=== PATIENT | male | born 1975 | race Caucasian/White ===

== ENCOUNTER 2017-02-07 08:26 | Emergency (ER) | payer OTHER ==
[2017-02-07 08:26] VITALS: BMI 25.0
[2017-02-07 08:35] VITALS: TEMP 98.3
[2017-02-07] MEDS ORDERED: Sodium Chloride 0.9% 1,000 ML IV ONE (08:54)
[2017-02-07] MEDS ORDERED: Sodium Chloride 0.9% 1,000 ML ONE (08:59)
[2017-02-07 09:21] LABS: BASO % 0.8 % (0.0-2.0); EOS # 0.3 K/uL (0.0-0.7); EOS % 12.8 % (0.0-4.0); HEMATOCRIT 40.9 % (35.0-51.0); LYMPH # 1.2 K/uL (1.0-4.3); LYMPH % 48.5 % (20.0-40.0); MEAN CELL VOLUME 86.3 fL (80.0-94.0); MEAN CORPUSCULAR HEMOGLOBIN 29.3 pg (27.0-31.0); MEAN CORPUSCULAR HGB CONC 33.9 g/dL (33.0-37.0); MEAN PLATELET VOLUME 8.9 fL (7.2-11.7); MONO # 0.4 K/uL (0.0-0.8); MONO % 17.6 % (0.0-10.0); NRBC % 0.2 % (0.0-2.0); RED CELL DISTRIBUTION WIDTH 14.4 % (11.5-14.5); WHITE BLOOD COUNT 2.4 K/uL (4.8-10.8)
[2017-02-07] MEDS ORDERED: Multivitamin (MVI) 10 ML, Thiamine 100 MG, Folic Acid 1 MG in Sodium Chloride 0.9% 1,00... IV ONE (09:25)
[2017-02-07 09:26] LABS: CHLORIDE 109 mmol/L (98-107); SODIUM 139 mmol/L (132-148)
[2017-02-07 09:27] LABS: POTASSIUM 3.3 mmol/L (3.6-5.2)
[2017-02-07 09:28] LABS: GFR AFRICAN-AMERICAN > 60; INR 1.4
[2017-02-07 09:29] LABS: ALB/GLOB RATIO 0.8 (1.0-2.1); ALKALINE PHOSPHATASE 240 U/L (38-126); ALT/SGPT 62 U/L (21-72); AST/SGOT 113 U/L (17-59); BLOOD UREA NITROGEN 7 mg/dL (9-20); CARBON DIOXIDE 20 mmol/L (22-30); GLUCOSE,RANDOM 87 mg/dL (75-110); TOTAL PROTEIN 6.2 g/dL (6.3-8.3)
[2017-02-07 09:30] LABS: CALCIUM 7.7 mg/dl (8.6-10.4)
--- NOTE | 2017-02-07 09:57 | C.PDOC ---
History Of Present Illness Patient is a 41 y/o male, whose PMHx includes Alcohol abuse, Hepatic encephalopathy, Cirrhosis, Hepatitis C, HTN, presents to the ED for evaluation of intermittent epigastric abdominal pain associated with nausea, vomiting for the last 3 days. As per family member, pt's symptoms worsened "last night after drinking heavily for Easter celebration". At present time, pt appears in pain, uncomfortable, awake, alert#3, pt denies fever, chills, drooling, CP, SOB, dyspnea, diaphoresis, palpitation, hematemesis, melena, hematoschezia, back pain , UTI sx. Pt and family also reports, noted some bruising on body. Time Seen by Provider: 02/07/17 08:39 Chief Complaint (Nursing): Abdominal Pain History Per: Patient History/Exam Limitations: no limitations Onset/Duration Of Symptoms: Days (3) Current Symptoms Are (Timing): Still Present Location Of Pain/Discomfort: Epigastric Radiation Of Pain To:: None Quality Of Discomfort: Burning, "Pain" Associated Symptoms: Nausea, Vomiting. denies: Fever, Chills, Diarrhea, Loss Of Appetite, Back Pain, Chest Pain, Constipation, Urinary Symptoms Exacerbating Factors: None Alleviating Factors: None Recent travel outside of the [place]: No Additional History Per: Patient Past Medical History Reviewed: Historical Data, Nursing Documentation, Vital Signs Vital Signs: Last Vital Signs Temp 98.3 F 02/07/17 11:45 Pulse 78 02/07/17 12:40 Resp 17 02/07/17 11:45 BP 124/77 02/07/17 11:45 Pulse Ox 100 02/07/17 11:45 - Medical History PMH: Hepatitis (C), HTN, Kidney Stones (burning with urination), Chronic Kidney Disease - [facility] Procedures CLOSURE SKIN & SUBCUTANEOUS NEC (06/19/15) DETOXIFICATION SERVICES FOR SUBSTANCE ABUSE TREATMENT (12/22/15) DRAINAGE OF SPINAL CANAL, PERCUTANEOUS APPROACH, DIAGNOSTIC (03/30/16) EXCISION OF STOMACH, ENDO, DIAGN (09/12/16) TETANUS TOXOID ADMINIST (06/19/15) Family History: States: Unknown Family Hx - Social History Hx Tobacco Use: Yes Hx Alcohol Use: Yes Hx Substance Use: No - Immunization History Hx Tetanus Toxoid Vaccination: No Hx Influenza Vaccination: No Hx Pneumococcal Vaccination: No Review Of Systems Except As Marked, All Systems Reviewed And Found Negative. Constitutional: Negative for: Fever, Chills Cardiovascular: Negative for: Chest Pain Respiratory: Negative for: Shortness of Breath Gastrointestinal: Positive for: Nausea, Vomiting, Abdominal Pain (epigastric). Negative for: Diarrhea, Constipation, Hematemesis Genitourinary: Negative for: Dysuria, Frequency, Hematuria Musculoskeletal: Negative for: Back Pain Physical Exam - Physical Exam Appears: No Acute Distress Skin: Warm, Dry, Ecchymosis (superficial ecchymosis to left inner thigh and right forearm) Head: Atraumatic, Normacephalic Eye(s): bilateral: PERRL, EOMI, Scleral Icterus Nose: Normal Oral Mucosa: Dry, No Drooling, Other ((+)strong alcohol odor) Tongue: Normal Appearing Throat: Normal Neck: Normal, Normal ROM, Supple Chest: Symmetrical, No Tenderness Cardiovascular: Rhythm Regular Respiratory: Normal Breath Sounds, No Rales, No Rhonchi, No Wheezing Gastrointestinal/Abdominal: Soft, Tenderness (mild RUQ, and epigastric), No Organomegaly, No Mass, No Guarding, No Rebound Back: Normal Inspection Extremity: Swelling (B/L trace ankle edema.) Extremity: Bilateral: Normal ROM Neurological/Psych: Oriented x3, Normal Speech, Normal Cognition, Normal Motor, Normal Sensation, Normal Reflexes ED Course And Treatment - Laboratory Results Result Diagrams: 02/07/17 09:13 02/07/17 09:13 Lab Interpretation: Abnormal ECG: Interpreted By Me, Viewed By Me (and ED attending) Interpretation Of ECG: SR@85/min, LVH, no acute T wave or ST-T changes. O2 Sat by Pulse Oximetry: 98 (on RA) Pulse Ox Interpretation: Normal Progress Note: Labs ordered and reviewed. Patient was treated with IV fluids, Pepcid IVP, Pantoprazole IVP, and Zofran inj. Pt remained hemodynamicaly stable , while in ED. Diagnostics reivew and discussed with ED attending, admission recommnend. Case discussed withpt's PMD Dr. Will and admission arrnaged with Dx: Ammonemia, Cirrosis, E-lytes abnoramlities, hx of hepatoc encephalopathy. Disposition - Disposition Disposition: HOSPITALIZED Disposition Time: 10:45 Condition: FAIR - Clinical Impression Clinical Impression: Hepatic encephalopathy, Alcohol intoxication, Increased ammonia level, Electrolyte abnormality - PA / EMPLOYMENT PROGRAMS ANALYST / Resident Statement MD/DO has reviewed & agrees with the documentation as recorded. - Scribe Statement The provider has reviewed the documentation as recorded by the Scribe Nas Allen All medical record entries made by the Cristinibguadalupe were at my direction and personally dictated by me. I have reviewed the chart and agree that the record accurately reflects my personal performance of the history, physical exam, medical decision making, and the department course for this patient. I have also personally directed, reviewed, and agree with the discharge instructions and disposition.
[2017-02-07 11:45] VITALS: BP 124/77; RESP 17
[2017-02-07 12:01] LABS: URINE BILIRUBIN NEGATIVE (NEGATIVE); URINE BLOOD NEGATIVE (NEGATIVE); URINE COLOR Yellow (YELLOW); URINE GLUCOSE (UA) NORMAL (Normal); URINE KETONE NEGATIVE (NEGATIVE); URINE LEUKOCYTE ESTERASE NEG Leu/uL (Negative); URINE PROTEIN NEGATIVE (NEGATIVE); URINE UROBILINOGEN NORMAL mg/dL (0.2-1.0); WBC URINE < 1 /hpf (0-5)
[2017-02-07 13:14] VITALS: PULSE 78
[2017-02-07 17:53] VITALS: O2SAT 98
--- NOTE | 2017-02-09 07:59 | CARD ---
APPROVED REPORT EKG Measurement Heart [id number] <Conclusion> Normal sinus rhythm Minimal voltage criteria for LVH, may be normal variant Borderline ECG
== END 2017-02-07 14:09 | disposition left against medical advice (07) ==
LOC: C.ER 08:26 → C.9E 10:40 → UNDOADMIN 10:40 → C.6T 11:33 → C.9E 11:33 → C.ER 14:09 → UNDODISIN 14:09
DX: K72.90 Hepatic failure, unspecified without coma (principal); F10.129 Alcohol abuse with intoxication, unspecified; Y90.0 Blood alcohol level of less than 20 mg/100 ml; R79.89 Other specified abnormal findings of blood chemistry; E87.8 Other disorders of electrolyte and fluid balance, not elsewhere classified
CPT/HCPCS: 80053; 80320; 80324; 80345; 80346; 80349; 80353; 80358; 80361; 81001; 82140; 83690; 83992; 85025; 85610; 85730; 93005; 96361; 96374; 96375; 99285; C9113; J2405; J3411; J7040

== ENCOUNTER 2017-07-13 19:14 | Emergency (ER) | payer OTHER ==
[2017-07-13 19:16] VITALS: BMI 25.0
[2017-07-13 20:39] LABS: RBC URINE 35 /hpf (0-3); URINE BACTERIA FEW (<OCC); URINE BILIRUBIN NEGATIVE (NEGATIVE); URINE BLOOD 1+ (NEGATIVE); URINE COLOR Amber (YELLOW); URINE GLUCOSE (UA) NORMAL (Normal); URINE KETONE NEGATIVE (NEGATIVE); URINE LEUKOCYTE ESTERASE NEG Leu/uL (Negative); URINE PROTEIN NEGATIVE (NEGATIVE); WBC URINE 7 /hpf (0-5)
[2017-07-13] MEDS ORDERED: Sodium Chloride 0.9% 1,000 ML IV ONE (21:22)
[2017-07-13] MEDS ORDERED: Sodium Chloride 0.9% 1,000 ML ONE (21:31)
[2017-07-13] MEDS ORDERED: Morphine 4 MG/ML VIAL ONE (21:31)
[2017-07-13 21:49] LABS: BASO % 0.6 % (0.0-2.0); EOS # 0.3 K/uL (0.0-0.7); EOS % 7.7 % (0.0-4.0); HEMATOCRIT 40.3 % (35.0-51.0); LYMPH # 1.6 K/uL (1.0-4.3); LYMPH % 39.9 % (20.0-40.0); MEAN CORPUSCULAR HEMOGLOBIN 29.2 pg (27.0-31.0); MONO # 0.8 K/uL (0.0-0.8); MONO % 20.7 % (0.0-10.0); NRBC % 0.1 % (0.0-2.0); PLATELET COUNT 176 K/uL (130-400); RED CELL DISTRIBUTION WIDTH 13.8 % (11.5-14.5); WHITE BLOOD COUNT 3.9 K/uL (4.8-10.8)
[2017-07-13 22:00] LABS: CHLORIDE 111 mmol/L (98-107)
[2017-07-13 22:01] LABS: POTASSIUM 3.5 mmol/L (3.6-5.2); SODIUM 138 mmol/L (132-148)
[2017-07-13 22:03] LABS: ALB/GLOB RATIO 0.7 (1.0-2.1); ALKALINE PHOSPHATASE 202 U/L (38-126); AST/SGOT 74 U/L (17-59); BILIRUBIN,TOTAL 1.3 mg/dL (0.2-1.3); BLOOD UREA NITROGEN 8 mg/dL (9-20); CARBON DIOXIDE 21 mmol/L (22-30); GFR AFRICAN-AMERICAN > 60; GLUCOSE,RANDOM 91 mg/dL (75-110); TOTAL PROTEIN 6.5 g/dL (6.3-8.3)
[2017-07-13 22:04] LABS: ALT/SGPT 41 U/L (21-72); CALCIUM 7.7 mg/dl (8.6-10.4)
[2017-07-13 22:11] LABS: INR 1.4
--- NOTE | 2017-07-13 23:10 | CT ---
EXAM: CT Abdomen and Pelvis Without Intravenous Contrast CLINICAL HISTORY: 41 years old, male; Pain; Abdominal pain; Flank; Left lower quadrant (llq); Additional info: Left flank pain, microscopic hematuria TECHNIQUE: Axial computed tomography images of the abdomen and pelvis without intravenous contrast. All CT scans at this facility use one or more dose reduction techniques, viz.: automated exposure control; ma/kV adjustment per patient size (including targeted exams where dose is matched to indication; i.e. head); or iterative reconstruction technique. Coronal and sagittal reformatted images were created and reviewed. COMPARISON: CT - CHEST,ABD,PEL W/IV CONT ONLY 04/06/2016 7:09:42 PM FINDINGS: Lower thorax: Irregular nodules within the left lung base, an interval change from previous examination. The largest nodule measures 13 mm in greatest dimension (series 5, image 34). ABDOMEN: Liver: No acute findings Gallbladder and bile ducts: The gallbladder is minimally distended, without calcified stones. No intra-extrahepatic biliary ductal dilation. Pancreas: Limited evaluation secondary to the lack of intravenous contrast. Spleen: No acute findings. Adrenals: No acute findings. Kidneys and ureters: No obstructing stones. No hydronephrosis. PELVIS: Bladder: No acute findings. Reproductive: No acute findings. Appendix: The appendix is not definitively visualized, however no pericecal inflammatory change is identified to suggest the presence of acute appendicitis. ABDOMEN and PELVIS: Stomach and bowel: No acute findings. Peritoneum: No acute findings. Lymph nodes: Multiple minimally enlarged lymph nodes are again identified within the root of the mesentery and the retroperitoneum. Vasculature: No aortic aneurysm. Bones: No acute fracture. IMPRESSION: No obstructive uropathy. Multiple irregular nodules within the left lung base, the largest measuring 13 mm. ACR White Paper guidelines (Mellholeonela, et al. Radiology 2017; 284(1):228-43) suggest the following. For low-risk patients recommend follow-up chest CT at 3-6 months. If unchanged consider an additional follow-up CT at 18-24 months. For high-risk patients initial follow-up chest CT at 3-6 months and if unchanged, 18-24 months.
[2017-07-13 23:27] LABS: EOSINOPHIL 6 % (0-4); NEUTROPHIL 28 % (50-75); TOTAL CELLS COUNTED 100
[2017-07-13 23:28] LABS: SMUDGE CELLS PRESENT
--- NOTE | 2017-07-13 23:39 | C.PDOC ---
History Of Present Illness Pt c/o left flank pain. Time Seen by Provider: 07/13/17 20:27 Chief Complaint (Nursing): Back Pain History Per: Patient, Family Onset/Duration Of Symptoms: Days (about 1 week) Current Symptoms Are (Timing): Still Present Quality Of Discomfort: "Pain" Severity: Moderate Additional History Per: Prior Records Past Medical History Reviewed: Historical Data, Nursing Documentation, Vital Signs Vital Signs: Last Vital Signs Temp 97.7 F 07/13/17 21:30 Pulse 86 07/13/17 21:30 Resp 18 07/13/17 21:30 BP 136/78 07/13/17 21:30 Pulse Ox 98 07/13/17 23:39 - Medical History PMH: Hepatitis (C), HTN, Kidney Stones (burning with urination), Chronic Kidney Disease Other PMH: Liver Cirrhosis - [facility] Procedures CLOSURE SKIN & SUBCUTANEOUS NEC (06/19/15) DETOXIFICATION SERVICES FOR SUBSTANCE ABUSE TREATMENT (12/22/15) DRAINAGE OF SPINAL CANAL, PERCUTANEOUS APPROACH, DIAGNOSTIC (03/30/16) EXCISION OF STOMACH, ENDO, DIAGN (09/12/16) TETANUS TOXOID ADMINIST (06/19/15) Family History: States: Unknown Family Hx - Social History Hx Tobacco Use: Yes Hx Alcohol Use: Yes Hx Substance Use: No - Immunization History Hx Tetanus Toxoid Vaccination: No Hx Influenza Vaccination: No Hx Pneumococcal Vaccination: No Review Of Systems Except As Marked, All Systems Reviewed And Found Negative. Constitutional: Negative for: Fever Cardiovascular: Negative for: Chest Pain Respiratory: Negative for: Shortness of Breath Gastrointestinal: Negative for: Vomiting, Abdominal Pain Genitourinary: Negative for: Dysuria Musculoskeletal: Negative for: Neck Pain Skin: Negative for: Rash Neurological: Negative for: Weakness, Numbness Physical Exam - Physical Exam Appears: No Acute Distress, Chronically Ill Skin: Warm, Dry, No Rash Head: Atraumatic, Normacephalic Eye(s): bilateral: PERRL, EOMI Neck: Normal ROM, Supple Cardiovascular: Rhythm Regular Respiratory: Normal Breath Sounds, No Accessory Muscle Use Gastrointestinal/Abdominal: Soft, No Tenderness Back: No CVA Tenderness Extremity: Normal ROM Neurological/Psych: Oriented x3, Normal Motor, Normal Sensation ED Course And Treatment - Laboratory Results Result Diagrams: 07/13/17 21:41 07/13/17 21:41 Interpretation Of Abnormal: Possible UTI. Urine C&S sent. O2 Sat by Pulse Oximetry: 98 Pulse Ox Interpretation: Normal - CT Scan/US CT abd/pelv Other Rad Studies (CT/US): Read By Radiologist, Radiology Report Reviewed CT/US Interpretation: IMPRESSION: . No obstructive uropathy. Multiple irregular nodules within the left lung base, the largest measuring 13. mm. ACR White Paper guidelines (MacMahon, et al. Radiology 2017; 284(1):228-43). suggest the following. For low-risk patients recommend follow-up chest CT at. 3-6 months. If unchanged consider an additional follow-up CT at 18-24 months. For high-risk patients initial follow-up chest CT at 3-6 months and if. unchanged, 18-24 months. Disposition Counseled Patient/Family Regarding: Studies Performed, Diagnosis, Need For Followup, Rx Given - Disposition Referrals: Cabrera Amos MD [Non-Staff] - Disposition: HOME/ ROUTINE Disposition Time: 23:50 Condition: IMPROVED Additional Instructions: Follow up with your doctor for further evaluation and treatment. Return to the ER if you develop fever, vomiting, worsening of symptoms or if you have any other concerns. Prescriptions: Cephalexin [cephalexin] 500 mg PO BID #14 cap Tramadol HCl [Ultram] 50 mg PO BID PRN #10 tablet PRN Reason: Pain, Moderate (4-7) Instructions: Flank Pain (ED) Forms: [employer] (Indonesian) - Clinical Impression Clinical Impression: Left flank pain, Pulmonary nodule, left
[2017-07-13 23:45] VITALS: BP 144/85; PULSE 76; RESP 20; TEMP 98
[2017-07-13 23:47] VITALS: O2SAT 98
== END 2017-07-13 23:57 | disposition home or self-care (01) ==
LOC: C.ER 19:14
DX: R10.9 Unspecified abdominal pain (principal); R91.1 Solitary pulmonary nodule
CPT/HCPCS: 74176; 80053; 81001; 83690; 85025; 85610; 85730; 87086; 96361; 96374; 99284; J2270; J7040

== ENCOUNTER 2017-07-22 20:45 | Inpatient (IN) | payer OTHER ==
[2017-07-22 20:46] VITALS: BMI 25.0
[2017-07-22] MEDS ORDERED: Sodium Chloride 0.9% 1,000 ML IV ONE (22:03)
--- NOTE | 2017-07-22 22:03 | C.PDOC ---
History Of Present Illness Patient with a Hx of hepatitis C presents to the ER with a complaint of generalized body aches and vomiting with some blood since yesterday. Patient reports he continues to drink and is requesting morphine for the pain. Denies fever or chills. Time Seen by Provider: 07/22/17 22:02 Chief Complaint (Nursing): GI Problem History Per: Patient History/Exam Limitations: no limitations Onset/Duration Of Symptoms: Days Current Symptoms Are (Timing): Still Present Severity: Mild Pain Scale Rating Of: 4 Location Of Pain/Discomfort: RUQ Radiation Of Pain To:: None Quality Of Discomfort: Unable To Describe Associated Symptoms: Vomiting, Other (Body aches). denies: Fever, Chills Exacerbating Factors: None Alleviating Factors: None Recent travel outside of the [place]: No Additional History Per: Family Past Medical History Reviewed: Historical Data, Nursing Documentation, Vital Signs Vital Signs: Last Vital Signs Temp 98.6 F 07/22/17 21:00 Pulse 81 07/22/17 21:57 Resp 19 07/22/17 21:57 BP 138/82 07/22/17 21:57 Pulse Ox 97 07/22/17 22:29 - Medical History PMH: Hepatitis (C), HTN, Kidney Stones (burning with urination), Chronic Kidney Disease Surgical History: No Surg Hx - [facility] Procedures CLOSURE SKIN & SUBCUTANEOUS NEC (06/19/15) DETOXIFICATION SERVICES FOR SUBSTANCE ABUSE TREATMENT (12/22/15) DRAINAGE OF SPINAL CANAL, PERCUTANEOUS APPROACH, DIAGNOSTIC (03/30/16) EXCISION OF STOMACH, ENDO, DIAGN (09/12/16) TETANUS TOXOID ADMINIST (06/19/15) Family History: States: Unknown Family Hx - Social History Hx Tobacco Use: Yes Hx Alcohol Use: Yes Hx Substance Use: No - Immunization History Hx Tetanus Toxoid Vaccination: No Hx Influenza Vaccination: No Hx Pneumococcal Vaccination: No Review Of Systems Constitutional: Negative for: Fever, Chills Eyes: Negative for: Redness Cardiovascular: Negative for: Chest Pain Respiratory: Negative for: Shortness of Breath Gastrointestinal: Positive for: Vomiting, Abdominal Pain Genitourinary: Negative for: Dysuria Musculoskeletal: Positive for: Other (Body aches) Skin: Negative for: Rash Neurological: Negative for: Weakness Psych: Negative for: Anxiety Physical Exam - Physical Exam Appears: Non-toxic Skin: Warm, Dry Head: Normacephalic Eye(s): bilateral: Normal Inspection Oral Mucosa: Moist Neck: Supple Chest: Symmetrical, No Tenderness Cardiovascular: Rhythm Regular Respiratory: No Rales, No Rhonchi, No Wheezing Gastrointestinal/Abdominal: Soft, Tenderness (RUQ), Distention, No Guarding, No Rebound Back: No CVA Tenderness Extremity: No Tenderness Extremity: Bilateral: Atraumatic Pulses: Left Dorsalis Pedis: Normal, Right Dorsalis Pedis: Normal Neurological/Psych: Oriented x3, Normal Speech, Normal Cognition Gait: Unsteady ED Course And Treatment - Laboratory Results Result Diagrams: 07/22/17 22:25 07/22/17 22:25 O2 Sat by Pulse Oximetry: 97 (Room air) Pulse Ox Interpretation: Normal Progress Note: Blood work and urinalysis ordered. Zofran, protonix, and IV fluids administered. Disposition Discussed With DrMary: Harshad Allen Comment: accepted the pt on his service and took over the care at 12AM Doctor Will See Patient In The: Hospital Counseled Patient/Family Regarding: Studies Performed, Diagnosis - Disposition Disposition: HOSPITALIZED Disposition Time: 22:03 Condition: FAIR Forms: [employer] (Upper Sorbian) - POA Present On Arrival: None - Clinical Impression Clinical Impression: Liver disease, Increased ammonia level, Abdominal pain, EtOH dependence - Scribe Statement The provider has reviewed the documentation as recorded by the Scribguadalupe Figueroa All medical record entries made by the Scribe were at my direction and personally dictated by me. I have reviewed the chart and agree that the record accurately reflects my personal performance of the history, physical exam, medical decision making, and the department course for this patient. I have also personally directed, reviewed, and agree with the discharge instructions and disposition. Decision To Admit - Pt Status Changed To: Hospital Disposition Of: Inpatient - Admit Certification Admit to Inpatient:: After my assessment, the patient will require hospitalization for at least two midnights. This is because of the severity of symptoms shown, intensity of services needed, and/or the medical risk in this patient being treated as an outpatient. - InPatient: Physician Admission Certification:: After my assessment, the patient will require hospitalization for at least two midnights. This is because of the severity of symptoms shown, intensity of services needed, and/or the medical risk in this patient being treated as an outpatient. - . Bed Request Type: Regular Admitting Physician: Harshad Allen Patient Diagnosis: Liver disease, Increased ammonia level, Abdominal pain, EtOH dependence
[2017-07-22] MEDS ORDERED: Sodium Chloride 0.9% 1,000 ML ONE (22:22)
[2017-07-22 22:31] LABS: EOS # 0.2 K/uL (0.0-0.7); MONO # 0.5 K/uL (0.0-0.8)
[2017-07-22 22:47] LABS: INR 1.3
[2017-07-22] MEDS ORDERED: Morphine 4 MG/ML VIAL IV ONE (22:47)
[2017-07-22 22:50] LABS: CHLORIDE 103 mmol/L (98-107); POTASSIUM 3.6 mmol/L (3.6-5.2); SODIUM 140 mmol/L (132-148)
[2017-07-22 22:52] LABS: GFR AFRICAN-AMERICAN > 60
[2017-07-22 22:53] LABS: ALB/GLOB RATIO 0.8 (1.0-2.1); ALKALINE PHOSPHATASE 229 U/L (38-126); ALT/SGPT 40 U/L (21-72); AST/SGOT 78 U/L (17-59); BILIRUBIN,TOTAL 1.9 mg/dL (0.2-1.3); BLOOD UREA NITROGEN 8 mg/dL (9-20); CALCIUM 8.2 mg/dl (8.6-10.4); CARBON DIOXIDE 25 mmol/L (22-30); GLUCOSE,RANDOM 101 mg/dL (75-110); TOTAL PROTEIN 7.1 g/dL (6.3-8.3)
[2017-07-22 22:54] LABS: ALCOHOL SERUM < 10 mg/dl (0-10)
[2017-07-22 23:10] LABS: BASO % 0.7 % (0.0-2.0); EOS % 7.6 % (0.0-4.0); HEMATOCRIT 41.2 % (35.0-51.0); LYMPH % 37.4 % (20.0-40.0); MEAN CELL VOLUME 85.4 fL (80.0-94.0); MEAN PLATELET VOLUME 8.9 fL (7.2-11.7); MONO % 20.7 % (0.0-10.0); NRBC % 0.3 % (0.0-2.0); PLATELET COUNT 180 K/uL (130-400); RED CELL DISTRIBUTION WIDTH 13.9 % (11.5-14.5); WHITE BLOOD COUNT 2.6 K/uL (4.8-10.8)
[2017-07-23] MEDS ORDERED: Pantoprazole 80 MG in Sodium Chloride 0.9% 100 ML IVP SCH (00:15)
[2017-07-23] MEDS: Pantoprazole 80 MG in Sodium Chloride 0.9% 100 ML IVPB SCH ×2 (00:50→01:30)
[2017-07-23 01:08] LABS: BASOPHIL 1 % (0-2); EOSINOPHIL 7 % (0-4); NEUTROPHIL 40 % (50-75); REACTIVE LYMPHOCYTES 4 % (0-0); TOTAL CELLS COUNTED 100
[2017-07-23] MEDS: Folic Acid 1 MG, Thiamine 100 MG, Multivitamin (MVI) 10 ML in Dextrose 5% In Water 1,00... IV SCH ×2 (02:30→19:38)
[2017-07-23] MEDS: HYDROmorphone 0.5 mg/0.5 ml ISec IVP PRN ×3 (04:28→20:43)
--- NOTE | 2017-07-23 08:31 | CP.PCM.CON ---
<Amish Kern - Last Filed: 07/23/17 09:03> History of Present Illness - History of Present Illness History of Present Illness: PGY5 GI Fellow Consult Note Patient is a 41yo male with PMHx significant for decompensated cirrhosis 2/2 EtOH abuse (use as recent as day prior to admission) complicated by hepatic encephalopathy, DM2, H pylori gastritis, portal hypertensive gastropathy, chronic neck/back pain who presented to the ED with abdominal pain, nausea and subjective hematemesis. At present, the patient is lethargic and delayed in his responses, consistent with his history of HE. The patient states that he suddenly developed RUQ and epigastric abdominal pain after eating lunch yesterday. He immediately lost his appetite and has not been able to eat since. States that he had multiple episodes of vomiting with the last two episodes containing bloody emesis, prompting him to come to the ED. Admits to constipation and has not passed BM in at least 2 days. The patient has been seen multiple times in our facility and continues to drink EtOH, admitting to drinking up until yesterday. He has previously followed with Dr Salvador at [facility]. Currently, he admits to continued nausea and now feels dizzy. Denies any further hematemesis, melena, hematochezia, weight loss. PMHx: See HPI PSHx: Discussed with patient and he denies any past surgical history FHx: Discussed with patient and he denies any pertinent family history Social: Continued, heavy EtOH abuse up until admission; 1ppd smoker, denies illicit drug use Endo: EGD in 08/2016 - H pylori gastritis, portal HTN gastropathy, no evidence of esophageal or gastric varices at that time Review of Systems - Constitutional Constitutional: Anorexia. absent: Chills, Fever, Weight Loss - EENT Eyes: absent: Change in Vision Nose/Mouth/Throat: absent: Sore Throat - Cardiovascular Cardiovascular: absent: Chest Pain, Dyspnea, Dyspnea on Exertion - Respiratory Respiratory: absent: Cough, Dyspnea, Excessive Mucous Production - Gastrointestinal Gastrointestinal: Abdominal Pain, Bloating, Constipation, Hematemesis, Nausea, Vomiting. absent: Cramping, Diarrhea, Dyspepsia, Dysphagia, Hematochezia - Genitourinary Genitourinary: absent: Dysuria, Urinary Frequency, Urinary Urgency - Musculoskeletal Musculoskeletal: Back Pain, Neck Pain - Integumentary Integumentary: absent: New Lesions, Rash - Neurological Neurological: Dizziness. absent: Numbness, Focal Weakness - Psychiatric Psychiatric: absent: Anxiety, Depression - Endocrine Endocrine: absent: Polydipsia, Polyphagia, Polyuria - Hematologic/Lymphatic Hematologic: absent: Easy Bleeding, Easy Bruising, Lymphadenopathy Past Patient History - Infectious Disease Hx of Infectious Diseases: None - Past Medical History & Family History Past Medical History?: Yes - Past Social History Smoking Status: Heavy Smoker > 10 Cigarettes Daily - CARDIAC Hx Hypertension: Yes - PULMONARY Hx Respiratory Disorders: No - NEUROLOGICAL Hx Neurological Disorder: No - HEENT Hx HEENT Problems: No - RENAL Hx Chronic Kidney Disease: Yes Hx Kidney Stones: Yes (burning with urination) - ENDOCRINE/METABOLIC Hx Endocrine Disorders: Yes Hx Diabetes Mellitus Type 1: Yes (pt says he "receives pills") - HEMATOLOGICAL/ONCOLOGICAL Hx Blood Disorders: Yes Hx Hepatitis C: Yes Other/Comment: liver problem, liver failure - INTEGUMENTARY Hx Dermatological Problems: No - MUSCULOSKELETAL/RHEUMATOLOGICAL Hx Musculoskeletal Disorders: Yes Hx Falls: Yes - GASTROINTESTINAL Hx Gastrointestinal Disorders: Yes Other/Comment: Liver disease - GENITOURINARY/GYNECOLOGICAL Hx Genitourinary Disorders: No - PSYCHIATRIC Hx Psychophysiologic Disorder: No Hx Substance Use: No - SURGICAL HISTORY Hx Surgeries: No - ANESTHESIA Hx Anesthesia: No Hx Anesthesia Reactions: No Hx Malignant Hyperthermia: No Has any member of the family had a problem w/ anesthesia?: No Meds Allergies/Adverse Reactions: Allergies Allergy/AdvReac Type Severity Reaction Status Date / Time No Known Allergies Allergy Verified 07/22/17 21:08 - Medications Medications: Current Medications Enoxaparin Sodium (Lovenox) 40 mg SC DAILY [facility] Hydromorphone HCl (Dilaudid) 0.5 mg IVP Q8H PRN PRN Reason: for moderate to severe pain Last Admin: 07/23/17 04:28 Dose: 0.5 mg Folic Acid 1 mg/ Thiamine HCl 100 mg/ Multivitamins/Vitamin C 10 ml/ Dextrose 1 ,011.2 mls @ 60 mls/hr IV .[id number] [facility] Last Admin: 07/23/17 02:30 Dose: 60 mls/hr Lactulose (Enulose) 20 gm PO BID [facility] Pantoprazole Sodium (Protonix Ec Tab) 40 mg PO ACB RON Pneumococcal Polyvalent Vaccine (Pneumovax 23 Vaccine) 0.5 ml IM .ONCE ONE Stop: 07/24/17 10:01 Physical Exam - Constitutional Appears: No Acute Distress, Confused - Eye Exam Eye Exam: EOMI, PERRL - ENT Exam ENT Exam: Mucous Membranes Dry - Respiratory Exam Respiratory Exam: Clear to Auscultation Bilateral. absent: Rales, Rhonchi, Wheezes - Cardiovascular Exam Cardiovascular Exam: RRR, +S1, +S2 - GI/Abdominal Exam GI & Abdominal Exam: Normal Bowel Sounds, Organomegaly, Soft, Tenderness ( epigastric). absent: Distended, Firm, Guarding, Rigid - Rectal Exam Additional comments: refused by patient - Extremities Exam Extremities exam: Positive for: normal inspection. Negative for: pedal edema - Neurological Exam Neurological exam: Altered - Psychiatric Exam Psychiatric exam: Flat Affect - Skin Skin Exam: Dry, Warm Results - Vital Signs Recent Vital Signs: Last Vital Signs Temp 97.7 F 07/23/17 08:20 Pulse 70 07/23/17 08:20 Resp 20 07/23/17 08:20 BP 146/87 07/23/17 08:20 Pulse Ox 99 07/23/17 08:20 - Labs Result Diagrams: 07/22/17 22:25 07/22/17 22:25 Labs: Laboratory Results - last 24 hr 07/22/17 07/22/17 07/22/17 22:25 22:25 22:25 WBC 2.6 L RBC 4.82 Hgb 14.0 Hct 41.2 MCV 85.4 MCH 29.0 MCHC 34.0 RDW 13.9 Plt Count 180 MPV 8.9 Neut % (Auto) 33.6 L Lymph % (Auto) 37.4 Barren % (Auto) 20.7 H Eos % (Auto) 7.6 H Baso % (Auto) 0.7 Neut # 0.9 L Lymph # 1.0 Barren # 0.5 Eos # 0.2 Baso # 0.0 Neutrophils % (Manual) 40 L Band Neutrophils % 2 Lymphocytes % (Manual) 29 Reactive Lymphs % 4 H Monocytes % (Manual) 17 H Eosinophils % (Manual) 7 H Basophils % (Manual) 1 Platelet Estimate Normal PT 14.4 H INR 1.3 APTT 33 Sodium 140 Potassium 3.6 Chloride 103 Carbon Dioxide 25 Anion Gap 15 BUN 8 L Creatinine 0.5 L Est GFR ( Amer) > 60 Est GFR (Non-Af Amer) > 60 Random Glucose 101 Calcium 8.2 L Total Bilirubin 1.9 H AST 78 H ALT 40 Alkaline Phosphatase 229 H Ammonia Total Protein 7.1 Albumin 3.2 L Globulin 3.9 Albumin/Globulin Ratio 0.8 L Lipase 261 Alcohol, Quantitative < 10 Blood Type Antibody Screen 07/22/17 07/22/17 22:25 22:25 WBC RBC Hgb Hct MCV MCH MCHC RDW Plt Count MPV Neut % (Auto) Lymph % (Auto) Barren % (Auto) Eos % (Auto) Baso % (Auto) Neut # Lymph # Barren # Eos # Baso # Neutrophils % (Manual) Band Neutrophils % Lymphocytes % (Manual) Reactive Lymphs % Monocytes % (Manual) Eosinophils % (Manual) Basophils % (Manual) Platelet Estimate PT INR APTT Sodium Potassium Chloride Carbon Dioxide Anion Gap BUN Creatinine Est GFR ( Amer) Est GFR (Non-Af Amer) Random Glucose Calcium Total Bilirubin AST ALT Alkaline Phosphatase Ammonia 234 H Total Protein Albumin Globulin Albumin/Globulin Ratio Lipase Alcohol, Quantitative Blood Type B POSITIVE Antibody Screen Negative Assessment & Plan - Assessment and Plan (Free Text) Assessment: Patient is a 41yo male with PMHx significant for decompensated cirrhosis 2/2 EtOH abuse (use as recent as day prior to admission) complicated by hepatic encephalopathy, DM2, H pylori gastritis, portal hypertensive gastropathy, chronic neck/back pain who presented to the ED with abdominal pain, nausea and subjective hematemesis -Abdominal pain, nausea and vomiting -Decompensated EtOH cirrhosis -Hepatic encephalopathy -EtOH abuse, ongoing -DM -Chronic neck/back pain Plan: -No active GI bleeding noted - HGB stable from prior, no episodes since admission, constipated, refused rectal exam -Continue with conservative therapy for now, symptomatic treatment - antiemetics , analgesia as needed -D/C Protonix gtt, start Protonix 40mg PO QAMAC -Lactulose 20g PO BID, titrate to 2-3 BM/day -Encourage EtOH cessation; CIWA if necessary - monitor for withdrawal but avoid over-sedation given HE -Consider Triple Phase CT liver for annual HCC screening - can be done electively -Will need EGD for variceal screening in August 2017 -2g Na diet -Follow up with primary pulp piler Dr Salvador at [facility] *MDF: 22.1 *MELD-Na: 12 - Date & Time Date: 07/23/17 Time: 07:00 <Messi Mario - Last Filed: 07/23/17 09:22> Meds - Medications Medications: Current Medications Enoxaparin Sodium (Lovenox) 40 mg SC DAILY [facility] Hydromorphone HCl (Dilaudid) 0.5 mg IVP Q8H PRN PRN Reason: for moderate to severe pain Last Admin: 07/23/17 04:28 Dose: 0.5 mg Folic Acid 1 mg/ Thiamine HCl 100 mg/ Multivitamins/Vitamin C 10 ml/ Dextrose 1 ,011.2 mls @ 60 mls/hr IV .[id number] RON Last Admin: 07/23/17 02:30 Dose: 60 mls/hr Lactulose (Enulose) 20 gm PO BID [facility] Pantoprazole Sodium (Protonix Ec Tab) 40 mg PO ACB RON Pneumococcal Polyvalent Vaccine (Pneumovax 23 Vaccine) 0.5 ml IM .ONCE ONE Stop: 07/24/17 10:01 Results - Vital Signs Recent Vital Signs: Last Vital Signs Temp 97.7 F 07/23/17 08:20 Pulse 70 07/23/17 08:20 Resp 20 07/23/17 08:20 BP 146/87 07/23/17 08:20 Pulse Ox 99 07/23/17 08:20 - Labs Result Diagrams: 07/22/17 22:25 07/22/17 22:25 Labs: Laboratory Results - last 24 hr 07/22/17 07/22/17 07/22/17 22:25 22:25 22:25 WBC 2.6 L RBC 4.82 Hgb 14.0 Hct 41.2 MCV 85.4 MCH 29.0 MCHC 34.0 RDW 13.9 Plt Count 180 MPV 8.9 Neut % (Auto) 33.6 L Lymph % (Auto) 37.4 Barren % (Auto) 20.7 H Eos % (Auto) 7.6 H Baso % (Auto) 0.7 Neut # 0.9 L Lymph # 1.0 Barren # 0.5 Eos # 0.2 Baso # 0.0 Neutrophils % (Manual) 40 L Band Neutrophils % 2 Lymphocytes % (Manual) 29 Reactive Lymphs % 4 H Monocytes % (Manual) 17 H Eosinophils % (Manual) 7 H Basophils % (Manual) 1 Platelet Estimate Normal PT 14.4 H INR 1.3 APTT 33 Sodium 140 Potassium 3.6 Chloride 103 Carbon Dioxide 25 Anion Gap 15 BUN 8 L Creatinine 0.5 L Est GFR ( Amer) > 60 Est GFR (Non-Af Amer) > 60 Random Glucose 101 Calcium 8.2 L Total Bilirubin 1.9 H AST 78 H ALT 40 Alkaline Phosphatase 229 H Ammonia Total Protein 7.1 Albumin 3.2 L Globulin 3.9 Albumin/Globulin Ratio 0.8 L Lipase 261 Alcohol, Quantitative < 10 Blood Type Antibody Screen 07/22/17 07/22/17 22:25 22:25 WBC RBC Hgb Hct MCV MCH MCHC RDW Plt Count MPV Neut % (Auto) Lymph % (Auto) Barren % (Auto) Eos % (Auto) Baso % (Auto) Neut # Lymph # Barren # Eos # Baso # Neutrophils % (Manual) Band Neutrophils % Lymphocytes % (Manual) Reactive Lymphs % Monocytes % (Manual) Eosinophils % (Manual) Basophils % (Manual) Platelet Estimate PT INR APTT Sodium Potassium Chloride Carbon Dioxide Anion Gap BUN Creatinine Est GFR ( Amer) Est GFR (Non-Af Amer) Random Glucose Calcium Total Bilirubin AST ALT Alkaline Phosphatase Ammonia 234 H Total Protein Albumin Globulin Albumin/Globulin Ratio Lipase Alcohol, Quantitative Blood Type B POSITIVE Antibody Screen Negative Attending/Attestation - Attestation I have personally seen and examined this patient.: Yes I have fully participated in the care of the patient.: Yes I have reviewed all pertinent clinical information: Yes Notes (Text): 07/23/17 09:18 41 year old male with h/o EtOH Cirrhosis, DM admitted with abdominal pain, vomiting, confusion. 1. Alcoholic cirrhosis 2. Hepatic encephalopathy Plan: -no overt signs of blood loss noted -start lactulose 20 qid -supportive measures -advance diet as tolerated
[2017-07-23] MEDS: Enoxaparin 40 mg Syringe SC SCH (09:54)
--- NOTE | 2017-07-23 16:47 | CP.PCM.HP ---
Past Patient History - Infectious Disease Hx of Infectious Diseases: None - Past Medical History & Family History Past Medical History?: Yes - Past Social History Smoking Status: Heavy Smoker > 10 Cigarettes Daily - CARDIAC Hx Hypertension: Yes - PULMONARY Hx Respiratory Disorders: No - NEUROLOGICAL Hx Neurological Disorder: No - HEENT Hx HEENT Problems: No - RENAL Hx Chronic Kidney Disease: Yes Hx Kidney Stones: Yes (burning with urination) - ENDOCRINE/METABOLIC Hx Endocrine Disorders: Yes Hx Diabetes Mellitus Type 1: Yes (pt says he "receives pills") - HEMATOLOGICAL/ONCOLOGICAL Hx Blood Disorders: Yes Hx Hepatitis C: Yes Other/Comment: liver problem, liver failure - INTEGUMENTARY Hx Dermatological Problems: No - MUSCULOSKELETAL/RHEUMATOLOGICAL Hx Musculoskeletal Disorders: Yes Hx Falls: Yes - GASTROINTESTINAL Hx Gastrointestinal Disorders: Yes Other/Comment: Liver disease - GENITOURINARY/GYNECOLOGICAL Hx Genitourinary Disorders: No - PSYCHIATRIC Hx Psychophysiologic Disorder: No Hx Substance Use: No - SURGICAL HISTORY Hx Surgeries: No - ANESTHESIA Hx Anesthesia: No Hx Anesthesia Reactions: No Hx Malignant Hyperthermia: No Has any member of the family had a problem w/ anesthesia?: No Meds Allergies/Adverse Reactions: Allergies Allergy/AdvReac Type Severity Reaction Status Date / Time No Known Allergies Allergy Verified 07/22/17 21:08 Physical Exam - Constitutional Appears: Well - Head Exam Head Exam: ATRAUMATIC, NORMAL INSPECTION, NORMOCEPHALIC - Eye Exam Eye Exam: EOMI, Normal appearance, PERRL Pupil Exam: NORMAL ACCOMODATION, PERRL - ENT Exam ENT Exam: Mucous Membranes Moist, Normal Exam - Neck Exam Neck exam: Positive for: Normal Inspection - Respiratory Exam Respiratory Exam: Decreased Breath Sounds - Cardiovascular Exam Cardiovascular Exam: REGULAR RHYTHM, +S1, +S2 - GI/Abdominal Exam GI & Abdominal Exam: Diminished Bowel Sounds, Soft - Rectal Exam Rectal Exam: Deferred Results - Vital Signs Recent Vital Signs: Last Vital Signs Temp 97.6 F 07/23/17 15:00 Pulse 84 07/23/17 15:00 Resp 20 07/23/17 15:00 BP 143/83 07/23/17 15:00 Pulse Ox 99 07/23/17 15:00 - Labs Result Diagrams: 07/22/17 22:25 07/22/17 22:25 Labs: Laboratory Results - last 24 hr 07/22/17 07/22/17 07/22/17 22:25 22:25 22:25 WBC 2.6 L RBC 4.82 Hgb 14.0 Hct 41.2 MCV 85.4 MCH 29.0 MCHC 34.0 RDW 13.9 Plt Count 180 MPV 8.9 Neut % (Auto) 33.6 L Lymph % (Auto) 37.4 [place] % (Auto) 20.7 H Eos % (Auto) 7.6 H Baso % (Auto) 0.7 Neut # 0.9 L Lymph # 1.0 [place] # 0.5 Eos # 0.2 Baso # 0.0 Neutrophils % (Manual) 40 L Band Neutrophils % 2 Lymphocytes % (Manual) 29 Reactive Lymphs % 4 H Monocytes % (Manual) 17 H Eosinophils % (Manual) 7 H Basophils % (Manual) 1 Platelet Estimate Normal PT 14.4 H INR 1.3 APTT 33 Sodium 140 Potassium 3.6 Chloride 103 Carbon Dioxide 25 Anion Gap 15 BUN 8 L Creatinine 0.5 L Est GFR ( Amer) > 60 Est GFR (Non-Af Amer) > 60 Random Glucose 101 Calcium 8.2 L Total Bilirubin 1.9 H AST 78 H ALT 40 Alkaline Phosphatase 229 H Ammonia Total Protein 7.1 Albumin 3.2 L Globulin 3.9 Albumin/Globulin Ratio 0.8 L Lipase 261 Alcohol, Quantitative < 10 Blood Type Antibody Screen 07/22/17 07/22/17 22:25 22:25 WBC RBC Hgb Hct MCV MCH MCHC RDW Plt Count MPV Neut % (Auto) Lymph % (Auto) [place] % (Auto) Eos % (Auto) Baso % (Auto) Neut # Lymph # [place] # Eos # Baso # Neutrophils % (Manual) Band Neutrophils % Lymphocytes % (Manual) Reactive Lymphs % Monocytes % (Manual) Eosinophils % (Manual) Basophils % (Manual) Platelet Estimate PT INR APTT Sodium Potassium Chloride Carbon Dioxide Anion Gap BUN Creatinine Est GFR ( Amer) Est GFR (Non-Af Amer) Random Glucose Calcium Total Bilirubin AST ALT Alkaline Phosphatase Ammonia 234 H Total Protein Albumin Globulin Albumin/Globulin Ratio Lipase Alcohol, Quantitative Blood Type B POSITIVE Antibody Screen Negative
[2017-07-24] MEDS: Pantoprazole 40 mg EC Tab PO SCH (08:28)
[2017-07-24] MEDS: Enoxaparin 40 mg Syringe SC SCH (09:33)
[2017-07-24] MEDS ORDERED: Pneumococcal 23-Valent Vaccine IM ONE (10:00)
[2017-07-24] MEDS ORDERED: Folic Acid 1 MG, Thiamine 100 MG, Multivitamin (MVI) 10 ML in Dextrose 5% In Water 1,00... IV SCH (10:00)
[2017-07-24 11:38] LABS: BASO % 0.6 % (0.0-2.0); EOS # 0.3 K/uL (0.0-0.7); EOS % 10.7 % (0.0-4.0); HEMATOCRIT 44.8 % (35.0-51.0); LYMPH % 34.3 % (20.0-40.0); MEAN CELL VOLUME 85.4 fL (80.0-94.0); MEAN CORPUSCULAR HEMOGLOBIN 29.1 pg (27.0-31.0); MEAN CORPUSCULAR HGB CONC 34.1 g/dL (33.0-37.0); MEAN PLATELET VOLUME 8.5 fL (7.2-11.7); MONO # 0.7 K/uL (0.0-0.8); MONO % 26.4 % (0.0-10.0); NRBC % 0.1 % (0.0-2.0); PLATELET COUNT 172 K/uL (130-400); RED CELL DISTRIBUTION WIDTH 13.9 % (11.5-14.5); WHITE BLOOD COUNT 2.8 K/uL (4.8-10.8)
[2017-07-24 11:44] LABS: INR 1.4
[2017-07-24 11:52] LABS: CHLORIDE 105 mmol/L (98-107)
[2017-07-24 11:53] LABS: POTASSIUM 3.8 mmol/L (3.6-5.2); SODIUM 137 mmol/L (132-148)
[2017-07-24 11:55] LABS: CARBON DIOXIDE 24 mmol/L (22-30); GFR AFRICAN-AMERICAN > 60
[2017-07-24 11:56] LABS: ALB/GLOB RATIO 0.8 (1.0-2.1); ALKALINE PHOSPHATASE 226 U/L (38-126); ALT/SGPT 43 U/L (21-72); AST/SGOT 63 U/L (17-59); BILIRUBIN,TOTAL 2.3 mg/dL (0.2-1.3); BLOOD UREA NITROGEN 4 mg/dL (9-20); CALCIUM 8.3 mg/dl (8.6-10.4); GLUCOSE,RANDOM 82 mg/dL (75-110); TOTAL PROTEIN 6.5 g/dL (6.3-8.3)
[2017-07-24 12:18] LABS: EOSINOPHIL 4 % (0-4); NEUTROPHIL 50 % (50-75); TOTAL CELLS COUNTED 100
--- NOTE | 2017-07-24 14:13 | CP.PCM.PN ---
Subjective - Date & Time of Evaluation Date of Evaluation: 07/24/17 Time of Evaluation: 08:40 - Subjective Subjective: clinically same Objective - Vital Signs/Intake and Output Vital Signs (last 24 hours): Temp Pulse Resp BP Pulse Ox 98 F 78 20 141/78 98 07/24/17 07:38 07/24/17 07:38 07/24/17 07:38 07/24/17 07:38 07/24/17 07:38 Intake and Output: 07/24/17 07/24/17 06:59 18:59 Intake Total 480 Balance 480 - Medications Medications: Current Medications Chlordiazepoxide (Librium) 25 mg PO BID [facility] Last Admin: 07/24/17 09:34 Dose: 25 mg Enoxaparin Sodium (Lovenox) 40 mg SC DAILY [facility] Last Admin: 07/24/17 09:33 Dose: 40 mg Hydromorphone HCl (Dilaudid) 0.5 mg IVP Q8H PRN PRN Reason: for moderate to severe pain Last Admin: 07/23/17 20:43 Dose: 0.5 mg Folic Acid 1 mg/ Thiamine HCl 100 mg/ Multivitamins/Vitamin C 10 ml/ Dextrose 1 ,011.2 mls @ 60 mls/hr IV Q24H [facility] Lactulose (Enulose) 20 gm PO QID [facility] Last Admin: 07/24/17 09:33 Dose: 20 gm Lactulose (Enulose) 200 gm LA TID [facility] Pantoprazole Sodium (Protonix Ec Tab) 40 mg PO ACB [facility] Last Admin: 07/24/17 08:28 Dose: 40 mg Pneumococcal Polyvalent Vaccine (Pneumovax 23 Vaccine) 0.5 ml IM .ONCE ONE Stop: 07/26/17 10:01 - Labs Labs: 07/24/17 11:29 07/24/17 11:29 PT 15.6 SECONDS (9.7-12.2) H 07/24/17 11:29 INR 1.4 07/24/17 11:29 APTT 33 SECONDS (21-34) 07/22/17 22:25 - Constitutional Appears: Well - Head Exam Head Exam: ATRAUMATIC, NORMAL INSPECTION, NORMOCEPHALIC - Eye Exam Eye Exam: EOMI, Normal appearance, PERRL Pupil Exam: NORMAL ACCOMODATION, PERRL - ENT Exam ENT Exam: Mucous Membranes Moist, Normal Exam - Neck Exam Neck Exam: Full ROM, Normal Inspection. absent: Lymphadenopathy - Respiratory Exam Respiratory Exam: Decreased Breath Sounds - Cardiovascular Exam Cardiovascular Exam: REGULAR RHYTHM, +S1, +S2 - GI/Abdominal Exam GI & Abdominal Exam: Soft, Diminished Bowel Sounds - Rectal Exam Rectal Exam: Deferred
--- NOTE | 2017-07-24 14:13 | CP.PCM.PN ---
<Chaparrita Allen - Last Filed: 07/24/17 14:23> Subjective - Date & Time of Evaluation Date of Evaluation: 07/24/17 Time of Evaluation: 07:00 - Subjective Subjective: PGY4 Initial GI Consult Pt seen and examined bedside Pt was obtunded, but opened eyes his speech was inaudible Spoke to RN, patient had no bowel movements overnight Patient able to take PO diet Patient also stating that he has pain and requesting pain medications ROS cannot be completed Objective - Vital Signs/Intake and Output Vital Signs (last 24 hours): Temp Pulse Resp BP Pulse Ox 98 F 78 20 141/78 98 07/24/17 07:38 07/24/17 07:38 07/24/17 07:38 07/24/17 07:38 07/24/17 07:38 Intake and Output: 07/24/17 07/24/17 06:59 18:59 Intake Total 480 Balance 480 - Medications Medications: Current Medications Chlordiazepoxide (Librium) 25 mg PO BID [facility] Last Admin: 07/24/17 09:34 Dose: 25 mg Enoxaparin Sodium (Lovenox) 40 mg SC DAILY [facility] Last Admin: 07/24/17 09:33 Dose: 40 mg Hydromorphone HCl (Dilaudid) 0.5 mg IVP Q8H PRN PRN Reason: for moderate to severe pain Last Admin: 07/23/17 20:43 Dose: 0.5 mg Folic Acid 1 mg/ Thiamine HCl 100 mg/ Multivitamins/Vitamin C 10 ml/ Dextrose 1 ,011.2 mls @ 60 mls/hr IV Q24H [facility] Lactulose (Enulose) 20 gm PO QID [facility] Last Admin: 07/24/17 09:33 Dose: 20 gm Lactulose (Enulose) 200 gm AR TID [facility] Pantoprazole Sodium (Protonix Ec Tab) 40 mg PO ACB [facility] Last Admin: 07/24/17 08:28 Dose: 40 mg Pneumococcal Polyvalent Vaccine (Pneumovax 23 Vaccine) 0.5 ml IM .ONCE ONE Stop: 07/26/17 10:01 - Labs Labs: 07/24/17 11:29 07/24/17 11:29 PT 15.6 SECONDS (9.7-12.2) H 07/24/17 11:29 INR 1.4 07/24/17 11:29 APTT 33 SECONDS (21-34) 07/22/17 22:25 - Constitutional Appears: Non-toxic, No Acute Distress, Confused - Head Exam Head Exam: ATRAUMATIC, NORMOCEPHALIC - Eye Exam Eye Exam: Scleral icterus - ENT Exam ENT Exam: Mucous Membranes Moist - Respiratory Exam Respiratory Exam: Clear to Ausculation Bilateral, NORMAL BREATHING PATTERN. absent: Prolonged Expiratory Phase, Rales, Rhonchi, Wheezes, Respiratory Distress - Cardiovascular Exam Cardiovascular Exam: REGULAR RHYTHM, +S1, +S2 - GI/Abdominal Exam GI & Abdominal Exam: Soft, Normal Bowel Sounds. absent: Tenderness - Extremities Exam Extremities Exam: Full ROM. absent: Joint Swelling, Pedal Edema - Neurological Exam Neurological Exam: Awake Additional comments: Only oriented to person - Psychiatric Exam Additional comments: Could not access - Skin Skin Exam: Dry, Intact, Warm Assessment and Plan - Assessment and Plan (Free Text) Assessment: Patient is a 41yo male with PMHx significant for decompensated cirrhosis 2/2 EtOH abuse (use as recent as day prior to admission) complicated by hepatic encephalopathy, DM2, H pylori gastritis, portal hypertensive gastropathy, chronic neck/back pain who presented to the ED with abdominal pain, nausea and subjective hematemesis -Decompensated EtOH cirrhosis -Hepatic encephalopathy -EtOH abuse, ongoing -DM -Chronic neck/back pain Plan: -No active GI bleeding noted - HGB stable from prior, no episodes since admission, constipated -Continue with conservative therapy for now, symptomatic treatment - antiemetics , analgesia as needed -D/C Protonix gtt, start Protonix 40mg PO QAMAC -Lactulose 20g PO BID, titrate to 2-3 BM/day, added Rectal lactulose -Encourage EtOH cessation; CIWA if necessary - monitor for withdrawal but avoid over-sedation given HE -Will need EGD for variceal screening in August 2017 -NPO for now, 2g Na diet when more awake -Follow up with primary transmission specialist Dr Salvador at [facility] *MDF: 19 *MELD-Na: 12 D/W Dr. Maciel <Maximiliano Maciel MD - Last Filed: 07/24/17 18:17> Objective - Vital Signs/Intake and Output Vital Signs (last 24 hours): Temp Pulse Resp BP Pulse Ox 97.7 F 63 20 101/63 96 07/24/17 16:23 07/24/17 16:23 07/24/17 16:23 07/24/17 16:23 07/24/17 16:23 Intake and Output: 07/24/17 07/24/17 06:59 18:59 Intake Total 480 Balance 480 - Medications Medications: Current Medications Chlordiazepoxide (Librium) 25 mg PO BID [facility] Last Admin: 07/24/17 17:35 Dose: 25 mg Enoxaparin Sodium (Lovenox) 40 mg SC DAILY [facility] Last Admin: 07/24/17 09:33 Dose: 40 mg Hydromorphone HCl (Dilaudid) 0.5 mg IVP Q8H PRN PRN Reason: for moderate to severe pain Last Admin: 07/23/17 20:43 Dose: 0.5 mg Folic Acid 1 mg/ Thiamine HCl 100 mg/ Multivitamins/Vitamin C 10 ml/ Dextrose 1 ,011.2 mls @ 60 mls/hr IV Q24H [facility] Last Admin: 07/24/17 17:34 Dose: 60 mls/hr Lactulose (Enulose) 20 gm PO QID [facility] Last Admin: 07/24/17 14:30 Dose: 20 gm Lactulose (Enulose) 200 gm AR TID [facility] Last Admin: 07/24/17 14:44 Dose: 200 gm Pantoprazole Sodium (Protonix Ec Tab) 40 mg PO ACB [facility] Last Admin: 07/24/17 08:28 Dose: 40 mg Pneumococcal Polyvalent Vaccine (Pneumovax 23 Vaccine) 0.5 ml IM .ONCE ONE Stop: 07/26/17 10:01 - Labs Labs: 07/24/17 11:29 07/24/17 11:29 PT 15.6 SECONDS (9.7-12.2) H 07/24/17 11:29 INR 1.4 07/24/17 11:29 APTT 33 SECONDS (21-34) 07/22/17 22:25 Attending/Attestation - Attestation I have personally seen and examined this patient.: Yes I have fully participated in the care of the patient.: Yes I have reviewed all pertinent clinical information, including history, physical exam and plan: Yes Notes (Text): 07/24/17 18:14 Patient seen and examined with GI fellow on rounds. This is a 41 yo male with PMHx significant for decompensated alcoholic cirrhosis with current abuse complicated by hepatic encephalopathy, DM2, H pylori gastritis, portal hypertensive gastropathy, chronic neck/back pain who presented to the ED with abdominal pain, nausea and subjective hematemesis. No active GI bleeding since admission. Hemodynamically stable. Currently in HE stage 2. Will continue lactulose po and enema until 2 BM/day. Daily electrolytes. Avoid sedation. No s/ s of sepsis. NPO till HE resolves due to high risk of aspiration. Will monitor closely. MDF 19- no steroid indication for alcoholic hepatitis
[2017-07-24 16:35] LABS: RBC URINE < 1 /hpf (0-3); URINE BACTERIA RARE (<OCC); WBC URINE < 1 /hpf (0-5)
[2017-07-24 16:38] LABS: URINE BILIRUBIN NEGATIVE (NEGATIVE); URINE BLOOD TRACE-INTACT (NEGATIVE); URINE COLOR YELLOW (YELLOW); URINE GLUCOSE (UA) NEGATIVE (Normal); URINE KETONE NEGATIVE (NEGATIVE); URINE PROTEIN NEGATIVE (NEGATIVE); URINE UROBILINOGEN 0.2 mg/dL (0.2-1.0)
[2017-07-24 16:39] LABS: URINE LEUKOCYTE ESTERASE NEGATIVE Leu/uL (Negative)
[2017-07-24] MEDS: Folic Acid 1 MG, Thiamine 100 MG, Multivitamin (MVI) 10 ML in Dextrose 5% In Water 1,00... IV SCH ×2 (17:34→19:50)
[2017-07-24] MEDS: HYDROmorphone 0.5 mg/0.5 ml ISec IVP PRN (18:54)
[2017-07-25] MEDS: HYDROmorphone 0.5 mg/0.5 ml ISec IVP PRN (03:35)
[2017-07-25] MEDS: Pantoprazole 40 mg EC Tab PO SCH (08:14)
[2017-07-25] MEDS: Enoxaparin 40 mg Syringe SC SCH (10:48)
--- NOTE | 2017-07-25 14:02 | CP.PCM.PN ---
<Chaparrita Allen - Last Filed: 07/25/17 14:04> Subjective - Date & Time of Evaluation Date of Evaluation: 07/25/17 Time of Evaluation: 09:00 - Subjective Subjective: PGY4 Initial GI Consult Pt seen and examined bedside Pt was still confused his speech was inaudible Spoke to RN, patient still had no bowel movements overnight Patient able to take PO diet Patient also stating that he has pain and requesting pain medications ROS cannot be completed Objective - Vital Signs/Intake and Output Vital Signs (last 24 hours): Temp Pulse Resp BP Pulse Ox 98.2 F 78 20 105/69 98 07/24/17 23:46 07/24/17 23:46 07/24/17 23:46 07/24/17 23:46 07/24/17 23:46 Intake and Output: 07/25/17 07/25/17 06:59 18:59 Intake Total 1040 Output Total 450 Balance 590 - Medications Medications: Current Medications Chlordiazepoxide (Librium) 25 mg PO BID [facility] Last Admin: 07/25/17 10:54 Dose: Not Given Enoxaparin Sodium (Lovenox) 40 mg SC DAILY [facility] Last Admin: 07/25/17 10:48 Dose: 40 mg Hydromorphone HCl (Dilaudid) 0.5 mg IVP Q8H PRN PRN Reason: for moderate to severe pain Last Admin: 07/25/17 03:35 Dose: 0.5 mg Folic Acid 1 mg/ Thiamine HCl 100 mg/ Multivitamins/Vitamin C 10 ml/ Dextrose 1 ,011.2 mls @ 60 mls/hr IV Q24H [facility] Last Admin: 07/24/17 17:34 Dose: 60 mls/hr Lactulose (Enulose) 20 gm PO QID [facility] Last Admin: 07/25/17 10:55 Dose: Not Given Lactulose (Enulose) 200 gm UT TID [facility] Last Admin: 07/25/17 10:55 Dose: Not Given Pantoprazole Sodium (Protonix Ec Tab) 40 mg PO ACB [facility] Last Admin: 07/25/17 08:14 Dose: 40 mg Pneumococcal Polyvalent Vaccine (Pneumovax 23 Vaccine) 0.5 ml IM .ONCE ONE Stop: 07/26/17 10:01 - Labs Labs: 07/24/17 11:29 07/24/17 11:29 PT 15.6 SECONDS (9.7-12.2) H 07/24/17 11:29 INR 1.4 07/24/17 11:29 APTT 33 SECONDS (21-34) 07/22/17 22:25 - Constitutional Appears: Well, Agitated - Head Exam Head Exam: NORMOCEPHALIC - Eye Exam Eye Exam: Scleral icterus - ENT Exam ENT Exam: Mucous Membranes Moist - Respiratory Exam Respiratory Exam: Clear to Ausculation Bilateral, NORMAL BREATHING PATTERN. absent: Rales, Rhonchi, Wheezes, Respiratory Distress - Cardiovascular Exam Cardiovascular Exam: REGULAR RHYTHM, +S1, +S2 - GI/Abdominal Exam GI & Abdominal Exam: Soft, Normal Bowel Sounds. absent: Tenderness - Extremities Exam Extremities Exam: absent: Joint Swelling, Pedal Edema - Neurological Exam Neurological Exam: Alert, Awake, Oriented x3 - Psychiatric Exam Additional comments: could not assess - Skin Skin Exam: Dry, Intact, Normal Color, Warm Assessment and Plan - Assessment and Plan (Free Text) Assessment: Patient is a 41yo male with PMHx significant for decompensated cirrhosis 2/2 EtOH abuse (use as recent as day prior to admission) complicated by hepatic encephalopathy, DM2, H pylori gastritis, portal hypertensive gastropathy, chronic neck/back pain who presented to the ED with abdominal pain, nausea and subjective hematemesis -Decompensated EtOH cirrhosis -Hepatic encephalopathy -EtOH abuse, ongoing -DM -Chronic neck/back pain Plan: -No active GI bleeding noted - HGB stable from prior, no episodes since admission, constipated -Continue with conservative therapy for now, symptomatic treatment - antiemetics , analgesia as needed -D/C Protonix gtt, start Protonix 40mg PO QAMAC -Lactulose 20g PO BID, titrate to 2-3 BM/day, continue Rectal lactulose -Encourage EtOH cessation; CIWA if necessary - monitor for withdrawal but avoid over-sedation given HE -Will need EGD for variceal screening in August 2017 -NPO for now, 2g Na diet when more awake -Follow up with primary frankfurter inspector Dr Salvador at [facility] -stop narcotics D/W Dr. Maciel <Janell MINA,[facility] - Last Filed: 07/25/17 17:14> Objective - Vital Signs/Intake and Output Vital Signs (last 24 hours): Temp Pulse Resp BP Pulse Ox 98.2 F 78 20 105/69 98 07/24/17 23:46 07/24/17 23:46 07/24/17 23:46 07/24/17 23:46 07/24/17 23:46 Intake and Output: 07/25/17 07/25/17 06:59 18:59 Intake Total 1040 Output Total 450 Balance 590 - Medications Medications: Current Medications Enoxaparin Sodium (Lovenox) 40 mg SC DAILY [facility] Last Admin: 07/25/17 10:48 Dose: 40 mg Hydromorphone HCl (Dilaudid) 0.5 mg IVP Q8H PRN PRN Reason: for moderate to severe pain Last Admin: 07/25/17 03:35 Dose: 0.5 mg Folic Acid 1 mg/ Thiamine HCl 100 mg/ Multivitamins/Vitamin C 10 ml/ Dextrose 1 ,011.2 mls @ 60 mls/hr IV Q24H [facility] Last Admin: 07/24/17 19:50 Dose: Not Given Lactulose (Enulose) 20 gm PO QID [facility] Last Admin: 07/25/17 14:44 Dose: 20 gm Lactulose (Enulose) 200 gm UT TID [facility] Last Admin: 07/25/17 14:45 Dose: Not Given Lorazepam (Ativan) 1 mg IVP Q12 PRN PRN Reason: Anxiety Pantoprazole Sodium (Protonix Ec Tab) 40 mg PO ACB [facility] Last Admin: 07/25/17 08:14 Dose: 40 mg Pneumococcal Polyvalent Vaccine (Pneumovax 23 Vaccine) 0.5 ml IM .ONCE ONE Stop: 07/26/17 10:01 - Labs Labs: 07/24/17 11:29 07/24/17 11:29 PT 15.6 SECONDS (9.7-12.2) H 07/24/17 11:29 INR 1.4 07/24/17 11:29 APTT 33 SECONDS (21-34) 07/22/17 22:25 Attending/Attestation - Attestation I have personally seen and examined this patient.: Yes I have fully participated in the care of the patient.: Yes I have reviewed all pertinent clinical information, including history, physical exam and plan: Yes Notes (Text): 07/25/17 17:14 Patient seen and examined with GI fellow on rounds. This is a 41 yo male with PMHx significant for decompensated alcoholic cirrhosis with current abuse complicated by hepatic encephalopathy, DM2, H pylori gastritis, portal hypertensive gastropathy, chronic neck/back pain who presented to the ED with abdominal pain, nausea and subjective hematemesis. No active GI bleeding since admission. Hemodynamically stable. Currently in HE stage 2 due to constipation. No BM in 2 days inspite of lactulose. Will continue lactulose po and enema until 2 BM/day. Daily electrolytes. Avoid sedation. No s/s of sepsis. NPO till HE resolves due to high risk of aspiration. Will monitor closely. MDF 19- no steroid indication for alcoholic hepatitis
--- NOTE | 2017-07-25 15:47 | PCM.PSYCH ---
Initial Psychiatric Evaluation - Initial Psychiatric Evaluation Type of Admission: Voluntary Chief Complaint (in patient's own words): Staff Nurse: Pt has altered mental status Pt: unable to assess due to Altered mental status History of Present Illness and Precipitating Events: This patient is a 41yo male with PMHx significant for decompensated cirrhosis 2/ 2 EtOH abuse (use as recent as day prior to admission) complicated by hepatic encephalopathy, DM2, H pylori gastritis, portal hypertensive gastropathy, chronic neck/back pain who presented to the ED with abdominal pain, nausea and subjective hematemesis was consulted for altered mental status 2/2 to hepatic encephalopathy and chronic alcohol use At the time of evaluation, pt was difficult to aroused and evaluated. He appeared drowsy and sleepy. He was able to sit, but he start leaning toward his left side. He did to answer to the questions which were asked by this conventional mortgage underwriter. Unable to assess SI, HI, intent or plan. Unable to assess depressive, manic or psychotic symptoms. On chart review this pt was lethargic and delayed in his responses, consistent with his history of HE. The patient stated that he suddenly developed RUQ and epigastric abdominal pain after eating lunch yesterday. He immediately lost his appetite and has not been able to eat since. States that he had multiple episodes of vomiting with the last two episodes containing bloody emesis, prompting him to come to the ED. Admits to constipation and has not passed BM in at least 2 days. Per chart reviewed he had multiple admission 2/2 to etoh related problem. . Current Medications: Active Medications Generic Name Dose Route Start Last Admin Trade Name Freq PRN Reason Stop Dose Admin Chlordiazepoxide 25 mg 07/23/17 18:00 07/25/17 10:54 Librium PO Not Given BID RON Enoxaparin Sodium 40 mg 07/23/17 10:00 07/25/17 10:48 Lovenox SC 40 mg DAILY [facility] Administration Hydromorphone HCl 0.5 mg 07/23/17 02:01 07/25/17 03:35 Dilaudid IVP 0.5 mg Q8H PRN Administration for moderate to severe pain Folic Acid 1 mg/ Thiamine HCl 1,011.2 mls @ 60 mls/hr 07/24/17 19:30 17:34 100 mg/ Multivitamins/Vitamin IV 60 mls/hr C 10 ml/ Dextrose Q24H [facility]ON Administration Lactulose 20 gm 07/23/17 10:00 07/25/17 14:44 Enulose PO 20 gm QID [facility]ON Administration Lactulose 200 gm 07/24/17 14:00 07/25/17 14:45 Enulose NM Not Given TID RON Pantoprazole Sodium 40 mg 07/24/17 07:30 07/25/17 08:14 Protonix Ec Tab PO 40 mg ACB [facility] Administration Pneumococcal Polyvalent Vaccine 0.5 ml 07/26/17 10:00 Pneumovax 23 Vaccine IM 07/26/17 10:01 .ONCE ONE Past Psychiatric History - Past Psychiatric History Prior Psychiatric Treatment: Per chart review pt was evaluated by Dr. Donnelly for Altered mental status At [facility]: [facility] History of ETOH/Drug Use: Per chart reviewed he has chronic alcohol use issues, dependence. History of Family Illness: Per chart denied Pertinent Medical Hx (Current Medical&Sleep Prob, Allergies): Allergies Allergy/AdvReac Type Severity Reaction Status Date / Time No Known Allergies Allergy Verified 07/22/17 21:08 rifAXIMin [Xifaxan] 550 mg PO BID 02/07/17 Gabapentin 300 mg PO HS 07/13/17 1. Alcoholic cirrhosis 2. Hepatic encephalopathy 3. Abdominal pain Review of Systems - Review of Systems Systems not reviewed;Unavailable: Altered Mental Status Mental Status Examination - Personal Presentation Personal Presentation: Looks stated age - Affect Affect: Other (dysphoric, ) - Motor Activity Motor Activity: Other (unable to assess) - Reliability in Providing Information Reliability in Providing Information: Other (unable to assess) - Speech Speech: Other (unable to assess as it was incomprehensible) - Mood Mood: Other (unable to assess) - Formal Thought Process Formal Thought Process: Other (unable to assess) - Hallucinations/Delusions Delusions: Other (unable to assess) - Obsessions/Compulsions Description of Obsession/Compulsion: unable to assess - Cognitive Functions Sensorium: Drowsy, Lethargic Judgement: Imparied, as evidence by: Other (unable to assess pt is drowsy) Memory: Recent intact, as evidence by: Other (unable to assess pt is drowsy) - Risk Risk: Other (unable to assess pt is droswy and sedated) - Strength & Assets Inventory Strength & Assets Inventory: Family support - Limitations Limitations: Other (chrnoic alcohol abuse problem) DSM 5 DX - DSM 5 DSM 5 Diagnosis: Alcohol use disorder, severe, dependence Delirium (2/2 to hepatic encephalopathy) Alcoholic cirrhosis - Recommended/Plan of Treatment Treatment Recommendations and Plan of Treatment: -Recommend treating the underlying cause of delirium. -Monitor Ammonia level. and give Lactulose as per Medicine team. -Check and replace Folic acid, Vit B12, Thiamine if needed -Recommend avoiding Librium due cirrhosis and consider Ativan for etoh withdrawal symptoms. -Recommend telemonitoring of pt's vitals. -Hold Ativan for HR<60, bp<100/60, SO2<95% or for sedation -For agitation give Haldol 1-2 mg PO/IM/IV Q 4-6hr prn, Hold for BP < 100/60, HR < 60, O2 < 95%, QTc > 480, or sedation -Avoid cholinergic meds, benzo, sedative hypnotics, (e.g. Ambien), narcotic as this can worsen mental status. -Frequent reorientation, sitter/family at the bed site, allow frequent family visitation, and maintain normal sleep cycle. -Avoid polypharmacy, avoid narcotics. -Psych C/L team will follow. pt's information was collaborated with staff nurse. Prognosis: guarded Discharge Plan and Discharge Criteria: as per primary team
[2017-07-25] MEDS: Folic Acid 1 MG, Thiamine 100 MG, Multivitamin (MVI) 10 ML in Dextrose 5% In Water 1,00... IV SCH (19:38)
--- NOTE | 2017-07-25 20:12 | CP.PCM.PN ---
Subjective - Date & Time of Evaluation Date of Evaluation: 07/25/17 Time of Evaluation: 08:00 - Subjective Subjective: clinically same Objective - Vital Signs/Intake and Output Vital Signs (last 24 hours): Temp Pulse Resp BP Pulse Ox 98.2 F 78 20 105/69 98 07/24/17 23:46 07/24/17 23:46 07/24/17 23:46 07/24/17 23:46 07/24/17 23:46 - Medications Medications: Current Medications Enoxaparin Sodium (Lovenox) 40 mg SC DAILY [facility] Last Admin: 07/25/17 10:48 Dose: 40 mg Hydromorphone HCl (Dilaudid) 0.5 mg IVP Q8H PRN PRN Reason: for moderate to severe pain Last Admin: 07/25/17 03:35 Dose: 0.5 mg Folic Acid 1 mg/ Thiamine HCl 100 mg/ Multivitamins/Vitamin C 10 ml/ Dextrose 1 ,011.2 mls @ 60 mls/hr IV Q24H [facility] Last Admin: 07/25/17 19:38 Dose: 60 mls/hr Lactulose (Enulose) 20 gm PO QID [facility] Last Admin: 07/25/17 17:33 Dose: 20 gm Lactulose (Enulose) 200 gm TX TID [facility] Last Admin: 07/25/17 17:33 Dose: Not Given Lorazepam (Ativan) 1 mg IVP Q12 PRN PRN Reason: Anxiety Pantoprazole Sodium (Protonix Ec Tab) 40 mg PO ACB [facility] Last Admin: 07/25/17 08:14 Dose: 40 mg Pneumococcal Polyvalent Vaccine (Pneumovax 23 Vaccine) 0.5 ml IM .ONCE ONE Stop: 07/26/17 10:01 - Labs Labs: 07/24/17 11:29 07/24/17 11:29 PT 15.6 SECONDS (9.7-12.2) H 07/24/17 11:29 INR 1.4 07/24/17 11:29 APTT 33 SECONDS (21-34) 07/22/17 22:25 - Constitutional Appears: Well - Head Exam Head Exam: ATRAUMATIC, NORMAL INSPECTION, NORMOCEPHALIC - Eye Exam Eye Exam: EOMI, Normal appearance, PERRL Pupil Exam: NORMAL ACCOMODATION, PERRL - ENT Exam ENT Exam: Mucous Membranes Moist, Normal Exam - Neck Exam Neck Exam: Full ROM, Normal Inspection. absent: Lymphadenopathy - Respiratory Exam Respiratory Exam: Decreased Breath Sounds - Cardiovascular Exam Cardiovascular Exam: REGULAR RHYTHM, +S1, +S2 - GI/Abdominal Exam GI & Abdominal Exam: Soft, Diminished Bowel Sounds - Rectal Exam Rectal Exam: Deferred
[2017-07-26] MEDS: HYDROmorphone 0.5 mg/0.5 ml ISec IVP PRN (01:19)
[2017-07-26] MEDS: Pantoprazole 40 mg EC Tab PO SCH (08:13)
[2017-07-26 08:27] LABS: BASO % 0.5 % (0.0-2.0); EOS # 0.3 K/uL (0.0-0.7); EOS % 8.7 % (0.0-4.0); HEMATOCRIT 41.9 % (35.0-51.0); LYMPH # 1.2 K/uL (1.0-4.3); LYMPH % 41.3 % (20.0-40.0); MEAN CELL VOLUME 84.3 fL (80.0-94.0); MEAN CORPUSCULAR HEMOGLOBIN 29.7 pg (27.0-31.0); MEAN CORPUSCULAR HGB CONC 35.2 g/dL (33.0-37.0); MEAN PLATELET VOLUME 8.4 fL (7.2-11.7); MONO # 0.5 K/uL (0.0-0.8); MONO % 16.3 % (0.0-10.0); NRBC % 0.3 % (0.0-2.0); RED CELL DISTRIBUTION WIDTH 13.9 % (11.5-14.5)
[2017-07-26 08:28] LABS: INR 1.4
--- NOTE | 2017-07-26 08:31 | CP.PCM.PN ---
<Kerry Bird - Last Filed: 07/26/17 09:51> Subjective - Date & Time of Evaluation Date of Evaluation: 07/26/17 Time of Evaluation: 08:27 - Subjective Subjective: Gastroenterology Fellow/PGY5 Progress Note Patient moans to questioning. Opens eyes and has agitated incomprehensible moaning to sternal rub. Nursing notes refused Lactulose enema and oral dosing overnight. No bowel movement since 07/24/17. Received Ativan for agitation at 11pm. Unable to complete a review of systems due to encephalopathy. Objective - Vital Signs/Intake and Output Vital Signs (last 24 hours): Temp Pulse Resp BP Pulse Ox 98 F 71 20 120/65 97 07/26/17 07:35 07/26/17 07:35 07/26/17 07:35 07/26/17 07:35 07/26/17 07:35 Intake and Output: 07/26/17 07/26/17 06:59 18:59 Intake Total 680 Balance 680 - Medications Medications: Current Medications Enoxaparin Sodium (Lovenox) 40 mg SC DAILY [facility] Last Admin: 07/25/17 10:48 Dose: 40 mg Hydromorphone HCl (Dilaudid) 0.5 mg IVP Q8H PRN PRN Reason: for moderate to severe pain Last Admin: 07/26/17 01:19 Dose: 0.5 mg Folic Acid 1 mg/ Thiamine HCl 100 mg/ Multivitamins/Vitamin C 10 ml/ Dextrose 1 ,011.2 mls @ 60 mls/hr IV Q24H [facility] Last Admin: 07/25/17 19:38 Dose: 60 mls/hr Lactulose (Enulose) 20 gm PO QID [facility] Last Admin: 07/25/17 21:38 Dose: Not Given Lactulose (Enulose) 200 gm ID TID [facility] Last Admin: 07/25/17 17:33 Dose: Not Given Lorazepam (Ativan) 1 mg IVP Q12 PRN PRN Reason: Anxiety Last Admin: 07/25/17 23:03 Dose: 1 mg Pantoprazole Sodium (Protonix Ec Tab) 40 mg PO ACB [facility] Last Admin: 07/26/17 08:13 Dose: Not Given Pneumococcal Polyvalent Vaccine (Pneumovax 23 Vaccine) 0.5 ml IM .ONCE ONE Stop: 07/26/17 10:01 - Labs Labs: 07/24/17 11:29 07/24/17 11:29 PT 15.6 SECONDS (9.7-12.2) H 07/24/17 11:29 INR 1.4 07/24/17 11:29 APTT 33 SECONDS (21-34) 07/22/17 22:25 - Constitutional Appears: Confused, Chronically Ill, Other - Head Exam Head Exam: ATRAUMATIC, NORMOCEPHALIC - Eye Exam Eye Exam: EOMI, PERRL, Scleral icterus Pupil Exam: PERRL. absent: Miosis, Mydriatic - ENT Exam ENT Exam: Mucous Membranes Dry, Normal Oropharynx - Neck Exam Neck Exam: Full ROM, Normal Inspection - Respiratory Exam Respiratory Exam: Clear to Ausculation Bilateral. absent: Rales, Rhonchi, Wheezes - Cardiovascular Exam Cardiovascular Exam: RRR, +S1, +S2. absent: Gallop, Rubs - GI/Abdominal Exam GI & Abdominal Exam: Soft, Normal Bowel Sounds. absent: Distended, Firm, Guarding, Rigid, Tenderness, Organomegaly, Rebound - Extremities Exam Extremities Exam: Pedal Edema - Neurological Exam Neurological Exam: Altered. absent: Oriented x3 Additional comments: not oriented to person, place, or time - Psychiatric Exam Additional comments: agitated to sternal rub, disoriented, incomprehensible - Skin Skin Exam: Dry, Intact, Normal Color, Warm Assessment and Plan - Assessment and Plan (Free Text) Assessment: 41 year old male with history of Diabetes, recurrent decompensated alcoholic cirrhosis 2/2 complicated by hepatic encephalopathy presenting with abdominal pain, nausea and subjective hematemesis. Active treatment of decompensated cirrhosis 2/2 hepatic encephalopathy complicated by active alcohol abuse, medication noncompliance, and constipation. EGD 08/2016 showed H pylori Gastritis and portal hypertensive gastropathy. Plan: >MELD 12 on admission, today pending, mDF 22 on admission, today pending >ordered U/S to evaluate for ascites >Stage 2-3 encephalopathy >received Ativan overnight >administer lactulose enema till mentation improves to tolerate Lactulose PO >place NGT- provide Lactulose PO ad ID Q1H till mentation improves >noncompliant to Rifaximin at home >NPO due to risk of aspiration, advance once mentation improves >hold narcotics >CT A/P 07/13 reviewed- fecal retention present- will require aggressive bowel regimen once mentation improves >ongoing alcohol abuse- cessation counselling provided since admission >H/H stable, no overt GI blood loss >continue PPI ACB >will follow clinical course <Maximiliano Maciel MD - Last Filed: 07/26/17 12:11> Objective - Vital Signs/Intake and Output Vital Signs (last 24 hours): Temp Pulse Resp BP Pulse Ox 98 F 71 20 120/65 97 07/26/17 07:35 07/26/17 07:35 07/26/17 07:35 07/26/17 07:35 07/26/17 07:35 Intake and Output: 07/26/17 07/26/17 06:59 18:59 Intake Total 680 Balance 680 - Medications Medications: Current Medications Enoxaparin Sodium (Lovenox) 40 mg SC DAILY [facility] Last Admin: 07/26/17 10:00 Dose: 40 mg Folic Acid 1 mg/ Thiamine HCl 100 mg/ Multivitamins/Vitamin C 10 ml/ Dextrose 1 ,011.2 mls @ 60 mls/hr IV Q24H [facility] Last Admin: 07/25/17 19:38 Dose: 60 mls/hr Lactulose (Enulose) 200 gm ID Q1 [facility] Last Admin: 07/26/17 11:45 Dose: Not Given Lactulose (Enulose) 20 gm PO Q1 [facility] Last Admin: 07/26/17 11:44 Dose: Not Given Lorazepam (Ativan) 1 mg IVP Q12 PRN PRN Reason: Anxiety Last Admin: 07/25/17 23:03 Dose: 1 mg Pantoprazole Sodium (Protonix Ec Tab) 40 mg PO ACB [facility] Last Admin: 07/26/17 08:13 Dose: Not Given - Labs Labs: 07/26/17 08:16 07/26/17 08:16 PT 16.7 SECONDS (9.7-12.2) H 07/26/17 08:16 INR 1.4 07/26/17 08:16 APTT 33 SECONDS (21-34) 07/22/17 22:25 Attending/Attestation - Attestation I have personally seen and examined this patient.: Yes I have fully participated in the care of the patient.: Yes I have reviewed all pertinent clinical information, including history, physical exam and plan: Yes Notes (Text): 07/26/17 12:10 Patient seen and examined with GI fellow on rounds. This is a 41 yo male with PMHx significant for decompensated alcoholic cirrhosis with current abuse complicated by hepatic encephalopathy, DM2, H pylori gastritis, portal hypertensive gastropathy, chronic neck/back pain who presented to the ED with abdominal pain, nausea and subjective hematemesis. No active GI bleeding since admission. Hemodynamically stable. Currently in HE stage 3 due to constipation and dialudid injections. No BM in 3 days inspite of lactulose, although has recieved it sporadically. At this point will suggest NGT lactulose q 1 hour. Will continue lactulose po and enema q 1 hour until 2 BM/day. Daily electrolytes. Avoid sedation. No s/s of sepsis. NPO till HE resolves due to high risk of aspiration. Will monitor closely. MDF 19- no steroid indication for alcoholic hepatitis
[2017-07-26 09:01] LABS: CHLORIDE 105 mmol/L (98-107)
[2017-07-26 09:02] LABS: POTASSIUM 3.5 mmol/L (3.6-5.2); SODIUM 139 mmol/L (132-148)
[2017-07-26 09:04] LABS: CARBON DIOXIDE 22 mmol/L (22-30); GFR AFRICAN-AMERICAN > 60
[2017-07-26 09:05] LABS: ALB/GLOB RATIO 0.7 (1.0-2.1); ALKALINE PHOSPHATASE 206 U/L (38-126); ALT/SGPT 39 U/L (21-72); AST/SGOT 49 U/L (17-59); BILIRUBIN,TOTAL 1.9 mg/dL (0.2-1.3); BLOOD UREA NITROGEN 7 mg/dL (9-20); CALCIUM 8.1 mg/dl (8.6-10.4); GLUCOSE,RANDOM 80 mg/dL (75-110); TOTAL PROTEIN 6.8 g/dL (6.3-8.3)
[2017-07-26] MEDS: Enoxaparin 40 mg Syringe SC SCH (10:00)
[2017-07-26] MEDS ORDERED: Pneumococcal 23-Valent Vaccine IM ONE (10:00)
--- NOTE | 2017-07-26 15:03 | PCM.PYCHPN ---
Psychiatric Progress Note - Psychiatric Progress Note Patient seen today, length of contact: 15 mins Patient Chief Complaint: Unable to give one. Problems Identified/Issues Discussed: The pt is seen, chart reviewed, case discussed with staff. Spoke with nursing staff. Pt appears to be in delirium, agitated and currently heavily sedated. Exam was not completed as patient was asleep, will attempt later. Nursing staff reports decrease sleep the previous night. However, pt could not cooperate with a full assessment due to over sedation. Will continue to follow patient. Medication Change: Yes (Lorazepam started for agitation ) Medical Record Reviewed: Yes Mental Status Examination - Cognitive Function Memory: Other Addtional comments: Unable to assess. - Mood Mood: Other (unable to assess) - Affect Affect: Other (dysphoric, ) - Formal Thought Process Formal Thought Process: Other (unable to assess) Goal/Treatment Plan - Goal/Treatment Plan Need for Continued Stay: Remain at risks for inpatient hospitalization, Discharge may exacerbated symptoms Progress Toward Problem(s) and Goals/Treatment Plan: Continue medications Will continue to follow
--- NOTE | 2017-07-26 15:33 | US ---
PROCEDURE: HISTORY: decompensated cirrhosis, evaluate for ascites COMPARISON: None available. 12/08/2016 abdominal ultrasound. 07/13/2017 CT abdomen and pelvis TECHNIQUE: Standard protocol for this study/examination. FINDINGS: No intra-abdominal ascites identified. IMPRESSION: She no measurable fluid in the abdomen
--- NOTE | 2017-07-26 18:58 | CP.PCM.PN ---
Subjective - Date & Time of Evaluation Date of Evaluation: 07/26/17 Time of Evaluation: 08:00 - Subjective Subjective: clinically same Objective - Vital Signs/Intake and Output Vital Signs (last 24 hours): Temp Pulse Resp BP Pulse Ox 98 F 71 20 120/65 97 07/26/17 07:35 07/26/17 07:35 07/26/17 07:35 07/26/17 07:35 07/26/17 07:35 Intake and Output: 07/26/17 07/26/17 06:59 18:59 Intake Total 680 Balance 680 - Medications Medications: Current Medications Enoxaparin Sodium (Lovenox) 40 mg SC DAILY [facility] Last Admin: 07/26/17 10:00 Dose: 40 mg Folic Acid 1 mg/ Thiamine HCl 100 mg/ Multivitamins/Vitamin C 10 ml/ Dextrose 1 ,011.2 mls @ 60 mls/hr IV Q24H [facility] Last Admin: 07/25/17 19:38 Dose: 60 mls/hr Potassium Chloride/Dextrose/Sod Cl (Potassium Chl 20 Meq In D5-1/2ns) 1,000 mls @ 80 mls/hr IV .[id number] [facility] Lactulose (Enulose) 20 gm PO TID [facility] Lorazepam (Ativan) 1 mg IVP Q6 PRN PRN Reason: Agitation Pantoprazole Sodium (Protonix Ec Tab) 40 mg PO ACB [facility] Last Admin: 07/26/17 08:13 Dose: Not Given - Labs Labs: 07/26/17 08:16 07/26/17 08:16 PT 16.7 SECONDS (9.7-12.2) H 07/26/17 08:16 INR 1.4 07/26/17 08:16 APTT 33 SECONDS (21-34) 07/22/17 22:25 - Constitutional Appears: Well - Head Exam Head Exam: ATRAUMATIC, NORMAL INSPECTION, NORMOCEPHALIC - Eye Exam Eye Exam: EOMI, Normal appearance, PERRL Pupil Exam: NORMAL ACCOMODATION, PERRL - ENT Exam ENT Exam: Mucous Membranes Moist, Normal Exam - Neck Exam Neck Exam: Full ROM, Normal Inspection. absent: Lymphadenopathy - Respiratory Exam Respiratory Exam: Decreased Breath Sounds - Cardiovascular Exam Cardiovascular Exam: REGULAR RHYTHM, +S1, +S2 - GI/Abdominal Exam GI & Abdominal Exam: Soft, Diminished Bowel Sounds - Rectal Exam Rectal Exam: Deferred
[2017-07-26] MEDS: Folic Acid 1 MG, Thiamine 100 MG, Multivitamin (MVI) 10 ML in Dextrose 5% In Water 1,00... IV SCH (19:30)
[2017-07-26] MEDS: Potassium Ch 20mEq in D5-1/2NS 1,000 ML IV SCH (21:24)
--- NOTE | 2017-07-27 05:45 | CP.PCM.PN ---
<Kerry Bird - Last Filed: 07/27/17 08:57> Subjective - Date & Time of Evaluation Date of Evaluation: 07/27/17 Time of Evaluation: 05:43 - Subjective Subjective: Gastroenterology Fellow/PGY5 Progress Note Patient is more awake and oriented to self. Denies abdominal pain. Nursing notes received lactulose enema three times yesterday with resultant large bowel movement. 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 No acute events overnight. A 12- point review of systems unable to be completed due to altered mental status. Objective - Vital Signs/Intake and Output Vital Signs (last 24 hours): Temp Pulse Resp BP Pulse Ox 98 F 71 20 120/65 97 07/26/17 07:35 07/26/17 07:35 07/26/17 07:35 07/26/17 07:35 07/26/17 07:35 Intake and Output: 07/26/17 07/27/17 18:59 06:59 Intake Total 480 Balance 480 - Medications Medications: Current Medications Enoxaparin Sodium (Lovenox) 40 mg [place] DAILY [facility] Last Admin: 07/26/17 10:00 Dose: 40 mg Folic Acid 1 mg/ Thiamine HCl 100 mg/ Multivitamins/Vitamin C 10 ml/ Dextrose 1 ,011.2 mls @ 60 mls/hr IV Q24H [facility] Last Admin: 07/26/17 19:30 Dose: Not Given Potassium Chloride/Dextrose/Sod Cl (Potassium Chl 20 Meq In D5-1/2ns) 1,000 mls @ 80 mls/hr IV .[id number] [facility] Last Admin: 07/26/17 21:24 Dose: Not Given Lactulose (Enulose) 20 gm PO TID [facility] Last Admin: 07/26/17 21:00 Dose: Not Given Lorazepam (Ativan) 1 mg IVP Q6 PRN PRN Reason: Agitation Last Admin: 07/27/17 05:31 Dose: 1 mg Pantoprazole Sodium (Protonix Ec Tab) 40 mg PO ACB [facility] Last Admin: 07/26/17 08:13 Dose: Not Given - Labs Labs: 07/26/17 08:16 07/26/17 08:16 PT 16.7 SECONDS (9.7-12.2) H 07/26/17 08:16 INR 1.4 07/26/17 08:16 APTT 33 SECONDS (21-34) 07/22/17 22:25 - Constitutional Appears: No Acute Distress, Agitated, Chronically Ill - Head Exam Head Exam: ATRAUMATIC, NORMOCEPHALIC - Eye Exam Eye Exam: EOMI, PERRL, Scleral icterus Pupil Exam: PERRL. absent: Miosis, Mydriatic - ENT Exam ENT Exam: Mucous Membranes Moist, Normal Oropharynx - Neck Exam Neck Exam: Full ROM, Normal Inspection - Respiratory Exam Respiratory Exam: Clear to Ausculation Bilateral. absent: Rales, Rhonchi, Wheezes - Cardiovascular Exam Cardiovascular Exam: RRR, +S1, +S2. absent: Gallop, Rubs - GI/Abdominal Exam GI & Abdominal Exam: Soft, Normal Bowel Sounds. absent: Distended, Firm, Guarding, Rigid, Tenderness, Organomegaly, Rebound - Extremities Exam Extremities Exam: Normal Inspection, Pedal Edema - Neurological Exam Neurological Exam: Awake. absent: Oriented x3 Additional comments: oriented to self - Psychiatric Exam Psychiatric exam: Agitated - Skin Skin Exam: Dry, Intact, Normal Color, Warm Assessment and Plan - Assessment and Plan (Free Text) Assessment: 41 year old male with history of Diabetes, recurrent decompensated alcoholic cirrhosis 2/2 complicated by hepatic encephalopathy presenting with abdominal pain, nausea and subjective hematemesis. Active treatment of decompensated cirrhosis 2/2 hepatic encephalopathy complicated by active alcohol abuse, medication noncompliance, and constipation. EGD 08/2016 showed H pylori Gastritis and portal hypertensive gastropathy. Plan: >MELD 13, mDF 22 on admission >U/S- no ascites >slight improvement in mentation after Lactulose IA Q1H x 3 yesterday >continue Lactulose PO TID, titrate to 2-3 BMs/day >ordered lactulose [place] enema TID if unable to tolerate PO >2g sodium diet once mentation improved to decrease aspiration risk >no narcotics >alcohol cessation counselling provided during hospitalization >H/H stable, no overt GI blood loss >continue PPI ACB >will follow clinical course <Alden Brown - Last Filed: 07/27/17 09:07> Objective - Vital Signs/Intake and Output Vital Signs (last 24 hours): Temp Pulse Resp BP Pulse Ox 98 F 71 20 120/65 97 07/26/17 07:35 07/26/17 07:35 07/26/17 07:35 07/26/17 07:35 07/26/17 07:35 Intake and Output: 07/27/17 07/27/17 06:59 18:59 Intake Total 480 Balance 480 - Medications Medications: Current Medications Enoxaparin Sodium (Lovenox) 40 mg SC DAILY [facility] Last Admin: 07/26/17 10:00 Dose: 40 mg Folic Acid 1 mg/ Thiamine HCl 100 mg/ Multivitamins/Vitamin C 10 ml/ Dextrose 1 ,011.2 mls @ 60 mls/hr IV Q24H [facility] Last Admin: 07/26/17 19:30 Dose: Not Given Potassium Chloride/Dextrose/Sod Cl (Potassium Chl 20 Meq In D5-1/2ns) 1,000 mls @ 80 mls/hr IV .[id number] [facility] Last Admin: 07/26/17 21:24 Dose: Not Given Lactulose (Enulose) 20 gm PO TID [facility] Last Admin: 07/26/17 21:00 Dose: Not Given Lorazepam (Ativan) 1 mg IVP Q6 PRN PRN Reason: Agitation Last Admin: 07/27/17 05:31 Dose: 1 mg Pantoprazole Sodium (Protonix Ec Tab) 40 mg PO ACB [facility] Last Admin: 07/27/17 08:09 Dose: 40 mg - Labs Labs: 07/27/17 07:43 07/27/17 07:43 PT 16.7 SECONDS (9.7-12.2) H 07/26/17 08:16 INR 1.4 07/26/17 08:16 APTT 33 SECONDS (21-34) 07/22/17 22:25 Attending/Attestation - Attestation I have personally seen and examined this patient.: Yes I have fully participated in the care of the patient.: Yes I have reviewed all pertinent clinical information, including history, physical exam and plan: Yes Notes (Text): 07/27/17 09:02 I have seen and examined patient with GI fellow. No acute events overnight, he remains lethargic after receiving ativan earlier this morning. As per advanced nursing professor, he was able to tolerate breakfast today with assistance. He had two large bowel movements following lactulose enema yesterday but remains combative and at times refusing medication. No reported nausea, vomiting, fever/chills. DM Decompensated ETOH cirrhosis AMS, Recurrent hepatic encephalopathy - known medication non-compliance in outpatient setting Abdominal US reviewed by me showing no presence of abdominal ascites - Liquid diet as tolerated, maintain strict aspiration precautions during feeding - Continue with lactulose, if patient not taking PO will need to administer additional rectal enemas - Avoid narcotic pain medication and excessive benzodiazepine use - ETOH cessation counseling - Following hospital discharge, patient will follow up with primary GI Dr. Salvador at [facility]
[2017-07-27 08:00] LABS: BASO % 0.6 % (0.0-2.0); EOS # 0.3 K/uL (0.0-0.7); HEMATOCRIT 44.7 % (35.0-51.0); LYMPH # 1.2 K/uL (1.0-4.3); LYMPH % 38.5 % (20.0-40.0); MEAN CORPUSCULAR HEMOGLOBIN 29.5 pg (27.0-31.0); MEAN CORPUSCULAR HGB CONC 34.7 g/dL (33.0-37.0); MEAN PLATELET VOLUME 8.9 fL (7.2-11.7); MONO # 0.5 K/uL (0.0-0.8); MONO % 16.4 % (0.0-10.0); NRBC % 0.3 % (0.0-2.0)
[2017-07-27] MEDS: Pantoprazole 40 mg EC Tab PO SCH (08:09)
[2017-07-27 08:42] LABS: CHLORIDE 103 mmol/L (98-107); POTASSIUM 3.6 mmol/L (3.6-5.2); SODIUM 137 mmol/L (132-148)
[2017-07-27 08:44] LABS: AST/SGOT 58 U/L (17-59); BILIRUBIN,TOTAL 2.2 mg/dL (0.2-1.3); CARBON DIOXIDE 23 mmol/L (22-30); GFR AFRICAN-AMERICAN > 60
[2017-07-27 08:45] LABS: ALB/GLOB RATIO 0.7 (1.0-2.1); ALKALINE PHOSPHATASE 220 U/L (38-126); ALT/SGPT 40 U/L (21-72); BLOOD UREA NITROGEN 10 mg/dL (9-20); CALCIUM 8.4 mg/dl (8.6-10.4); GLUCOSE,RANDOM 86 mg/dL (75-110); MAGNESIUM 1.7 mg/dL (1.6-2.3); TOTAL PROTEIN 7.5 g/dL (6.3-8.3)
[2017-07-27] MEDS: Enoxaparin 40 mg Syringe SC SCH (10:10)
--- NOTE | 2017-07-27 10:57 | CP.PCM.PCO ---
Physician Communication Note - Physician Communication Note Physician Communication Note: Pt remains heavily sedated and confused. Will return.
[2017-07-27 12:21] LABS: INR 1.5
[2017-07-27] MEDS ORDERED: HYDROmorphone 0.5 mg/0.5 ml ISec IVP PRN (15:00)
--- NOTE | 2017-07-27 17:39 | CP.PCM.PN ---
Subjective - Date & Time of Evaluation Date of Evaluation: 07/27/17 Time of Evaluation: 07:40 - Subjective Subjective: clincially same Objective - Vital Signs/Intake and Output Vital Signs (last 24 hours): Temp Pulse Resp BP Pulse Ox 98.2 F 91 H 20 108/70 96 07/27/17 10:21 07/27/17 10:21 07/27/17 10:21 07/27/17 10:21 07/27/17 10:21 Intake and Output: 07/27/17 07/27/17 06:59 18:59 Intake Total 480 Balance 480 - Medications Medications: Current Medications Enoxaparin Sodium (Lovenox) 40 mg SC DAILY [facility] Last Admin: 07/27/17 10:10 Dose: 40 mg Hydromorphone HCl (Dilaudid) 0.5 mg IVP Q8H PRN PRN Reason: Pain, severe (8-10) Folic Acid 1 mg/ Thiamine HCl 100 mg/ Multivitamins/Vitamin C 10 ml/ Dextrose 1 ,011.2 mls @ 60 mls/hr IV Q24H [facility] Last Admin: 07/26/17 19:30 Dose: Not Given Potassium Chloride/Dextrose/Sod Cl (Potassium Chl 20 Meq In D5-1/2ns) 1,000 mls @ 80 mls/hr IV .[id number] [facility] Last Admin: 07/26/17 21:24 Dose: Not Given Lactulose (Enulose) 20 gm PO TID [facility] Last Admin: 07/27/17 14:15 Dose: 20 gm Lactulose (Enulose) 200 gm [place] TID PRN PRN Reason: Other Lorazepam (Ativan) 1 mg IVP Q6 PRN PRN Reason: Agitation Last Admin: 07/27/17 14:09 Dose: 1 mg Pantoprazole Sodium (Protonix Ec Tab) 40 mg PO ACB [facility] Last Admin: 07/27/17 08:09 Dose: 40 mg - Labs Labs: 07/27/17 07:43 07/27/17 07:43 PT 16.8 SECONDS (9.7-12.2) H 07/27/17 11:59 INR 1.5 07/27/17 11:59 APTT 33 SECONDS (21-34) 07/22/17 22:25 - Constitutional Appears: Well - Head Exam Head Exam: ATRAUMATIC, NORMAL INSPECTION, NORMOCEPHALIC - Eye Exam Eye Exam: EOMI, Normal appearance, PERRL Pupil Exam: NORMAL ACCOMODATION, PERRL - ENT Exam ENT Exam: Mucous Membranes Moist, Normal Exam - Neck Exam Neck Exam: Full ROM, Normal Inspection. absent: Lymphadenopathy - Respiratory Exam Respiratory Exam: Decreased Breath Sounds - Cardiovascular Exam Cardiovascular Exam: REGULAR RHYTHM, +S1, +S2 - GI/Abdominal Exam GI & Abdominal Exam: Soft, Diminished Bowel Sounds - Rectal Exam Rectal Exam: Deferred
[2017-07-27] MEDS: Potassium Ch 20mEq in D5-1/2NS 1,000 ML IV SCH (18:00)
[2017-07-27] MEDS: Folic Acid 1 MG, Thiamine 100 MG, Multivitamin (MVI) 10 ML in Dextrose 5% In Water 1,00... IV SCH (19:30)
--- NOTE | 2017-07-28 06:04 | CP.PCM.PN ---
<Kerry Bird - Last Filed: 07/28/17 07:40> Subjective - Date & Time of Evaluation Date of Evaluation: 07/28/17 Time of Evaluation: 06:04 - Subjective Subjective: Gastroenterology Fellow/PGY5 Progress Note Patient is easily arousable. Oriented to self. Nursing notes received lactulose by mouth three times yesterday with one bowel movement. No acute events overnight. A 12-point review of systems unable to be completed due to altered mental status. Objective - Vital Signs/Intake and Output Vital Signs (last 24 hours): Temp Pulse Resp BP Pulse Ox 98.8 F 90 20 115/69 98 07/27/17 23:48 07/27/17 23:48 07/27/17 23:48 07/27/17 23:48 07/27/17 23:48 Intake and Output: 07/27/17 07/28/17 18:59 06:59 Intake Total 820 Balance 820 - Medications Medications: Current Medications Enoxaparin Sodium (Lovenox) 40 mg SC DAILY [facility] Last Admin: 07/27/17 10:10 Dose: 40 mg Hydromorphone HCl (Dilaudid) 0.5 mg IVP Q8H PRN PRN Reason: Pain, severe (8-10) Potassium Chloride/Dextrose/Sod Cl (Potassium Chl 20 Meq In D5-1/2ns) 1,000 mls @ 80 mls/hr IV .[id number] [facility] Last Admin: 07/27/17 18:00 Dose: Not Given Lactulose (Enulose) 20 gm PO TID [facility] Last Admin: 07/27/17 17:45 Dose: 20 gm Lactulose (Enulose) 200 gm [place] TID PRN PRN Reason: Other Lorazepam (Ativan) 1 mg IVP Q6 PRN PRN Reason: Agitation Last Admin: 07/28/17 03:25 Dose: 1 mg Pantoprazole Sodium (Protonix Ec Tab) 40 mg PO ACB [facility] Last Admin: 07/27/17 08:09 Dose: 40 mg - Labs Labs: 07/27/17 07:43 07/27/17 07:43 PT 16.8 SECONDS (9.7-12.2) H 07/27/17 11:59 INR 1.5 07/27/17 11:59 APTT 33 SECONDS (21-34) 07/22/17 22:25 - Constitutional Appears: Non-toxic, No Acute Distress - Head Exam Head Exam: ATRAUMATIC, NORMOCEPHALIC - Eye Exam Eye Exam: EOMI, PERRL, Scleral icterus Pupil Exam: PERRL. absent: Miosis, Mydriatic - ENT Exam ENT Exam: Mucous Membranes Moist, Normal Oropharynx - Neck Exam Neck Exam: Full ROM, Normal Inspection - Respiratory Exam Respiratory Exam: Clear to Ausculation Bilateral. absent: Rales, Rhonchi, Wheezes - Cardiovascular Exam Cardiovascular Exam: RRR, +S1, +S2. absent: Gallop, Rubs - GI/Abdominal Exam GI & Abdominal Exam: Soft, Normal Bowel Sounds. absent: Distended, Firm, Guarding, Rigid, Tenderness, Organomegaly, Rebound - Extremities Exam Extremities Exam: Normal Inspection, Pedal Edema - Neurological Exam Additional comments: oriented to self - Psychiatric Exam Psychiatric exam: Agitated - Skin Skin Exam: Dry, Intact, Normal Color, Warm Assessment and Plan - Assessment and Plan (Free Text) Assessment: 41 year old male with history of Diabetes, recurrent decompensated alcoholic cirrhosis 2/2 complicated by hepatic encephalopathy presenting with abdominal pain, nausea and subjective hematemesis. Active treatment of decompensated cirrhosis 2/2 hepatic encephalopathy complicated by active alcohol abuse, medication noncompliance, and constipation. EGD 08/2016 showed H pylori Gastritis and portal hypertensive gastropathy. Plan: >MELD 13, mDF 22 on admission >ordered Rifaximin BID >continue Lactulose PO TID, titrate to 2-3 BMs/day >Lactulose [place] enema TID if unable to tolerate PO >2g sodium diet once mentation improved to decrease aspiration risk >no narcotics >alcohol cessation counselling provided during hospitalization >outpatient follow up with Dr Salvador at [facility] <Messi Mario - Last Filed: 07/28/17 16:10> Objective - Vital Signs/Intake and Output Vital Signs (last 24 hours): Temp Pulse Resp BP Pulse Ox 98.9 F 85 20 120/70 98 07/28/17 08:24 07/28/17 08:24 07/28/17 08:24 07/28/17 08:24 07/28/17 08:24 Intake and Output: 07/28/17 07/28/17 06:59 18:59 Intake Total 820 640 Balance 820 640 - Medications Medications: Current Medications Enoxaparin Sodium (Lovenox) 40 mg SC DAILY [facility] Last Admin: 07/28/17 09:35 Dose: 40 mg Potassium Chloride/Dextrose/Sod Cl (Potassium Chl 20 Meq In D5-1/2ns) 1,000 mls @ 100 mls/hr IV .Q10H [facility] Last Admin: 07/28/17 10:16 Dose: Not Given Lactulose (Enulose) 20 gm PO TID [facility] Last Admin: 07/28/17 13:26 Dose: 20 gm Lactulose (Enulose) 200 gm [place] TID PRN PRN Reason: Other Lorazepam (Ativan) 1 mg IVP Q6 PRN PRN Reason: Agitation Last Admin: 07/28/17 03:25 Dose: 1 mg Pantoprazole Sodium (Protonix Ec Tab) 40 mg PO ACB [facility] Last Admin: 07/28/17 07:50 Dose: 40 mg Rifaximin (Xifaxan) 550 mg PO BID [facility] Last Admin: 07/28/17 10:05 Dose: 550 mg - Labs Labs: 07/28/17 07:34 07/28/17 07:34 PT 15.6 SECONDS (9.7-12.2) H 07/28/17 07:34 INR 1.4 07/28/17 07:34 APTT 33 SECONDS (21-34) 07/22/17 22:25 Attending/Attestation - Attestation I have personally seen and examined this patient.: Yes I have fully participated in the care of the patient.: Yes I have reviewed all pertinent clinical information, including history, physical exam and plan: Yes Notes (Text): 07/28/17 16:08 41 year old male with h/o DM, EtOH Cirrhosis c/b HE admitted with HE. 1. Alcoholic cirrhosis 2. Hepatic encephalopathy Plan: -continue lactulose -start rifaxamin -sodium restricted diet -continue supportive care
[2017-07-28] MEDS: Potassium Ch 20mEq in D5-1/2NS 1,000 ML IV SCH ×4 (06:43→21:42)
[2017-07-28 07:44] LABS: BASO % 0.6 % (0.0-2.0); EOS # 0.2 K/uL (0.0-0.7); EOS % 8.3 % (0.0-4.0); HEMATOCRIT 40.7 % (35.0-51.0); LYMPH # 1.1 K/uL (1.0-4.3); MEAN CELL VOLUME 84.8 fL (80.0-94.0); MEAN CORPUSCULAR HEMOGLOBIN 29.2 pg (27.0-31.0); MEAN CORPUSCULAR HGB CONC 34.5 g/dL (33.0-37.0); MEAN PLATELET VOLUME 9.1 fL (7.2-11.7); MONO # 0.5 K/uL (0.0-0.8); MONO % 18.6 % (0.0-10.0); NRBC % 0.4 % (0.0-2.0); RED CELL DISTRIBUTION WIDTH 13.6 % (11.5-14.5); WHITE BLOOD COUNT 2.7 K/uL (4.8-10.8)
[2017-07-28 07:47] LABS: INR 1.4
[2017-07-28] MEDS: Pantoprazole 40 mg EC Tab PO SCH (07:50)
[2017-07-28 08:03] LABS: CHLORIDE 107 mmol/L (98-107); POTASSIUM 3.8 mmol/L (3.6-5.2); SODIUM 135 mmol/L (132-148)
[2017-07-28 08:05] LABS: AST/SGOT 61 U/L (17-59); BILIRUBIN,TOTAL 1.7 mg/dL (0.2-1.3); CARBON DIOXIDE 20 mmol/L (22-30); GFR AFRICAN-AMERICAN > 60
[2017-07-28 08:06] LABS: ALB/GLOB RATIO 0.6 (1.0-2.1); ALKALINE PHOSPHATASE 204 U/L (38-126); BLOOD UREA NITROGEN 8 mg/dL (9-20); GLUCOSE,RANDOM 76 mg/dL (75-110); TOTAL PROTEIN 6.9 g/dL (6.3-8.3)
[2017-07-28 08:07] LABS: ALT/SGPT 41 U/L (21-72); MAGNESIUM 1.7 mg/dL (1.6-2.3)
[2017-07-28] MEDS: Enoxaparin 40 mg Syringe SC SCH (09:35)
--- NOTE | 2017-07-28 15:02 | PCM.PYCHPN ---
Psychiatric Progress Note - Psychiatric Progress Note Patient seen today, length of contact: 16 mins Patient Chief Complaint: "Not good" Problems Identified/Issues Discussed: The pt is seen, chart reviewed, case discussed with staff. Spoke with nursing staff who stated the patient was awake prior to our arrival, ate and went back to sleep. Pt tried removing his IV earlier today. Although patient is still heavily sedated, when asked how he felt he said "not good" and although patient is usually heavily sedated and asleep during most encounters he states he doesn't sleep much. Remaining exam was not completed as patient was in and out and speech was incoherent. Will continue to follow patient. Medication Change: No Medical Record Reviewed: Yes Mental Status Examination - Cognitive Function Orientation: Person, Place, Time Memory: Other Attention: Poor Concentration: Poor Association: Loose - Mood Mood: Other (unable to assess) - Affect Affect: Constricted - Speech Speech: Slurred - Formal Thought Process Formal Thought Process: Other (unable to assess) Goal/Treatment Plan - Goal/Treatment Plan Need for Continued Stay: Remain at risks for inpatient hospitalization, Discharge may exacerbated symptoms Progress Toward Problem(s) and Goals/Treatment Plan: Continue medications Will continue to follow
--- NOTE | 2017-07-28 19:30 | CP.PCM.PN ---
Subjective - Date & Time of Evaluation Date of Evaluation: 07/28/17 Time of Evaluation: 07:00 - Subjective Subjective: clinically same Objective - Vital Signs/Intake and Output Vital Signs (last 24 hours): Temp Pulse Resp BP Pulse Ox 98.9 F 85 20 120/70 98 07/28/17 08:24 07/28/17 08:24 07/28/17 08:24 07/28/17 08:24 07/28/17 08:24 Intake and Output: 07/28/17 07/29/17 18:59 06:59 Intake Total 640 Balance 640 - Medications Medications: Current Medications Enoxaparin Sodium (Lovenox) 40 mg SC DAILY [facility] Last Admin: 07/28/17 09:35 Dose: 40 mg Potassium Chloride/Dextrose/Sod Cl (Potassium Chl 20 Meq In D5-1/2ns) 1,000 mls @ 100 mls/hr IV .Q10H [facility] Last Admin: 07/28/17 10:16 Dose: Not Given Lactulose (Enulose) 20 gm PO TID [facility] Last Admin: 07/28/17 13:26 Dose: 20 gm Lactulose (Enulose) 200 gm [place] TID PRN PRN Reason: Other Lorazepam (Ativan) 1 mg IVP Q6 PRN PRN Reason: Agitation Last Admin: 07/28/17 03:25 Dose: 1 mg Pantoprazole Sodium (Protonix Ec Tab) 40 mg PO ACB [facility] Last Admin: 07/28/17 07:50 Dose: 40 mg Rifaximin (Xifaxan) 550 mg PO BID [facility] Last Admin: 07/28/17 10:05 Dose: 550 mg - Labs Labs: 07/28/17 07:34 07/28/17 07:34 PT 15.6 SECONDS (9.7-12.2) H 07/28/17 07:34 INR 1.4 07/28/17 07:34 APTT 33 SECONDS (21-34) 07/22/17 22:25 - Constitutional Appears: Well - Head Exam Head Exam: ATRAUMATIC, NORMAL INSPECTION, NORMOCEPHALIC - Eye Exam Eye Exam: EOMI, Normal appearance, PERRL Pupil Exam: NORMAL ACCOMODATION, PERRL - ENT Exam ENT Exam: Mucous Membranes Moist, Normal Exam - Neck Exam Neck Exam: Full ROM, Normal Inspection. absent: Lymphadenopathy - Respiratory Exam Respiratory Exam: Decreased Breath Sounds - Cardiovascular Exam Cardiovascular Exam: REGULAR RHYTHM, +S1, +S2 - GI/Abdominal Exam GI & Abdominal Exam: Soft, Diminished Bowel Sounds - Rectal Exam Rectal Exam: Deferred
--- NOTE | 2017-07-29 05:56 | CP.PCM.PN ---
<Kerry Bird - Last Filed: 07/29/17 07:57> Subjective - Date & Time of Evaluation Date of Evaluation: 07/29/17 Time of Evaluation: 05:53 - Subjective Subjective: Gastroenterology Fellow/PGY5 Progress Note Patient is oriented to person, place, and time with slow response. One bowel movement yesterday. No acute events overnight. A 12-point review of systems unable to be completed due to altered mental status. Objective - Vital Signs/Intake and Output Vital Signs (last 24 hours): Temp Pulse Resp BP Pulse Ox 98.9 F 85 20 120/70 98 07/28/17 08:24 07/28/17 08:24 07/28/17 08:24 07/28/17 08:24 07/28/17 08:24 Intake and Output: 07/28/17 07/29/17 18:59 06:59 Intake Total 640 800 Balance 640 800 - Medications Medications: Current Medications Enoxaparin Sodium (Lovenox) 40 mg SC DAILY [facility] Last Admin: 07/28/17 09:35 Dose: 40 mg Potassium Chloride/Dextrose/Sod Cl (Potassium Chl 20 Meq In D5-1/2ns) 1,000 mls @ 100 mls/hr IV .Q10H [facility] Last Admin: 07/28/17 21:42 Dose: 100 mls/hr Lactulose (Enulose) 20 gm PO TID [facility] Last Admin: 07/28/17 18:00 Dose: 20 gm Lactulose (Enulose) 200 gm [place] TID PRN PRN Reason: Other Lorazepam (Ativan) 1 mg IVP Q6 PRN PRN Reason: Agitation Last Admin: 07/29/17 00:54 Dose: 1 mg Pantoprazole Sodium (Protonix Ec Tab) 40 mg PO ACB [facility] Last Admin: 07/28/17 07:50 Dose: 40 mg Rifaximin (Xifaxan) 550 mg PO BID [facility] Last Admin: 07/28/17 18:00 Dose: 550 mg - Labs Labs: 07/28/17 07:34 07/28/17 07:34 PT 15.6 SECONDS (9.7-12.2) H 07/28/17 07:34 INR 1.4 07/28/17 07:34 APTT 33 SECONDS (21-34) 07/22/17 22:25 - Constitutional Appears: Non-toxic, No Acute Distress - Head Exam Head Exam: ATRAUMATIC, NORMOCEPHALIC - Eye Exam Eye Exam: EOMI, PERRL, Scleral icterus Pupil Exam: PERRL. absent: Miosis, Mydriatic - ENT Exam ENT Exam: Mucous Membranes Moist, Normal Oropharynx - Neck Exam Neck Exam: Full ROM, Normal Inspection - Respiratory Exam Respiratory Exam: Clear to Ausculation Bilateral. absent: Rales, Rhonchi, Wheezes - Cardiovascular Exam Cardiovascular Exam: RRR, +S1, +S2. absent: Gallop, Rubs - GI/Abdominal Exam GI & Abdominal Exam: Soft, Normal Bowel Sounds. absent: Distended, Firm, Guarding, Rigid, Tenderness, Organomegaly, Rebound - Extremities Exam Extremities Exam: Normal Inspection, Pedal Edema - Neurological Exam Neurological Exam: Altered. absent: Oriented x3 - Psychiatric Exam Psychiatric exam: Agitated - Skin Skin Exam: Dry, Intact, Normal Color, Warm Assessment and Plan - Assessment and Plan (Free Text) Assessment: 41 year old male with history of Diabetes, recurrent decompensated alcoholic cirrhosis 2/2 complicated by hepatic encephalopathy presenting with abdominal pain, nausea and subjective hematemesis. Active treatment of decompensated cirrhosis 2/2 hepatic encephalopathy complicated by active alcohol abuse and medication noncompliance. EGD 08/2016 showed H pylori Gastritis and portal hypertensive gastropathy. Plan: >MELD 13, mDF 22 on admission >continue Rifaximin BID >increase to Lactulose PO QID, titrate to 2-3 BMs/day >Lactulose [place] enema TID if unable to tolerate PO >2g sodium diet once mentation improved to decrease aspiration risk >no narcotics >alcohol cessation counselling provided during hospitalization >outpatient follow up with Dr Salvador at [facility] <Alden Brown - Last Filed: 07/29/17 13:18> Objective - Vital Signs/Intake and Output Vital Signs (last 24 hours): Temp Pulse Resp BP Pulse Ox 98.7 F 74 20 117/68 97 07/29/17 07:00 07/29/17 07:00 07/29/17 07:00 07/29/17 07:00 07/29/17 07:00 Intake and Output: 07/29/17 07/29/17 06:59 18:59 Intake Total 800 Balance 800 - Medications Medications: Current Medications Enoxaparin Sodium (Lovenox) 40 mg SC DAILY [facility] Last Admin: 07/29/17 09:49 Dose: 40 mg Hydromorphone HCl (Dilaudid) 0.5 mg IVP Q8H PRN PRN Reason: pain Potassium Chloride/Dextrose/Sod Cl (Potassium Chl 20 Meq In D5-1/2ns) 1,000 mls @ 100 mls/hr IV .Q10H [facility] Last Admin: 07/28/17 21:42 Dose: 100 mls/hr Lactulose (Enulose) 200 gm [place] TID PRN PRN Reason: Other Lactulose (Enulose) 20 gm PO QID [facility] Last Admin: 07/29/17 09:49 Dose: 20 gm Lorazepam (Ativan) 1 mg IVP Q6 PRN PRN Reason: Agitation Last Admin: 07/29/17 00:54 Dose: 1 mg Pantoprazole Sodium (Protonix Ec Tab) 40 mg PO ACB [facility] Last Admin: 07/29/17 08:32 Dose: 40 mg Rifaximin (Xifaxan) 550 mg PO BID [facility] Last Admin: 07/29/17 09:49 Dose: 550 mg - Labs Labs: 07/28/17 07:34 07/29/17 08:09 PT 16.9 SECONDS (9.7-12.2) H 07/29/17 08:09 INR 1.5 07/29/17 08:09 APTT 33 SECONDS (21-34) 07/22/17 22:25 Attending/Attestation - Attestation I have personally seen and examined this patient.: Yes I have fully participated in the care of the patient.: Yes I have reviewed all pertinent clinical information, including history, physical exam and plan: Yes Notes (Text): 07/29/17 13:10 I have seen and examined patient with GI fellow. No acute events overnight, he remains lethargic but more alert than previously. He had one bowel movement yesterday. He denies abdominal pain, nausea, vomiting, fever/chills. Tolerating PO diet without difficulty. DM Decompensated ETOH cirrhosis Altered mental status, hepatic encephalopathy - Low sodium diet as tolerated - Continue with lactulose, titrate so patient has 3 bowel movements daily - Continue with Xifaxan therapy for HE prevention - ETOH cessation counseling - Will continue to monitor patient clinical course
[2017-07-29 08:27] LABS: INR 1.5
[2017-07-29] MEDS: Pantoprazole 40 mg EC Tab PO SCH (08:32)
[2017-07-29 08:40] LABS: CHLORIDE 106 mmol/L (98-107); SODIUM 132 mmol/L (132-148)
[2017-07-29 08:41] LABS: POTASSIUM 3.9 mmol/L (3.6-5.2)
[2017-07-29 08:43] LABS: ALB/GLOB RATIO 0.6 (1.0-2.1); ALKALINE PHOSPHATASE 207 U/L (38-126); AST/SGOT 66 U/L (17-59); BILIRUBIN,DIRECT 0.4 mg/dL (0.0-0.4); BILIRUBIN,TOTAL 1.4 mg/dL (0.2-1.3); BLOOD UREA NITROGEN 6 mg/dL (9-20); CALCIUM 7.9 mg/dl (8.6-10.4); CARBON DIOXIDE 20 mmol/L (22-30); GFR AFRICAN-AMERICAN > 60; GLUCOSE,RANDOM 86 mg/dL (75-110); TOTAL PROTEIN 6.6 g/dL (6.3-8.3)
[2017-07-29 08:44] LABS: ALT/SGPT 47 U/L (21-72)
--- NOTE | 2017-07-29 09:27 | CP.PCM.PN ---
Subjective - Date & Time of Evaluation Date of Evaluation: 07/29/17 Time of Evaluation: 07:00 - Subjective Subjective: clinically same Objective - Vital Signs/Intake and Output Vital Signs (last 24 hours): Temp Pulse Resp BP Pulse Ox 98.7 F 74 20 117/68 97 07/29/17 07:00 07/29/17 07:00 07/29/17 07:00 07/29/17 07:00 07/29/17 07:00 Intake and Output: 07/29/17 07/29/17 06:59 18:59 Intake Total 800 Balance 800 - Medications Medications: Current Medications Enoxaparin Sodium (Lovenox) 40 mg SC DAILY [facility] Last Admin: 07/28/17 09:35 Dose: 40 mg Potassium Chloride/Dextrose/Sod Cl (Potassium Chl 20 Meq In D5-1/2ns) 1,000 mls @ 100 mls/hr IV .Q10H [facility] Last Admin: 07/28/17 21:42 Dose: 100 mls/hr Lactulose (Enulose) 200 gm [place] TID PRN PRN Reason: Other Lactulose (Enulose) 20 gm PO QID [facility] Lorazepam (Ativan) 1 mg IVP Q6 PRN PRN Reason: Agitation Last Admin: 07/29/17 00:54 Dose: 1 mg Pantoprazole Sodium (Protonix Ec Tab) 40 mg PO ACB [facility] Last Admin: 07/29/17 08:32 Dose: 40 mg Rifaximin (Xifaxan) 550 mg PO BID [facility] Last Admin: 07/28/17 18:00 Dose: 550 mg - Labs Labs: 07/28/17 07:34 07/29/17 08:09 PT 16.9 SECONDS (9.7-12.2) H 07/29/17 08:09 INR 1.5 07/29/17 08:09 APTT 33 SECONDS (21-34) 07/22/17 22:25 - Constitutional Appears: Well - Head Exam Head Exam: ATRAUMATIC, NORMAL INSPECTION, NORMOCEPHALIC - Eye Exam Eye Exam: EOMI, Normal appearance, PERRL Pupil Exam: NORMAL ACCOMODATION, PERRL - ENT Exam ENT Exam: Mucous Membranes Moist, Normal Exam - Neck Exam Neck Exam: Full ROM, Normal Inspection. absent: Lymphadenopathy - Respiratory Exam Respiratory Exam: Decreased Breath Sounds - Cardiovascular Exam Cardiovascular Exam: REGULAR RHYTHM, +S1, +S2 - GI/Abdominal Exam GI & Abdominal Exam: Soft, Diminished Bowel Sounds - Rectal Exam Rectal Exam: Deferred
[2017-07-29] MEDS: Enoxaparin 40 mg Syringe SC SCH (09:49)
[2017-07-29] MEDS: Potassium Ch 20mEq in D5-1/2NS 1,000 ML IV SCH ×2 (16:07→20:19)
[2017-07-29] MEDS: HYDROmorphone 0.5 mg/0.5 ml ISec IVP PRN (19:57)
[2017-07-30] MEDS: Potassium Ch 20mEq in D5-1/2NS 1,000 ML IV SCH ×4 (02:05→22:26)
[2017-07-30] MEDS: HYDROmorphone 0.5 mg/0.5 ml ISec IVP PRN ×2 (04:55→13:00)
--- NOTE | 2017-07-30 05:23 | CP.PCM.PN ---
<Kerry Bird - Last Filed: 07/30/17 07:30> Subjective - Date & Time of Evaluation Date of Evaluation: 07/30/17 Time of Evaluation: 05:20 - Subjective Subjective: Gastroenterology Fellow/PGY5 Progress Note Patient denies abdominal pain. Oriented to person, place, and time with sluggish speech, intermittently incomprehensible. One bowel movement yesterday. No acute events overnight. A 12-point review of systems negative except for as above. Objective - Vital Signs/Intake and Output Vital Signs (last 24 hours): Temp Pulse Resp BP Pulse Ox 98.1 F 71 20 112/61 98 07/30/17 00:00 07/30/17 00:00 07/30/17 00:00 07/30/17 00:00 07/30/17 00:00 Intake and Output: 07/29/17 07/30/17 18:59 06:59 Intake Total 800 Balance 800 - Medications Medications: Current Medications Enoxaparin Sodium (Lovenox) 40 mg SC DAILY [facility] Last Admin: 07/29/17 09:49 Dose: 40 mg Hydromorphone HCl (Dilaudid) 0.5 mg IVP Q8H PRN PRN Reason: pain Last Admin: 07/30/17 04:55 Dose: 0.5 mg Potassium Chloride/Dextrose/Sod Cl (Potassium Chl 20 Meq In D5-1/2ns) 1,000 mls @ 100 mls/hr IV .Q10H [facility] Last Admin: 07/29/17 20:19 Dose: 100 mls/hr Lactulose (Enulose) 200 gm [place] TID PRN PRN Reason: Other Lactulose (Enulose) 20 gm PO QID [facility] Last Admin: 07/29/17 21:43 Dose: 20 gm Lorazepam (Ativan) 1 mg IVP Q6 PRN PRN Reason: Agitation Last Admin: 07/30/17 00:55 Dose: 1 mg Pantoprazole Sodium (Protonix Ec Tab) 40 mg PO ACB [facility] Last Admin: 07/29/17 08:32 Dose: 40 mg Rifaximin (Xifaxan) 550 mg PO BID [facility] Last Admin: 07/29/17 17:44 Dose: 550 mg - Labs Labs: 07/28/17 07:34 07/29/17 08:09 PT 16.9 SECONDS (9.7-12.2) H 07/29/17 08:09 INR 1.5 07/29/17 08:09 APTT 33 SECONDS (21-34) 07/22/17 22:25 - Constitutional Appears: Non-toxic, No Acute Distress - Head Exam Head Exam: ATRAUMATIC, NORMOCEPHALIC - Eye Exam Eye Exam: EOMI, PERRL, Scleral icterus Pupil Exam: PERRL. absent: Miosis, Mydriatic - ENT Exam ENT Exam: Mucous Membranes Moist, Normal Oropharynx - Neck Exam Neck Exam: Full ROM, Normal Inspection - Respiratory Exam Respiratory Exam: Clear to Ausculation Bilateral. absent: Rales, Rhonchi, Wheezes - Cardiovascular Exam Cardiovascular Exam: RRR, +S1, +S2. absent: Gallop, Rubs - GI/Abdominal Exam GI & Abdominal Exam: Soft, Normal Bowel Sounds. absent: Distended, Firm, Guarding, Rigid, Tenderness, Organomegaly, Rebound - Extremities Exam Extremities Exam: Normal Inspection. absent: Pedal Edema - Neurological Exam Neurological Exam: Awake, Oriented x3 - Psychiatric Exam Psychiatric exam: Normal Affect, Normal Mood - Skin Skin Exam: Dry, Intact, Normal Color, Warm Assessment and Plan - Assessment and Plan (Free Text) Assessment: 41 year old male with history of Diabetes, recurrent decompensated alcoholic cirrhosis 2/2 hepatic encephalopathy presenting with abdominal pain and altered mental status. Active treatment of decompensated cirrhosis 2/2 hepatic encephalopathy complicated by active alcohol abuse and medication noncompliance. EGD 08/2016 showed H pylori Gastritis and portal hypertensive gastropathy. Plan: >MELD 13, mDF 22 on admission >continue Rifaximin BID >increase Lactulose PO to Q4H, titrate to 2-3 BMs/day >2g sodium diet once mentation improved to decrease aspiration risk >no narcotics >alcohol cessation counselling provided >outpatient follow up with Dr Salvador at [facility] <Messi Mario - Last Filed: 07/30/17 07:42> Objective - Vital Signs/Intake and Output Vital Signs (last 24 hours): Temp Pulse Resp BP Pulse Ox 97.9 F 82 20 127/76 100 07/30/17 07:37 07/30/17 07:37 07/30/17 07:37 07/30/17 07:37 07/30/17 07:37 Intake and Output: 07/30/17 07/30/17 06:59 18:59 Intake Total 800 Balance 800 - Medications Medications: Current Medications Enoxaparin Sodium (Lovenox) 40 mg SC DAILY [facility] Last Admin: 07/29/17 09:49 Dose: 40 mg Hydromorphone HCl (Dilaudid) 0.5 mg IVP Q8H PRN PRN Reason: pain Last Admin: 07/30/17 04:55 Dose: 0.5 mg Potassium Chloride/Dextrose/Sod Cl (Potassium Chl 20 Meq In D5-1/2ns) 1,000 mls @ 100 mls/hr IV .Q10H [facility] Last Admin: 07/30/17 06:30 Dose: 100 mls/hr Lactulose (Enulose) 200 gm CO TID PRN PRN Reason: Other Lactulose (Enulose) 20 gm PO Q4 [facility] Lorazepam (Ativan) 1 mg IVP Q6 PRN PRN Reason: Agitation Last Admin: 07/30/17 00:55 Dose: 1 mg Pantoprazole Sodium (Protonix Ec Tab) 40 mg PO ACB [facility] Last Admin: 07/29/17 08:32 Dose: 40 mg Rifaximin (Xifaxan) 550 mg PO BID [facility] Last Admin: 07/29/17 17:44 Dose: 550 mg - Labs Labs: 07/28/17 07:34 07/29/17 08:09 PT 16.9 SECONDS (9.7-12.2) H 07/29/17 08:09 INR 1.5 07/29/17 08:09 APTT 33 SECONDS (21-34) 07/22/17 22:25 Attending/Attestation - Attestation I have personally seen and examined this patient.: Yes I have fully participated in the care of the patient.: Yes I have reviewed all pertinent clinical information, including history, physical exam and plan: Yes Notes (Text): 07/30/17 07:41 41 year old male with h/o DM, EtOH Cirrhosis c/b HE admitted with HE. 1. Alcoholic cirrhosis 2. Hepatic encephalopathy Plan: -increase lactulose to Q4 today, then can decrease when he is improved -continue rifaxamin -sodium restricted diet -continue supportive care
[2017-07-30 08:25] LABS: CHLORIDE 104 mmol/L (98-107); POTASSIUM 4.5 mmol/L (3.6-5.2); SODIUM 133 mmol/L (132-148)
[2017-07-30 08:27] LABS: BILIRUBIN,TOTAL 1.5 mg/dL (0.2-1.3); CARBON DIOXIDE 21 mmol/L (22-30); GFR AFRICAN-AMERICAN > 60
[2017-07-30 08:28] LABS: ALB/GLOB RATIO 0.6 (1.0-2.1); ALKALINE PHOSPHATASE 228 U/L (38-126); ALT/SGPT 50 U/L (21-72); AST/SGOT 96 U/L (17-59); BLOOD UREA NITROGEN 4 mg/dL (9-20); CALCIUM 7.8 mg/dl (8.6-10.4); GLUCOSE,RANDOM 78 mg/dL (75-110); TOTAL PROTEIN 6.8 g/dL (6.3-8.3)
[2017-07-30] MEDS: Pantoprazole 40 mg EC Tab PO SCH (08:31)
--- NOTE | 2017-07-30 09:30 | RAD ---
PROCEDURE: Radiographs of the Chest and Right Ribs. HISTORY: pain right side of ribs COMPARISON: Portable chest 12/04/2016. TECHNIQUE: Frontal radiograph of the chest and multiple oblique radiographs of the right ribs were obtained. FINDINGS: RIGHT RIBS: No fracture or focal lesion visualized. LUNGS: No infiltrate seen bilaterally however persistent right diaphragmatic elevation is evident. Cardiac silhouette there is borderline enlarged with likely an element of at least some technical magnification caused by frontal technique. PLEURA: No pneumothorax or pleural fluid. CARDIOVASCULAR: Normal sized heart. No pulmonary vascular congestion. OTHER FINDINGS: None. IMPRESSION: No displaced fracture or suspicious lytic or blastic change throughout the right ribs as discussed above. Elevated right hemidiaphragm is again seen and there is borderline cardiomegaly. Clinically correlate further.
[2017-07-30] MEDS: Enoxaparin 40 mg Syringe SC SCH (10:52)
[2017-07-30 11:35] LABS: BASO % 0.6 % (0.0-2.0); EOS # 0.3 K/uL (0.0-0.7); HEMATOCRIT 41.9 % (35.0-51.0); LYMPH # 1.2 K/uL (1.0-4.3); LYMPH % 45.9 % (20.0-40.0); MEAN CELL VOLUME 85.1 fL (80.0-94.0); MEAN CORPUSCULAR HEMOGLOBIN 29.5 pg (27.0-31.0); MEAN CORPUSCULAR HGB CONC 34.7 g/dL (33.0-37.0); MEAN PLATELET VOLUME 8.9 fL (7.2-11.7); MONO # 0.5 K/uL (0.0-0.8); MONO % 19.9 % (0.0-10.0); NRBC % 0.2 % (0.0-2.0); RED CELL DISTRIBUTION WIDTH 13.6 % (11.5-14.5); WHITE BLOOD COUNT 2.5 K/uL (4.8-10.8)
--- NOTE | 2017-07-30 12:25 | CP.PCM.PCO ---
Physician Communication Note - Physician Communication Note Physician Communication Note: Pt is seen briefly. Out of delirium. Psych will sign off.
--- NOTE | 2017-07-30 18:48 | CP.PCM.PN ---
Subjective - Date & Time of Evaluation Date of Evaluation: 07/30/17 Time of Evaluation: 07:20 - Subjective Subjective: clinically same Objective - Vital Signs/Intake and Output Vital Signs (last 24 hours): Temp Pulse Resp BP Pulse Ox 98.4 F 94 H 20 123/81 96 07/30/17 16:16 07/30/17 16:16 07/30/17 16:16 07/30/17 16:16 07/30/17 16:16 Intake and Output: 07/30/17 07/30/17 06:59 18:59 Intake Total 1930 1200 Balance 1930 1200 - Medications Medications: Current Medications Hydromorphone HCl (Dilaudid) 0.5 mg IVP Q8H PRN PRN Reason: pain Last Admin: 07/30/17 13:00 Dose: 0.5 mg Potassium Chloride/Dextrose/Sod Cl (Potassium Chl 20 Meq In D5-1/2ns) 1,000 mls @ 100 mls/hr IV .Q10H [facility] Last Admin: 07/30/17 12:56 Dose: Not Given Lactulose (Enulose) 200 gm IN TID PRN PRN Reason: Other Lactulose (Enulose) 20 gm PO Q4 [facility] Last Admin: 07/30/17 17:00 Dose: Not Given Lorazepam (Ativan) 1 mg IVP Q6 PRN PRN Reason: Agitation Last Admin: 07/30/17 18:24 Dose: 1 mg Pantoprazole Sodium (Protonix Ec Tab) 40 mg PO ACB [facility] Last Admin: 07/30/17 08:31 Dose: 40 mg Rifaximin (Xifaxan) 550 mg PO BID [facility] Last Admin: 07/30/17 18:25 Dose: 550 mg - Labs Labs: 07/30/17 11:29 07/30/17 07:56 PT 16.9 SECONDS (9.7-12.2) H 07/29/17 08:09 INR 1.5 07/29/17 08:09 APTT 33 SECONDS (21-34) 07/22/17 22:25 - Constitutional Appears: Well - Head Exam Head Exam: ATRAUMATIC, NORMAL INSPECTION, NORMOCEPHALIC - Eye Exam Eye Exam: EOMI, Normal appearance, PERRL Pupil Exam: NORMAL ACCOMODATION, PERRL - ENT Exam ENT Exam: Mucous Membranes Moist, Normal Exam - Neck Exam Neck Exam: Full ROM, Normal Inspection. absent: Lymphadenopathy - Respiratory Exam Respiratory Exam: Decreased Breath Sounds - Cardiovascular Exam Cardiovascular Exam: REGULAR RHYTHM, +S1, +S2 - GI/Abdominal Exam GI & Abdominal Exam: Soft, Diminished Bowel Sounds - Rectal Exam Rectal Exam: Deferred
[2017-07-31] MEDS: Potassium Ch 20mEq in D5-1/2NS 1,000 ML IV SCH ×2 (01:31→08:02)
[2017-07-31 07:47] LABS: BASO % 0.8 % (0.0-2.0); EOS # 0.3 K/uL (0.0-0.7); EOS % 13.8 % (0.0-4.0); HEMATOCRIT 40.3 % (35.0-51.0); INR 1.4; LYMPH # 1.1 K/uL (1.0-4.3); LYMPH % 43.1 % (20.0-40.0); MEAN CELL VOLUME 84.9 fL (80.0-94.0); MEAN CORPUSCULAR HEMOGLOBIN 29.1 pg (27.0-31.0); MEAN CORPUSCULAR HGB CONC 34.3 g/dL (33.0-37.0); MEAN PLATELET VOLUME 9.1 fL (7.2-11.7); MONO # 0.5 K/uL (0.0-0.8); MONO % 21.6 % (0.0-10.0); NRBC % 0.2 % (0.0-2.0); PLATELET COUNT 153 K/uL (130-400); RED CELL DISTRIBUTION WIDTH 13.6 % (11.5-14.5); WHITE BLOOD COUNT 2.5 K/uL (4.8-10.8)
[2017-07-31] MEDS: Pantoprazole 40 mg EC Tab PO SCH (08:02)
[2017-07-31 08:12] LABS: CHLORIDE 104 mmol/L (98-107)
[2017-07-31 08:13] LABS: POTASSIUM 4.3 mmol/L (3.6-5.2); SODIUM 133 mmol/L (132-148)
[2017-07-31 08:16] LABS: ALB/GLOB RATIO 0.7 (1.0-2.1); ALKALINE PHOSPHATASE 255 U/L (38-126); ALT/SGPT 54 U/L (21-72); AST/SGOT 76 U/L (17-59); BILIRUBIN,TOTAL 1.2 mg/dL (0.2-1.3); BLOOD UREA NITROGEN 4 mg/dL (9-20); CALCIUM 7.9 mg/dl (8.6-10.4); CARBON DIOXIDE 24 mmol/L (22-30); GFR AFRICAN-AMERICAN > 60; GLUCOSE,RANDOM 83 mg/dL (75-110); TOTAL PROTEIN 6.7 g/dL (6.3-8.3)
--- NOTE | 2017-07-31 08:17 | CP.PCM.PN ---
Subjective - Date & Time of Evaluation Date of Evaluation: 07/31/17 Time of Evaluation: 08:11 - Subjective Subjective: I have seen and examined patient, he remains lethargic but arousable. No acute events overnight, no reported bowel movements. He denies abdominal pain, nausea , vomiting, fever/chills. He received ativan earlier this morning, though currently sitting in bed eating breakfast. Review of vitals from today are normal. 12 point review of systems performed, negative aside from mentioned above. Objective - Vital Signs/Intake and Output Vital Signs (last 24 hours): Temp Pulse Resp BP Pulse Ox 98.5 F 82 20 114/78 96 07/31/17 07:49 07/31/17 07:49 07/31/17 07:49 07/31/17 07:49 07/31/17 07:49 Intake and Output: 07/31/17 07/31/17 06:59 18:59 Intake Total 1200 Balance 1200 - Medications Medications: Current Medications Hydromorphone HCl (Dilaudid) 0.5 mg IVP Q8H PRN PRN Reason: pain Last Admin: 07/30/17 13:00 Dose: 0.5 mg Potassium Chloride/Dextrose/Sod Cl (Potassium Chl 20 Meq In D5-1/2ns) 1,000 mls @ 100 mls/hr IV .Q10H [facility] Last Admin: 07/31/17 08:02 Dose: Not Given Lactulose (Enulose) 200 gm [place] TID PRN PRN Reason: Other Lactulose (Enulose) 20 gm PO Q4 [facility] Last Admin: 07/31/17 08:05 Dose: 20 gm Lorazepam (Ativan) 1 mg IVP Q6 PRN PRN Reason: Agitation Last Admin: 07/31/17 04:19 Dose: 1 mg Pantoprazole Sodium (Protonix Ec Tab) 40 mg PO ACB [facility] Last Admin: 07/31/17 08:02 Dose: 40 mg Rifaximin (Xifaxan) 550 mg PO BID [facility] Last Admin: 07/30/17 18:25 Dose: 550 mg - Labs Labs: 07/31/17 07:33 07/30/17 07:56 PT 15.6 SECONDS (9.7-12.2) H 07/31/17 07:33 INR 1.4 07/31/17 07:33 APTT 33 SECONDS (21-34) 07/22/17 22:25 - Constitutional Appears: Non-toxic, No Acute Distress - Head Exam Head Exam: NORMAL INSPECTION - Eye Exam Eye Exam: EOMI, Normal appearance - ENT Exam ENT Exam: Mucous Membranes Moist - Respiratory Exam Respiratory Exam: Clear to Ausculation Bilateral - Cardiovascular Exam Cardiovascular Exam: REGULAR RHYTHM, +S1, +S2 - GI/Abdominal Exam GI & Abdominal Exam: Soft, Normal Bowel Sounds Additional comments: non tender to palpation in four quadrants - Extremities Exam Extremities Exam: Normal Inspection - Skin Skin Exam: Dry, Intact, Normal Color, Warm Assessment and Plan - Assessment and Plan (Free Text) Assessment: ETOH decompensated cirrhosis Altered mental status - hepatic encephalopathy Plan: - Low sodium diet as tolerated - Suggest reducing dose/frequency of ativan as this may contribute to recurrent lethargy and mental status changes - Continue with lactulose at increased dose, titrate so patient has 3 bowel movements daily - Continue with xifaxan for HE prevention - No further planned inpatient GI intervention, following hospital discharge patient to follow up with primary GI Dr. Salvador at [facility]. Will sign off case, please reconsult as necessary, thank you.
[2017-07-31 09:50] LABS: BASOPHIL 1 % (0-2); EOSINOPHIL 12 % (0-4); NEUTROPHIL 29 % (50-75); TOTAL CELLS COUNTED 100
[2017-07-31] MEDS: HYDROmorphone 0.5 mg/0.5 ml ISec IVP PRN (12:57)
--- NOTE | 2017-07-31 15:17 | CP.PCM.PN ---
Subjective - Date & Time of Evaluation Date of Evaluation: 07/31/17 Time of Evaluation: 07:20 - Subjective Subjective: clinically same Objective - Vital Signs/Intake and Output Vital Signs (last 24 hours): Temp Pulse Resp BP Pulse Ox 98.5 F 82 20 114/78 96 07/31/17 07:49 07/31/17 07:49 07/31/17 07:49 07/31/17 07:49 07/31/17 07:49 Intake and Output: 07/31/17 07/31/17 06:59 18:59 Intake Total 1200 Balance 1200 - Medications Medications: Current Medications Hydromorphone HCl (Dilaudid) 0.5 mg IVP Q8H PRN PRN Reason: pain Last Admin: 07/31/17 12:57 Dose: 0.5 mg Lactulose (Enulose) 200 gm [place] TID PRN PRN Reason: Other Lactulose (Enulose) 20 gm PO Q4 [facility] Last Admin: 07/31/17 12:57 Dose: 20 gm Lorazepam (Ativan) 0.5 mg IVP Q6 PRN PRN Reason: Agitation Last Admin: 07/31/17 15:14 Dose: 0.5 mg Pantoprazole Sodium (Protonix Ec Tab) 40 mg PO ACB [facility] Last Admin: 07/31/17 08:02 Dose: 40 mg Rifaximin (Xifaxan) 550 mg PO BID [facility] Last Admin: 07/31/17 10:18 Dose: 550 mg - Labs Labs: 07/31/17 07:33 07/31/17 07:33 PT 15.6 SECONDS (9.7-12.2) H 07/31/17 07:33 INR 1.4 07/31/17 07:33 APTT 33 SECONDS (21-34) 07/22/17 22:25 - Constitutional Appears: Well - Head Exam Head Exam: ATRAUMATIC, NORMAL INSPECTION, NORMOCEPHALIC - Eye Exam Eye Exam: EOMI, Normal appearance, PERRL Pupil Exam: NORMAL ACCOMODATION, PERRL - ENT Exam ENT Exam: Mucous Membranes Moist, Normal Exam - Neck Exam Neck Exam: Full ROM, Normal Inspection. absent: Lymphadenopathy - Respiratory Exam Respiratory Exam: Decreased Breath Sounds - Cardiovascular Exam Cardiovascular Exam: REGULAR RHYTHM, +S1, +S2 - GI/Abdominal Exam GI & Abdominal Exam: Soft, Diminished Bowel Sounds - Rectal Exam Rectal Exam: Deferred
[2017-08-01] MEDS: Pantoprazole 40 mg EC Tab PO SCH (07:12)
[2017-08-01] MEDS: Multiple Vitamins Tab PO SCH (09:43)
[2017-08-01] MEDS: Enoxaparin 40 mg Syringe SC SCH (09:43)
--- NOTE | 2017-08-01 11:13 | CP.PCM.PN ---
Subjective - Date & Time of Evaluation Date of Evaluation: 08/01/17 Time of Evaluation: 07:20 - Subjective Subjective: clinically same Objective - Vital Signs/Intake and Output Vital Signs (last 24 hours): Temp Pulse Resp BP Pulse Ox 98.4 F 97 H 20 125/76 95 08/01/17 08:28 08/01/17 08:28 08/01/17 08:28 08/01/17 08:28 08/01/17 08:28 Intake and Output: 08/01/17 08/01/17 06:59 18:59 Intake Total 1280 Balance 1280 - Medications Medications: Current Medications Enoxaparin Sodium (Lovenox) 40 mg SC DAILY [facility] Last Admin: 08/01/17 09:43 Dose: 40 mg Haloperidol (Haldol) 5 mg PO Q1H PRN PRN Reason: Agitation max 4x/24h Hydromorphone HCl (Dilaudid) 0.5 mg IVP Q8H PRN PRN Reason: pain Last Admin: 07/31/17 12:57 Dose: 0.5 mg Lactulose (Enulose) 200 gm [place] TID PRN PRN Reason: Other Lactulose (Enulose) 20 gm PO Q4 [facility] Last Admin: 08/01/17 07:12 Dose: 20 gm Lorazepam (Ativan) 1 mg IVP Q6 PRN PRN Reason: Agitation Multivitamins (Hexavitamin) 1 tab PO DAILY [facility] Last Admin: 08/01/17 09:43 Dose: 1 tab Pantoprazole Sodium (Protonix Ec Tab) 40 mg PO ACB [facility] Last Admin: 08/01/17 07:12 Dose: 40 mg Rifaximin (Xifaxan) 550 mg PO BID [facility] Last Admin: 08/01/17 09:43 Dose: 550 mg Thiamine HCl (Vitamin B1 Tab) 100 mg PO DAILY [facility] Last Admin: 08/01/17 09:43 Dose: 100 mg - Labs Labs: 07/31/17 07:33 07/31/17 07:33 PT 15.6 SECONDS (9.7-12.2) H 07/31/17 07:33 INR 1.4 07/31/17 07:33 APTT 33 SECONDS (21-34) 07/22/17 22:25 - Constitutional Appears: Well - Head Exam Head Exam: ATRAUMATIC, NORMAL INSPECTION, NORMOCEPHALIC - Eye Exam Eye Exam: EOMI, Normal appearance, PERRL Pupil Exam: NORMAL ACCOMODATION, PERRL - ENT Exam ENT Exam: Mucous Membranes Moist, Normal Exam - Neck Exam Neck Exam: Full ROM, Normal Inspection. absent: Lymphadenopathy - Respiratory Exam Respiratory Exam: Decreased Breath Sounds - Cardiovascular Exam Cardiovascular Exam: REGULAR RHYTHM, +S1, +S2 - GI/Abdominal Exam GI & Abdominal Exam: Soft, Diminished Bowel Sounds - Rectal Exam Rectal Exam: Deferred
--- NOTE | 2017-08-01 12:41 | PCM.PYCHPN ---
Psychiatric Progress Note - Psychiatric Progress Note Patient seen today, length of contact: 16 min Patient Chief Complaint: "Tired" Problems Identified/Issues Discussed: The pt is seen, chart reviewed, case discussed with staff. I was also called last night few times b/c the pt was agitated and reportedly demanding to go. Moreover, nursing staff confiscated a bottle of unlabeled pills from his who snuck it and gave to him. However, he couldn't take them and when questioned about it, she said those pills (she didn't know the name) would " calm him down." He could have OD'ed on them, or interacted with what we were giving. She should be searched before visits. Today, he is calmer but still sedated. He didn'yt talk much As per nursing staff he is now using the bathroom and ambulatory. Oriented. has poor insight His agitation is likely his personality and his way of tryoing to get things, ie meds or discharge. He has no withdrawal sxs anymore (has been here long time) Medication Change: Yes (prn haldol) Medical Record Reviewed: Yes Mental Status Examination - Cognitive Function Orientation: Person, Place, Time Memory: Impaired, Other Attention: Poor Concentration: Poor Association: Loose Fund of Knowledge: Poor - Mood Mood: Anxious - Affect Affect: Constricted - Speech Speech: Slurred - Formal Thought Process Formal Thought Process: Loosening of associations - Suicidal Ideation Suicidal Ideation: No - Homicidal Ideation Homicidal Ideation: No Goal/Treatment Plan - Goal/Treatment Plan Need for Continued Stay: Remain at risks for inpatient hospitalization, Discharge may exacerbated symptoms, Severe functional impairment, Other (medical ) Progress Toward Problem(s) and Goals/Treatment Plan: Continue medications prn haldol and ativan for agitation Will continue to follow See HPI re visitations by refer to rehab or IOP DYFS referral; as he has been a potentially dangerously alcoholic in front of his children for a long time, has minimal insight and may be enabling and her bringing pills to the hospital is also poor judgment.
[2017-08-01] MEDS: HYDROmorphone 0.5 mg/0.5 ml ISec IVP PRN (14:43)
[2017-08-02] MEDS: Pantoprazole 40 mg EC Tab PO SCH (07:16)
[2017-08-02] MEDS: Multiple Vitamins Tab PO SCH (10:51)
[2017-08-02] MEDS: Enoxaparin 40 mg Syringe SC SCH (10:51)
[2017-08-02] MEDS: HYDROmorphone 0.5 mg/0.5 ml ISec IVP PRN (11:37)
--- NOTE | 2017-08-02 15:27 | CP.PCM.PN ---
Subjective - Date & Time of Evaluation Date of Evaluation: 08/02/17 Time of Evaluation: 07:20 - Subjective Subjective: clinically same Objective - Vital Signs/Intake and Output Vital Signs (last 24 hours): Temp Pulse Resp BP Pulse Ox 98.0 F 78 20 119/68 97 08/02/17 08:01 08/02/17 08:01 08/02/17 08:01 08/02/17 08:01 08/02/17 08:01 Intake and Output: 08/02/17 08/02/17 06:59 18:59 Intake Total 240 300 Balance 240 300 - Medications Medications: Current Medications Enoxaparin Sodium (Lovenox) 40 mg SC DAILY [facility] Last Admin: 08/02/17 10:51 Dose: 40 mg Haloperidol (Haldol) 5 mg PO Q1H PRN PRN Reason: Agitation max 4x/24h Last Admin: 08/01/17 18:09 Dose: 5 mg Lactulose (Enulose) 200 gm [place] TID PRN PRN Reason: Other Lactulose (Enulose) 20 gm PO Q4 [facility] Last Admin: 08/02/17 11:24 Dose: 20 gm Lorazepam (Ativan) 1 mg IVP Q6 PRN PRN Reason: Agitation Last Admin: 08/02/17 11:37 Dose: 1 mg Multivitamins (Hexavitamin) 1 tab PO DAILY [facility] Last Admin: 08/02/17 10:51 Dose: 1 tab Pantoprazole Sodium (Protonix Ec Tab) 40 mg PO ACB [facility] Last Admin: 08/02/17 07:16 Dose: 40 mg Rifaximin (Xifaxan) 550 mg PO BID [facility] Last Admin: 08/02/17 10:52 Dose: 550 mg Thiamine HCl (Vitamin B1 Tab) 100 mg PO DAILY [facility] Last Admin: 08/02/17 10:51 Dose: 100 mg - Labs Labs: 07/31/17 07:33 07/31/17 07:33 PT 15.6 SECONDS (9.7-12.2) H 07/31/17 07:33 INR 1.4 07/31/17 07:33 APTT 33 SECONDS (21-34) 07/22/17 22:25 - Constitutional Appears: Well - Head Exam Head Exam: ATRAUMATIC, NORMAL INSPECTION, NORMOCEPHALIC - Eye Exam Eye Exam: EOMI, Normal appearance, PERRL Pupil Exam: NORMAL ACCOMODATION, PERRL - ENT Exam ENT Exam: Mucous Membranes Moist, Normal Exam - Neck Exam Neck Exam: Full ROM, Normal Inspection. absent: Lymphadenopathy - Respiratory Exam Respiratory Exam: Decreased Breath Sounds - Cardiovascular Exam Cardiovascular Exam: REGULAR RHYTHM, +S1, +S2 - GI/Abdominal Exam GI & Abdominal Exam: Soft, Diminished Bowel Sounds - Rectal Exam Rectal Exam: NORMAL INSPECTION Assessment and Plan - Assessment and Plan (Free Text) Plan: Continue same Lovenox Haloperidol Ativan 1 mg mg every 6 discussed with the staff to get back on it Continue ceftriaxone continue all consultations
[2017-08-03] MEDS: Pantoprazole 40 mg EC Tab PO SCH (07:57)
[2017-08-03] MEDS: Enoxaparin 40 mg Syringe SC SCH (09:48)
[2017-08-03] MEDS: Multiple Vitamins Tab PO SCH (09:48)
--- NOTE | 2017-08-03 18:52 | CP.PCM.PN ---
Subjective - Date & Time of Evaluation Date of Evaluation: 08/03/17 Time of Evaluation: 07:20 - Subjective Subjective: clinically same Objective - Vital Signs/Intake and Output Vital Signs (last 24 hours): Temp Pulse Resp BP Pulse Ox 98.1 F 90 20 113/72 99 08/03/17 16:00 08/03/17 16:00 08/03/17 16:00 08/03/17 16:00 08/03/17 16:00 Intake and Output: 08/03/17 08/03/17 06:59 18:59 Intake Total 865 600 Balance 865 600 - Medications Medications: Current Medications Enoxaparin Sodium (Lovenox) 40 mg SC DAILY [facility] Last Admin: 08/03/17 09:48 Dose: 40 mg Haloperidol (Haldol) 5 mg PO Q1H PRN PRN Reason: Agitation max 4x/24h Last Admin: 08/03/17 17:40 Dose: 5 mg Lactulose (Enulose) 200 gm [place] TID PRN PRN Reason: Other Lactulose (Enulose) 20 gm PO Q4 [facility] Last Admin: 08/03/17 16:33 Dose: 20 gm Lorazepam (Ativan) 1 mg IVP Q6 PRN PRN Reason: Agitation Last Admin: 08/03/17 00:35 Dose: 1 mg Multivitamins (Hexavitamin) 1 tab PO DAILY [facility] Last Admin: 08/03/17 09:48 Dose: 1 tab Pantoprazole Sodium (Protonix Ec Tab) 40 mg PO ACB [facility] Last Admin: 08/03/17 07:57 Dose: 40 mg Rifaximin (Xifaxan) 550 mg PO BID [facility] Last Admin: 08/03/17 17:40 Dose: 550 mg Thiamine HCl (Vitamin B1 Tab) 100 mg PO DAILY [facility] Last Admin: 08/03/17 09:49 Dose: 100 mg - Labs Labs: 07/31/17 07:33 07/31/17 07:33 PT 15.6 SECONDS (9.7-12.2) H 07/31/17 07:33 INR 1.4 07/31/17 07:33 APTT 33 SECONDS (21-34) 07/22/17 22:25 - Constitutional Appears: Well - Head Exam Head Exam: ATRAUMATIC, NORMAL INSPECTION, NORMOCEPHALIC - Eye Exam Eye Exam: EOMI, Normal appearance, PERRL Pupil Exam: NORMAL ACCOMODATION, PERRL - ENT Exam ENT Exam: Mucous Membranes Moist, Normal Exam - Neck Exam Neck Exam: Full ROM, Normal Inspection. absent: Lymphadenopathy - Respiratory Exam Respiratory Exam: Decreased Breath Sounds - Cardiovascular Exam Cardiovascular Exam: REGULAR RHYTHM, +S1, +S2 - GI/Abdominal Exam GI & Abdominal Exam: Soft, Diminished Bowel Sounds - Rectal Exam Rectal Exam: Deferred Assessment and Plan - Assessment and Plan (Free Text) Plan: Lovenox continue ativan Fall precautions Continue same Psych consult As ordered Monitor the electrolyte
--- NOTE | 2017-08-04 06:50 | CP.PCM.PN ---
<Carmella Sepulveda - Last Filed: 08/04/17 06:59> Subjective - Date & Time of Evaluation Date of Evaluation: 08/04/17 Time of Evaluation: 06:23 - Subjective Subjective: [facility] was called at 5:58am. Patient is a 41 year old male with a past medical history of cirrhosis secondary to alcohol abuse, DM, HTN, who fell in the hallway. As per the nursing staff, patient saw a social security benefits interviewer that he does not like and started flailing his arms, lost balance, and fell on his buttocks. In response to my questions, patient said he "won't respond". With further questioning, he shook his head no to having pain anywhere. Vitals were taken: BP 117/76, HR80, T 97.9, O2 97%. On examination, patient followed commands, lungs were clear to auscultation bilaterally, heart sound S1/S2 were normal,no tachycardia or bradycardia; skin was dry, intact, normal color. Objective - Vital Signs/Intake and Output Vital Signs (last 24 hours): Temp Pulse Resp BP Pulse Ox 98.2 F 81 20 115/72 98 08/03/17 23:58 08/03/17 23:58 08/03/17 23:58 08/03/17 23:58 08/03/17 23:58 Intake and Output: 08/03/17 08/04/17 18:59 06:59 Intake Total 600 Balance 600 - Medications Medications: Current Medications Enoxaparin Sodium (Lovenox) 40 mg SC DAILY [facility] Last Admin: 08/03/17 09:48 Dose: 40 mg Haloperidol (Haldol) 5 mg PO Q1H PRN PRN Reason: Agitation max 4x/24h Last Admin: 08/03/17 21:56 Dose: 5 mg Lactulose (Enulose) 200 gm [place] TID PRN PRN Reason: Other Lactulose (Enulose) 20 gm PO Q4 [facility] Last Admin: 08/04/17 05:17 Dose: 20 gm Lorazepam (Ativan) 1 mg IVP Q6 PRN PRN Reason: Agitation Last Admin: 08/04/17 05:46 Dose: 1 mg Multivitamins (Hexavitamin) 1 tab PO DAILY [facility] Last Admin: 08/03/17 09:48 Dose: 1 tab Pantoprazole Sodium (Protonix Ec Tab) 40 mg PO ACB [facility] Last Admin: 08/03/17 07:57 Dose: 40 mg Rifaximin (Xifaxan) 550 mg PO BID [facility] Last Admin: 08/03/17 17:40 Dose: 550 mg Thiamine HCl (Vitamin B1 Tab) 100 mg PO DAILY [facility] Last Admin: 08/03/17 09:49 Dose: 100 mg - Labs Labs: 07/31/17 07:33 07/31/17 07:33 PT 15.6 SECONDS (9.7-12.2) H 07/31/17 07:33 INR 1.4 07/31/17 07:33 APTT 33 SECONDS (21-34) 07/22/17 22:25 - Head Exam Head Exam: ATRAUMATIC - Eye Exam Eye Exam: Normal appearance - Respiratory Exam Respiratory Exam: Clear to Ausculation Bilateral, NORMAL BREATHING PATTERN. absent: Rales, Rhonchi, Wheezes, Respiratory Distress - Cardiovascular Exam Cardiovascular Exam: REGULAR RHYTHM, +S1, +S2. absent: Bradycardia, Tachycardia - Extremities Exam Extremities Exam: Normal Inspection. absent: Pedal Edema - Neurological Exam Neurological Exam: Alert, Awake - Psychiatric Exam Psychiatric exam: Flat Affect - Skin Skin Exam: Dry, Intact, Normal Color, Warm <Kirk Quintana - Last Filed: 08/04/17 21:10> Objective - Vital Signs/Intake and Output Vital Signs (last 24 hours): Temp Pulse Resp BP Pulse Ox 98.4 F 74 20 109/53 L 98 08/04/17 15:58 08/04/17 15:58 08/04/17 15:58 08/04/17 15:58 08/04/17 15:58 Intake and Output: 08/04/17 08/05/17 18:59 06:59 Intake Total 0 Balance 0 - Medications Medications: Current Medications Enoxaparin Sodium (Lovenox) 40 mg SC DAILY [facility] Last Admin: 08/04/17 11:59 Dose: Not Given Haloperidol (Haldol) 5 mg PO Q1H PRN PRN Reason: Agitation max 4x/24h Last Admin: 08/04/17 17:47 Dose: 5 mg Lactulose (Enulose) 200 gm [place] TID PRN PRN Reason: Other Lactulose (Enulose) 20 gm PO Q4 [facility] Last Admin: 08/04/17 20:07 Dose: Not Given Lorazepam (Ativan) 1 mg IVP Q6 PRN PRN Reason: Agitation Last Admin: 08/04/17 05:46 Dose: 1 mg Multivitamins (Hexavitamin) 1 tab PO DAILY [facility] Last Admin: 08/04/17 11:58 Dose: Not Given Pantoprazole Sodium (Protonix Ec Tab) 40 mg PO ACB [facility] Last Admin: 08/04/17 08:33 Dose: 40 mg Rifaximin (Xifaxan) 550 mg PO BID [facility] Last Admin: 08/04/17 17:48 Dose: 550 mg Thiamine HCl (Vitamin B1 Tab) 100 mg PO DAILY [facility] Last Admin: 08/04/17 11:59 Dose: Not Given - Labs Labs: 08/04/17 07:16 08/04/17 07:16 PT 15.6 SECONDS (9.7-12.2) H 07/31/17 07:33 INR 1.4 07/31/17 07:33 APTT 33 SECONDS (21-34) 07/22/17 22:25
[2017-08-04 07:34] LABS: BASO % 0.9 % (0.0-2.0); EOS # 0.4 K/uL (0.0-0.7); EOS % 12.8 % (0.0-4.0); HEMATOCRIT 39.8 % (35.0-51.0); LYMPH # 1.2 K/uL (1.0-4.3); MEAN CELL VOLUME 84.9 fL (80.0-94.0); MEAN CORPUSCULAR HEMOGLOBIN 29.1 pg (27.0-31.0); MEAN CORPUSCULAR HGB CONC 34.3 g/dL (33.0-37.0); MEAN PLATELET VOLUME 9.3 fL (7.2-11.7); MONO # 0.5 K/uL (0.0-0.8); MONO % 19.4 % (0.0-10.0); NRBC % 0.2 % (0.0-2.0); RED CELL DISTRIBUTION WIDTH 13.7 % (11.5-14.5); WHITE BLOOD COUNT 2.8 K/uL (4.8-10.8)
[2017-08-04 07:45] LABS: CHLORIDE 105 mmol/L (98-107); POTASSIUM 3.7 mmol/L (3.6-5.2); SODIUM 133 mmol/L (132-148)
[2017-08-04 07:48] LABS: BLOOD UREA NITROGEN 9 mg/dL (9-20); CARBON DIOXIDE 22 mmol/L (22-30); GFR AFRICAN-AMERICAN > 60; GLUCOSE,RANDOM 81 mg/dL (75-110)
[2017-08-04 07:49] LABS: CALCIUM 7.9 mg/dl (8.6-10.4)
[2017-08-04] MEDS: Pantoprazole 40 mg EC Tab PO SCH (08:33)
[2017-08-04] MEDS: Multiple Vitamins Tab PO SCH (11:58)
[2017-08-04] MEDS: Enoxaparin 40 mg Syringe SC SCH (11:59)
--- NOTE | 2017-08-04 19:11 | CP.PCM.PN ---
Subjective - Date & Time of Evaluation Date of Evaluation: 08/04/17 Time of Evaluation: 07:20 - Subjective Subjective: clinically same Objective - Vital Signs/Intake and Output Vital Signs (last 24 hours): Temp Pulse Resp BP Pulse Ox 98.4 F 74 20 109/53 L 98 08/04/17 15:58 08/04/17 15:58 08/04/17 15:58 08/04/17 15:58 08/04/17 15:58 Intake and Output: 08/04/17 08/05/17 18:59 06:59 Intake Total 0 Balance 0 - Medications Medications: Current Medications Enoxaparin Sodium (Lovenox) 40 mg SC DAILY [facility] Last Admin: 08/04/17 11:59 Dose: Not Given Haloperidol (Haldol) 5 mg PO Q1H PRN PRN Reason: Agitation max 4x/24h Last Admin: 08/04/17 17:47 Dose: 5 mg Lactulose (Enulose) 200 gm [place] TID PRN PRN Reason: Other Lactulose (Enulose) 20 gm PO Q4 [facility] Last Admin: 08/04/17 16:40 Dose: 20 gm Lorazepam (Ativan) 1 mg IVP Q6 PRN PRN Reason: Agitation Last Admin: 08/04/17 05:46 Dose: 1 mg Multivitamins (Hexavitamin) 1 tab PO DAILY [facility] Last Admin: 08/04/17 11:58 Dose: Not Given Pantoprazole Sodium (Protonix Ec Tab) 40 mg PO ACB [facility] Last Admin: 08/04/17 08:33 Dose: 40 mg Rifaximin (Xifaxan) 550 mg PO BID [facility] Last Admin: 08/04/17 17:48 Dose: 550 mg Thiamine HCl (Vitamin B1 Tab) 100 mg PO DAILY [facility] Last Admin: 08/04/17 11:59 Dose: Not Given - Labs Labs: 08/04/17 07:16 08/04/17 07:16 PT 15.6 SECONDS (9.7-12.2) H 07/31/17 07:33 INR 1.4 07/31/17 07:33 APTT 33 SECONDS (21-34) 07/22/17 22:25 - Constitutional Appears: Well - Head Exam Head Exam: ATRAUMATIC, NORMAL INSPECTION, NORMOCEPHALIC - Eye Exam Eye Exam: EOMI, Normal appearance, PERRL Pupil Exam: NORMAL ACCOMODATION, PERRL - ENT Exam ENT Exam: Mucous Membranes Moist, Normal Exam - Neck Exam Neck Exam: Full ROM, Normal Inspection. absent: Lymphadenopathy - Respiratory Exam Respiratory Exam: Decreased Breath Sounds - Cardiovascular Exam Cardiovascular Exam: REGULAR RHYTHM, +S1, +S2 - GI/Abdominal Exam GI & Abdominal Exam: Soft, Diminished Bowel Sounds - Rectal Exam Rectal Exam: Deferred
[2017-08-05] MEDS: Pantoprazole 40 mg EC Tab PO SCH (08:30)
[2017-08-05] MEDS: Enoxaparin 40 mg Syringe SC SCH (11:00)
[2017-08-05] MEDS: Multiple Vitamins Tab PO SCH (11:00)
--- NOTE | 2017-08-05 17:57 | CP.PCM.PN ---
Subjective - Date & Time of Evaluation Date of Evaluation: 08/05/17 Time of Evaluation: 07:20 - Subjective Subjective: clincially same Objective - Vital Signs/Intake and Output Vital Signs (last 24 hours): Temp Pulse Resp BP Pulse Ox 98.1 F 89 20 99/62 L 93 L 08/05/17 15:00 08/05/17 15:00 08/05/17 15:00 08/05/17 15:00 08/05/17 15:00 Intake and Output: 08/05/17 08/05/17 06:59 18:59 Intake Total 440 300 Balance 440 300 - Medications Medications: Current Medications Enoxaparin Sodium (Lovenox) 40 mg SC DAILY [facility] Last Admin: 08/05/17 11:00 Dose: 40 mg Haloperidol (Haldol) 5 mg PO Q1H PRN PRN Reason: Agitation max 4x/24h Last Admin: 08/05/17 17:42 Dose: 5 mg Lactulose (Enulose) 200 gm [place] TID PRN PRN Reason: Other Lactulose (Enulose) 20 gm PO Q4 [facility] Last Admin: 08/05/17 17:42 Dose: 20 gm Lorazepam (Ativan) 1 mg IVP Q6 PRN PRN Reason: Agitation Last Admin: 08/04/17 05:46 Dose: 1 mg Multivitamins (Hexavitamin) 1 tab PO DAILY [facility] Last Admin: 08/05/17 11:00 Dose: 1 tab Pantoprazole Sodium (Protonix Ec Tab) 40 mg PO ACB [facility] Last Admin: 08/05/17 08:30 Dose: 40 mg Rifaximin (Xifaxan) 550 mg PO BID [facility] Last Admin: 08/05/17 17:42 Dose: 550 mg Thiamine HCl (Vitamin B1 Tab) 100 mg PO DAILY [facility] Last Admin: 08/05/17 11:00 Dose: 100 mg - Labs Labs: 08/04/17 07:16 08/04/17 07:16 PT 15.6 SECONDS (9.7-12.2) H 07/31/17 07:33 INR 1.4 07/31/17 07:33 APTT 33 SECONDS (21-34) 07/22/17 22:25 - Constitutional Appears: Well - Head Exam Head Exam: ATRAUMATIC, NORMAL INSPECTION, NORMOCEPHALIC - Eye Exam Eye Exam: EOMI, Normal appearance, PERRL Pupil Exam: NORMAL ACCOMODATION, PERRL - ENT Exam ENT Exam: Mucous Membranes Moist, Normal Exam - Neck Exam Neck Exam: Full ROM, Normal Inspection. absent: Lymphadenopathy - Respiratory Exam Respiratory Exam: Decreased Breath Sounds - Cardiovascular Exam Cardiovascular Exam: REGULAR RHYTHM, +S1, +S2 - GI/Abdominal Exam GI & Abdominal Exam: Soft, Diminished Bowel Sounds - Rectal Exam Rectal Exam: Deferred
[2017-08-06] MEDS: Pantoprazole 40 mg EC Tab PO SCH (08:21)
[2017-08-06 08:53] LABS: CHLORIDE 106 mmol/L (98-107); POTASSIUM 3.4 mmol/L (3.6-5.2); SODIUM 133 mmol/L (132-148)
[2017-08-06 08:55] LABS: GFR AFRICAN-AMERICAN > 60
[2017-08-06 08:56] LABS: BLOOD UREA NITROGEN 10 mg/dL (9-20); CALCIUM 8.4 mg/dl (8.6-10.4); CARBON DIOXIDE 22 mmol/L (22-30); GLUCOSE,RANDOM 67 mg/dL (75-110); MAGNESIUM 1.6 mg/dL (1.6-2.3); PHOSPHOROUS 4.1 mg/dL (2.5-4.5)
[2017-08-06] MEDS: Enoxaparin 40 mg Syringe SC SCH (10:50)
[2017-08-06] MEDS: Multiple Vitamins Tab PO SCH (10:51)
[2017-08-06] MEDS ORDERED: Potassium Chloride 20 mEq/15 ml LIQ UD PO ONE (14:00)
[2017-08-06] MEDS ORDERED: Potassium Chloride 10 mEq ER Tab PO STA (19:08)
--- NOTE | 2017-08-06 19:31 | CP.PCM.PN ---
Subjective - Date & Time of Evaluation Date of Evaluation: 08/06/17 Time of Evaluation: 07:20 - Subjective Subjective: clinically same Objective - Vital Signs/Intake and Output Vital Signs (last 24 hours): Temp Pulse Resp BP Pulse Ox 98.2 F 88 20 114/75 97 08/06/17 15:00 08/06/17 15:00 08/06/17 15:00 08/06/17 15:00 08/06/17 15:00 Intake and Output: 08/06/17 08/07/17 18:59 06:59 Intake Total 480 Balance 480 - Medications Medications: Current Medications Enoxaparin Sodium (Lovenox) 40 mg SC DAILY [facility] Last Admin: 08/06/17 10:50 Dose: 40 mg Haloperidol (Haldol) 5 mg PO Q1H PRN PRN Reason: Agitation max 4x/24h Last Admin: 08/06/17 16:31 Dose: 5 mg Lactulose (Enulose) 200 gm [place] TID PRN PRN Reason: Other Lactulose (Enulose) 20 gm PO Q4 [facility] Last Admin: 08/06/17 16:31 Dose: 20 gm Lorazepam (Ativan) 1 mg IVP Q6 PRN PRN Reason: Agitation Last Admin: 08/06/17 18:15 Dose: 1 mg Multivitamins (Hexavitamin) 1 tab PO DAILY [facility] Last Admin: 08/06/17 10:51 Dose: 1 tab Pantoprazole Sodium (Protonix Ec Tab) 40 mg PO ACB [facility] Last Admin: 08/06/17 08:21 Dose: 40 mg Rifaximin (Xifaxan) 550 mg PO BID [facility] Last Admin: 08/06/17 18:21 Dose: Not Given Thiamine HCl (Vitamin B1 Tab) 100 mg PO DAILY [facility] Last Admin: 08/06/17 10:51 Dose: 100 mg - Labs Labs: 08/04/17 07:16 08/06/17 08:39 PT 15.6 SECONDS (9.7-12.2) H 07/31/17 07:33 INR 1.4 07/31/17 07:33 APTT 33 SECONDS (21-34) 07/22/17 22:25 - Constitutional Appears: Well - Head Exam Head Exam: ATRAUMATIC, NORMAL INSPECTION, NORMOCEPHALIC - Eye Exam Eye Exam: EOMI, Normal appearance, PERRL Pupil Exam: NORMAL ACCOMODATION, PERRL - ENT Exam ENT Exam: Mucous Membranes Moist, Normal Exam - Neck Exam Neck Exam: Full ROM, Normal Inspection. absent: Lymphadenopathy - Respiratory Exam Respiratory Exam: Decreased Breath Sounds - Cardiovascular Exam Cardiovascular Exam: REGULAR RHYTHM, +S1, +S2 - GI/Abdominal Exam GI & Abdominal Exam: Soft, Diminished Bowel Sounds - Rectal Exam Rectal Exam: Deferred
[2017-08-07] MEDS: Multiple Vitamins Tab PO SCH (10:09)
[2017-08-07] MEDS: Enoxaparin 40 mg Syringe SC SCH (10:09)
[2017-08-07] MEDS: Pantoprazole 40 mg EC Tab PO SCH (10:10)
--- NOTE | 2017-08-07 18:51 | CP.PCM.PN ---
Subjective - Date & Time of Evaluation Date of Evaluation: 08/07/17 Time of Evaluation: 07:00 - Subjective Subjective: clinically same Objective - Vital Signs/Intake and Output Vital Signs (last 24 hours): Temp Pulse Resp BP Pulse Ox 98.1 F 86 20 114/72 100 08/07/17 16:00 08/07/17 16:00 08/07/17 16:00 08/07/17 16:00 08/07/17 16:00 Intake and Output: 08/07/17 08/07/17 06:59 18:59 Intake Total 550 Balance 550 - Medications Medications: Current Medications Enoxaparin Sodium (Lovenox) 40 mg SC DAILY [facility] Last Admin: 08/07/17 10:09 Dose: Not Given Haloperidol (Haldol) 5 mg PO Q1H PRN PRN Reason: Agitation max 4x/24h Last Admin: 08/06/17 21:07 Dose: 5 mg Lactulose (Enulose) 200 gm [place] TID PRN PRN Reason: Other Lactulose (Enulose) 20 gm PO Q4 [facility] Last Admin: 08/07/17 16:00 Dose: 20 gm Lorazepam (Ativan) 1 mg IVP Q6 PRN PRN Reason: Agitation Last Admin: 08/07/17 17:40 Dose: 1 mg Multivitamins (Hexavitamin) 1 tab PO DAILY [facility] Last Admin: 08/07/17 10:09 Dose: Not Given Pantoprazole Sodium (Protonix Ec Tab) 40 mg PO ACB [facility] Last Admin: 08/07/17 10:10 Dose: Not Given Rifaximin (Xifaxan) 550 mg PO BID [facility] Last Admin: 08/07/17 17:47 Dose: 550 mg Thiamine HCl (Vitamin B1 Tab) 100 mg PO DAILY [facility] Last Admin: 08/07/17 10:10 Dose: Not Given - Labs Labs: 08/04/17 07:16 08/06/17 08:39 PT 15.6 SECONDS (9.7-12.2) H 07/31/17 07:33 INR 1.4 07/31/17 07:33 APTT 33 SECONDS (21-34) 07/22/17 22:25
[2017-08-07] MEDS ORDERED: Potassium Chloride 20 mEq ER Tab PO STA (23:26)
[2017-08-08] MEDS ORDERED: Potassium Chloride 20 mEq ER Tab PO STA (00:38)
[2017-08-08 07:24] LABS: BASO % 1.1 % (0.0-2.0); EOS # 0.3 K/uL (0.0-0.7); EOS % 10.6 % (0.0-4.0); HEMATOCRIT 41.9 % (35.0-51.0); LYMPH # 1.4 K/uL (1.0-4.3); LYMPH % 53.2 % (20.0-40.0); MEAN CELL VOLUME 84.5 fL (80.0-94.0); MEAN CORPUSCULAR HEMOGLOBIN 28.6 pg (27.0-31.0); MEAN CORPUSCULAR HGB CONC 33.9 g/dL (33.0-37.0); MEAN PLATELET VOLUME 8.9 fL (7.2-11.7); MONO # 0.4 K/uL (0.0-0.8); MONO % 15.6 % (0.0-10.0); NRBC % 0.3 % (0.0-2.0); RED CELL DISTRIBUTION WIDTH 13.5 % (11.5-14.5); WHITE BLOOD COUNT 2.6 K/uL (4.8-10.8)
[2017-08-08 07:30] LABS: CHLORIDE 105 mmol/L (98-107); SODIUM 132 mmol/L (132-148)
[2017-08-08 07:31] LABS: POTASSIUM 4.1 mmol/L (3.6-5.2)
[2017-08-08 07:33] LABS: ALB/GLOB RATIO 0.6 (1.0-2.1); ALKALINE PHOSPHATASE 208 U/L (38-126); ALT/SGPT 61 U/L (21-72); AST/SGOT 67 U/L (17-59); BILIRUBIN,TOTAL 1.8 mg/dL (0.2-1.3); BLOOD UREA NITROGEN 8 mg/dL (9-20); CARBON DIOXIDE 21 mmol/L (22-30); GFR AFRICAN-AMERICAN > 60; GLUCOSE,RANDOM 65 mg/dL (75-110)
[2017-08-08 07:34] LABS: CALCIUM 8.2 mg/dl (8.6-10.4)
[2017-08-08] MEDS: Pantoprazole 40 mg EC Tab PO SCH (08:26)
[2017-08-08] MEDS: Multiple Vitamins Tab PO SCH (10:33)
[2017-08-08] MEDS: Enoxaparin 40 mg Syringe SC SCH (10:34)
--- NOTE | 2017-08-08 19:33 | CP.PCM.PN ---
Subjective - Date & Time of Evaluation Date of Evaluation: 08/08/17 Time of Evaluation: 07:00 - Subjective Subjective: clinically same Objective - Vital Signs/Intake and Output Vital Signs (last 24 hours): Temp Pulse Resp BP Pulse Ox 98.4 F 80 20 103/60 96 08/08/17 17:01 08/08/17 17:01 08/08/17 17:01 08/08/17 17:01 08/08/17 17:01 Intake and Output: 08/08/17 08/09/17 18:59 06:59 Intake Total 248 Balance 248 - Medications Medications: Current Medications Haloperidol (Haldol) 5 mg PO Q1H PRN PRN Reason: Agitation max 4x/24h Last Admin: 08/06/17 21:07 Dose: 5 mg Lactulose (Enulose) 200 gm [place] TID PRN PRN Reason: Other Lactulose (Enulose) 20 gm PO Q4 [facility] Last Admin: 08/08/17 18:16 Dose: 20 gm Lorazepam (Ativan) 1 mg IVP Q6 PRN PRN Reason: Agitation Last Admin: 08/08/17 00:51 Dose: 1 mg Multivitamins (Hexavitamin) 1 tab PO DAILY [facility] Last Admin: 08/08/17 10:33 Dose: Not Given Pantoprazole Sodium (Protonix Ec Tab) 40 mg PO ACB [facility] Last Admin: 08/08/17 08:26 Dose: Not Given Rifaximin (Xifaxan) 550 mg PO BID [facility] Last Admin: 08/08/17 18:17 Dose: 550 mg Thiamine HCl (Vitamin B1 Tab) 100 mg PO DAILY [facility] Last Admin: 08/08/17 10:34 Dose: Not Given - Labs Labs: 08/08/17 07:12 08/08/17 07:12 PT 15.6 SECONDS (9.7-12.2) H 07/31/17 07:33 INR 1.4 07/31/17 07:33 APTT 33 SECONDS (21-34) 07/22/17 22:25 - Constitutional Appears: Well - Head Exam Head Exam: ATRAUMATIC, NORMAL INSPECTION, NORMOCEPHALIC - Eye Exam Eye Exam: EOMI, Normal appearance, PERRL Pupil Exam: NORMAL ACCOMODATION, PERRL - ENT Exam ENT Exam: Mucous Membranes Moist, Normal Exam - Neck Exam Neck Exam: Full ROM, Normal Inspection. absent: Lymphadenopathy - Respiratory Exam Respiratory Exam: Decreased Breath Sounds - Cardiovascular Exam Cardiovascular Exam: REGULAR RHYTHM, +S1, +S2 - GI/Abdominal Exam GI & Abdominal Exam: Soft, Diminished Bowel Sounds - Rectal Exam Rectal Exam: Deferred
[2017-08-09] MEDS: Pantoprazole 40 mg EC Tab PO SCH (08:00)
[2017-08-09] MEDS: Multiple Vitamins Tab PO SCH (11:27)
--- NOTE | 2017-08-09 13:47 | CP.PCM.PN ---
Subjective - Date & Time of Evaluation Date of Evaluation: 08/09/17 Time of Evaluation: 13:44 - Subjective Subjective: PT SEEN AND EXAMINED TODAY, RESPIRATION EASY AND UNLABORED, NAD. Objective - Vital Signs/Intake and Output Vital Signs (last 24 hours): Temp Pulse Resp BP Pulse Ox 98.5 F 73 19 108/66 96 08/09/17 08:26 08/09/17 08:26 08/09/17 08:26 08/09/17 08:26 08/09/17 08:26 Intake and Output: 08/09/17 08/09/17 06:59 18:59 Intake Total 700 Balance 700 - Medications Medications: Current Medications Haloperidol (Haldol) 5 mg PO Q1H PRN PRN Reason: Agitation max 4x/24h Last Admin: 08/06/17 21:07 Dose: 5 mg Lactulose (Enulose) 200 gm [place] TID PRN PRN Reason: Other Lactulose (Enulose) 20 gm PO Q4 [facility] Last Admin: 08/09/17 11:59 Dose: 20 gm Lorazepam (Ativan) 1 mg IVP Q6 PRN PRN Reason: Agitation Last Admin: 08/09/17 11:35 Dose: 1 mg Multivitamins (Hexavitamin) 1 tab PO DAILY [facility] Last Admin: 08/09/17 11:27 Dose: 1 tab Pantoprazole Sodium (Protonix Ec Tab) 40 mg PO ACB [facility] Last Admin: 08/09/17 08:00 Dose: 40 mg Rifaximin (Xifaxan) 550 mg PO BID [facility] Last Admin: 08/09/17 11:27 Dose: 550 mg Thiamine HCl (Vitamin B1 Tab) 100 mg PO DAILY [facility] Last Admin: 08/09/17 11:27 Dose: 100 mg - Labs Labs: 08/08/17 07:12 08/08/17 07:12 PT 15.6 SECONDS (9.7-12.2) H 07/31/17 07:33 INR 1.4 07/31/17 07:33 APTT 33 SECONDS (21-34) 07/22/17 22:25 Assessment and Plan - Assessment and Plan (Free Text) Plan: 41 Y/O MALE WITH PMHX DM, ALCOHOLIC CIRRHOSIS, HEPATIC ENCEPHALOPATHY ADMITTED FOR ABD PAIN, ELEVATED AMMONIA LEVEL PT TREATED WITH LACTULOSE AMMONIA LEVEL- IMPROVED GI AND PSYCH CONSULT PT REFUSED WENDY, WALKS WITH THE STEADY GAIT PT EDUCATED ON IMPORTANCE OF ALCOHOL CESSATION, F/U WITH PMD RETURN TO ER IF ANY WORSENING S/S AGREE, VERBALIZE UNDERSTANDING
[2017-08-09] MEDS ORDERED: Pneumococcal 23-Valent Vaccine IM ONE (14:36)
[2017-08-09] MEDS ORDERED: Influenza Vaccine 60 mcg/0.5 mL SYR (4YR UP) IM ONE (14:36)
[2017-08-09 15:22] VITALS: BP 123/74; PULSE 90; RESP 20; TEMP 98.3; O2SAT 98
--- NOTE | 2017-08-09 18:28 | PCM.PYCHPN ---
Psychiatric Progress Note - Psychiatric Progress Note Patient seen today, length of contact: 16 min Patient Chief Complaint: "I'm going home" Problems Identified/Issues Discussed: The pt is seen, chart reviewed, case discussed with staff. He is still odd, inappropriate at times and has low insight into his condition and the risks he has been facing (DTs etc.) List of IOPs and rehabs given Support and psychoed given He is advised to attend AA, not use alcohol ever again DYFS called re pt's coming home and both parents minimize his drinking and the risks, and have 5 children Call is accepted Not massiel/homi Oriented Attention is poor, memory is poor No AVH or delusions Medication Change: No Medical Record Reviewed: Yes Mental Status Examination - Cognitive Function Orientation: Person, Place, Time Memory: Impaired, Other Attention: Poor Concentration: Poor Association: Loose Fund of Knowledge: Poor - Mood Mood: Anxious - Affect Affect: Constricted - Speech Speech: Slurred - Formal Thought Process Formal Thought Process: Loosening of associations - Suicidal Ideation Suicidal Ideation: No - Homicidal Ideation Homicidal Ideation: No Goal/Treatment Plan - Goal/Treatment Plan Progress Toward Problem(s) and Goals/Treatment Plan: Cleared for d/c Attend AA Attend IOP or rehab Continue meds Stay away from alcohol and drugs Return to ER if needed
--- NOTE | 2017-08-09 21:58 | CP.PCM.PN ---
Subjective - Date & Time of Evaluation Date of Evaluation: 08/09/17 Objective - Vital Signs/Intake and Output Vital Signs (last 24 hours): Temp Pulse Resp BP Pulse Ox 98.3 F 90 20 123/74 98 08/09/17 15:00 08/09/17 15:00 08/09/17 15:00 08/09/17 15:00 08/09/17 15:00 Intake and Output: 08/09/17 08/10/17 18:59 06:59 Intake Total 680 0 Balance 680 0 - Labs Labs: 08/08/17 07:12 08/08/17 07:12 PT 15.6 SECONDS (9.7-12.2) H 07/31/17 07:33 INR 1.4 07/31/17 07:33 APTT 33 SECONDS (21-34) 07/22/17 22:25
== END 2017-08-09 17:28 | disposition home or self-care (01) | DRG 202 ==
LOC: C.ER 20:45 → C.3T 07-23 00:46 → EEVIPCON 07-23 00:46 → C.3T 07-23 20:16
PROVIDERS: ADMIT Internal Medicine Nephrology; ATTEND Internal Medicine Nephrology
DX: K70.30 Alcoholic cirrhosis of liver without ascites (principal); K70.40 Alcoholic hepatic failure without coma; K92.0 Hematemesis; F10.288 Alcohol dependence with other alcohol-induced disorder; K76.6 Portal hypertension; E11.22 Type 2 diabetes mellitus with diabetic chronic kidney disease; N18.9 Chronic kidney disease, unspecified; B18.2 Chronic viral hepatitis C; B96.81 Helicobacter pylori [H. pylori] as the cause of diseases classified elsewhere; K59.00 Constipation, unspecified; K31.89 Other diseases of stomach and duodenum; K29.70 Gastritis, unspecified, without bleeding; I12.9 Hypertensive chronic kidney disease with stage 1 through stage 4 chronic kidney disease, or unspecified chronic kidney disease; G89.29 Other chronic pain; M54.9 Dorsalgia, unspecified; M54.2 Cervicalgia; F17.210 Nicotine dependence, cigarettes, uncomplicated; Z91.14 Patient's other noncompliance with medication regimen; Z87.442 Personal history of urinary calculi; Z79.4 Long term (current) use of insulin

== ENCOUNTER 2017-09-13 17:15 | Inpatient (IN) | payer OTHER ==
[2017-09-13 17:15] VITALS: BMI 25.0
[2017-09-13 18:49] LABS: BASO % 0.3 % (0.0-2.0); EOS # 0.2 K/uL (0.0-0.7); EOS % 7.3 % (0.0-4.0); HEMATOCRIT 40.1 % (35.0-51.0); LYMPH # 1.2 K/uL (1.0-4.3); LYMPH % 43.2 % (20.0-40.0); MEAN CELL VOLUME 85.1 fL (80.0-94.0); MEAN CORPUSCULAR HEMOGLOBIN 28.6 pg (27.0-31.0); MEAN CORPUSCULAR HGB CONC 33.6 g/dL (33.0-37.0); MEAN PLATELET VOLUME 8.4 fL (7.2-11.7); MONO # 0.6 K/uL (0.0-0.8); MONO % 20.3 % (0.0-10.0); NRBC % 0.1 % (0.0-2.0); PLATELET COUNT 222 K/uL (130-400); RED CELL DISTRIBUTION WIDTH 15.1 % (11.5-14.5); WHITE BLOOD COUNT 2.7 K/uL (4.8-10.8)
[2017-09-13 19:02] LABS: ALCOHOL SERUM < 10 mg/dl (0-10); ALKALINE PHOSPHATASE 303 U/L (38-126); ALT/SGPT 54 U/L (21-72); AST/SGOT 91 U/L (17-59); BILIRUBIN,TOTAL 1.8 mg/dL (0.2-1.3); BLOOD UREA NITROGEN 6 mg/dL (9-20); CALCIUM 7.7 mg/dl (8.6-10.4); CARBON DIOXIDE 21 mmol/L (22-30); CHLORIDE 110 mmol/L (98-107); GFR AFRICAN-AMERICAN > 60; GLUCOSE,RANDOM 91 mg/dL (75-110); POTASSIUM 3.5 mmol/L (3.6-5.2); SODIUM 138 mmol/L (132-148); TOTAL PROTEIN 7.7 g/dL (6.3-8.3)
[2017-09-13 19:06] LABS: ALB/GLOB RATIO 0.7 (1.0-2.1)
[2017-09-13 19:14] LABS: INR 1.4
--- NOTE | 2017-09-13 19:22 | C.PDOC ---
History Of Present Illness 42 y/o male with PMHx of alcoholic cirrhosis brought to ED by and son with complaints of "aching" belly and leg discomfort. At ED patient has bizarre behavior and is noted to still consume ETOH. Patient is non compliant with lactulose. No other complaints at this time. Time Seen by Provider: 09/13/17 18:30 Chief Complaint (Nursing): Back Pain History Per: Patient History/Exam Limitations: no limitations Onset/Duration Of Symptoms: Days Current Symptoms Are (Timing): Still Present Quality Of Discomfort: Aching Past Medical History Reviewed: Historical Data, Nursing Documentation, Vital Signs Vital Signs: Last Vital Signs Temp 98.9 F 09/13/17 19:47 Pulse 79 09/13/17 20:31 Resp 17 09/13/17 20:31 BP 120/83 09/13/17 20:31 Pulse Ox 97 09/13/17 20:31 - Medical History PMH: Hepatitis (C), HTN, Kidney Stones (burning with urination), Chronic Kidney Disease Surgical History: No Surg Hx - [facility] Procedures CLOSURE SKIN & SUBCUTANEOUS NEC (06/19/15) DETOXIFICATION SERVICES FOR SUBSTANCE ABUSE TREATMENT (12/22/15) DRAINAGE OF SPINAL CANAL, PERCUTANEOUS APPROACH, DIAGNOSTIC (03/30/16) EXCISION OF STOMACH, ENDO, DIAGN (09/12/16) TETANUS TOXOID ADMINIST (06/19/15) Family History: States: No Known Family Hx - Social History Hx Tobacco Use: Yes Hx Alcohol Use: Yes Hx Substance Use: No - Immunization History Hx Tetanus Toxoid Vaccination: No Hx Influenza Vaccination: No Hx Pneumococcal Vaccination: No Review Of Systems Constitutional: Negative for: Fever, Chills Gastrointestinal: Positive for: Abdominal Pain. Negative for: Nausea, Vomiting , Diarrhea Musculoskeletal: Positive for: Leg Pain. Negative for: Back Pain Skin: Negative for: Rash Neurological: Negative for: Weakness, Numbness Physical Exam - Physical Exam Appears: Non-toxic, Agitated, Other (Bizarre, irritated) Skin: Warm, Dry, No Rash Head: Normacephalic Eye(s): bilateral: Normal Inspection Oral Mucosa: Moist Neck: Normal ROM, Supple Chest: Symmetrical Cardiovascular: Rhythm Regular Respiratory: Normal Breath Sounds, No Rales, No Rhonchi, No Wheezing Gastrointestinal/Abdominal: Soft, No Tenderness, No Guarding, No Rebound Extremity: Normal ROM, Capillary Refill (<2 seconds), No Deformity, No Swelling Neurological/Psych: Other (Confused, Delirious) ED Course And Treatment - Laboratory Results Result Diagrams: 09/13/17 18:44 09/13/17 18:44 O2 Sat by Pulse Oximetry: 100 (RA) Pulse Ox Interpretation: Normal - Physician Consult Information Outcome Of Conversation: 1930: dMarywMary Allen, pmd, ok to admit. Medical Decision Making Medical Decision Making: advanced liver disease, still abusing alcohol, non-compliant w lactulose. now with elevated bilis, lipase c/w pancreatitis, AST/ALT 2:1 c/w persistent alcohol abuse. ammonia 315H lactulose ativan to prevent w/d seizures, Tramadol for belly pain Disposition Doctor Will See Patient In The: Hospital Counseled Patient/Family Regarding: Studies Performed, Diagnosis - Disposition Disposition: HOSPITALIZED Disposition Time: 19:27 Condition: FAIR - Clinical Impression Clinical Impression: Hepatic encephalopathy syndrome, Pancreatitis, Alcohol abuse, EtOH dependence - Scribe Statement The provider has reviewed the documentation as recorded by the Cristinibguadalupe Null All medical record entries made by the Cristinibguadalupe were at my direction and personally dictated by me. I have reviewed the chart and agree that the record accurately reflects my personal performance of the history, physical exam, medical decision making, and the department course for this patient. I have also personally directed, reviewed, and agree with the discharge instructions and disposition.
[2017-09-13 19:33] LABS: BASOPHIL 1 % (0-2); EOSINOPHIL 10 % (0-4); NEUTROPHIL 31 % (50-75); TOTAL CELLS COUNTED 100
[2017-09-13] MEDS ORDERED: Multivitamin (MVI) 10 ML, Thiamine 100 MG, Folic Acid 1 MG in Sodium Chloride 0.9% 1,00... IV ONE (20:17)
--- NOTE | 2017-09-13 20:50 | CP.PCM.HP ---
History of Present Illness - History of Present Illness History of Present Illness: A 42-year-old male with PMH-WBC, HTN, renal stone, CKD, cirrhosis of liver presents with a for evaluation. C/O-abdominal pain for a few days. Insidious in onset, progressive, weak, dull aching type, intensity of 4/10, diffuse, generalized, all over the abdomen. C/ - back pain foir a few days. C/O - bilateral lower extremity pain for a few days. C/O - Confusion for a few days. No C/O - Ayleen, hemetmesis, vomitting, fever, bladder or bowel disturbances. Present on Admission - Present on Admission Any Indicators Present on Admission: No Past Patient History - Infectious Disease Hx of Infectious Diseases: None - Past Medical History & Family History Past Medical History?: Yes - Past Social History Smoking Status: Heavy Smoker > 10 Cigarettes Daily - CARDIAC Hx Hypertension: Yes - PULMONARY Hx Respiratory Disorders: No - NEUROLOGICAL Hx Neurological Disorder: No - HEENT Hx HEENT Problems: No - RENAL Hx Chronic Kidney Disease: Yes Hx Kidney Stones: Yes (burning with urination) - ENDOCRINE/METABOLIC Hx Diabetes Mellitus Type 2: No (denies) - HEMATOLOGICAL/ONCOLOGICAL Hx Blood Disorders: Yes Hx Hepatitis C: Yes Other/Comment: liver problem, liver failure - INTEGUMENTARY Hx Dermatological Problems: No - MUSCULOSKELETAL/RHEUMATOLOGICAL Hx Musculoskeletal Disorders: Yes Hx Falls: Yes - GASTROINTESTINAL Hx Gastrointestinal Disorders: Yes Other/Comment: Liver disease - GENITOURINARY/GYNECOLOGICAL Hx Genitourinary Disorders: No - PSYCHIATRIC Hx Substance Use: No - SURGICAL HISTORY Hx Surgeries: No - ANESTHESIA Hx Anesthesia: No Hx Anesthesia Reactions: No Hx Malignant Hyperthermia: No Meds Allergies/Adverse Reactions: Allergies Allergy/AdvReac Type Severity Reaction Status Date / Time No Known Allergies Allergy Verified 09/13/17 17:25 Results - Vital Signs Recent Vital Signs: Last Vital Signs Temp 98.9 F 09/13/17 19:47 Pulse 79 09/13/17 20:31 Resp 17 09/13/17 20:31 BP 120/83 09/13/17 20:31 Pulse Ox 97 09/13/17 20:31 - Labs Result Diagrams: 09/20/17 11:49 09/20/17 11:49 Labs: Laboratory Results - last 24 hr 09/13/17 09/13/17 09/13/17 18:44 18:44 18:44 WBC 2.7 L RBC 4.71 Hgb 13.5 Hct 40.1 MCV 85.1 MCH 28.6 MCHC 33.6 RDW 15.1 H Plt Count 222 MPV 8.4 Neut % (Auto) 28.9 L Lymph % (Auto) 43.2 H [place] % (Auto) 20.3 H Eos % (Auto) 7.3 H Baso % (Auto) 0.3 Neut # 0.8 L Lymph # 1.2 [place] # 0.6 Eos # 0.2 Baso # 0.0 Neutrophils % (Manual) 31 L Lymphocytes % (Manual) 37 Monocytes % (Manual) 21 H Eosinophils % (Manual) 10 H Basophils % (Manual) 1 Platelet Estimate Normal PT 15.3 H INR 1.4 APTT 29 Sodium 138 Potassium 3.5 L Chloride 110 H Carbon Dioxide 21 L Anion Gap 11 BUN 6 L Creatinine 0.5 L Est GFR ( Amer) > 60 Est GFR (Non-Af Amer) > 60 Random Glucose 91 Calcium 7.7 L Total Bilirubin 1.8 H AST 91 H D ALT 54 Alkaline Phosphatase 303 H D Ammonia Total Protein 7.7 Albumin 3.1 L Globulin 4.7 H Albumin/Globulin Ratio 0.7 L Lipase 314 H Alcohol, Quantitative < 10 09/13/17 18:44 WBC RBC Hgb Hct MCV MCH MCHC RDW Plt Count MPV Neut % (Auto) Lymph % (Auto) [place] % (Auto) Eos % (Auto) Baso % (Auto) Neut # Lymph # [place] # Eos # Baso # Neutrophils % (Manual) Lymphocytes % (Manual) Monocytes % (Manual) Eosinophils % (Manual) Basophils % (Manual) Platelet Estimate PT INR APTT Sodium Potassium Chloride Carbon Dioxide Anion Gap BUN Creatinine Est GFR ( Amer) Est GFR (Non-Af Amer) Random Glucose Calcium Total Bilirubin AST ALT Alkaline Phosphatase Ammonia 315 H D Total Protein Albumin Globulin Albumin/Globulin Ratio Lipase Alcohol, Quantitative
[2017-09-14 02:08] LABS: RBC URINE 3 /hpf (0-3); URINE BILIRUBIN NEGATIVE (NEGATIVE); URINE BLOOD 1+ (NEGATIVE); URINE COLOR Yellow (YELLOW); URINE GLUCOSE (UA) NORMAL (Normal); URINE KETONE NEGATIVE (NEGATIVE); URINE LEUKOCYTE ESTERASE NEG Leu/uL (Negative); URINE PROTEIN NEGATIVE (NEGATIVE)
--- NOTE | 2017-09-14 09:03 | RAD ---
PROCEDURE: Radiographs of the chest and abdomen (obstructive series) HISTORY: abd pain COMPARISON: . Chest x-ray 12/04/2016 ; CT chest abdomen and pelvis 07/13/2017 TECHNIQUE: AP radiograph of the chest, with upright and supine radiographs of the abdomen. FINDINGS: CHEST: Lungs: The interstitial and overall bronchovascular markings appear diffusely minimally prominent. However less than the prior after mentioned chest x-ray suggests. Prior CT notes pulmonary nodules please note that prior CT chest report. Currently no consolidative infiltrate suggested. Cardiovascular: Normal size heart. No pulmonary vascular congestion. Pleura: No pleural fluid. No pneumothorax. Other findings: None. ABDOMEN AND PELVIS: Bowel: Stool retention right colon Free air: None. Bones: Unremarkable. Other findings: None. IMPRESSION: No infiltrate. Please no prior CT chest report No mechanical obstruction. Moderate stool retention right colon. No free air
--- NOTE | 2017-09-14 09:07 | CP.PCM.PN ---
Subjective - Date & Time of Evaluation Date of Evaluation: 09/14/17 Time of Evaluation: 09:20 - Subjective Subjective: clinically same Objective - Vital Signs/Intake and Output Vital Signs (last 24 hours): Temp Pulse Resp BP Pulse Ox 98.0 F 79 19 96/56 L 99 09/14/17 04:09 09/14/17 06:47 09/14/17 06:47 09/14/17 06:47 09/14/17 06:47 - Medications Medications: Current Medications Enoxaparin Sodium (Lovenox) 30 mg SC DAILY RON Lactulose (Enulose) 200 gm VT BID PRN PRN Reason: Other Lactulose (Enulose) 20 gm PO QID RON Lorazepam (Ativan) 1 mg IVP Q8H PRN PRN Reason: Agitation Pantoprazole Sodium (Protonix Ec Tab) 40 mg PO DAILY RON Potassium Chloride (Klor-Con 10) 10 meq PO BRK RON Rifaximin (Xifaxan) 550 mg PO BID RON - Labs Labs: 09/13/17 18:44 09/13/17 18:44 PT 15.3 SECONDS (9.7-12.2) H 09/13/17 18:44 INR 1.4 09/13/17 18:44 APTT 29 SECONDS (21-34) 09/13/17 18:44
[2017-09-14] MEDS: Potassium Chloride 10 mEq ER Tab PO SCH (09:10)
[2017-09-14 09:14] LABS: BASO % 0.5 % (0.0-2.0); EOS # 0.3 K/uL (0.0-0.7); EOS % 10.5 % (0.0-4.0); HEMATOCRIT 40.5 % (35.0-51.0); LYMPH % 39.7 % (20.0-40.0); MEAN CELL VOLUME 84.9 fL (80.0-94.0); MEAN CORPUSCULAR HEMOGLOBIN 28.9 pg (27.0-31.0); MEAN PLATELET VOLUME 8.1 fL (7.2-11.7); MONO # 0.5 K/uL (0.0-0.8); MONO % 18.4 % (0.0-10.0); NRBC % 0.7 % (0.0-2.0); RED CELL DISTRIBUTION WIDTH 15.7 % (11.5-14.5); WHITE BLOOD COUNT 2.5 K/uL (4.8-10.8)
[2017-09-14 09:20] LABS: INR 1.4
[2017-09-14 09:51] LABS: ALKALINE PHOSPHATASE 287 U/L (38-126); ALT/SGPT 58 U/L (21-72); AST/SGOT 80 U/L (17-59); BILIRUBIN,TOTAL 3.1 mg/dL (0.2-1.3); BLOOD UREA NITROGEN 6 mg/dL (9-20); CALCIUM 7.6 mg/dl (8.6-10.4); CARBON DIOXIDE 21 mmol/L (22-30); CHLORIDE 109 mmol/L (98-107); GFR AFRICAN-AMERICAN > 60; GLUCOSE,RANDOM 80 mg/dL (75-110); POTASSIUM 3.3 mmol/L (3.6-5.2); SODIUM 136 mmol/L (132-148); TOTAL PROTEIN 6.3 g/dL (6.3-8.3)
[2017-09-14 09:52] LABS: ALB/GLOB RATIO 0.9 (1.0-2.1)
--- NOTE | 2017-09-14 09:58 | CP.PCM.CON ---
<Shanelle Alonso - Last Filed: 09/14/17 14:22> History of Present Illness - History of Present Illness History of Present Illness: Shanelle Alonso, PGY1, GI Consult Note for Dr Brown: CC: abdominal pain 42 years old male with hx of alcoholic cirrhosis, ETOH dependency, HTN, nephrolithiasis, presents for diffuse abdominal pain. Upon examination, pt currently altered, likely from 6 mg Ativan given in ED. History obtained from prior medical records. Pt is noncompliant with his lactulose at home. In ED, pt's VSS stable, given lactulose 100 gm PO, Ativan 6 mg PO,, Tramadol and started on NS @ 100. T.bili 1.8, AST 91, ALT 54, LAP 303, lipase 314, NH3 315. Abdominal obstructive series x ray neg for mechanical obstruction, + moderate stool retention in right colon. 12 point ROS unobtainable due to iatrogenically induced AMS. PMH: alcoholic cirrhosis, ETOH dependency, HTN, nephrolithiasis PSH: 2 surgeries: one with metal in his head; does not remember other surgery All: NKA FH: No hx of cancer SH: smokes 1 ppd x past 20 years; drinks 1 large beer can every other day. No illicit drug use. Lives with and kids. 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 Review of Systems - Review of Systems Systems not reviewed;Unavailable: Altered Mental Status Past Patient History - Infectious Disease Hx of Infectious Diseases: None - Past Medical History & Family History Past Medical History?: Yes - Past Social History Smoking Status: Heavy Smoker > 10 Cigarettes Daily - CARDIAC Hx Hypertension: Yes - PULMONARY Hx Respiratory Disorders: No - NEUROLOGICAL Hx Neurological Disorder: No - HEENT Hx HEENT Problems: No - RENAL Hx Chronic Kidney Disease: Yes Hx Kidney Stones: Yes (burning with urination) - ENDOCRINE/METABOLIC Hx Diabetes Mellitus Type 2: No (denies) - HEMATOLOGICAL/ONCOLOGICAL Hx Blood Disorders: Yes Hx Hepatitis C: Yes Other/Comment: liver problem, liver failure - INTEGUMENTARY Hx Dermatological Problems: No - MUSCULOSKELETAL/RHEUMATOLOGICAL Hx Musculoskeletal Disorders: Yes Hx Falls: Yes - GASTROINTESTINAL Hx Gastrointestinal Disorders: Yes Other/Comment: Liver disease - GENITOURINARY/GYNECOLOGICAL Hx Genitourinary Disorders: No - PSYCHIATRIC Hx Substance Use: No - SURGICAL HISTORY Hx Surgeries: No - ANESTHESIA Hx Anesthesia: No Hx Anesthesia Reactions: No Hx Malignant Hyperthermia: No Meds Allergies/Adverse Reactions: Allergies Allergy/AdvReac Type Severity Reaction Status Date / Time No Known Allergies Allergy Verified 09/13/17 17:25 - Medications Medications: Current Medications Enoxaparin Sodium (Lovenox) 30 mg SC DAILY [facility] Lactulose (Enulose) 200 gm [place] BID PRN PRN Reason: Other Lactulose (Enulose) 20 gm PO QID [facility] Lorazepam (Ativan) 1 mg IVP Q8H PRN PRN Reason: Agitation Pantoprazole Sodium (Protonix Ec Tab) 40 mg PO DAILY [facility] Potassium Chloride (Klor-Con 10) 10 meq PO BRK RON Last Admin: 09/14/17 09:10 Dose: 10 meq Rifaximin (Xifaxan) 550 mg PO BID [facility] Physical Exam - Constitutional Appears: Other (Drowsy) - Head Exam Head Exam: ATRAUMATIC, NORMOCEPHALIC - Eye Exam Eye Exam: PERRL. absent: Scleral icterus Pupil Exam: PERRL - ENT Exam ENT Exam: Mucous Membranes Dry - Respiratory Exam Respiratory Exam: Clear to Auscultation Bilateral - Cardiovascular Exam Cardiovascular Exam: RRR, +S1, +S2 - GI/Abdominal Exam GI & Abdominal Exam: Normal Bowel Sounds, Soft. absent: Distended, Organomegaly , Rebound, Rigid - Extremities Exam Extremities exam: Negative for: calf tenderness, pedal edema - Neurological Exam Neurological exam: Altered - Skin Skin Exam: Dry, Warm Results - Vital Signs Recent Vital Signs: Last Vital Signs Temp 98.0 F 09/14/17 04:09 Pulse 84 09/14/17 09:10 Resp 18 09/14/17 09:10 BP 111/76 09/14/17 09:10 Pulse Ox 97 09/14/17 09:10 - Labs Result Diagrams: 09/14/17 09:09 09/14/17 09:09 Labs: Laboratory Results - last 24 hr 09/13/17 09/13/17 09/13/17 18:44 18:44 18:44 WBC 2.7 L RBC 4.71 Hgb 13.5 Hct 40.1 MCV 85.1 MCH 28.6 MCHC 33.6 RDW 15.1 H Plt Count 222 MPV 8.4 Neut % (Auto) 28.9 L Lymph % (Auto) 43.2 H Lucas % (Auto) 20.3 H Eos % (Auto) 7.3 H Baso % (Auto) 0.3 Neut # 0.8 L Lymph # 1.2 Lucas # 0.6 Eos # 0.2 Baso # 0.0 Neutrophils % (Manual) 31 L Lymphocytes % (Manual) 37 Monocytes % (Manual) 21 H Eosinophils % (Manual) 10 H Basophils % (Manual) 1 Platelet Estimate Normal PT 15.3 H INR 1.4 APTT 29 Sodium 138 Potassium 3.5 L Chloride 110 H Carbon Dioxide 21 L Anion Gap 11 BUN 6 L Creatinine 0.5 L Est GFR ( Amer) > 60 Est GFR (Non-Af Amer) > 60 Random Glucose 91 Calcium 7.7 L Total Bilirubin 1.8 H AST 91 H D ALT 54 Alkaline Phosphatase 303 H D Ammonia Total Protein 7.7 Albumin 3.1 L Globulin 4.7 H Albumin/Globulin Ratio 0.7 L Lipase 314 H Urine Color Urine Clarity Urine pH Ur Specific [place] Urine Protein Urine Glucose (UA) Urine Ketones Urine Blood Urine Nitrate Urine Bilirubin Urine Urobilinogen Ur Leukocyte Esterase Urine RBC (Auto) Ur Squamous Epith Cells Urine Opiates Screen Urine Methadone Screen Ur Barbiturates Screen Ur Phencyclidine Scrn Ur Amphetamines Screen U Benzodiazepines Scrn U Oth Cocaine Metabols U Cannabinoids Screen Alcohol, Quantitative < 10 09/13/17 09/14/17 09/14/17 18:44 01:46 01:46 WBC RBC Hgb Hct MCV MCH MCHC RDW Plt Count MPV Neut % (Auto) Lymph % (Auto) Lucas % (Auto) Eos % (Auto) Baso % (Auto) Neut # Lymph # Lucas # Eos # Baso # Neutrophils % (Manual) Lymphocytes % (Manual) Monocytes % (Manual) Eosinophils % (Manual) Basophils % (Manual) Platelet Estimate PT INR APTT Sodium Potassium Chloride Carbon Dioxide Anion Gap BUN Creatinine Est GFR ( Amer) Est GFR (Non-Af Amer) Random Glucose Calcium Total Bilirubin AST ALT Alkaline Phosphatase Ammonia 315 H D Total Protein Albumin Globulin Albumin/Globulin Ratio Lipase Urine Color Yellow Urine Clarity Clear Urine pH 6.0 Ur Specific [place] 1.020 Urine Protein Negative Urine Glucose (UA) Normal Urine Ketones Negative Urine Blood 1+ H Urine Nitrate Negative Urine Bilirubin Negative Urine Urobilinogen 4.0 Ur Leukocyte Esterase Neg Urine RBC (Auto) 3 Ur Squamous Epith Cells 1 Urine Opiates Screen Negative Urine Methadone Screen Negative Ur Barbiturates Screen Negative Ur Phencyclidine Scrn Negative Ur Amphetamines Screen Negative U Benzodiazepines Scrn Negative U Oth Cocaine Metabols Negative U Cannabinoids Screen Negative Alcohol, Quantitative 09/14/17 09/14/17 09/14/17 09:09 09:09 09:09 WBC 2.5 L RBC 4.77 Hgb 13.8 Hct 40.5 MCV 84.9 MCH 28.9 MCHC 34.0 RDW 15.7 H Plt Count 219 MPV 8.1 Neut % (Auto) 30.9 L Lymph % (Auto) 39.7 Lucas % (Auto) 18.4 H Eos % (Auto) 10.5 H Baso % (Auto) 0.5 Neut # 0.8 L Lymph # 1.0 Lucas # 0.5 Eos # 0.3 Baso # 0.0 Neutrophils % (Manual) Lymphocytes % (Manual) Monocytes % (Manual) Eosinophils % (Manual) Basophils % (Manual) Platelet Estimate PT 16.5 H INR 1.4 APTT Sodium 136 Potassium 3.3 L Chloride 109 H Carbon Dioxide 21 L Anion Gap 9 L BUN 6 L Creatinine 0.4 L Est GFR ( Amer) > 60 Est GFR (Non-Af Amer) > 60 Random Glucose 80 Calcium 7.6 L Total Bilirubin 3.1 H AST 80 H ALT 58 Alkaline Phosphatase 287 H Ammonia Total Protein 6.3 Albumin 3.0 L Globulin 3.4 Albumin/Globulin Ratio 0.9 L Lipase Urine Color Urine Clarity Urine pH Ur Specific [place] Urine Protein Urine Glucose (UA) Urine Ketones Urine Blood Urine Nitrate Urine Bilirubin Urine Urobilinogen Ur Leukocyte Esterase Urine RBC (Auto) Ur Squamous Epith Cells Urine Opiates Screen Urine Methadone Screen Ur Barbiturates Screen Ur Phencyclidine Scrn Ur Amphetamines Screen U Benzodiazepines Scrn U Oth Cocaine Metabols U Cannabinoids Screen Alcohol, Quantitative Assessment & Plan - Assessment and Plan (Free Text) Assessment: 42 years old male with hx of alcoholic cirrhosis, ETOH dependency, presents for abdominal pain, AMS: Plan: - 2/2 likely hepatic encephalopathy vs iatrogenically induced. Will reevaluate mental status after pt's Ativan wears off. Please limit Ativan usage, in the setting of hepatic encephalopathy. - On admission, MELDS score 12, low. Not likely a candidate for liver transplant , pt actively drinking and has a history of poor follow up. - Today, MELDs score 25, DF score 34. At this point, not considering initiating steroids as pt is noncompliant. Will continue to monitor daily. - T bili 1.8, INR 1.4, AST 91, ALT 54, ALP 303, lipase 314, ammonia 315 ( previously ranges from 82-206) - Abd obstructive series x ray 09/13: moderate stool retention in right colon. No obstruction. - Will continue with lactulose 20 gm QID, rifaximin and enema. Pt had a large BM this AM. Cont to monitor mental status. Discussed with GI fellow and attending, Dr Brown. Shanelle Alonso, PGY1 - Date & Time Date: 09/14/17 Time: 10:56 <Alden Brown - Last Filed: 09/14/17 14:44> Meds - Medications Medications: Current Medications Clonidine HCl (Catapres) 0.1 mg PO Q4H PRN PRN Reason: BP>150/100 or P>100 Enoxaparin Sodium (Lovenox) 30 mg SC DAILY [facility] Last Admin: 09/14/17 10:32 Dose: 30 mg Haloperidol (Haldol) 5 mg PO Q4H PRN PRN Reason: Agitation Haloperidol Lactate (Haldol) 5 mg IM Q4H PRN PRN Reason: severe agitation Lactulose (Enulose) 200 gm [place] BID PRN PRN Reason: Other Lactulose (Enulose) 20 gm PO QID [facility] Last Admin: 09/14/17 13:47 Dose: 20 gm Lorazepam (Ativan) 2 mg PO Q6H RON PRN Reason: Taper Stop: 09/18/17 12:59 Last Admin: 09/14/17 13:47 Dose: 2 mg Lorazepam (Ativan) 1 mg IVP Q4H PRN PRN Reason: Alcohol withdrawal Pantoprazole Sodium (Protonix Ec Tab) 40 mg PO DAILY [facility] Last Admin: 09/14/17 10:32 Dose: 40 mg Pneumococcal Polyvalent Vaccine (Pneumovax 23 Vaccine) 0.5 ml IM .ONCE ONE Stop: 09/17/17 10:01 Potassium Chloride (Klor-Con 10) 10 meq PO BRK [facility] Last Admin: 09/14/17 09:10 Dose: 10 meq Rifaximin (Xifaxan) 550 mg PO BID [facility] Last Admin: 09/14/17 11:12 Dose: 550 mg Results - Vital Signs Recent Vital Signs: Last Vital Signs Temp 97.9 F 09/14/17 10:40 Pulse 86 09/14/17 10:40 Resp 18 09/14/17 09:10 BP 111/76 09/14/17 09:10 Pulse Ox 97 09/14/17 09:10 - Labs Result Diagrams: 09/14/17 09:09 09/14/17 09:09 Labs: Laboratory Results - last 24 hr 09/13/17 09/13/17 09/13/17 18:44 18:44 18:44 WBC 2.7 L RBC 4.71 Hgb 13.5 Hct 40.1 MCV 85.1 MCH 28.6 MCHC 33.6 RDW 15.1 H Plt Count 222 MPV 8.4 Neut % (Auto) 28.9 L Lymph % (Auto) 43.2 H Lucas % (Auto) 20.3 H Eos % (Auto) 7.3 H Baso % (Auto) 0.3 Neut # 0.8 L Lymph # 1.2 Lucas # 0.6 Eos # 0.2 Baso # 0.0 Neutrophils % (Manual) 31 L Lymphocytes % (Manual) 37 Monocytes % (Manual) 21 H Eosinophils % (Manual) 10 H Basophils % (Manual) 1 Platelet Estimate Normal PT 15.3 H INR 1.4 APTT 29 Sodium 138 Potassium 3.5 L Chloride 110 H Carbon Dioxide 21 L Anion Gap 11 BUN 6 L Creatinine 0.5 L Est GFR ( Amer) > 60 Est GFR (Non-Af Amer) > 60 Random Glucose 91 Calcium 7.7 L Total Bilirubin 1.8 H AST 91 H D ALT 54 Alkaline Phosphatase 303 H D Ammonia Total Protein 7.7 Albumin 3.1 L Globulin 4.7 H Albumin/Globulin Ratio 0.7 L Lipase 314 H Urine Color Urine Clarity Urine pH Ur Specific [place] Urine Protein Urine Glucose (UA) Urine Ketones Urine Blood Urine Nitrate Urine Bilirubin Urine Urobilinogen Ur Leukocyte Esterase Urine RBC (Auto) Ur Squamous Epith Cells Urine Opiates Screen Urine Methadone Screen Ur Barbiturates Screen Ur Phencyclidine Scrn Ur Amphetamines Screen U Benzodiazepines Scrn U Oth Cocaine Metabols U Cannabinoids Screen Alcohol, Quantitative < 10 11/20/17 11/21/17 11/21/17 18:44 01:46 01:46 WBC RBC Hgb Hct MCV MCH MCHC RDW Plt Count MPV Neut % (Auto) Lymph % (Auto) Lucas % (Auto) Eos % (Auto) Baso % (Auto) Neut # Lymph # Lucas # Eos # Baso # Neutrophils % (Manual) Lymphocytes % (Manual) Monocytes % (Manual) Eosinophils % (Manual) Basophils % (Manual) Platelet Estimate PT INR APTT Sodium Potassium Chloride Carbon Dioxide Anion Gap BUN Creatinine Est GFR ( Amer) Est GFR (Non-Af Amer) Random Glucose Calcium Total Bilirubin AST ALT Alkaline Phosphatase Ammonia 315 H D Total Protein Albumin Globulin Albumin/Globulin Ratio Lipase Urine Color Yellow Urine Clarity Clear Urine pH 6.0 Ur Specific [place] 1.020 Urine Protein Negative Urine Glucose (UA) Normal Urine Ketones Negative Urine Blood 1+ H Urine Nitrate Negative Urine Bilirubin Negative Urine Urobilinogen 4.0 Ur Leukocyte Esterase Neg Urine RBC (Auto) 3 Ur Squamous Epith Cells 1 Urine Opiates Screen Negative Urine Methadone Screen Negative Ur Barbiturates Screen Negative Ur Phencyclidine Scrn Negative Ur Amphetamines Screen Negative U Benzodiazepines Scrn Negative U Oth Cocaine Metabols Negative U Cannabinoids Screen Negative Alcohol, Quantitative 09/14/17 09/14/17 09/14/17 09:09 09:09 09:09 WBC 2.5 L RBC 4.77 Hgb 13.8 Hct 40.5 MCV 84.9 MCH 28.9 MCHC 34.0 RDW 15.7 H Plt Count 219 MPV 8.1 Neut % (Auto) 30.9 L Lymph % (Auto) 39.7 Lucas % (Auto) 18.4 H Eos % (Auto) 10.5 H Baso % (Auto) 0.5 Neut # 0.8 L Lymph # 1.0 Lucas # 0.5 Eos # 0.3 Baso # 0.0 Neutrophils % (Manual) Lymphocytes % (Manual) Monocytes % (Manual) Eosinophils % (Manual) Basophils % (Manual) Platelet Estimate PT 16.5 H INR 1.4 APTT Sodium 136 Potassium 3.3 L Chloride 109 H Carbon Dioxide 21 L Anion Gap 9 L BUN 6 L Creatinine 0.4 L Est GFR ( Amer) > 60 Est GFR (Non-Af Amer) > 60 Random Glucose 80 Calcium 7.6 L Total Bilirubin 3.1 H AST 80 H ALT 58 Alkaline Phosphatase 287 H Ammonia Total Protein 6.3 Albumin 3.0 L Globulin 3.4 Albumin/Globulin Ratio 0.9 L Lipase Urine Color Urine Clarity Urine pH Ur Specific [place] Urine Protein Urine Glucose (UA) Urine Ketones Urine Blood Urine Nitrate Urine Bilirubin Urine Urobilinogen Ur Leukocyte Esterase Urine RBC (Auto) Ur Squamous Epith Cells Urine Opiates Screen Urine Methadone Screen Ur Barbiturates Screen Ur Phencyclidine Scrn Ur Amphetamines Screen U Benzodiazepines Scrn U Oth Cocaine Metabols U Cannabinoids Screen Alcohol, Quantitative Attending/Attestation - Attestation I have personally seen and examined this patient.: Yes I have fully participated in the care of the patient.: Yes I have reviewed all pertinent clinical information: Yes Notes (Text): 09/14/17 14:36 I have seen and examined patient with GI fellow and medical assistant dermatology. Agree with above documentation with the following additions. In brief, this is a 42 year old male with history of decompensated ETOH cirrhosis, medication non- compliance, HTN, who presents to hospital with altered mental status. He has had multiple recurrent hospital admissions for similar situation. He is not able to participate in meaningful conversation due to medical condition, additional information obtained via discussion with nursing staff, chart review , and discussion with patient's . He admits to ongoing ETOH consumption, though is not able to quantify how much or how often. He denies abdominal pain , nausea, vomiting, fever/chills, weight loss, or rectal bleeding. He had one large bowel movement overnight following administration of lactulose. Tolerating PO diet without difficulty. Additional physical examination: Psych: mood, affect appropriate - concern for ETOH withdrawal Decompensated ETOH cirrhosis, admission MELD 25 HTN Altered mental status, hepatic encephalopathy - Low sodium diet as tolerated - Continue with lactulose PO and enema therapy, titrate so patient has 3-4 bowel movements daily - Continue with xifaxan for HE prevention - Suggest reduction in use of benzodiazepine due to underlying encephalopathy - Overall patient prognosis is quite poor, he is not a candidate for transplant evaluation due to ongoing ETOH consumption. Given recurrent admissions for encephalopathy secondary to medication non-compliance, would consider placing patient in nursing facility following hospital discharge.
[2017-09-14] MEDS: Enoxaparin 30 mg Syringe SC SCH (10:32)
[2017-09-14] MEDS: Pantoprazole 40 mg EC Tab PO SCH (10:32)
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
[2017-09-14 16:08] LABS: MAGNESIUM 1.7 mg/dL (1.6-2.3)
[2017-09-15] MEDS: Potassium Chloride 10 mEq ER Tab PO SCH (08:22)
--- NOTE | 2017-09-15 08:25 | CP.PCM.PN ---
<Shanelle Alonso - Last Filed: 09/15/17 17:41> Subjective - Date & Time of Evaluation Date of Evaluation: 09/15/17 Time of Evaluation: 08:21 - Subjective Subjective: Shanelle Alonso, PGY1, GI Progress Note for Dr Brown: Pt seen and examined at bedside. No acute events overnight. Pt did not receive Ativan overnight and this AM. Pt still drowsy. As per nurse, pt had 2 large BM yesterday during daytime. As per nurse, pt tolerating low sodium diet well, consuming 30-40% of food tray. Denies fever, chills, nausea, vomiting, abdominal pain. 12 point ROS unobtainable because patient is drowsy/AMS. Will attempt to reassess later. Objective - Vital Signs/Intake and Output Vital Signs (last 24 hours): Temp Pulse Resp BP Pulse Ox 97.7 F 84 20 130/87 100 09/14/17 16:00 09/14/17 16:32 09/14/17 16:00 09/14/17 16:00 09/14/17 16:00 Intake and Output: 09/15/17 09/15/17 06:59 18:59 Intake Total 500 Balance 500 - Medications Medications: Current Medications Clonidine HCl (Catapres) 0.1 mg PO Q4H PRN PRN Reason: BP>150/100 or P>100 Enoxaparin Sodium (Lovenox) 30 mg SC DAILY [facility] Last Admin: 09/14/17 10:32 Dose: 30 mg Haloperidol (Haldol) 5 mg PO Q4H PRN PRN Reason: Agitation Last Admin: 09/14/17 21:18 Dose: 5 mg Haloperidol Lactate (Haldol) 5 mg IM Q4H PRN PRN Reason: severe agitation Lactulose (Enulose) 200 gm [place] BID PRN PRN Reason: Other Lactulose (Enulose) 20 gm PO QID [facility] Last Admin: 09/14/17 21:18 Dose: 20 gm Lorazepam (Ativan) 2 mg PO Q6H [facility] PRN Reason: Taper Stop: 09/18/17 12:59 Last Admin: 09/15/17 06:05 Dose: Not Given Lorazepam (Ativan) 1 mg IVP Q4H PRN PRN Reason: Alcohol withdrawal Pantoprazole Sodium (Protonix Ec Tab) 40 mg PO DAILY [facility] Last Admin: 09/14/17 10:32 Dose: 40 mg Pneumococcal Polyvalent Vaccine (Pneumovax 23 Vaccine) 0.5 ml IM .ONCE ONE Stop: 09/17/17 10:01 Potassium Chloride (Klor-Con 10) 10 meq PO BRK [facility] Last Admin: 09/14/17 09:10 Dose: 10 meq Rifaximin (Xifaxan) 550 mg PO BID [facility] Last Admin: 09/14/17 18:23 Dose: 550 mg - Labs Labs: 09/14/17 09:09 09/14/17 09:09 PT 16.5 SECONDS (9.7-12.2) H 09/14/17 09:09 INR 1.4 09/14/17 09:09 APTT 29 SECONDS (21-34) 09/13/17 18:44 - Constitutional Appears: Non-toxic, Chronically Ill - Head Exam Head Exam: ATRAUMATIC, NORMOCEPHALIC - Eye Exam Eye Exam: PERRL. absent: Conjunctival injection, Scleral icterus Pupil Exam: PERRL - ENT Exam ENT Exam: Mucous Membranes Moist - Respiratory Exam Respiratory Exam: Clear to Ausculation Bilateral - Cardiovascular Exam Cardiovascular Exam: RRR, +S1, +S2 - GI/Abdominal Exam GI & Abdominal Exam: Soft, Tenderness, Normal Bowel Sounds. absent: Distended, Guarding, Rigid, Organomegaly, Rebound Additional comments: TTP in epigastric area - Extremities Exam Extremities Exam: absent: Calf Tenderness, Pedal Edema - Neurological Exam Neurological Exam: Altered (Drowsy, sleepy) - Psychiatric Exam Psychiatric exam: Normal Affect - Skin Skin Exam: Dry, Normal Color, Warm Assessment and Plan - Assessment and Plan (Free Text) Assessment: 42 years old male with hx of alcoholic cirrhosis, ETOH dependency, presents for abdominal pain, AMS: Plan: - 2/2 likely hepatic encephalopathy vs iatrogenically induced. - Please limit Ativan/BZD usage, in the setting of hepatic encephalopathy. - On admission, MELDS score 12, low. Not likely a candidate for liver transplant , pt actively drinking and has a history of poor follow up. - MELDs score 25 ->14, DF score 34->32 today. At this point, not considering initiating steroids as pt is noncompliant. Will continue to monitor. - T bili 1.8 ->3.1, INR 1.4, AST 91->80, ALT 54, ALP 303->287, lipase 314, ammonia 315 ->114 today (previous ranges from 82-206). - Abd obstructive series x ray 09/13: moderate stool retention in right colon. No obstruction. - Low Na diet. Pt tolerating well consuming 30-40% of food tray. No episodes of nausea and vomiting. - Will continue with lactulose 20 gm QID, rifaximin and enema. Pt had 2 large BM yesterday during daytime. Would like 3-4 BM everyday. Cont to monitor mental status. - Discussed with and cousin at bedside for better medication compliance. - Due to recurrent admissions for encephalopathy 2/2 med non-compliance, consider placing patient in nursing facility following hospital discharge. Discussed with GI fellow and attending, Dr Brown. Shanelle Alonso, PGY1 <Alden Brown - Last Filed: 09/15/17 17:53> Objective - Vital Signs/Intake and Output Vital Signs (last 24 hours): Temp Pulse Resp BP Pulse Ox 97.9 F 108 H 20 126/86 96 09/15/17 14:00 09/15/17 14:00 09/15/17 14:00 09/15/17 14:00 09/15/17 14:00 Intake and Output: 09/15/17 09/15/17 06:59 18:59 Intake Total 500 100 Balance 500 100 - Medications Medications: Current Medications Clonidine HCl (Catapres) 0.1 mg PO Q4H PRN PRN Reason: BP>150/100 or P>100 Enoxaparin Sodium (Lovenox) 30 mg SC DAILY [facility] Last Admin: 09/15/17 11:35 Dose: 30 mg Haloperidol (Haldol) 5 mg PO Q4H PRN PRN Reason: Agitation Last Admin: 09/14/17 21:18 Dose: 5 mg Haloperidol Lactate (Haldol) 5 mg IM Q4H PRN PRN Reason: severe agitation Lactulose (Enulose) 200 gm SD BID PRN PRN Reason: Other Lactulose (Enulose) 20 gm PO QID [facility] Last Admin: 09/15/17 17:44 Dose: 20 gm Lorazepam (Ativan) 2 mg PO Q8H [facility] PRN Reason: Taper Stop: 09/18/17 12:59 Last Admin: 09/15/17 14:00 Dose: Not Given Lorazepam (Ativan) 1 mg IVP Q4H PRN PRN Reason: Alcohol withdrawal Pantoprazole Sodium (Protonix Ec Tab) 40 mg PO DAILY [facility] Last Admin: 09/15/17 11:35 Dose: 40 mg Pneumococcal Polyvalent Vaccine (Pneumovax 23 Vaccine) 0.5 ml IM .ONCE ONE Stop: 09/17/17 10:01 Potassium Chloride (Klor-Con 10) 10 meq PO BRK [facility] Last Admin: 09/15/17 08:22 Dose: 10 meq Rifaximin (Xifaxan) 550 mg PO BID [facility] Last Admin: 09/15/17 17:44 Dose: 550 mg - Labs Labs: 09/15/17 11:14 09/15/17 11:14 PT 16.4 SECONDS (9.7-12.2) H 09/15/17 11:14 INR 1.4 09/15/17 11:14 APTT 29 SECONDS (21-34) 09/13/17 18:44 Attending/Attestation - Attestation I have personally seen and examined this patient.: Yes I have fully participated in the care of the patient.: Yes I have reviewed all pertinent clinical information, including history, physical exam and plan: Yes Notes (Text): 09/15/17 17:48 I have seen and examined patient with GI fellow and senior medical technologist. No acute events overnight. He is seen resting in bed comfortably, family members at bedside. He is more alert today, denies abdominal pain, nausea, vomiting. He had 3 bowel movements today thus far and tolerating PO diet without difficulty. Decompensated ETOH cirrhosis Altered mental status - hepatic encephalopathy - Continue with low sodium diet as tolerated - Continue with lactulose and xifaxan regimen for HE prevention - Monitor for signs of ETOH withdrawal - LFTs stable, continue to monitor - Due to recurrent hospital admissions with similar presentation thought to be related to medication non-compliance, suggest consideration of placement in nursing facility following hospital discharge. This was discussed with family members at length who agree with plan. - Avoid use of narcotic pain medication and excessive benzodiazepine use - No further planned GI interventions, will sign off case. Please reconsult as necessary, thank you.
[2017-09-15 11:21] LABS: BASO % 0.4 % (0.0-2.0); EOS # 0.2 K/uL (0.0-0.7); EOS % 6.4 % (0.0-4.0); HEMATOCRIT 42.4 % (35.0-51.0); LYMPH # 1.1 K/uL (1.0-4.3); LYMPH % 30.4 % (20.0-40.0); MEAN CELL VOLUME 85.4 fL (80.0-94.0); MEAN CORPUSCULAR HEMOGLOBIN 28.7 pg (27.0-31.0); MEAN CORPUSCULAR HGB CONC 33.6 g/dL (33.0-37.0); MEAN PLATELET VOLUME 8.1 fL (7.2-11.7); MONO # 0.8 K/uL (0.0-0.8); MONO % 21.3 % (0.0-10.0); NRBC % 0.1 % (0.0-2.0); PLATELET COUNT 228 K/uL (130-400); RED CELL DISTRIBUTION WIDTH 15.3 % (11.5-14.5); WHITE BLOOD COUNT 3.8 K/uL (4.8-10.8)
[2017-09-15 11:27] LABS: INR 1.4
--- NOTE | 2017-09-15 11:30 | PCM.PYCHPN ---
Psychiatric Progress Note - Psychiatric Progress Note Patient seen today, length of contact: 16 min Patient Chief Complaint: "Not well" Problems Identified/Issues Discussed: The pt is seen, chart reviewed, case discussed with staff. The pt is compliant with medications and reports no side-effects. Symptoms are improving slowly and needs more time to stabilize. Support and psychoeducation given. Medication Change: Yes (detox changes daily) Medical Record Reviewed: Yes Mental Status Examination - Cognitive Function Orientation: Place (wouldn't cooperate for a full assessment of orientation due to severe pain) Memory: Impaired Attention: Poor Concentration: Poor Association: Loose Fund of Knowledge: Poor - Mood Mood: Anxious - Affect Affect: Constricted - Speech Speech: Slurred - Formal Thought Process Formal Thought Process: Loosening of associations - Suicidal Ideation Suicidal Ideation: No - Homicidal Ideation Homicidal Ideation: No Goal/Treatment Plan - Goal/Treatment Plan Need for Continued Stay: Other (medical clearance) Progress Toward Problem(s) and Goals/Treatment Plan: Ativan detox prn meds, ie haldol 1:1 Treat underlying medical conditions Labs ordered Support and psychoed Call DYFS to follow up on their assessment and plan (he relapsed again, as before, and still lives with 5 children) refer to IOP 9was refusing rehab) He may need naltrexone PO (or vivitrol IM) if liver improves
[2017-09-15] MEDS: Pantoprazole 40 mg EC Tab PO SCH (11:35)
[2017-09-15] MEDS: Enoxaparin 30 mg Syringe SC SCH (11:35)
[2017-09-15 11:49] LABS: EOSINOPHIL 8 % (0-4); NEUTROPHIL 41 % (50-75); TOTAL CELLS COUNTED 100
[2017-09-15 11:54] LABS: ALB/GLOB RATIO 0.7 (1.0-2.1); ALKALINE PHOSPHATASE 299 U/L (38-126); ALT/SGPT 60 U/L (21-72); AST/SGOT 70 U/L (17-59); BILIRUBIN,TOTAL 2.4 mg/dL (0.2-1.3); BLOOD UREA NITROGEN 9 mg/dL (9-20); CALCIUM 7.7 mg/dl (8.6-10.4); CARBON DIOXIDE 21 mmol/L (22-30); CHLORIDE 106 mmol/L (98-107); GFR AFRICAN-AMERICAN > 60; GLUCOSE,RANDOM 74 mg/dL (75-110); POTASSIUM 3.4 mmol/L (3.6-5.2); SODIUM 136 mmol/L (132-148); TOTAL PROTEIN 7.4 g/dL (6.3-8.3)
--- NOTE | 2017-09-15 13:37 | CARD ---
APPROVED REPORT EKG Measurement Heart [id number] <Conclusion> Normal sinus rhythm Normal ECG
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
[2017-09-15] MEDS ORDERED: Potassium Chloride 20 mEq ER Tab PO STA (20:18)
[2017-09-16 08:39] LABS: EOS # 0.3 K/uL (0.0-0.7); EOS % 10.5 % (0.0-4.0); LYMPH # 1.2 K/uL (1.0-4.3); MEAN CELL VOLUME 85.5 fL (80.0-94.0); MEAN CORPUSCULAR HEMOGLOBIN 29.4 pg (27.0-31.0); MEAN CORPUSCULAR HGB CONC 34.4 g/dL (33.0-37.0)
[2017-09-16 08:42] LABS: INR 1.5
[2017-09-16 08:51] LABS: BASO % 0.5 % (0.0-2.0); MEAN PLATELET VOLUME 8.7 fL (7.2-11.7); MONO # 0.7 K/uL (0.0-0.8); MONO % 22.7 % (0.0-10.0); NRBC % 1.3 % (0.0-2.0); PLATELET COUNT 213 K/uL (130-400); RED CELL DISTRIBUTION WIDTH 15.4 % (11.5-14.5); WHITE BLOOD COUNT 3.1 K/uL (4.8-10.8)
[2017-09-16 09:16] LABS: ALB/GLOB RATIO 0.8 (1.0-2.1); ALKALINE PHOSPHATASE 290 U/L (38-126); ALT/SGPT 50 U/L (21-72); AST/SGOT 60 U/L (17-59); BILIRUBIN,TOTAL 2.7 mg/dL (0.2-1.3); BLOOD UREA NITROGEN 12 mg/dL (9-20); CALCIUM 7.9 mg/dl (8.6-10.4); CARBON DIOXIDE 22 mmol/L (22-30); CHLORIDE 107 mmol/L (98-107); GFR AFRICAN-AMERICAN > 60; GLUCOSE,RANDOM 72 mg/dL (75-110); POTASSIUM 3.8 mmol/L (3.6-5.2); SODIUM 136 mmol/L (132-148); TOTAL PROTEIN 6.4 g/dL (6.3-8.3)
[2017-09-16] MEDS: Enoxaparin 30 mg Syringe SC SCH (10:17)
[2017-09-16] MEDS: Pantoprazole 40 mg EC Tab PO SCH (10:18)
[2017-09-16] MEDS: Potassium Chloride 10 mEq ER Tab PO SCH (10:18)
--- NOTE | 2017-09-16 11:15 | CP.PCM.PN ---
Subjective - Date & Time of Evaluation Date of Evaluation: 09/16/17 Time of Evaluation: 11:00 - Subjective Subjective: Code star was called by RN at 11am. Patient attempted to get out of bed and was unsteady on his feet and stumbled and fell backwards. The fall was witness by the 1:1 and the floor loan secretary in the room as they were assisting another patient in the room and were not able to get there in time to assist this patient. Patient states his head hurts and shakes his head yes when asked if he is dizzy. Patient does not respond to commands. Patient does not respond to other questioning such as where are you? what year is it? How much is the pain? Patient does not respond and just continues to look down on the floor and states he has to use the bathroom. Vitals: B/P 124/82; HR 101; Temp 97.7; 98 % RA. Patient was assisted up onto the bed with security and still attempted to get out of bed. Stat head CT w/o contrast was ordered. Objective - Vital Signs/Intake and Output Vital Signs (last 24 hours): Temp Pulse Resp BP Pulse Ox 97.6 F 83 18 130/75 98 09/16/17 08:12 09/16/17 08:12 09/16/17 08:12 09/16/17 08:12 09/16/17 08:12 Intake and Output: 09/16/17 09/16/17 06:59 18:59 Intake Total 280 Output Total 400 Balance 280 -400 - Medications Medications: Current Medications Clonidine HCl (Catapres) 0.1 mg PO Q4H PRN PRN Reason: BP>150/100 or P>100 Enoxaparin Sodium (Lovenox) 30 mg SC DAILY [facility] Last Admin: 09/16/17 10:17 Dose: 30 mg Haloperidol (Haldol) 5 mg PO Q4H PRN PRN Reason: Agitation Last Admin: 09/14/17 21:18 Dose: 5 mg Haloperidol Lactate (Haldol) 5 mg IM Q4H PRN PRN Reason: severe agitation Lactulose (Enulose) 200 gm [place] BID PRN PRN Reason: Other Lactulose (Enulose) 20 gm PO QID [facility] Last Admin: 09/16/17 10:18 Dose: 20 gm Lorazepam (Ativan) 2 mg PO Q8H [facility] PRN Reason: Taper Stop: 09/18/17 12:59 Last Admin: 09/16/17 05:47 Dose: Not Given Lorazepam (Ativan) 1 mg IVP Q4H PRN PRN Reason: Alcohol withdrawal Pantoprazole Sodium (Protonix Ec Tab) 40 mg PO DAILY [facility] Last Admin: 09/16/17 10:18 Dose: 40 mg Pneumococcal Polyvalent Vaccine (Pneumovax 23 Vaccine) 0.5 ml IM .ONCE ONE Stop: 09/17/17 10:01 Potassium Chloride (Klor-Con 10) 10 meq PO BRK [facility] Last Admin: 09/16/17 10:18 Dose: 10 meq Rifaximin (Xifaxan) 550 mg PO BID [facility] Last Admin: 09/16/17 10:18 Dose: 550 mg - Labs Labs: 09/16/17 08:29 09/16/17 08:29 PT 17.0 SECONDS (9.7-12.2) H 09/16/17 08:29 INR 1.5 09/16/17 08:29 APTT 29 SECONDS (21-34) 09/13/17 18:44 - Constitutional Appears: Chronically Ill - Head Exam Head Exam: ATRAUMATIC, NORMAL INSPECTION - Eye Exam Eye Exam: EOMI, Normal appearance, PERRL Pupil Exam: NORMAL ACCOMODATION - ENT Exam ENT Exam: Mucous Membranes Moist - Respiratory Exam Respiratory Exam: NORMAL BREATHING PATTERN - Cardiovascular Exam Cardiovascular Exam: REGULAR RHYTHM, RRR, +S1, +S2 - GI/Abdominal Exam GI & Abdominal Exam: Soft, Normal Bowel Sounds. absent: Tenderness - Neurological Exam Neurological Exam: Alert, Awake. absent: Oriented x3 (patient does not respond to commands ) - Psychiatric Exam Psychiatric exam: Flat Affect
[2017-09-16 11:18] LABS: BASOPHIL 1 % (0-2); EOSINOPHIL 14 % (0-4); NEUTROPHIL 22 % (50-75); TOTAL CELLS COUNTED 100
--- NOTE | 2017-09-16 12:22 | CT ---
PROCEDURE: CT HEAD WITHOUT CONTRAST. HISTORY: s/p fall COMPARISON: Comparison is made to the previous study dated 12/02/2016 TECHNIQUE: Axial computed tomography images were obtained through the head/brain without intravenous contrast. Radiation dose: Total exam DLP = 1227.63 mGy-cm. This CT exam was performed using one or more of the following dose reduction techniques: Automated exposure control, adjustment of the mA and/or kV according to patient size, and/or use of iterative reconstruction technique. FINDINGS: HEMORRHAGE: No intracranial hemorrhage. BRAIN: No mass effect or edema. No atrophy or chronic microvascular ischemic changes. VENTRICLES: Unremarkable. No hydrocephalus. CALVARIUM: Unremarkable. PARANASAL SINUSES: Unremarkable as visualized. No significant inflammatory changes. MASTOID AIR CELLS: Unremarkable as visualized. No inflammatory changes. OTHER FINDINGS: None. IMPRESSION: No evidence of acute intracranial hemorrhage intracranial collection mass effect or midline shift. No significant interval change noted since the previous exam.
--- NOTE | 2017-09-16 14:26 | PCM.PYCHPN ---
Psychiatric Progress Note - Psychiatric Progress Note Patient seen today, length of contact: 15 min Patient Chief Complaint: "I'm good" Problems Identified/Issues Discussed: The pt is seen, chart reviewed, case discussed with staff. The pt is compliant with medications and reports no side-effects. He is more lucid and calmer today He is even oriented better Support given He will complete detox tomorrow He can be referred to an IOP in his town Please inform DYFS on his relapse as he has an open case already. Medication Change: Yes (detox changes daily) Medical Record Reviewed: Yes Mental Status Examination - Cognitive Function Orientation: Person, Place, Time (somewhat) Memory: Impaired Attention: Poor Concentration: Poor Association: WNL Fund of Knowledge: Poor - Mood Mood: Anxious - Affect Affect: Constricted - Speech Speech: Slurred - Formal Thought Process Formal Thought Process: Loosening of associations (less so) - Suicidal Ideation Suicidal Ideation: No - Homicidal Ideation Homicidal Ideation: No Goal/Treatment Plan - Goal/Treatment Plan Need for Continued Stay: Other (medical clearance) Progress Toward Problem(s) and Goals/Treatment Plan: Ativan detox prn meds, ie haldol Treat underlying medical conditions Support and psychoed Call DYFS to follow up on their assessment and plan (he relapsed again, as before, and still lives with 5 children) refer to IOP (he was refusing rehab) He may need naltrexone PO (or vivitrol IM) if liver improves Psych will sign off at this point. Pls call if you have questions.
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
[2017-09-17] MEDS: Potassium Chloride 10 mEq ER Tab PO SCH (08:16)
[2017-09-17] MEDS ORDERED: Pneumococcal 23-Valent Vaccine IM ONE (10:00)
[2017-09-17] MEDS ORDERED: Influenza Vaccine 60 mcg/0.5 mL SYR (4YR UP) IM ONE (10:00)
[2017-09-17] MEDS: Enoxaparin 30 mg Syringe SC SCH (10:01)
[2017-09-17] MEDS: Pantoprazole 40 mg EC Tab PO SCH (10:01)
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
[2017-09-18] MEDS ORDERED: Influenza Vaccine 60 mcg/0.5 mL SYR (4YR UP) IM ONE (10:00)
[2017-09-18] MEDS ORDERED: Pneumococcal 23-Valent Vaccine IM ONE (10:00)
[2017-09-18] MEDS: Potassium Chloride 10 mEq ER Tab PO SCH (10:17)
[2017-09-18] MEDS: Enoxaparin 30 mg Syringe SC SCH (10:17)
[2017-09-18] MEDS: Pantoprazole 40 mg EC Tab PO SCH (10:18)
--- NOTE | 2017-09-18 14:30 | CP.PCM.PN ---
Subjective - Date & Time of Evaluation Date of Evaluation: 09/18/17 Time of Evaluation: 08:40 - Subjective Subjective: clinically same Objective - Vital Signs/Intake and Output Vital Signs (last 24 hours): Temp Pulse Resp BP Pulse Ox 98 F 80 20 111/70 98 09/18/17 07:30 09/18/17 07:30 09/18/17 07:30 09/18/17 07:30 09/18/17 07:30 Intake and Output: 09/18/17 09/18/17 06:59 18:59 Intake Total 400 Balance 400 - Medications Medications: Current Medications Clonidine HCl (Catapres) 0.1 mg PO Q4H PRN PRN Reason: BP>150/100 or P>100 Enoxaparin Sodium (Lovenox) 30 mg SC DAILY [facility] Last Admin: 09/18/17 10:17 Dose: 30 mg Haloperidol (Haldol) 5 mg PO Q4H PRN PRN Reason: Agitation Last Admin: 09/16/17 21:30 Dose: 5 mg Haloperidol Lactate (Haldol) 5 mg IM Q4H PRN PRN Reason: severe agitation Last Admin: 09/18/17 00:00 Dose: 5 mg Lactulose (Enulose) 200 gm [place] BID PRN PRN Reason: Other Lactulose (Enulose) 20 gm PO QID [facility] Last Admin: 09/18/17 13:44 Dose: Not Given Lorazepam (Ativan) 1 mg IVP Q4H PRN PRN Reason: Alcohol withdrawal Last Admin: 09/17/17 21:36 Dose: 1 mg Pantoprazole Sodium (Protonix Ec Tab) 40 mg PO DAILY [facility] Last Admin: 09/18/17 10:18 Dose: 40 mg Potassium Chloride (Klor-Con 10) 10 meq PO BRK [facility] Last Admin: 09/18/17 10:17 Dose: 10 meq Rifaximin (Xifaxan) 550 mg PO BID [facility] Last Admin: 09/18/17 10:18 Dose: 550 mg - Labs Labs: 09/16/17 08:29 09/16/17 08:29 PT 17.0 SECONDS (9.7-12.2) H 09/16/17 08:29 INR 1.5 09/16/17 08:29 APTT 29 SECONDS (21-34) 09/13/17 18:44 - Constitutional Appears: Well - Head Exam Head Exam: ATRAUMATIC, NORMAL INSPECTION, NORMOCEPHALIC - Eye Exam Eye Exam: EOMI, Normal appearance, PERRL Pupil Exam: NORMAL ACCOMODATION, PERRL - ENT Exam ENT Exam: Mucous Membranes Moist, Normal Exam - Neck Exam Neck Exam: Full ROM, Normal Inspection. absent: Lymphadenopathy - Respiratory Exam Respiratory Exam: Decreased Breath Sounds - Cardiovascular Exam Cardiovascular Exam: REGULAR RHYTHM, +S1, +S2 - GI/Abdominal Exam GI & Abdominal Exam: Soft, Diminished Bowel Sounds - Rectal Exam Rectal Exam: Deferred
[2017-09-19] MEDS: Potassium Chloride 10 mEq ER Tab PO SCH (08:30)
[2017-09-19] MEDS: Pantoprazole 40 mg EC Tab PO SCH (10:10)
[2017-09-19] MEDS: Enoxaparin 30 mg Syringe SC SCH (10:11)
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
[2017-09-20] MEDS: Potassium Chloride 10 mEq ER Tab PO SCH (08:51)
[2017-09-20] MEDS: Pantoprazole 40 mg EC Tab PO SCH (10:03)
[2017-09-20] MEDS: Enoxaparin 30 mg Syringe SC SCH (10:03)
[2017-09-20 12:04] LABS: BASO % 0.6 % (0.0-2.0); EOS # 0.2 K/uL (0.0-0.7); EOS % 11.7 % (0.0-4.0); HEMATOCRIT 39.1 % (35.0-51.0); LYMPH % 47.8 % (20.0-40.0); MEAN CELL VOLUME 85.6 fL (80.0-94.0); MEAN CORPUSCULAR HEMOGLOBIN 29.2 pg (27.0-31.0); MEAN CORPUSCULAR HGB CONC 34.1 g/dL (33.0-37.0); MEAN PLATELET VOLUME 8.9 fL (7.2-11.7); MONO # 0.4 K/uL (0.0-0.8); MONO % 19.9 % (0.0-10.0); NRBC % 0.1 % (0.0-2.0); RED CELL DISTRIBUTION WIDTH 15.9 % (11.5-14.5); WHITE BLOOD COUNT 2.1 K/uL (4.8-10.8)
[2017-09-20 13:13] LABS: ALB/GLOB RATIO 0.8 (1.0-2.1); ALKALINE PHOSPHATASE 238 U/L (38-126); ALT/SGPT 61 U/L (21-72); AST/SGOT 86 U/L (17-59); BILIRUBIN,DIRECT 0.8 mg/dL (0.0-0.4); BILIRUBIN,TOTAL 1.9 mg/dL (0.2-1.3); BLOOD UREA NITROGEN 8 mg/dL (9-20); CALCIUM 7.6 mg/dl (8.6-10.4); CARBON DIOXIDE 23 mmol/L (22-30); CHLORIDE 105 mmol/L (98-107); GFR AFRICAN-AMERICAN > 60; GLUCOSE,RANDOM 101 mg/dL (75-110); POTASSIUM 3.7 mmol/L (3.6-5.2); SODIUM 134 mmol/L (132-148); TOTAL PROTEIN 5.6 g/dL (6.3-8.3)
[2017-09-20 15:50] VITALS: BP 123/79; PULSE 85; RESP 20; TEMP 97.9; O2SAT 97
== END 2017-09-20 17:40 | disposition left against medical advice (07) | DRG 202 ==
LOC: C.ER 17:15 → C.9E 19:16 → C.5S 09-14 08:47
PROVIDERS: ADMIT Internal Medicine Nephrology; ATTEND Internal Medicine Nephrology
PROC: HZ2ZZZZ Detoxification Services for Substance Abuse Treatment (ICD-10-PCS; principal; 2017-09-13)
PROC: HZ59ZZZ Individual Psychotherapy for Substance Abuse Treatment, Supportive (ICD-10-PCS; 2017-09-13)
PROC: HZ56ZZZ Individual Psychotherapy for Substance Abuse Treatment, Psychoeducation (ICD-10-PCS; 2017-09-13)
DX: K70.30 Alcoholic cirrhosis of liver without ascites (principal); K70.40 Alcoholic hepatic failure without coma; K85.90 Acute pancreatitis without necrosis or infection, unspecified; F10.231 Alcohol dependence with withdrawal delirium; B19.20 Unspecified viral hepatitis C without hepatic coma; N18.9 Chronic kidney disease, unspecified; Z91.14 Patient's other noncompliance with medication regimen; F17.210 Nicotine dependence, cigarettes, uncomplicated; F32.9 Major depressive disorder, single episode, unspecified; I12.9 Hypertensive chronic kidney disease with stage 1 through stage 4 chronic kidney disease, or unspecified chronic kidney disease; Z76.5 Malingerer [conscious simulation]; Z87.442 Personal history of urinary calculi

== ENCOUNTER → 2017-11-15 23:29 | Emergency (ER) | payer OTHER ==
[2017-11-15 23:29] VITALS: BMI 25.0
== END | disposition left against medical advice (07) ==
LOC: C.ER 23:29
DX: Z02.89 Encounter for other administrative examinations (principal); M54.9 Dorsalgia, unspecified

== ENCOUNTER 2017-11-29 07:09 | Inpatient (IN) | payer OTHER ==
[2017-11-29 07:09] VITALS: BMI 25.0
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
[2017-11-29 07:57] LABS: BASO % 1.1 % (0.0-2.0); EOS # 0.3 K/uL (0.0-0.7); EOS % 8.7 % (0.0-4.0); HEMOGLOBIN 14.7 g/dL (12.0-18.0); LYMPH # 2.1 K/uL (1.0-4.3); LYMPH % 56.5 % (20.0-40.0); MEAN CORPUSCULAR HEMOGLOBIN 30.8 pg (27.0-31.0); MEAN CORPUSCULAR HGB CONC 34.8 g/dL (33.0-37.0); MEAN PLATELET VOLUME 8.2 fL (7.2-11.7); MONO # 0.6 K/uL (0.0-0.8); MONO % 17.2 % (0.0-10.0); NEUT # 0.6 K/uL (1.8-7.0); NEUT % 16.5 % (50.0-75.0); NRBC % 0.3 % (0.0-2.0); RBC 4.76 Mil/uL (4.40-5.90); RED CELL DISTRIBUTION WIDTH 16.6 % (11.5-14.5); WHITE BLOOD COUNT 3.7 K/uL (4.8-10.8)
[2017-11-29] MEDS ORDERED: Sodium Chloride 0.9% 1,000 ML IV ONE (07:57)
[2017-11-29 07:58] LABS: INR 1.3; MEAN CELL VOLUME 88.6 fL (80.0-94.0); PROTHROMBIN TIME 14.8 SECONDS (9.7-12.2)
[2017-11-29 08:00] LABS: ALB/GLOB RATIO 0.8 (1.0-2.1); ALBUMIN 3.4 g/dL (3.5-5.0); CALCIUM 8.3 mg/dl (8.6-10.4)
[2017-11-29] MEDS ORDERED: Sodium Chloride 0.9% 1,000 ML IV SCH (08:00)
[2017-11-29] MEDS ORDERED: Sodium Chloride 0.9% 1,000 ML ONE (08:03)
[2017-11-29 08:22] LABS: SQUAMOUS EPITHIAL < 1 /hpf (0-5); URINE BILIRUBIN NEGATIVE (NEGATIVE); URINE BLOOD NEGATIVE (NEGATIVE); URINE CLARITY Clear (Clear); URINE COLOR Colorless (YELLOW); URINE GLUCOSE (UA) NORMAL (Normal); URINE LEUKOCYTE ESTERASE NEG Leu/uL (Negative); URINE NITRATE NEGATIVE (NEGATIVE); URINE PROTEIN NEGATIVE (NEGATIVE); URINE UROBILINOGEN NORMAL mg/dL (0.2-1.0)
[2017-11-29 08:56] LABS: BENZODIAZEPINES, UR NEGATIVE (NEGATIVE); OPIATES, UR NEGATIVE (NEGATIVE)
[2017-11-29] MEDS ORDERED: Morphine 4 MG/ML VIAL ONE (08:56)
[2017-11-29 08:59] LABS: BARBITURATES, UR NEGATIVE (NEGATIVE)
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
[2017-11-29 09:27] LABS: PHENCYCLIDINE, UR NEGATIVE (NEGATIVE)
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
--- NOTE | 2017-11-29 09:28 | RAD ---
Chest x-ray single frontal view History: Decreased bibasilar breath sounds. Comparison: 12/04/2016 Findings: Mild venous congestion. Tortuous aorta. Heart size within normal limits. Impression: Mild venous congestion. Tortuous aorta.
--- NOTE | 2017-11-29 22:55 | CP.PCM.HP ---
History of Present Illness - History of Present Illness History of Present Illness: CC: Altered mental status HPI: 42 year old Maldivian male with PMH significant for Hep C, who drinks ETOH occasionally, pt is drowsy, confused and more details are unobtainable, unknown if he received any treatment for Hep C , unknown if he is on any medication at home except lactulose, denies any cough, nausea, vomiting, pain, chest pain Present on Admission - Present on Admission Any Indicators Present on Admission: Yes Review of Systems - Review of Systems Systems not reviewed;Unavailable: Altered Mental Status - Constitutional Constitutional: Fatigue, Lethargy, Malaise - EENT Eyes: absent: As Per HPI, Blind Spots, Blurred Vision, Change in Vision, Decreased Night Vision, Diplopia, Discharge, Dry Eye, Exophthalmos, Floaters, Irritation, Itchy Eyes, Loss of Peripheral Vision, Pain, Photophobia, Requires Corrective Lenses, Sees Flashes, Spots in Vision, Tunnel Vision, Other Visual Disturbances, Loss of Vision, Other Ears: absent: As Per HPI, Decreased Hearing, Ear Discharge, Ear Pain, Tinnitus, Abnormal Hearing, Disequilibrium, Dizziness, Other Nose/Mouth/Throat: absent: As Per HPI, Epistaxis, Nasal Congestion, Nasal Discharge, Nasal Obstruction, Nasal Trauma, Nose Pain, Post Nasal Drip, Sinus Pain, Sinus Pressure, Bleeding Gums, Change in Voice, Dental Pain, Dry Mouth, Dysphagia, Halitosis, Hoarsness, Lip Swelling, Mouth Lesions, Mouth Pain, Odynophagia, Sore Throat, Throat Swelling, Tongue Swelling, Facial Pain, Neck Pain, Neck Mass, Other - Cardiovascular Cardiovascular: absent: As Per HPI, Acrocyanosis, Chest Pain, Chest Pain at Rest , Chest Pain with Activity, Claudication, Diaphoresis, Dyspnea, Dyspnea on Exertion, Edema, Irregular Heart Rhythm, Pain Radiating to Arm/Neck/Jaw, Leg Edema, Leg Ulcers, Lightheadedness, Orthopnea, Palpitations, Paroxysmal Nocturnal Dyspnea, Pedal Edema, Radiating Pain, Rapid Heart Rate, Slow Heart Rate, Syncope, Other - Respiratory Respiratory: absent: As Per HPI, Cough, Dyspnea, Hemoptysis, Dyspnea on Exertion , Wheezing, Snoring, Stridor, Pain on Inspiration, Chest Congestion, Excessive Mucous Production, Change in Mucous Color, Pain with Coughing, Other - Gastrointestinal Gastrointestinal: absent: As Per HPI, Abdominal Pain, Belching, Bloating, Change in Bowel Habits, Change in Stool Character, Coffee Ground Emesis, Constipation, Cramping, Diarrhea, Dyspepsia, Dysphagia, Early Satiety, Excessive Flatus, Fecal Incontinence, Heartburn, Hematemesis, Hematochezia, Loose Stools, Melena, Nausea, Odynophagia, Temesmus, Vomiting, Other - Genitourinary Genitourinary: absent: As Per HPI, Change in Urinary Stream, Difficulty Urinating, Dysuria, Flank Pain, Hematuria, Pyuria, Nocturia, Urinary Incontinence, Urinary Frequency, Urinary Hesitance, Urinary Urgency, Voiding Freq/Small Amts, Freq UTI, Hx Renal/Bladder Calculi, Hx /Renal Surgery, Bladder Distension, Other - Neurological Neurological: Confusion, Dizziness - Psychiatric Psychiatric: absent: As Per HPI, Abnormal Sleep Pattern, Anhedonia, Anxiety, Auditory Hallucinations, Behavioral Changes, Change in Appetite, Change in Libido, Confusion, Depression, Difficulty Concentrating, Hallucinations, Homicidal Ideation, Hopelessness, Irritability, Memory Loss, Mood Swings, Panic Attacks, Paranoia, Suicidal Ideation, Visual Hallucinations, Tactile Hallucinations, Other - Endocrine Endocrine: absent: As Per HPI, Change in Body Appearance, Change in Libido, Cold Intolorance, Deepening of Voice, Excessive Sweating, Fatigue, Flushing, Heat Intolorance, Increase in Ring/Shoe/Hat Size, Palpitations, Polydipsia, Polyphagia, Polyuria, Other - Hematologic/Lymphatic Hematologic: absent: As Per HPI, Easy Bleeding, Easy Bruising, Lymphadenopathy, Other Past Patient History - Infectious Disease Hx of Infectious Diseases: None - Past Medical History & Family History Past Medical History?: Yes - Past Social History Smoking Status: Never Smoked - CARDIAC Hx Cardiac Disorders: Yes Hx Hypertension: Yes - PULMONARY Hx Respiratory Disorders: No - NEUROLOGICAL Hx Neurological Disorder: No - HEENT Hx HEENT Problems: No - RENAL Hx Chronic Kidney Disease: Yes Hx Kidney Stones: Yes (burning with urination) - ENDOCRINE/METABOLIC Hx Diabetes Mellitus Type 2: Yes (denies) - HEMATOLOGICAL/ONCOLOGICAL Hx Blood Disorders: Yes Hx Hepatitis C: Yes Other/Comment: liver problem, liver failure confirmed by patient - INTEGUMENTARY Hx Dermatological Problems: No - MUSCULOSKELETAL/RHEUMATOLOGICAL Hx Musculoskeletal Disorders: Yes Hx Back Pain: Yes Hx Falls: Yes - GASTROINTESTINAL Hx Gastrointestinal Disorders: Yes Other/Comment: Liver disease - GENITOURINARY/GYNECOLOGICAL Hx Genitourinary Disorders: No - PSYCHIATRIC Hx Substance Use: No - SURGICAL HISTORY Hx Surgeries: No - ANESTHESIA Hx Anesthesia: No Hx Anesthesia Reactions: No Hx Malignant Hyperthermia: No Has any member of the family had a problem w/ anesthesia?: No Meds Allergies/Adverse Reactions: Allergies Allergy/AdvReac Type Severity Reaction Status Date / Time No Known Allergies Allergy Verified 11/29/17 07:18 Physical Exam - Constitutional Appears: No Acute Distress, Confused Additional comments: middle aged male with poor hygiene in NAD confused and disoriented - Head Exam Head Exam: ATRAUMATIC, NORMAL INSPECTION, NORMOCEPHALIC - Eye Exam Eye Exam: EOMI, Normal appearance, PERRL Pupil Exam: NORMAL ACCOMODATION, PERRL - Respiratory Exam Respiratory Exam: Clear to Auscultation Bilateral, NORMAL BREATHING PATTERN - Cardiovascular Exam Cardiovascular Exam: REGULAR RHYTHM - GI/Abdominal Exam GI & Abdominal Exam: Normal Bowel Sounds, Soft. absent: Tenderness - Neurological Exam Neurological exam: Alert Additional comments: confused oreinted x 1 neg asterikcix - Psychiatric Exam Psychiatric exam: Anxious - Skin Additional comments: chronic skin changes Results - Vital Signs Recent Vital Signs: Last Vital Signs Temp 98.0 F 11/29/17 18:09 Pulse 72 11/29/17 18:09 Resp 18 11/29/17 18:09 BP 133/87 11/29/17 18:09 Pulse Ox 100 11/29/17 18:09 - Labs Result Diagrams: 11/29/17 07:42 11/29/17 07:42 Labs: Laboratory Results - last 24 hr 11/29/17 11/29/17 11/29/17 07:25 07:27 07:42 WBC 3.7 L D RBC 4.76 Hgb 14.7 Hct 42.1 MCV 88.6 D MCH 30.8 MCHC 34.8 RDW 16.6 H Plt Count 200 MPV 8.2 Neut % (Auto) 16.5 L Lymph % (Auto) 56.5 H Brantley % (Auto) 17.2 H Eos % (Auto) 8.7 H Baso % (Auto) 1.1 Neut # (Auto) 0.6 L Lymph # (Auto) 2.1 Brantley # (Auto) 0.6 Eos # (Auto) 0.3 Baso # (Auto) 0.0 PT INR APTT Sodium Potassium Chloride Carbon Dioxide Anion Gap BUN Creatinine Est GFR ( Amer) Est GFR (Non-Af Amer) POC Glucose (mg/dL) 66 68 Random Glucose Calcium Total Bilirubin AST ALT Alkaline Phosphatase Ammonia Total Protein Albumin Globulin Albumin/Globulin Ratio Lipase Urine Color Urine Clarity Urine pH Ur Specific [place] Urine Protein Urine Glucose (UA) Urine Ketones Urine Blood Urine Nitrate Urine Bilirubin Urine Urobilinogen Ur Leukocyte Esterase Urine RBC (Auto) Ur Squamous Epith Cells Urine Opiates Screen Urine Methadone Screen Ur Barbiturates Screen Ur Phencyclidine Scrn Ur Amphetamines Screen U Benzodiazepines Scrn U Oth Cocaine Metabols U Cannabinoids Screen Alcohol, Quantitative 11/29/17 11/29/17 11/29/17 07:42 07:42 07:45 WBC RBC Hgb Hct MCV MCH MCHC RDW Plt Count MPV Neut % (Auto) Lymph % (Auto) [place] % (Auto) Eos % (Auto) Baso % (Auto) Neut # (Auto) Lymph # (Auto) [place] # (Auto) Eos # (Auto) Baso # (Auto) PT 14.8 H INR 1.3 APTT 34 Sodium 137 Potassium 3.8 Chloride 108 H Carbon Dioxide 19 L Anion Gap 13 BUN 5 L Creatinine 2.0 H Est GFR ( Amer) 45 Est GFR (Non-Af Amer) 37 POC Glucose (mg/dL) Random Glucose 75 Calcium 8.3 L Total Bilirubin 2.0 H AST 87 H ALT 45 Alkaline Phosphatase 352 H D Ammonia 161 H Total Protein 7.7 Albumin 3.4 L D Globulin 4.2 H Albumin/Globulin Ratio 0.8 L Lipase 284 Urine Color Urine Clarity Urine pH Ur Specific [place] Urine Protein Urine Glucose (UA) Urine Ketones Urine Blood Urine Nitrate Urine Bilirubin Urine Urobilinogen Ur Leukocyte Esterase Urine RBC (Auto) Ur Squamous Epith Cells Urine Opiates Screen Urine Methadone Screen Ur Barbiturates Screen Ur Phencyclidine Scrn Ur Amphetamines Screen U Benzodiazepines Scrn U Oth Cocaine Metabols U Cannabinoids Screen Alcohol, Quantitative 12 H 11/29/17 11/29/17 11/29/17 08:05 08:06 08:11 WBC RBC Hgb Hct MCV MCH MCHC RDW Plt Count MPV Neut % (Auto) Lymph % (Auto) [place] % (Auto) Eos % (Auto) Baso % (Auto) Neut # (Auto) Lymph # (Auto) [place] # (Auto) Eos # (Auto) Baso # (Auto) PT INR APTT Sodium Potassium Chloride Carbon Dioxide Anion Gap BUN Creatinine Est GFR ( Amer) Est GFR (Non-Af Amer) POC Glucose (mg/dL) 66 66 Random Glucose Calcium Total Bilirubin AST ALT Alkaline Phosphatase Ammonia Total Protein Albumin Globulin Albumin/Globulin Ratio Lipase Urine Color Colorless Urine Clarity Clear Urine pH 7.0 Ur Specific [place] 1.002 L Urine Protein Negative Urine Glucose (UA) Normal Urine Ketones Negative Urine Blood Negative Urine Nitrate Negative Urine Bilirubin Negative Urine Urobilinogen Normal Ur Leukocyte Esterase Neg Urine RBC (Auto) < 1 Ur Squamous Epith Cells < 1 Urine Opiates Screen Urine Methadone Screen Ur Barbiturates Screen Ur Phencyclidine Scrn Ur Amphetamines Screen U Benzodiazepines Scrn U Oth Cocaine Metabols U Cannabinoids Screen Alcohol, Quantitative 11/29/17 11/29/17 11/29/17 08:11 11:52 11:54 WBC RBC Hgb Hct MCV MCH MCHC RDW Plt Count MPV Neut % (Auto) Lymph % (Auto) [place] % (Auto) Eos % (Auto) Baso % (Auto) Neut # (Auto) Lymph # (Auto) [place] # (Auto) Eos # (Auto) Baso # (Auto) PT INR APTT Sodium Potassium Chloride Carbon Dioxide Anion Gap BUN Creatinine Est GFR ( Amer) Est GFR (Non-Af Amer) POC Glucose (mg/dL) 63 L 64 L Random Glucose Calcium Total Bilirubin AST ALT Alkaline Phosphatase Ammonia Total Protein Albumin Globulin Albumin/Globulin Ratio Lipase Urine Color Urine Clarity Urine pH Ur Specific [place] Urine Protein Urine Glucose (UA) Urine Ketones Urine Blood Urine Nitrate Urine Bilirubin Urine Urobilinogen Ur Leukocyte Esterase Urine RBC (Auto) Ur Squamous Epith Cells Urine Opiates Screen Negative Urine Methadone Screen Negative Ur Barbiturates Screen Negative Ur Phencyclidine Scrn Negative Ur Amphetamines Screen Negative U Benzodiazepines Scrn Negative U Oth Cocaine Metabols Negative U Cannabinoids Screen Negative Alcohol, Quantitative 11/29/17 11/29/17 15:17 21:07 WBC RBC Hgb Hct MCV MCH MCHC RDW Plt Count MPV Neut % (Auto) Lymph % (Auto) [place] % (Auto) Eos % (Auto) Baso % (Auto) Neut # (Auto) Lymph # (Auto) [place] # (Auto) Eos # (Auto) Baso # (Auto) PT INR APTT Sodium Potassium Chloride Carbon Dioxide Anion Gap BUN Creatinine Est GFR ( Amer) Est GFR (Non-Af Amer) POC Glucose (mg/dL) 111 H 72 Random Glucose Calcium Total Bilirubin AST ALT Alkaline Phosphatase Ammonia Total Protein Albumin Globulin Albumin/Globulin Ratio Lipase Urine Color Urine Clarity Urine pH Ur Specific [place] Urine Protein Urine Glucose (UA) Urine Ketones Urine Blood Urine Nitrate Urine Bilirubin Urine Urobilinogen Ur Leukocyte Esterase Urine RBC (Auto) Ur Squamous Epith Cells Urine Opiates Screen Urine Methadone Screen Ur Barbiturates Screen Ur Phencyclidine Scrn Ur Amphetamines Screen U Benzodiazepines Scrn U Oth Cocaine Metabols U Cannabinoids Screen Alcohol, Quantitative Assessment & Plan (1) Hepatic encephalopathy Assessment and Plan: ADmit neuro check lactulose neomycin GI eval Status: Acute (2) EtOH dependence Status: Acute (3) Hepatitis C Status: Acute
[2017-11-30] MEDS ORDERED: Morphine 4 MG/ML VIAL IVP STA (03:08)
[2017-11-30] MEDS: Enoxaparin 40 mg Syringe SC SCH (10:13)
--- NOTE | 2017-11-30 12:05 | CARD ---
APPROVED REPORT EKG Measurement Heart [id number] <Conclusion> Normal sinus rhythm Minimal voltage criteria for LVH, may be normal variant Borderline ECG
--- NOTE | 2017-11-30 13:37 | PN ---
DATE: 11/30/2017 LOCATION: 558, bed B. SUBJECTIVE: This is a 42 years male seen and examined for GI consultation initially on 11/29/2017 as requested by the admitting MD, reexamined again today with persistent complaint of abdominal pain and generalized weakness and malaise. The entire chart is reviewed including, but not limited to the most recent lab and radiology study results, current and the previous medication list, current and the previous medical events and today's labs show blood glucose level of 120. Rest of the labs still pending. The patient had elevated AST to 87 before with ammonia level elevated at 161, but normal lipase. CAT scan of the head as well as cervical spine, CAT scan done yesterday, reports are seen. The patient denies any chest pain, palpitation, any evidence of active bleeding, but some upper extremity tremors, most likely early stage of DTs. It has to be mentioned that the patient had period of semi disorientation; see recent. PHYSICAL EXAMINATION: GENERAL: A 42 years male. VITAL SIGNS: Afebrile with pulse of 90, respiratory rate of 20 to 22, blood pressure of 140/80. HEENT: Showed mildly pale, dry oral mucoid membrane. Nonicteric sclerae. LUNGS: Few scattered crepitation, decreased air entry at bases. HEART: Positive S1 and S2. EXTREMITIES: Mild lower extremity edematous changes, with slight tremor of the upper extremities. No clubbing or cyanosis. NEUROLOGIC: No other new reported neurological deficits, sensory or motor. IMPRESSION: 1. Alcoholism with early stage of possible delirium tremens. 2. Known history of alcohol induced liver cirrhosis. 3. Known history of hepatitis C viral infection. 4. Hypertension by history. 5. Renal stones by history. SUGGESTIONS: 1. Agree with your plan. 2. The patient needs a psychiatry evaluation. 3. Proton pump inhibitors. 4. Lactulose p.o. with neomycin. 5. Guaiac all the stools QED x3. 6. Further recommendation to follow. Peyman Evans MD
[2017-11-30 14:24] LABS: MEAN CELL VOLUME 89.3 fL (80.0-94.0); MEAN CORPUSCULAR HEMOGLOBIN 30.8 pg (27.0-31.0); MEAN CORPUSCULAR HGB CONC 34.5 g/dL (33.0-37.0); MEAN PLATELET VOLUME 7.9 fL (7.2-11.7); RBC 4.56 Mil/uL (4.40-5.90); RED CELL DISTRIBUTION WIDTH 16.9 % (11.5-14.5); WHITE BLOOD COUNT 2.7 K/uL (4.8-10.8)
[2017-11-30] MEDS ORDERED: Aluminum Hydroxide/Magnesium Hydroxide Susp (30 mL) PO ONE (19:45)
--- NOTE | 2017-11-30 23:02 | CP.PCM.PN ---
Subjective - Date & Time of Evaluation Date of Evaluation: 11/30/17 Time of Evaluation: 18:40 - Subjective Subjective: Pt seen and evaluated at bedside today Objective - Vital Signs/Intake and Output Vital Signs (last 24 hours): Temp Pulse Resp BP Pulse Ox 98.2 F 83 20 134/87 97 11/30/17 15:05 11/30/17 15:05 11/30/17 15:05 11/30/17 15:05 11/30/17 15:05 Intake and Output: 11/30/17 12/01/17 18:59 06:59 Intake Total 500 Balance 500 - Medications Medications: Current Medications Enoxaparin Sodium (Lovenox) 40 mg SC DAILY [facility] Last Admin: 11/30/17 10:13 Dose: 40 mg Famotidine (Pepcid) 20 mg PO BID [facility] Last Admin: 11/30/17 20:04 Dose: 20 mg Gabapentin (Neurontin) 100 mg PO TID [facility] Lactulose (Enulose) 20 gm PO Q4 [facility] Last Admin: 11/30/17 19:47 Dose: 20 gm Neomycin Sulfate (Neomycin Tab) 500 mg PO Q6 [facility] Last Admin: 11/30/17 17:17 Dose: 500 mg - Labs Labs: 11/30/17 14:17 11/29/17 07:42 PT 14.8 SECONDS (9.7-12.2) H 11/29/17 07:42 INR 1.3 11/29/17 07:42 APTT 34 SECONDS (21-34) 11/29/17 07:42 Assessment and Plan (1) Hepatic encephalopathy Status: Acute (2) EtOH dependence Status: Acute (3) Hepatitis C Status: Acute
[2017-12-01 07:53] LABS: BASO % 0.7 % (0.0-2.0); EOS # 0.2 K/uL (0.0-0.7); EOS % 6.6 % (0.0-4.0); HEMOGLOBIN 14.7 g/dL (12.0-18.0); LYMPH # 1.5 K/uL (1.0-4.3); LYMPH % 53.2 % (20.0-40.0); MEAN CELL VOLUME 89.1 fL (80.0-94.0); MEAN CORPUSCULAR HEMOGLOBIN 30.4 pg (27.0-31.0); MEAN CORPUSCULAR HGB CONC 34.1 g/dL (33.0-37.0); MEAN PLATELET VOLUME 7.7 fL (7.2-11.7); MONO # 0.6 K/uL (0.0-0.8); MONO % 19.3 % (0.0-10.0); NEUT # 0.6 K/uL (1.8-7.0); NEUT % 20.2 % (50.0-75.0); NRBC % 0.3 % (0.0-2.0); RBC 4.83 Mil/uL (4.40-5.90); RED CELL DISTRIBUTION WIDTH 16.6 % (11.5-14.5); WHITE BLOOD COUNT 2.9 K/uL (4.8-10.8)
[2017-12-01 08:44] LABS: ALB/GLOB RATIO 0.8 (1.0-2.1); ALBUMIN 2.9 g/dL (3.5-5.0); ALT/SGPT 49 U/L (21-72); AST/SGOT 75 U/L (17-59); BLOOD UREA NITROGEN 9 mg/dL (9-20); CALCIUM 8.1 mg/dl (8.6-10.4); GFR AFRICAN-AMERICAN > 60; GFR NON-AFRICAN AMERICAN > 60
[2017-12-01] MEDS: Enoxaparin 40 mg Syringe SC SCH (11:00)
--- NOTE | 2017-12-01 22:28 | PN ---
DATE: LOCATION: [facility], bed B. SUBJECTIVE: This is a 42-year-old male, seen and examined in rounds without significant clinical changes or reported active bleeding with intermittent period of abdominal pain. The entire chart is reviewed including, but not limited to the most recent lab and radiology study results, current and the previous medication list, current and the previous medical events. Case discussed with the staff. Today's labs showed low white blood cells of 2.9 with normal hemoglobin and hematocrit and normal platelet count, with low potassium of 3.3 and low creatinine of 0.5, low calcium 8.1 with normal blood glucose level of 104, but mildly elevated total bilirubin of 2.4 and increased AST 75, most likely secondary to alcohol intake, ammonia level reported yesterday to be 163 with low albumin of 2.6. PHYSICAL EXAMINATION: GENERAL: This is a 42-year-old male. VITAL SIGNS: Afebrile with pulse of 82, respiratory rate 20 to 22, and blood pressure 122/76. HEENT: Shows mildly dry oral mucous membrane with bilateral icteric sclerae . HEART: Positive S1 and S2. ABDOMEN: Soft with mild generalized tenderness. No mass or organomegaly. No rebound tenderness or guarding. EXTREMITIES: Mild lower extremity edematous changes. No clubbing or cyanosis. NEUROLOGIC: No other new reported neurological deficits, sensory or motor. IMPRESSION: 1. Alcoholism with mildly abnormal liver function tests and with slight jaundice secondary to alcoholic liver disease. 2. Early stage of possible delirium tremens. 3. Early stage of hepatic encephalopathy with increased ammonia level. 4. Liver cirrhosis secondary to alcoholism. 5. Known history of hypertension, renal stones, as well as hepatitis C viral infection. SUGGESTIONS: 1. Continue current management. 2. Reglan IV. 3. Guaiac all the stools QED x3. 4. Alpha fetoprotein. 5. Further recommendations to follow and abdominal and pelvic CAT scan. Peyman Evans MD
--- NOTE | 2017-12-01 23:43 | CP.PCM.PN ---
Subjective - Date & Time of Evaluation Date of Evaluation: 12/01/17 Time of Evaluation: 18:00 - Subjective Subjective: Pt seen and evalauted, he is more alert, pt prefers to stay asleep, on lactulose for hepatic encephalopathy Objective - Vital Signs/Intake and Output Vital Signs (last 24 hours): Temp Pulse Resp BP Pulse Ox 98.3 F 78 20 118/78 96 12/01/17 15:30 12/01/17 15:30 12/01/17 15:30 12/01/17 15:30 12/01/17 15:30 Intake and Output: 12/01/17 12/02/17 18:59 06:59 Intake Total 500 Balance 500 - Medications Medications: Current Medications Enoxaparin Sodium (Lovenox) 40 mg SC DAILY [facility] Last Admin: 12/01/17 11:00 Dose: 40 mg Famotidine (Pepcid) 20 mg PO BID [facility] Last Admin: 12/01/17 17:07 Dose: 20 mg Gabapentin (Neurontin) 100 mg PO TID [facility] Last Admin: 12/01/17 17:07 Dose: 100 mg Lactulose (Enulose) 20 gm PO Q4 [facility] Last Admin: 12/01/17 23:35 Dose: 20 gm Neomycin Sulfate (Neomycin Tab) 500 mg PO Q6 [facility] Last Admin: 12/01/17 23:35 Dose: 500 mg - Labs Labs: 12/01/17 07:18 12/01/17 07:18 PT 14.8 SECONDS (9.7-12.2) H 11/29/17 07:42 INR 1.3 11/29/17 07:42 APTT 34 SECONDS (21-34) 11/29/17 07:42 - Constitutional Appears: No Acute Distress - Head Exam Head Exam: ATRAUMATIC, NORMAL INSPECTION, NORMOCEPHALIC - Eye Exam Eye Exam: EOMI, Normal appearance, PERRL Pupil Exam: NORMAL ACCOMODATION, PERRL - Respiratory Exam Respiratory Exam: Clear to Ausculation Bilateral, NORMAL BREATHING PATTERN - Cardiovascular Exam Cardiovascular Exam: REGULAR RHYTHM, +S1, +S2. absent: Murmur - GI/Abdominal Exam GI & Abdominal Exam: Soft, Normal Bowel Sounds. absent: Tenderness - Neurological Exam Neurological Exam: Alert, Awake, CN II-XII Intact, Normal Gait, Oriented x3 - Psychiatric Exam Psychiatric exam: Normal Affect, Normal Mood - Skin Skin Exam: Dry, Intact, Normal Color, Warm Assessment and Plan (1) Hepatic encephalopathy Status: Acute (2) EtOH dependence Status: Acute (3) Hepatitis C Status: Acute
[2017-12-02 08:01] LABS: BASO % 0.8 % (0.0-2.0); EOS # 0.2 K/uL (0.0-0.7); EOS % 5.3 % (0.0-4.0); HEMOGLOBIN 14.6 g/dL (12.0-18.0); LYMPH # 1.3 K/uL (1.0-4.3); LYMPH % 46.5 % (20.0-40.0); MEAN CELL VOLUME 89.4 fL (80.0-94.0); MEAN CORPUSCULAR HEMOGLOBIN 30.7 pg (27.0-31.0); MEAN CORPUSCULAR HGB CONC 34.4 g/dL (33.0-37.0); MEAN PLATELET VOLUME 8.6 fL (7.2-11.7); MONO # 0.6 K/uL (0.0-0.8); MONO % 19.5 % (0.0-10.0); NEUT # 0.8 K/uL (1.8-7.0); NEUT % 27.9 % (50.0-75.0); NRBC % 0.1 % (0.0-2.0); RBC 4.74 Mil/uL (4.40-5.90); RED CELL DISTRIBUTION WIDTH 16.4 % (11.5-14.5); WHITE BLOOD COUNT 2.9 K/uL (4.8-10.8)
[2017-12-02 08:05] LABS: ALB/GLOB RATIO 0.8 (1.0-2.1); ALT/SGPT 61 U/L (21-72); AST/SGOT 76 U/L (17-59); BLOOD UREA NITROGEN 10 mg/dL (9-20); CALCIUM 7.8 mg/dl (8.6-10.4); GFR AFRICAN-AMERICAN > 60; GFR NON-AFRICAN AMERICAN > 60
[2017-12-02] MEDS: Enoxaparin 40 mg Syringe SC SCH (10:39)
--- NOTE | 2017-12-02 23:41 | CP.PCM.PN ---
Subjective - Date & Time of Evaluation Date of Evaluation: 12/02/17 Time of Evaluation: 18:40 - Subjective Subjective: Pt seen and examined at bedside, pt is more alert BUN/creatinine is down to normal Objective - Vital Signs/Intake and Output Vital Signs (last 24 hours): Temp Pulse Resp BP Pulse Ox 98.2 F 93 H 18 138/73 100 12/02/17 23:27 12/02/17 23:27 12/02/17 23:27 12/02/17 23:27 12/02/17 23:27 Intake and Output: 12/02/17 12/03/17 18:59 06:59 Intake Total 500 Balance 500 - Medications Medications: Current Medications Enoxaparin Sodium (Lovenox) 40 mg SC DAILY [facility] Last Admin: 12/02/17 10:39 Dose: 40 mg Famotidine (Pepcid) 20 mg PO BID [facility] Last Admin: 12/02/17 17:23 Dose: 20 mg Gabapentin (Neurontin) 100 mg PO TID [facility] Last Admin: 12/02/17 17:23 Dose: 100 mg Lactulose (Enulose) 20 gm PO Q4 [facility] Last Admin: 12/02/17 20:45 Dose: 20 gm Neomycin Sulfate (Neomycin Tab) 500 mg PO Q6 [facility] Last Admin: 12/02/17 17:23 Dose: 500 mg - Labs Labs: 12/02/17 07:13 12/02/17 07:13 PT 14.8 SECONDS (9.7-12.2) H 11/29/17 07:42 INR 1.3 11/29/17 07:42 APTT 34 SECONDS (21-34) 11/29/17 07:42 - Constitutional Appears: No Acute Distress - Head Exam Head Exam: ATRAUMATIC, NORMAL INSPECTION, NORMOCEPHALIC - Eye Exam Eye Exam: EOMI, Normal appearance, PERRL Pupil Exam: NORMAL ACCOMODATION, PERRL - Neck Exam Neck Exam: Normal Inspection. absent: Full ROM, Lymphadenopathy, Meningismus, Tenderness, Thyromegaly Additional comments: decrease ROM due to neck pain - Respiratory Exam Respiratory Exam: Clear to Ausculation Bilateral, NORMAL BREATHING PATTERN - Cardiovascular Exam Cardiovascular Exam: REGULAR RHYTHM, +S1, +S2. absent: Murmur - GI/Abdominal Exam GI & Abdominal Exam: Soft, Normal Bowel Sounds. absent: Tenderness - Neurological Exam Neurological Exam: Alert, Awake, CN II-XII Intact, Normal Gait, Oriented x3 Assessment and Plan (1) Hepatic encephalopathy Assessment & Plan: BUN/ creatinine down to normal Status: Acute (2) EtOH dependence Status: Acute (3) Hepatitis C Status: Acute
[2017-12-03 07:54] LABS: BASO % 0.7 % (0.0-2.0); EOS # 0.2 K/uL (0.0-0.7); EOS % 5.8 % (0.0-4.0); HEMOGLOBIN 13.7 g/dL (12.0-18.0); LYMPH # 1.5 K/uL (1.0-4.3); LYMPH % 50.8 % (20.0-40.0); MEAN CELL VOLUME 88.9 fL (80.0-94.0); MEAN CORPUSCULAR HEMOGLOBIN 30.2 pg (27.0-31.0); MEAN PLATELET VOLUME 8.5 fL (7.2-11.7); MONO # 0.6 K/uL (0.0-0.8); NEUT # 0.7 K/uL (1.8-7.0); NEUT % 22.7 % (50.0-75.0); NRBC % 0.2 % (0.0-2.0); RBC 4.53 Mil/uL (4.40-5.90); RED CELL DISTRIBUTION WIDTH 16.5 % (11.5-14.5); WHITE BLOOD COUNT 2.9 K/uL (4.8-10.8)
[2017-12-03 08:23] LABS: ALB/GLOB RATIO 0.7 (1.0-2.1); ALBUMIN 2.8 g/dL (3.5-5.0); ALT/SGPT 55 U/L (21-72); AST/SGOT 63 U/L (17-59); BLOOD UREA NITROGEN 8 mg/dL (9-20); CALCIUM 7.8 mg/dl (8.6-10.4); GFR AFRICAN-AMERICAN > 60; GFR NON-AFRICAN AMERICAN > 60
[2017-12-03] MEDS: Enoxaparin 40 mg Syringe SC SCH (09:37)
--- NOTE | 2017-12-03 15:33 | PN ---
DATE: LOCATION: [facility], bed A. SUBJECTIVE: This is a 42-year-old man seen and examined in rounds with reported watery bowel movement, but no reported active bleeding. No reported chest pain or palpitation. No reported hematemesis with no chills. The entire chart is reviewed including, but not limited to, most recent lab and radiology study results, current and the previous medication list, current and the previous medical events, and today's labs showed normal hemoglobin and hematocrit, but low white blood cells of 2.9 with reported normal platelet count, with low potassium of 2.5, with low calcium 7.8, mildly elevated total bilirubin 1.6, with AST 63 but normal ALT, alkaline phosphatase of 302, with low albumin 2.8. It has to be mentioned that the patient's previous ammonia level was elevated. PHYSICAL EXAMINATION: GENERAL: A 42-year-old male. VITAL SIGNS: Afebrile with pulse of 82, respiratory rate 20 to 22, blood pressure 140/62. HEENT: Showed pale dry oral mucoid membrane. Bilateral icteric sclerae. LUNGS: Few scattered crepitation, decreased air entry at bases. HEART: Positive S1 and S2. ABDOMEN: Soft. Bowel sounds are present with mild generalized tenderness. No mass or organomegaly. No rebound tenderness or guarding. RECTAL: The patient refused. EXTREMITIES: Without edema, clubbing or cyanosis. NEUROLOGIC: No reported new neurological focal deficits, sensory or motor. IMPRESSION: 1. Alcoholism. 2. Abnormal liver function tests secondary to above. 3. Mildly elevated ammonia level with evidence of mild hepatic encephalopathy, improving gradually. 4. Alcohol-induced liver cirrhosis. 5. Known history of renal stone, hypertension, hepatitis C, viral infection. SUGGESTIONS: 1. Continue current management. 2. Follow up on cancer markers including alpha fetoprotein and CEA level. 3. Sectional abdominal and pelvic CAT scan. 4. Further recommendation to follow. Peyman Evans MD
[2017-12-03] MEDS ORDERED: Potassium Chloride 20 mEq/15 ml LIQ UD PO STA (18:56)
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
--- NOTE | 2017-12-04 05:24 | CON ---
DATE: 11/29/[address] Evans to Dr. Edgardo Htuson. I was called for a GI consultation by the admitting MD, as well as medical staff in the floor. The patient was seen and fully examined on 11/29/2017 in the presence of the admitting medical staff and the nursing staff in the floor. The entire chart is reviewed including but not limited to, the most recent lab and radiology study results, current and the previous medication list, current and the previous medical events, allergy to medication list, as well as all the available current and previous medical records. The case was discussed with the staff at length. HISTORY OF PRESENT ILLNESS: This is a 42-year-old male, who was admitted to the hospital through the emergency room in combination of his son as the patient had been complaining of lower abdominal pain, back pain, confusion with a fall, but no clear evidence of loss of consciousness, but associated with one more episode of vomiting with a recent poor oral intake. No reported active bleeding. The patient had been drinking alcohol in large amount recently. PAST MEDICAL HISTORY: Including but not limited to; 1. Alcoholism with alcohol abuse. 2. Alcoholic liver disease with liver cirrhosis. 3. Known history of hepatitis C viral infection. 4. History of renal stones, hypertension with chronic renal insufficiency. FAMILY HISTORY: Unknown. SOCIAL HISTORY: Positive for excessive alcohol intake and cigarette smoking. CURRENT MEDICATIONS: Medication list was reviewed. LABORATORY DATA: Initial blood workup showed low white blood cells of 3.7 with low CO2 content of 19 indicative of metabolic acidosis with increased creatinine of 2.0, but low BUN of 5. Abdominal and pelvic CAT scan done as well as head CAT scan and cervical spine scan reports are seen. PHYSICAL EXAMINATION: GENERAL: A 42-year-old male, appeared to be somewhat confused but awake. VITAL SIGNS: Afebrile with a pulse of 76, respiratory rate of 20 to 22, blood pressure of 148/82. HEENT: Shows mildly pale, dry oral mucous membrane with bilateral icteric sclerae. LYMPH NODES: No lymphadenitis or lymphadenopathy. LUNGS: Scattered crepitation with few rhonchi bilaterally. Breathing sounds are present. HEART: Positive S1 and S2. ABDOMEN: Soft, bowel sounds are present. No mass or organomegaly. No rebound tenderness or guarding. Abdominal distention noticed with small amount of ascites. RECTAL EXAMINATION: The patient refused. EXTREMITIES: With lower extremity edematous changes. No clubbing or cyanosis. NEUROLOGIC: No reported neurological deficits, sensory or motor. No focal deficits. It has to be mentioned that repeat vital signs showed the patient afebrile with pulse of 74, respiratory rate of 20 to 22, blood pressure 136/88. IMPRESSION: 1. Alcoholism with alcoholic liver disease. 2. Rule out an episode of acute hepatic encephalopathy. 3. Alcohol-induced liver cirrhosis. 4. Known history of hepatitis C viral infection, hypertension, renal stones with history of renal insufficiency. SUGGESTIONS: 1. Agree with your plan. 2. Abdominal ultrasound. 3. Ammonia level. 4. Cancer markers including CEA, alpha fetoprotein, PSA, as well as CA 19-9. 5. Neomycin p.o. besides lactulose. 6. Proton pump inhibitors. 7. Neurology evaluation. 8. Guaiac all the stools QED x3. 9. Further recommendation to follow. Thank you for letting me to participate in your patient's case management. We will follow up closely with you. Peyman Evans MD
[2017-12-04] MEDS: Enoxaparin 40 mg Syringe SC SCH (09:29)
--- NOTE | 2017-12-04 13:06 | PN ---
DATE: LOCATION: [facility], bed A. SUBJECTIVE: This is a 42-year-old male seen and examined in rounds today, appeared to be again mildly semi-confused and mildly disoriented. The patient was reported to be incontinent at times. The most recent lab results and current and the previous medication list were reviewed and today's lab showed blood glucose level of 86. The patient is still persistently having elevated ammonia level and Neomycin to be added ____. PHYSICAL EXAMINATION GENERAL: A 42-year-old male. VITAL SIGNS: Afebrile with pulse of 80, respiratory rate of 20 to 22, with blood pressure of 120/68. HEENT: Shows pale, dry oral mucous membrane, nonicteric sclerae. LUNGS: A few scattered mild crepitation, decreased air entry. HEART: Positive S1 and S2. ABDOMEN: Soft, bowel sounds are present, with slight generalized tenderness. No mass or organomegaly. No rebound tenderness or guarding. RECTAL EXAMINATION: The patient refused. EXTREMITIES: Without significant clubbing, cyanosis, or edema. NEUROLOGIC: No new reported neurological deficits, sensory or motor. No new reported focal deficits. IMPRESSION: 1. Alcoholism. 2. Alcoholic liver disease. 3. Hepatic encephalopathy, mild with increased ammonia level. 4. Liver cirrhosis secondary to alcoholism. 5. Known history of hypertension, hepatitis C, viral infection as well as renal stones. SUGGESTIONS: 1. Agree with your plan. 2.. Neomycin 500 mg 1 tablet p.o. q. 6 hours. 3. Further recommendation to follow. Peyman Evans MD
[2017-12-04 13:55] LABS: BASO % 0.8 % (0.0-2.0); EOS # 0.2 K/uL (0.0-0.7); EOS % 8.7 % (0.0-4.0); HEMOGLOBIN 13.2 g/dL (12.0-18.0); LYMPH # 1.3 K/uL (1.0-4.3); LYMPH % 50.8 % (20.0-40.0); MEAN CELL VOLUME 89.4 fL (80.0-94.0); MEAN CORPUSCULAR HEMOGLOBIN 30.5 pg (27.0-31.0); MEAN CORPUSCULAR HGB CONC 34.2 g/dL (33.0-37.0); MEAN PLATELET VOLUME 7.8 fL (7.2-11.7); MONO # 0.6 K/uL (0.0-0.8); MONO % 21.9 % (0.0-10.0); NEUT # 0.4 K/uL (1.8-7.0); NEUT % 17.8 % (50.0-75.0); PLATELET COUNT 152 K/uL (130-400); RBC 4.33 Mil/uL (4.40-5.90); RED CELL DISTRIBUTION WIDTH 16.1 % (11.5-14.5); WHITE BLOOD COUNT 2.5 K/uL (4.8-10.8)
[2017-12-04 14:11] LABS: BLOOD UREA NITROGEN 4 mg/dL (9-20); CALCIUM 7.4 mg/dl (8.6-10.4); GFR AFRICAN-AMERICAN > 60; GFR NON-AFRICAN AMERICAN > 60
[2017-12-04 14:30] LABS: ANISOCYTOSIS SLIGHT; BASOPHIL 1 % (0-2); EOSINOPHIL 9 % (0-4); HYPOCHROMIC SLIGHT; LYMPHOCYTE 47 % (20-40); MONOCYTE 20 % (0-10); NEUTROPHIL 23 % (50-75); PLATELET ESTIMATE NORMAL (NORMAL); POIKILOCYTOSIS SLIGHT; TOTAL CELLS COUNTED 100
[2017-12-04 14:31] LABS: OVALOCYTES SLIGHT; SCHISTOCYTES SLIGHT
[2017-12-04] MEDS ORDERED: Potassium Chloride 20 mEq ER Tab PO ONE (17:30)
--- NOTE | 2017-12-04 18:58 | CP.PCM.PN ---
Subjective - Date & Time of Evaluation Date of Evaluation: 12/04/17 Time of Evaluation: 14:00 - Subjective Subjective: PT SEEN AND EXAMINED, NO SOB. PAIN IS IMPROVING Objective - Vital Signs/Intake and Output Vital Signs (last 24 hours): Temp Pulse Resp BP Pulse Ox 98.2 F 71 16 125/75 97 12/04/17 16:36 12/04/17 16:36 12/04/17 16:36 12/04/17 16:36 12/04/17 16:36 Intake and Output: 12/04/17 12/04/17 06:59 18:59 Intake Total 170 400 Balance 170 400 - Medications Medications: Current Medications Enoxaparin Sodium (Lovenox) 40 mg SC DAILY [facility] Last Admin: 12/04/17 09:29 Dose: 40 mg Famotidine (Pepcid) 20 mg PO BID [facility] Last Admin: 12/04/17 17:24 Dose: 20 mg Gabapentin (Neurontin) 100 mg PO TID [facility] Last Admin: 12/04/17 17:24 Dose: 100 mg Lactulose (Enulose) 20 gm PO Q4 [facility] Last Admin: 12/04/17 17:00 Dose: 20 gm Neomycin Sulfate (Neomycin Tab) 500 mg PO Q6 [facility] Last Admin: 12/04/17 17:24 Dose: 500 mg - Labs Labs: 12/04/17 13:50 12/04/17 13:50 PT 14.8 SECONDS (9.7-12.2) H 11/29/17 07:42 INR 1.3 11/29/17 07:42 APTT 34 SECONDS (21-34) 11/29/17 07:42 Assessment and Plan (1) Hepatic encephalopathy Status: Acute (2) EtOH dependence Status: Acute (3) Hepatitis C Status: Acute
[2017-12-05 07:41] LABS: BLOOD UREA NITROGEN 4 mg/dL (9-20); CALCIUM 7.8 mg/dl (8.6-10.4); GFR AFRICAN-AMERICAN > 60; GFR NON-AFRICAN AMERICAN > 60
[2017-12-05] MEDS: Enoxaparin 40 mg Syringe SC SCH (09:15)
[2017-12-05] MEDS ORDERED: Potassium Chloride 20 mEq ER Tab PO ONE (13:00)
--- NOTE | 2017-12-05 21:06 | CP.PCM.PN ---
Subjective - Date & Time of Evaluation Date of Evaluation: 12/05/17 Time of Evaluation: 18:00 - Subjective Subjective: Pt seen and examined, ammonia level is still 186 despite getting large doses of lactulose, ascites is there, pt is on medical management Objective - Vital Signs/Intake and Output Vital Signs (last 24 hours): Temp Pulse Resp BP Pulse Ox 98.3 F 85 20 127/75 99 12/05/17 15:54 12/05/17 15:54 12/05/17 15:54 12/05/17 15:54 12/05/17 15:54 Intake and Output: 12/05/17 12/06/17 18:59 06:59 Intake Total 780 200 Output Total 3 Balance 777 200 - Medications Medications: Current Medications Enoxaparin Sodium (Lovenox) 40 mg SC DAILY [facility] Last Admin: 12/05/17 09:15 Dose: 40 mg Famotidine (Pepcid) 20 mg PO BID [facility] Last Admin: 12/05/17 18:01 Dose: 20 mg Gabapentin (Neurontin) 100 mg PO TID [facility] Last Admin: 12/05/17 18:01 Dose: 100 mg Neomycin Sulfate (Neomycin Tab) 500 mg PO Q6 [facility] Last Admin: 12/05/17 18:01 Dose: 500 mg - Labs Labs: 12/04/17 13:50 12/05/17 07:05 PT 14.8 SECONDS (9.7-12.2) H 11/29/17 07:42 INR 1.3 11/29/17 07:42 APTT 34 SECONDS (21-34) 11/29/17 07:42 - Constitutional Appears: No Acute Distress - Respiratory Exam Respiratory Exam: Clear to Ausculation Bilateral, NORMAL BREATHING PATTERN - Cardiovascular Exam Cardiovascular Exam: REGULAR RHYTHM, +S1, +S2 - GI/Abdominal Exam GI & Abdominal Exam: Distended, Soft, Tenderness, Normal Bowel Sounds Assessment and Plan (1) Hepatic encephalopathy Status: Acute (2) EtOH dependence Status: Acute (3) Hepatitis C Status: Acute
[2017-12-06 02:56] VITALS: RESP 20
[2017-12-06] MEDS: Enoxaparin 40 mg Syringe SC SCH (11:26)
[2017-12-06 16:09] VITALS: BP 131/90; PULSE 85; TEMP 97.8; O2SAT 98
--- NOTE | 2017-12-06 16:46 | PN ---
DATE: LOCATION: [facility], bed A. SUBJECTIVE: This is a 42-year-old male seen and examined in rounds with significant clinical changes. No reported active bleeding, but was complaining of generalized body ache and very concerned of lower extremities pain on and off. The entire chart is reviewed including, but not limited to the most recent lab and radiology study results, current and the previous medication list, current and the previous medical events and today's lab result is still pending, but the patient recently had elevated ammonia level to 186, there was low calcium 7.8, for which neomycin PO to be given. PHYSICAL EXAMINATION: GENERAL: A 42-year-old male appeared to be more awake and alert and complaining of body ache. VITAL SIGNS: Afebrile with pulse of 72, respiratory rate 20 to 22, and blood pressure 136/64. HEENT: Showed mildly pale dry oral mucoid membrane. Nonicteric sclerae. LUNGS: Few scattered crepitation with decreased air entry at bases. HEART: Positive S1 and S2. ABDOMEN: Soft with mild generalized tenderness. No mass or organomegaly. No rebound tenderness or guarding. RECTAL: The patient refused. EXTREMITIES: Without significant clubbing, cyanosis or edema. NEUROLOGIC: No new reported neurological deficits, sensory or motor. IMPRESSION: 1. Alcoholism. 2. Alcoholic liver disease. 3. Evidence of mild hepatic encephalopathy with elevated ammonia level. 4. Liver cirrhosis secondary to above. 5. Known history of hepatitis C, hypertension and renal stone. SUGGESTIONS: 1. Continue current management. 2. Repeat ammonia level. 3. Followup in cancer markers. No need for aggressive GI workup in the meantime. Peyman Evans MD
--- NOTE | 2017-12-06 22:51 | CP.PCM.DIS ---
Provider - Provider Date of Admission: 11/29/17 09:49 Attending physician: Edgardo Hutson MD Time Spent in preparation of Discharge (in minutes): 45 Diagnosis - Discharge Diagnosis (1) Hepatic encephalopathy Status: Acute (2) EtOH dependence Status: Acute (3) Hepatitis C Status: Acute Hospital Course - Lab Results Lab Results: Most Recent Lab Values WBC 2.5 K/uL (4.8-10.8) L 12/04/17 13:50 RBC 4.33 Mil/uL (4.40-5.90) L 12/04/17 13:50 Hgb 13.2 g/dL (12.0-18.0) 12/04/17 13:50 Hct 38.7 % (35.0-51.0) 12/04/17 13:50 MCV 89.4 fL (80.0-94.0) 12/04/17 13:50 MCH 30.5 pg (27.0-31.0) 12/04/17 13:50 MCHC 34.2 g/dL (33.0-37.0) 12/04/17 13:50 RDW 16.1 % (11.5-14.5) H 12/04/17 13:50 Plt Count 152 K/uL (130-400) 12/04/17 13:50 MPV 7.8 fL (7.2-11.7) 12/04/17 13:50 Neut % (Auto) 17.8 % (50.0-75.0) L 12/04/17 13:50 Lymph % (Auto) 50.8 % (20.0-40.0) H 12/04/17 13:50 [place] % (Auto) 21.9 % (0.0-10.0) H 12/04/17 13:50 Eos % (Auto) 8.7 % (0.0-4.0) H 12/04/17 13:50 Baso % (Auto) 0.8 % (0.0-2.0) 12/04/17 13:50 Neut # (Auto) 0.4 K/uL (1.8-7.0) L 12/04/17 13:50 Lymph # (Auto) 1.3 K/uL (1.0-4.3) 12/04/17 13:50 [place] # (Auto) 0.6 K/uL (0.0-0.8) 12/04/17 13:50 Eos # (Auto) 0.2 K/uL (0.0-0.7) 12/04/17 13:50 Baso # (Auto) 0.0 K/uL (0.0-0.2) 12/04/17 13:50 Neutrophils % (Manual) 23 % (50-75) L 12/04/17 13:50 Lymphocytes % (Manual) 47 % (20-40) H 12/04/17 13:50 Monocytes % (Manual) 20 % (0-10) H 12/04/17 13:50 Eosinophils % (Manual) 9 % (0-4) H 12/04/17 13:50 Basophils % (Manual) 1 % (0-2) 12/04/17 13:50 Platelet Estimate Normal (NORMAL) 12/04/17 13:50 Hypochromasia (manual) Slight 12/04/17 13:50 Poikilocytosis (manual Slight 12/04/17 13:50 Anisocytosis (manual) Slight 12/04/17 13:50 Ovalocytes Slight 12/04/17 13:50 Schistocytes Slight 12/04/17 13:50 PT 14.8 SECONDS (9.7-12.2) H 11/29/17 07:42 INR 1.3 11/29/17 07:42 APTT 34 SECONDS (21-34) 11/29/17 07:42 Sodium 134 mmol/L (132-148) 12/05/17 07:05 Potassium 3.5 mmol/L (3.6-5.2) L 12/05/17 07:05 Chloride 105 mmol/L (98-107) 12/05/17 07:05 Carbon Dioxide 23 mmol/L (22-30) 12/05/17 07:05 Anion Gap 10 (10-20) 12/05/17 07:05 BUN 4 mg/dL (9-20) L 12/05/17 07:05 Creatinine 0.5 mg/dL (0.8-1.5) L 12/05/17 07:05 Est GFR ( Amer) > 60 12/05/17 07:05 Est GFR (Non-Af Amer) > 60 12/05/17 07:05 POC Glucose (mg/dL) 73 mg/dL (65-110) 12/05/17 11:53 Random Glucose 87 mg/dL (75-110) 12/05/17 07:05 Calcium 7.8 mg/dl (8.6-10.4) L 12/05/17 07:05 Total Bilirubin 1.6 mg/dL (0.2-1.3) H 12/03/17 07:42 AST 63 U/L (17-59) H 12/03/17 07:42 ALT 55 U/L (21-72) 12/03/17 07:42 Alkaline Phosphatase 302 U/L (38-126) H 12/03/17 07:42 Ammonia 186 umol/L (9-33) H 12/05/17 07:05 Total Protein 6.6 g/dL (6.3-8.3) 12/03/17 07:42 Albumin 2.8 g/dL (3.5-5.0) L 12/03/17 07:42 Globulin 3.8 gm/dL (2.2-3.9) 12/03/17 07:42 Albumin/Globulin Ratio 0.7 (1.0-2.1) L 12/03/17 07:42 Lipase 284 U/L (23-300) 11/29/17 07:42 Urine Color Colorless (YELLOW) 11/29/17 08:11 Urine Clarity Clear (Clear) 11/29/17 08:11 Urine pH 7.0 (5.0-8.0) 11/29/17 08:11 Ur Specific [place] 1.002 (1.003-1.030) L 11/29/17 08:11 Urine Protein Negative mg/dL (NEGATIVE) 11/29/17 08:11 Urine Glucose (UA) Normal mg/dL (Normal) 11/29/17 08:11 Urine Ketones Negative mg/dL (NEGATIVE) 11/29/17 08:11 Urine Blood Negative (NEGATIVE) 11/29/17 08:11 Urine Nitrate Negative (NEGATIVE) 11/29/17 08:11 Urine Bilirubin Negative (NEGATIVE) 11/29/17 08:11 Urine Urobilinogen Normal mg/dL (0.2-1.0) 11/29/17 08:11 Ur Leukocyte Esterase Neg Arielle/uL (Negative) 11/29/17 08:11 Urine RBC (Auto) < 1 /hpf (0-3) 11/29/17 08:11 Ur Squamous Epith Cells < 1 /hpf (0-5) 11/29/17 08:11 Urine Opiates Screen Negative (NEGATIVE) 11/29/17 08:11 Urine Methadone Screen Negative (NEGATIVE) 11/29/17 08:11 Ur Barbiturates Screen Negative (NEGATIVE) 11/29/17 08:11 Ur Phencyclidine Scrn Negative (NEGATIVE) 11/29/17 08:11 Ur Amphetamines Screen Negative (NEGATIVE) 11/29/17 08:11 U Benzodiazepines Scrn Negative (NEGATIVE) 11/29/17 08:11 U Oth Cocaine Metabols Negative (NEGATIVE) 11/29/17 08:11 U Cannabinoids Screen Negative (NEGATIVE) 11/29/17 08:11 Alcohol, Quantitative 12 mg/dl (0-10) H 11/29/17 07:42 - Hospital Course Hospital Course: PT IS CLEARED FOR DISCHARGE, NO DISTRESS, FAMILY IS AT BEDSIDE, C/O SOME NECK PAIN OTHERWISE STABLE Discharge Exam - Head Exam Head Exam: ATRAUMATIC, NORMAL INSPECTION, NORMOCEPHALIC - Eye Exam Eye Exam: EOMI, Normal appearance, PERRL Pupil Exam: NORMAL ACCOMODATION, PERRL - ENT Exam ENT Exam: Mucous Membranes Moist - Respiratory Exam Respiratory Exam: Clear to PA & Lateral, NORMAL BREATHING PATTERN - Cardiovascular Exam Cardiovascular Exam: REGULAR RHYTHM, +S1, +S2 - GI/Abdominal Exam GI & Abdominal Exam: Normal Bowel Sounds Discharge Plan - Follow Up Plan Condition: SERIOUS Disposition: HOME/ ROUTINE Instructions: Famotidine (By mouth), Potassium Chloride (By mouth), Multivitamins with Minerals (By mouth), Lactulose (By mouth), Rifaximin (By mouth), Cirrhosis (DC), Liver Disease Diet (DC), Hepatic Encephalopathy (DC), Abuse of Alcohol (DC) Additional Instructions: Follow up with primary MD in one week, call for appointment. Continue home medications. Return to ED if symptoms worsen or return.
== END 2017-12-06 19:09 | disposition home or self-care (01) | DRG 202 ==
LOC: C.ER 07:09 → C.9E 09:49 → C.5S 17:48
PROVIDERS: ADMIT Internal Medicine; ATTEND Internal Medicine
DX: K70.40 Alcoholic hepatic failure without coma (principal); K70.30 Alcoholic cirrhosis of liver without ascites; F10.231 Alcohol dependence with withdrawal delirium; B18.2 Chronic viral hepatitis C; N18.9 Chronic kidney disease, unspecified; F17.210 Nicotine dependence, cigarettes, uncomplicated; I12.9 Hypertensive chronic kidney disease with stage 1 through stage 4 chronic kidney disease, or unspecified chronic kidney disease; Z87.442 Personal history of urinary calculi

== ENCOUNTER 2018-05-20 10:35 | Emergency (ER) | payer OTHER ==
[2018-05-20 10:35] VITALS: BMI 25.0
[2018-05-20 10:42] VITALS: RESP 18; O2SAT 100
[2018-05-20] MEDS ORDERED: Lidocaine 2% MPF (5 ml) Inj ONE (11:04)
--- NOTE | 2018-05-20 11:18 | C.PDOC ---
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 PT STATES HE WAS USING SAW, ACCIDENTALLY CUT HIMSELF W IT. DENIES OTHER ASSOCIATED INJURY OR SX. HO Hep C, who drinks ETOH occasionally. FAMILY @ BEDSIDE, STATE THAT PT IS @ BASELINE MS AND DENIES RECENT ILLNESS. LAST DRINK 2 DAYS AGO PT W INTERMIT GEN BRUISING "FOR A LONG TIME", INTERMIT BACK PAIN "FOR OVER 1 YR ". CURRENT SX UNCH FROM PRIOR. EXAM NAD NONTOXIC HEENT ATRAUM ANICTERIC SKIN L THIGH LAC W MIN ACTIVE BLEEDING. EXT NO GROSS DEFORM GAIT STEADY NEURO AO3, NO GROSS FOCAL DEF MDM FAMILY STATES PT IS OCC COMPLIANT W LACTULOSE, OTHERWISE COMPLIANT W OTHER MEDS. PT AND FAMILY ADVISED BRUISING SX ARE REFLECTION OF HIS LIVER DISEASE. 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 (Eliana Ramsey) History Per: Patient, Family History/Exam Limitations: no limitations Current Symptoms Are (Timing): Still Present Severity: Moderate <Eliana Ramsey - Last Filed: 05/20/18 12:31> <Debbie Gilbert - Last Filed: 05/23/18 18:38> Time Seen by Provider: 05/20/18 11:18 Chief Complaint (Nursing): Abnormal Skin Integrity Past Medical History Reviewed: Historical Data, Nursing Documentation, Vital Signs - Medical History PMH: Hepatitis (C), HTN, Kidney Stones (burning with urination), Chronic Kidney Disease Family History: States: No Known Family Hx - Social History Hx Tobacco Use: Yes Hx Alcohol Use: Yes Hx Substance Use: No - Immunization History Hx Tetanus Toxoid Vaccination: No Hx Influenza Vaccination: No Hx Pneumococcal Vaccination: No <Eliana Ramsey - Last Filed: 05/20/18 12:31> Vital Signs: Last Vital Signs Temp 98.8 F 05/20/18 11:57 Pulse 98 H 05/20/18 11:57 Resp 18 05/20/18 11:57 BP 151/95 H 05/20/18 11:57 Pulse Ox 100 05/20/18 12:34 - [facility] Procedures CLOSURE SKIN & SUBCUTANEOUS NEC (06/19/15) DETOXIFICATION SERVICES FOR SUBSTANCE ABUSE TREATMENT (09/13/17) DRAINAGE OF SPINAL CANAL, PERCUTANEOUS APPROACH, DIAGNOSTIC (03/30/16) EXCISION OF STOMACH, ENDO, DIAGN (09/12/16) INDIV PSYCHOTHERAPY FOR SUBSTANCE ABUSE TREATMENT, SUPPORT (09/13/17) INDIV PSYCHOTHERAPY FOR SUBSTANCE ABUSE, PSYCHOEDUCATION (09/13/17) TETANUS TOXOID ADMINIST (06/19/15) Review Of Systems Constitutional: Negative for: Fever Cardiovascular: Negative for: Chest Pain Respiratory: Negative for: Shortness of Breath Gastrointestinal: Negative for: Vomiting Musculoskeletal: Negative for: Back Pain Neurological: Negative for: Altered Mental Status, Headache, Dizziness <Eliana Ramsey - Last Filed: 05/20/18 12:31> Physical Exam - Physical Exam Appears: Non-toxic, No Acute Distress Skin: Warm, Dry ( L THIGH LAC W MIN ACTIVE BLEEDING.) Head: Atraumatic Eye(s): bilateral: Normal Inspection, PERRL (anicteric) Oral Mucosa: Moist Lips: Normal Appearing Neck: Normal ROM Cardiovascular: Rhythm Regular, No Murmur Respiratory: Normal Breath Sounds, No Accessory Muscle Use Gastrointestinal/Abdominal: Soft, No Tenderness Extremity: Other (NO GROSS DEFORM) Neurological/Psych: Oriented x3 ( NO GROSS FOCAL DEF), Normal Speech <Eliana Ramsey Last Filed: 05/20/18 12:31> ED Course And Treatment O2 Sat by Pulse Oximetry: 100 (RA) Pulse Ox Interpretation: Normal <Eliana Ramsey - Last Filed: 05/20/18 12:31> Progress <Eliana Ramsey - Last Filed: 05/20/18 12:31> <Debbie Gilbert - Last Filed: 05/23/18 18:38> - Re-Evaluation Re-evaluation Note: 05/20/18 11:18 THIGH LACERATION REPAIR [address] DR DEBBIE GILBERT (Eliana Ramsey) Laceration - Laceration Repair left anterior thigh Wound Length (In cm): 10 Description Of Wound: Linear Wound Cleansed With: Sterile Saline Anesthesia: Lidocaine 1% Wound Examination: Irrigated With Saline, No FB With Wound Exploration, No Tendon Injury With Wound Exploration Wound Closure: Phyllis (10) Wound Complexity: Simple <Debbie Gilbert Last Filed: 05/23/18 18:38> Medical Decision Making <Eliana Ramsey Filed: 05/20/18 12:31> <Debbie Gilbert - Last Filed: 05/23/18 18:38> Medical Decision Making: FAMILY STATES PT IS OCC COMPLIANT W LACTULOSE, OTHERWISE COMPLIANT W OTHER MEDS. PT AND FAMILY ADVISED BRUISING SX ARE REFLECTION OF HIS LIVER DISEASE. 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 (Eliana Ramsey) Disposition Counseled Patient/Family Regarding: Diagnosis, Need For Followup - Disposition Disposition Time: 11:43 <Eliana Ramsey - Last Filed: 05/20/18 12:31> <Debbie Gilbert - Last Filed: 05/23/18 18:38> - Disposition Referrals: [facility] [Provider Group] Disposition: HOME/ ROUTINE Condition: IMPROVED Additional Instructions: RETURN IN 7-10 DAYS FOR STAPLE REMOVAL. CONTINUE CURRENT MEDICATIONS PRESCRIBED. Prescriptions: Cephalexin [cephalexin] 500 mg PO BID #14 cap Instructions: Laceration Repair With Fouzia (DC) Forms: [employer] ([place]) - Clinical Impression Clinical Impression: Thigh laceration - Scribe Statement The provider has reviewed the documentation as recorded by the Scribe (Josie Worrell) <Eliana Ramsey - Last Filed: 05/20/18 12:31> <Debbie Gilbert - Last Filed: 05/23/18 18:38> - Scribe Statement All medical record entries made by the Scribe were at my direction and personally dictated by me. I have reviewed the chart and agree that the record accurately reflects my personal performance of the history, physical exam, medical decision making, and the department course for this patient. I have also personally directed, reviewed, and agree with the discharge instructions and disposition. (Eliana Ramsey)
[2018-05-20] MEDS ORDERED: Tetanus/Diphtheria Toxoids 0.5 ml Syringe IM ONE ×2 (11:43→11:50)
[2018-05-20 12:01] VITALS: BP 151/95; PULSE 98; TEMP 98.8
== END 2018-05-20 12:01 | disposition home or self-care (01) ==
LOC: C.ER 10:35
DX: S71.112A Laceration without foreign body, left thigh, initial encounter (principal); W27.8XXA Contact with other nonpowered hand tool, initial encounter; Y92.009 Unspecified place in unspecified non-institutional (private) residence as the place of occurrence of the external cause; Z23 Encounter for immunization

== ENCOUNTER 2018-07-19 16:34 | Inpatient (IN) | payer OTHER ==
[2018-07-19 16:34] VITALS: BMI 25.0
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
--- NOTE | 2018-07-19 18:00 | CT ---
Date of service: 07/19/2018 PROCEDURE: CT HEAD WITHOUT CONTRAST. HISTORY: R/O Bleed COMPARISON: CT head dated 11/29/2017 TECHNIQUE: Axial computed tomography images were obtained through the head/brain without intravenous contrast. Radiation dose: Total exam DLP = 954.3 mGy-cm. This CT exam was performed using one or more of the following dose reduction techniques: Automated exposure control, adjustment of the mA and/or kV according to patient size, and/or use of iterative reconstruction technique. FINDINGS: HEMORRHAGE: Thin right cerebral convexity subdural hematoma with maximal depth of 4 mm that appears subacute as many areas are nearly isodense to brain parenchyma. Acute subarachnoid hemorrhage seen in right temporoparieo-occipital sulci. BRAIN: No mass effect or edema. No atrophy or chronic microvascular ischemic changes. VENTRICLES: Unremarkable. No hydrocephalus. CALVARIUM: Unremarkable. PARANASAL SINUSES: Unremarkable as visualized. No significant inflammatory changes. MASTOID AIR CELLS: Unremarkable as visualized. No inflammatory changes. OTHER FINDINGS: Right parietal scalp swelling/hematoma. IMPRESSION: Right parietal scalp swelling/hematoma. No calvarial fracture. Subacute within right cerebral convexity subdural hematoma with maximal depth of 4 mm. Acute subarachnoid hemorrhage within the right temporal parietal occipital sulci. Findings conveyed to GERARDO Martinez by Dr. Hart at 5:54 p.m. on 07/19/2018.
[2018-07-19 18:16] LABS: BASO % 0.6 % (0.0-2.0); EOS # 0.2 K/uL (0.0-0.7); EOS % 7.9 % (0.0-4.0); HEMOGLOBIN 10.8 g/dL (12.0-18.0); LYMPH # 0.9 K/uL (1.0-4.3); LYMPH % 35.5 % (20.0-40.0); MEAN CELL VOLUME 81.7 fL (80.0-94.0); MEAN CORPUSCULAR HEMOGLOBIN 27.9 pg (27.0-31.0); MEAN CORPUSCULAR HGB CONC 34.2 g/dL (33.0-37.0); MEAN PLATELET VOLUME 8.1 fL (7.2-11.7); MONO # 0.8 K/uL (0.0-0.8); MONO % 29.5 % (0.0-10.0); NEUT # 0.7 K/uL (1.8-7.0); NEUT % 26.5 % (50.0-75.0); NRBC % 0.2 % (0.0-2.0); PLATELET COUNT 148 K/uL (130-400); RBC 3.87 Mil/uL (4.40-5.90); RED CELL DISTRIBUTION WIDTH 15.5 % (11.5-14.5); WHITE BLOOD COUNT 2.7 K/uL (4.8-10.8)
[2018-07-19 18:29] LABS: BLOOD UREA NITROGEN 12 mg/dL (9-20); GFR NON-AFRICAN AMERICAN > 60
[2018-07-19 18:31] LABS: ALB/GLOB RATIO 0.7 (1.0-2.1); ALBUMIN 2.7 g/dL (3.5-5.0); ALT/SGPT 63 U/L (21-72); AST/SGOT 101 U/L (17-59)
[2018-07-19] MEDS ORDERED: Iodixanol 320 MG/ML 100 ML BOTTLE IV ONE (18:54)
[2018-07-19 19:25] LABS: EOSINOPHIL 7 % (0-4); LYMPHOCYTE 38 % (20-40); MONOCYTE 20 % (0-10); NEUTROPHIL 35 % (50-75); TOTAL CELLS COUNTED 100
[2018-07-19 19:26] LABS: PLATELET ESTIMATE NORMAL (NORMAL)
--- NOTE | 2018-07-19 23:26 | CP.PCM.CON ---
History of Present Illness - History of Present Illness History of Present Illness: 42 M with h/o hep c, h/o alcohol cirrhosis, hepatic encephalopathy, chronic hyper anemia, brought to the hospital after a fall outside the house on the grass as per the patient. Patient upon w/u found to have right small subacute subdural hematoma and small acute subarachnoid hemorrhage. Patient has been alert and oriented frequently asking for some morphine for generalized body ache, ammonia level was 248. Patient has slight slurred speech, slight weak right eye and some slight fasciculation on the left cheek and orbicularis occuli, other giraldo has been moving all 4 ext. PMH as above PSH denies Meds mentions for live Allergies NKDA Family history not contributory Social lives with , still continues to drink but would not quantify, smokes 1/2 PPD, denies any drugs Review of Systems - Review of Systems All systems: reviewed and no additional remarkable complaints except (HPI) Past Patient History - Infectious Disease Hx of Infectious Diseases: None - Past Medical History & Family History Past Medical History?: Yes - Past Social History Smoking Status: Light Smoker < 10 Cigarettes Daily Chewing Tobacco Use: No Alcohol: < 2 Drinks/Day Drugs: Denies Home Situation {Lives}: With Family - CARDIAC Hx Hypertension: Yes - PULMONARY Hx Respiratory Disorders: No - NEUROLOGICAL Hx Neurological Disorder: No - HEENT Hx HEENT Problems: No - RENAL Hx Chronic Kidney Disease: Yes Hx Kidney Stones: Yes (burning with urination) - ENDOCRINE/METABOLIC Hx Diabetes Mellitus Type 2: Yes (denies) - HEMATOLOGICAL/ONCOLOGICAL Hx Blood Disorders: Yes Hx Hepatitis C: Yes Other/Comment: liver problem, liver failure confirmed by patient - INTEGUMENTARY Hx Dermatological Problems: No - MUSCULOSKELETAL/RHEUMATOLOGICAL Hx Musculoskeletal Disorders: Yes Hx Back Pain: Yes Hx Falls: Yes - GASTROINTESTINAL Hx Gastrointestinal Disorders: Yes Other/Comment: Liver disease - GENITOURINARY/GYNECOLOGICAL Hx Genitourinary Disorders: No - PSYCHIATRIC Hx Substance Use: No - SURGICAL HISTORY Hx Surgeries: No - ANESTHESIA Hx Anesthesia: No Hx Anesthesia Reactions: No Hx Malignant Hyperthermia: No Meds Allergies/Adverse Reactions: Allergies Allergy/AdvReac Type Severity Reaction Status Date / Time No Known Allergies Allergy Verified 05/20/18 10:42 - Medications Medications: Current Medications Lactulose (Enulose) 20 gm PO Q6H RON Pantoprazole Sodium (Protonix Ec Tab) 40 mg PO DAILY RON Physical Exam - Additional Findings Additional findings: * HEENT right eye slight weaker then left, left cheek some fasciculations * Neck supple * Chest Clear * CVS Regular, no gallop or rub * PA soft, nt bs present * Ext no edema * 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 * Skin normal turgor Results - Vital Signs Recent Vital Signs: Last Vital Signs Temp 98.1 F 07/19/18 22:07 Pulse 88 07/19/18 23:00 Resp 21 07/19/18 23:00 BP 124/77 07/19/18 23:01 Pulse Ox 100 07/19/18 23:00 - Labs Result Diagrams: 07/19/18 18:10 07/19/18 18:10 Labs: Laboratory Results - last 24 hr 07/19/18 07/19/18 07/19/18 16:56 18:10 18:10 WBC 2.7 L RBC 3.87 L Hgb 10.8 L D Hct 31.6 L MCV 81.7 D MCH 27.9 MCHC 34.2 RDW 15.5 H Plt Count 148 MPV 8.1 Neut % (Auto) 26.5 L Lymph % (Auto) 35.5 [place] % (Auto) 29.5 H Eos % (Auto) 7.9 H Baso % (Auto) 0.6 Neut # (Auto) 0.7 L Lymph # (Auto) 0.9 L [place] # (Auto) 0.8 Eos # (Auto) 0.2 Baso # (Auto) 0.0 Neutrophils % (Manual) 35 L Lymphocytes % (Manual) 38 Monocytes % (Manual) 20 H Eosinophils % (Manual) 7 H Platelet Estimate Normal Sodium 142 Potassium 5.0 Chloride 112 H Carbon Dioxide 26 Anion Gap 10 BUN 12 Creatinine 0.4 L Est GFR ( Amer) > 60 Est GFR (Non-Af Amer) > 60 POC Glucose (mg/dL) 106 Random Glucose 80 Calcium 8.0 L Total Bilirubin 1.8 H AST 101 H D ALT 63 Alkaline Phosphatase 286 H Ammonia Total Protein 6.4 Albumin 2.7 L Globulin 3.7 Albumin/Globulin Ratio 0.7 L Alcohol, Quantitative < 10 07/19/18 18:10 WBC RBC Hgb Hct MCV MCH MCHC RDW Plt Count MPV Neut % (Auto) Lymph % (Auto) [place] % (Auto) Eos % (Auto) Baso % (Auto) Neut # (Auto) Lymph # (Auto) [place] # (Auto) Eos # (Auto) Baso # (Auto) Neutrophils % (Manual) Lymphocytes % (Manual) Monocytes % (Manual) Eosinophils % (Manual) Platelet Estimate Sodium Potassium Chloride Carbon Dioxide Anion Gap BUN Creatinine Est GFR ( Amer) Est GFR (Non-Af Amer) POC Glucose (mg/dL) Random Glucose Calcium Total Bilirubin AST ALT Alkaline Phosphatase Ammonia 248 H D Total Protein Albumin Globulin Albumin/Globulin Ratio Alcohol, Quantitative Assessment & Plan - Assessment and Plan (Free Text) Assessment: * Traumatic subdural/subarachnoid, alert oriented but neuro findings as in exam unclear if baseline * Very high ammonia level form reduced hepatic function, alert, oriented, no astrerixis * Alcohol and tobacco abuse * H/o HepC, untreated * Plan: * Overnight observe in icu * Repeat CT brain in am for f/u on ic bleeding * Avoid blood thinners * Keep head elevated * Avoid hypotonic fluids * Lactulose * SCD * GI prophylaxis * Monitor anemia * Thiamine, MVT * See orders for detail.
[2018-07-20 06:29] LABS: BASO % 0.8 % (0.0-2.0); EOS # 0.2 K/uL (0.0-0.7); EOS % 8.5 % (0.0-4.0); HEMOGLOBIN 10.2 g/dL (12.0-18.0); LYMPH # 1.1 K/uL (1.0-4.3); MEAN CELL VOLUME 81.8 fL (80.0-94.0); MEAN CORPUSCULAR HEMOGLOBIN 27.6 pg (27.0-31.0); MEAN CORPUSCULAR HGB CONC 33.7 g/dL (33.0-37.0); MEAN PLATELET VOLUME 8.4 fL (7.2-11.7); MONO # 0.6 K/uL (0.0-0.8); MONO % 24.1 % (0.0-10.0); NEUT # 0.6 K/uL (1.8-7.0); NEUT % 24.6 % (50.0-75.0); NRBC % 0.3 % (0.0-2.0); PLATELET COUNT 145 K/uL (130-400); RBC 3.71 Mil/uL (4.40-5.90); RED CELL DISTRIBUTION WIDTH 15.4 % (11.5-14.5); WHITE BLOOD COUNT 2.6 K/uL (4.8-10.8)
[2018-07-20 06:40] LABS: ALB/GLOB RATIO 0.7 (1.0-2.1); ALBUMIN 2.3 g/dL (3.5-5.0); ALT/SGPT 62 U/L (21-72); AST/SGOT 66 U/L (17-59); BLOOD UREA NITROGEN 9 mg/dL (9-20); GFR NON-AFRICAN AMERICAN > 60
[2018-07-20 08:44] LABS: ANISOCYTOSIS SLIGHT; EOSINOPHIL 3 % (0-4); HYPOCHROMIC SLIGHT; LYMPHOCYTE 38 % (20-40); MONOCYTE 7 % (0-10); NEUTROPHIL 52 % (50-75); PLATELET ESTIMATE NORMAL (NORMAL); TOTAL CELLS COUNTED 100
[2018-07-20 08:45] LABS: OVALOCYTES SLIGHT; POLYCHROMIC SLIGHT
[2018-07-20] MEDS: Pantoprazole 40 mg EC Tab PO SCH (09:50)
[2018-07-20] MEDS: Multiple Vitamins Tab PO SCH (09:50)
--- NOTE | 2018-07-20 10:21 | CT ---
Date of service: 2018-07-20 09:13:22 PROCEDURE: CT HEAD WITHOUT CONTRAST. HISTORY: Followup acute subarachnoid bleeding COMPARISON: None available. TECHNIQUE: Axial computed tomography images were obtained through the head/brain without intravenous contrast. Radiation dose: Total exam DLP = 1068.12 mGy-cm. This CT exam was performed using one or more of the following dose reduction techniques: Automated exposure control, adjustment of the mA and/or kV according to patient size, and/or use of iterative reconstruction technique. FINDINGS: HEMORRHAGE: Current study re- demonstrates thin layering subdural hematoma along the superior margins of the tentorium right leaf small amount of subarachnoid hemorrhage. The subdural collection extends superiorly over the superior right temporal and posterior frontal region. Small parenchymal contusions in the right posterior temporoparietal watershed zone not excluded. Slight increased size left frontal subarachnoid space however the density measurements range from the mid teens to the upper 30s. This likely represents a small subdural hygroma however a small amount of admixed blood not excluded. Combination of subarachnoid BRAIN: As above.. VENTRICLES: No obstructive the see better advantage hydrocephalus. CALVARIUM: No obvious acute calvarial fractures.. Previously noted right posterior parieto-occipital scalp contusion has diminished in size. PARANASAL SINUSES: Unremarkable as visualized. No significant inflammatory changes. MASTOID AIR CELLS: Mastoid air complexes well-developed and currently well-aerated. Middle ear canal canals and contents unremarkable. OTHER FINDINGS: Orbits and contents unremarkable. Globes intact and lenses appropriately located. IMPRESSION: Re demonstrated is a thin subdural hematoma which extends over the tentorium and right temporal as well as right posterior frontal lobes. Additionally, there is some residual subarachnoid hemorrhage in the right posterior temporoparietal watershed zone however note that the possibility of concomitant parenchymal contusion not completely excluded. Interval increase size left frontal subarachnoid space consistent with subdural hygroma however Hounsfield units range between the mid teens and upper 20s suggesting some component of blood as well.
--- NOTE | 2018-07-20 10:32 | CT ---
Date of service: 07/19/2018. PROCEDURE: CT Angiography of the neck and brain with contrast HISTORY: Trauma COMPARISON: None.. TECHNIQUE: Contiguous axial images of the nec neck and brain k were obtained from the level of the vertex of the skull to the superior mediastinum in the arteriographic phase of enhancement. Coronal and sagittal reformats or also generated. IV contrast dose: 100 cc Visipaque 320 Radiation Dose - DLP: 631.49 mGy-cm FINDINGS: The aortic arch is widely patent of with no significant atherosclerotic disease. Three-vessel arch. The origins of the great vessels are also patent. The common carotid arteries, carotid bifurcations and internal carotid arteries including the petrous cavernous and supraclinoid segments widely patent. No evidence of significant. The right vertebral artery is slightly larger in caliber/more dominant than the left side. The basilar artery is diminutive in caliber but patent however this is felt to represent an anatomic variation as no significant atherosclerotic plaque changes are identified. Note however the possibility some mild vasospasm not excluded. Visualized major branches of the [place] are also patent. There is a origin of the right posterior cerebral artery with diminutive/hypoplastic appearing right-sided P1 segment. The distal anterior middle and posterior cerebral arteries are also patent so far as can be seen.. The distal branches of the middle cerebral arteries are also relatively symmetric. IMPRESSION: No evidence of occlusion significant stenosis or dissection.
--- NOTE | 2018-07-20 10:57 | CP.CCUPN ---
<Ronald Galaviz - Last Filed: 07/20/18 17:17> CCU Subjective - Physician Review Subjective (Free Text): 07/20/18 10:55 Pt seen and examined at bedside. Substantial Hx unable to obtain, pt speech unintelligible uncooperative and aggressive. Pt denies any CP, SOB NV FC dizziness headache . on mitten restraints 07/20/18 10:57 CCU Objective - Vital Signs / Intake & Output Vital Signs (Last 4 hours): Vital Signs Temp Pulse Resp BP Pulse Ox 07/20/18 08:00 97.6 F 86 17 97 07/20/18 07:58 86 17 108/62 97 07/20/18 07:00 87 17 96 07/20/18 06:58 96 H 15 104/61 95 Intake and Output (Last 8hrs): Intake & Output 07/19/18 07/20/18 07/20/18 22:59 06:59 14:59 Intake Total 350 0 Output Total 300 300 Balance -300 50 0 Weight 160 lb 157 lb 5 oz Intake: Oral 350 0 Output: Urine 300 300 Urine, Voided 300 300 - Physical Exam Physical Exam Limitations: Positive for: Uncooperative Head: Positive for: Swelling (r scalp Parietal) Pupils: Positive for: PERRL Extroacular Muscles: Positive for: EOMI Conjunctiva: Positive for: Normal Mouth: Positive for: Moist Mucous Membranes Pharnyx: Negative for: Uvular Deviation Nose (Internal): Positive for: Normal Inspection Neck: Negative for: JVD Respiratory/Chest: Positive for: Clear to Auscultation. Negative for: Respiratory Distress Cardiovascular: Positive for: Regular Rate and Rhythm, Normal S1, S2 Abdomen: Negative for: Tenderness, Rebound - Medications Active Medications: Active Medications Generic Name Dose Route Start Last Admin Trade Name Freq PRN Reason Stop Dose Admin Folic Acid 1 mg 07/20/18 10:00 07/20/18 09:50 Folic Acid PO 1 mg DAILY RON Administration Lactulose 20 gm 07/19/18 23:15 07/20/18 05:57 Enulose PO 20 gm Q6H RON Administration Morphine Sulfate 2 mg 07/20/18 00:57 07/20/18 01:08 Morphine IVP 2 mg Q6H PRN Administration Pain, moderate (4-7) Multivitamins 1 tab 07/20/18 10:00 07/20/18 09:50 Hexavitamin PO 1 tab DAILY RON Administration Pantoprazole Sodium 40 mg 07/20/18 10:00 07/20/18 09:50 Protonix Ec Tab PO 40 mg DAILY RON Administration Thiamine HCl 100 mg 07/20/18 10:00 07/20/18 09:50 Vitamin B1 Tab PO 100 mg DAILY RON Administration - Patient Studies Lab Studies: Lab Studies 07/20/18 07/20/18 07/20/18 Range/Units 06:21 06:14 06:14 WBC 2.6 L (4.8-10.8) K/uL RBC 3.71 L (4.40-5.90) Mil/uL Hgb 10.2 L (12.0-18.0) g/dL Hct 30.4 L (35.0-51.0) % MCV 81.8 (80.0-94.0) fL MCH 27.6 (27.0-31.0) pg MCHC 33.7 (33.0-37.0) g/dL RDW 15.4 H (11.5-14.5) % Plt Count 145 (130-400) K/uL MPV 8.4 (7.2-11.7) fL Neut % (Auto) 24.6 L (50.0-75.0) % Lymph % (Auto) 42.0 H (20.0-40.0) % Lane % (Auto) 24.1 H (0.0-10.0) % Eos % (Auto) 8.5 H (0.0-4.0) % Baso % (Auto) 0.8 (0.0-2.0) % Neut # (Auto) 0.6 L (1.8-7.0) K/uL Lymph # (Auto) 1.1 (1.0-4.3) K/uL Lane # (Auto) 0.6 (0.0-0.8) K/uL Eos # (Auto) 0.2 (0.0-0.7) K/uL Baso # (Auto) 0.0 (0.0-0.2) K/uL Neutrophils % (Manual) 52 (50-75) % Lymphocytes % (Manual) 38 (20-40) % Monocytes % (Manual) 7 (0-10) % Eosinophils % (Manual) 3 (0-4) % Platelet Estimate Normal (NORMAL) Polychromasia Slight Hypochromasia (manual) Slight Anisocytosis (manual) Slight Ovalocytes Slight Sodium 143 (132-148) mmol/L Potassium 3.9 (3.6-5.2) mmol/L Chloride 116 H (98-107) mmol/L Carbon Dioxide 20 L (22-30) mmol/L Anion Gap 11 (10-20) BUN 9 (9-20) mg/dL Creatinine 0.4 L (0.8-1.5) mg/dL Est GFR ( Amer) > 60 Est GFR (Non-Af Amer) > 60 POC Glucose (mg/dL) (65-110) mg/dL Random Glucose 73 L (75-110) mg/dL Calcium 8.0 L (8.6-10.4) mg/dl Phosphorus 3.6 (2.5-4.5) mg/dL Magnesium 1.8 (1.6-2.3) mg/dL Total Bilirubin 1.5 H (0.2-1.3) mg/dL AST 66 H D (17-59) U/L ALT 62 (21-72) U/L Alkaline Phosphatase 263 H (38-126) U/L Ammonia 151 H D (9-33) umol/L Total Protein 5.6 L (6.3-8.3) g/dL Albumin 2.3 L (3.5-5.0) g/dL Globulin 3.3 (2.2-3.9) gm/dL Albumin/Globulin Ratio 0.7 L (1.0-2.1) Alcohol, Quantitative (0-10) mg/dl 07/19/18 07/19/18 07/19/18 Range/Units 18:10 18:10 18:10 WBC 2.7 L (4.8-10.8) K/uL RBC 3.87 L (4.40-5.90) Mil/uL Hgb 10.8 L D (12.0-18.0) g/dL Hct 31.6 L (35.0-51.0) % MCV 81.7 D (80.0-94.0) fL MCH 27.9 (27.0-31.0) pg MCHC 34.2 (33.0-37.0) g/dL RDW 15.5 H (11.5-14.5) % Plt Count 148 (130-400) K/uL MPV 8.1 (7.2-11.7) fL Neut % (Auto) 26.5 L (50.0-75.0) % Lymph % (Auto) 35.5 (20.0-40.0) % Lane % (Auto) 29.5 H (0.0-10.0) % Eos % (Auto) 7.9 H (0.0-4.0) % Baso % (Auto) 0.6 (0.0-2.0) % Neut # (Auto) 0.7 L (1.8-7.0) K/uL Lymph # (Auto) 0.9 L (1.0-4.3) K/uL Lane # (Auto) 0.8 (0.0-0.8) K/uL Eos # (Auto) 0.2 (0.0-0.7) K/uL Baso # (Auto) 0.0 (0.0-0.2) K/uL Neutrophils % (Manual) 35 L (50-75) % Lymphocytes % (Manual) 38 (20-40) % Monocytes % (Manual) 20 H (0-10) % Eosinophils % (Manual) 7 H (0-4) % Platelet Estimate Normal (NORMAL) Polychromasia Hypochromasia (manual) Anisocytosis (manual) Ovalocytes Sodium 142 (132-148) mmol/L Potassium 5.0 (3.6-5.2) mmol/L Chloride 112 H (98-107) mmol/L Carbon Dioxide 26 (22-30) mmol/L Anion Gap 10 (10-20) BUN 12 (9-20) mg/dL Creatinine 0.4 L (0.8-1.5) mg/dL Est GFR ( Amer) > 60 Est GFR (Non-Af Amer) > 60 POC Glucose (mg/dL) (65-110) mg/dL Random Glucose 80 (75-110) mg/dL Calcium 8.0 L (8.6-10.4) mg/dl Phosphorus (2.5-4.5) mg/dL Magnesium (1.6-2.3) mg/dL Total Bilirubin 1.8 H (0.2-1.3) mg/dL AST 101 H D (17-59) U/L ALT 63 (21-72) U/L Alkaline Phosphatase 286 H (38-126) U/L Ammonia 248 H D (9-33) umol/L Total Protein 6.4 (6.3-8.3) g/dL Albumin 2.7 L (3.5-5.0) g/dL Globulin 3.7 (2.2-3.9) gm/dL Albumin/Globulin Ratio 0.7 L (1.0-2.1) Alcohol, Quantitative < 10 (0-10) mg/dl 07/19/18 Range/Units 16:56 WBC (4.8-10.8) K/uL RBC (4.40-5.90) Mil/uL Hgb (12.0-18.0) g/dL Hct (35.0-51.0) % MCV (80.0-94.0) fL MCH (27.0-31.0) pg MCHC (33.0-37.0) g/dL RDW (11.5-14.5) % Plt Count (130-400) K/uL MPV (7.2-11.7) fL Neut % (Auto) (50.0-75.0) % Lymph % (Auto) (20.0-40.0) % Lane % (Auto) (0.0-10.0) % Eos % (Auto) (0.0-4.0) % Baso % (Auto) (0.0-2.0) % Neut # (Auto) (1.8-7.0) K/uL Lymph # (Auto) (1.0-4.3) K/uL Lane # (Auto) (0.0-0.8) K/uL Eos # (Auto) (0.0-0.7) K/uL Baso # (Auto) (0.0-0.2) K/uL Neutrophils % (Manual) (50-75) % Lymphocytes % (Manual) (20-40) % Monocytes % (Manual) (0-10) % Eosinophils % (Manual) (0-4) % Platelet Estimate (NORMAL) Polychromasia Hypochromasia (manual) Anisocytosis (manual) Ovalocytes Sodium (132-148) mmol/L Potassium (3.6-5.2) mmol/L Chloride (98-107) mmol/L Carbon Dioxide (22-30) mmol/L Anion Gap (10-20) BUN (9-20) mg/dL Creatinine (0.8-1.5) mg/dL Est GFR ( Amer) Est GFR (Non-Af Amer) POC Glucose (mg/dL) 106 (65-110) mg/dL Random Glucose (75-110) mg/dL Calcium (8.6-10.4) mg/dl Phosphorus (2.5-4.5) mg/dL Magnesium (1.6-2.3) mg/dL Total Bilirubin (0.2-1.3) mg/dL AST (17-59) U/L ALT (21-72) U/L Alkaline Phosphatase (38-126) U/L Ammonia (9-33) umol/L Total Protein (6.3-8.3) g/dL Albumin (3.5-5.0) g/dL Globulin (2.2-3.9) gm/dL Albumin/Globulin Ratio (1.0-2.1) Alcohol, Quantitative (0-10) mg/dl Laboratory Results - last 24 hr 07/19/18 07/19/18 07/19/18 16:56 18:10 18:10 WBC 2.7 L RBC 3.87 L Hgb 10.8 L D Hct 31.6 L MCV 81.7 D MCH 27.9 MCHC 34.2 RDW 15.5 H Plt Count 148 MPV 8.1 Neut % (Auto) 26.5 L Lymph % (Auto) 35.5 Lane % (Auto) 29.5 H Eos % (Auto) 7.9 H Baso % (Auto) 0.6 Neut # (Auto) 0.7 L Lymph # (Auto) 0.[address] # (Auto) 0.8 Eos # (Auto) 0.2 Baso # (Auto) 0.0 Neutrophils % (Manual) 35 L Lymphocytes % (Manual) 38 Monocytes % (Manual) 20 H Eosinophils % (Manual) 7 H Platelet Estimate Normal Polychromasia Hypochromasia (manual) Anisocytosis (manual) Ovalocytes Sodium 142 Potassium 5.0 Chloride 112 H Carbon Dioxide 26 Anion Gap 10 BUN 12 Creatinine 0.4 L Est GFR ( Amer) > 60 Est GFR (Non-Af Amer) > 60 POC Glucose (mg/dL) 106 Random Glucose 80 Calcium 8.0 L Phosphorus Magnesium Total Bilirubin 1.8 H AST 101 H D ALT 63 Alkaline Phosphatase 286 H Ammonia Total Protein 6.4 Albumin 2.7 L Globulin 3.7 Albumin/Globulin Ratio 0.7 L Alcohol, Quantitative < 10 07/19/18 07/20/18 07/20/18 18:10 06:14 06:14 WBC RBC Hgb Hct MCV MCH MCHC RDW Plt Count MPV Neut % (Auto) Lymph % (Auto) Lane % (Auto) Eos % (Auto) Baso % (Auto) Neut # (Auto) Lymph # (Auto) Lane # (Auto) Eos # (Auto) Baso # (Auto) Neutrophils % (Manual) Lymphocytes % (Manual) Monocytes % (Manual) Eosinophils % (Manual) Platelet Estimate Polychromasia Hypochromasia (manual) Anisocytosis (manual) Ovalocytes Sodium 143 Potassium 3.9 Chloride 116 H Carbon Dioxide 20 L Anion Gap 11 BUN 9 Creatinine 0.4 L Est GFR ( Amer) > 60 Est GFR (Non-Af Amer) > 60 POC Glucose (mg/dL) Random Glucose 73 L Calcium 8.0 L Phosphorus 3.6 Magnesium 1.8 Total Bilirubin 1.5 H AST 66 H D ALT 62 Alkaline Phosphatase 263 H Ammonia 248 H D 151 H D Total Protein 5.6 L Albumin 2.3 L Globulin 3.3 Albumin/Globulin Ratio 0.7 L Alcohol, Quantitative 07/20/18 06:21 WBC 2.6 L RBC 3.71 L Hgb 10.2 L Hct 30.4 L MCV 81.8 MCH 27.6 MCHC 33.7 RDW 15.4 H Plt Count 145 MPV 8.4 Neut % (Auto) 24.6 L Lymph % (Auto) 42.[address] % (Auto) 24.1 H Eos % (Auto) 8.5 H Baso % (Auto) 0.8 Neut # (Auto) 0.6 L Lymph # (Auto) 1.1 Lane # (Auto) 0.6 Eos # (Auto) 0.2 Baso # (Auto) 0.0 Neutrophils % (Manual) 52 Lymphocytes % (Manual) 38 Monocytes % (Manual) 7 Eosinophils % (Manual) 3 Platelet Estimate Normal Polychromasia Slight Hypochromasia (manual) Slight Anisocytosis (manual) Slight Ovalocytes Slight Sodium Potassium Chloride Carbon Dioxide Anion Gap BUN Creatinine Est GFR ( Amer) Est GFR (Non-Af Amer) POC Glucose (mg/dL) Random Glucose Calcium Phosphorus Magnesium Total Bilirubin AST ALT Alkaline Phosphatase Ammonia Total Protein Albumin Globulin Albumin/Globulin Ratio Alcohol, Quantitative EKG/Cardiology Studies: Cardiology / EKG Studies 07/19/18 21:39 EKG [ELECTROCARDIOGRAM] Stat Comment: Mode Of Transportation: STRETCHER Reason For Exam: head injury 07/19/18 21:45 EKG [ELECTROCARDIOGRAM] Stat Comment: Mode Of Transportation: STRETCHER Reason For Exam: head injury Fingerstick Blood Sugar Results: 106 Critical Care Progress Note - Nutrition Nutrition: Nutrition Category Date Time Status Dysphagia/Modified Consistency Diet [DIET] Diets 07/20/18 Breakfast Active Assessment/Plan - Assessment and Plan (Free Text) Assessment: 42M Plan: Neuro: -AAOx3 -altered speech -CT Head: R Subdural and R subarach hematoma. R parietal scalp hematoma -CTA head: R occiptal bleed -consulted Neuro Dr Melton f/u recs -consulted Psych Dr Donnelly f/u recs -Ammonia high 248 yesterday trending down today 151 -lactulose PO q6 Pulm: -Maintain spO2 >90% -Nasal cannula PRN CardioVasc: -currently hemodynamically stable -EKG pending read Heme: -Monitor H/H Renal: -monitor I&O -monitor and repleat electrolytes Endo: -Maintain euglycemia 140-180 blood sugar GI: -ptx ID: -[id number] -no leukocytosis DVT PPX: -SCDs <Lio Dinero S - Last Filed: 07/20/18 17:47> CCU Subjective - Physician Review Critical Care Time Spent (in minutes): 35 CCU Objective - Vital Signs / Intake & Output Vital Signs (Last 4 hours): Vital Signs Temp Pulse Resp BP Pulse Ox 07/20/18 17:04 112 H 18 110/61 95 07/20/18 17:00 111 H 21 135/79 100 07/20/18 16:04 112 H 20 135/79 07/20/18 16:00 97.7 F 107 H 21 07/20/18 15:04 107 H 18 122/78 07/20/18 14:00 112 H 18 70 L 07/20/18 13:58 112 H 21 128/88 90 L Intake and Output (Last 8hrs): Intake & Output 07/20/18 07/20/18 07/20/18 06:59 14:59 22:59 Intake Total 350 750 0 Output Total 300 600 Balance 50 150 0 Weight 157 lb 5 oz Intake: Oral 350 750 0 Output: Urine 300 600 Urine, Voided 300 600 - Medications Active Medications: Active Medications Generic Name Dose Route Start Last Admin Trade Name Freq PRN Reason Stop Dose Admin Folic Acid 1 mg 07/20/18 10:00 07/20/18 09:50 Folic Acid PO 1 mg DAILY RON Administration Lactulose 20 gm 07/19/18 23:15 07/20/18 11:34 Enulose PO 20 gm Q6H RON Administration Morphine Sulfate 2 mg 07/20/18 00:57 07/20/18 01:08 Morphine IVP 2 mg Q6H PRN Administration Pain, moderate (4-7) Multivitamins 1 tab 07/20/18 10:00 07/20/18 09:50 Hexavitamin PO 1 tab DAILY RON Administration Neomycin Sulfate 500 mg 07/20/18 12:15 07/20/18 13:00 Neomycin Tab PO 500 mg Q6H RON Administration Pantoprazole Sodium 40 mg 07/20/18 10:00 07/20/18 09:50 Protonix Ec Tab PO 40 mg DAILY RON Administration Quetiapine Fumarate 25 mg 07/20/18 13:30 07/20/18 13:49 Seroquel PO 25 mg DAILY RON Administration Sucralfate 1 gm 07/20/18 22:00 Carafate Oral Susp PO ACBHS RON Thiamine HCl 100 mg 07/20/18 10:00 07/20/18 09:50 Vitamin B1 Tab PO 100 mg DAILY RON Administration - Patient Studies Lab Studies: Lab Studies 07/20/18 07/20/18 07/20/18 Range/Units 13:17 13:17 06:21 WBC 2.6 L (4.8-10.8) K/uL RBC 3.71 L (4.40-5.90) Mil/uL Hgb 10.2 L (12.0-18.0) g/dL Hct 30.4 L (35.0-51.0) % MCV 81.8 (80.0-94.0) fL MCH 27.6 (27.0-31.0) pg MCHC 33.7 (33.0-37.0) g/dL RDW 15.4 H (11.5-14.5) % Plt Count 145 (130-400) K/uL MPV 8.4 (7.2-11.7) fL Neut % (Auto) 24.6 L (50.0-75.0) % Lymph % (Auto) 42.0 H (20.0-40.0) % Lane % (Auto) 24.1 H (0.0-10.0) % Eos % (Auto) 8.5 H (0.0-4.0) % Baso % (Auto) 0.8 (0.0-2.0) % Neut # (Auto) 0.6 L (1.8-7.0) K/uL Lymph # (Auto) 1.1 (1.0-4.3) K/uL Lane # (Auto) 0.6 (0.0-0.8) K/uL Eos # (Auto) 0.2 (0.0-0.7) K/uL Baso # (Auto) 0.0 (0.0-0.2) K/uL Neutrophils % (Manual) 52 (50-75) % Lymphocytes % (Manual) 38 (20-40) % Monocytes % (Manual) 7 (0-10) % Eosinophils % (Manual) 3 (0-4) % Platelet Estimate Normal (NORMAL) Polychromasia Slight Hypochromasia (manual) Slight Anisocytosis (manual) Slight Ovalocytes Slight Sodium (132-148) mmol/L Potassium (3.6-5.2) mmol/L Chloride (98-107) mmol/L Carbon Dioxide (22-30) mmol/L Anion Gap (10-20) BUN (9-20) mg/dL Creatinine (0.8-1.5) mg/dL Est GFR ( Amer) Est GFR (Non-Af Amer) Random Glucose (75-110) mg/dL Calcium (8.6-10.4) mg/dl Phosphorus (2.5-4.5) mg/dL Magnesium (1.6-2.3) mg/dL Total Bilirubin (0.2-1.3) mg/dL AST (17-59) U/L ALT (21-72) U/L Alkaline Phosphatase (38-126) U/L Ammonia (9-33) umol/L Total Protein (6.3-8.3) g/dL Albumin (3.5-5.0) g/dL Globulin (2.2-3.9) gm/dL Albumin/Globulin Ratio (1.0-2.1) Alpha Fetoprotein 2.5 (0.0-7.5) ng/mL Carcinoembryonic Ag 3.7 H (0-3.0) ng/mL CA 19-9 Antigen 11.1 (0-37) U/mL Alcohol, Quantitative (0-10) mg/dl 07/20/18 07/20/18 07/19/18 Range/Units 06:14 06:14 18:10 WBC (4.8-10.8) K/uL RBC (4.40-5.90) Mil/uL Hgb (12.0-18.0) g/dL Hct (35.0-51.0) % MCV (80.0-94.0) fL MCH (27.0-31.0) pg MCHC (33.0-37.0) g/dL RDW (11.5-14.5) % Plt Count (130-400) K/uL MPV (7.2-11.7) fL Neut % (Auto) (50.0-75.0) % Lymph % (Auto) (20.0-40.0) % Lane % (Auto) (0.0-10.0) % Eos % (Auto) (0.0-4.0) % Baso % (Auto) (0.0-2.0) % Neut # (Auto) (1.8-7.0) K/uL Lymph # (Auto) (1.0-4.3) K/uL Lane # (Auto) (0.0-0.8) K/uL Eos # (Auto) (0.0-0.7) K/uL Baso # (Auto) (0.0-0.2) K/uL Neutrophils % (Manual) (50-75) % Lymphocytes % (Manual) (20-40) % Monocytes % (Manual) (0-10) % Eosinophils % (Manual) (0-4) % Platelet Estimate (NORMAL) Polychromasia Hypochromasia (manual) Anisocytosis (manual) Ovalocytes Sodium 143 (132-148) mmol/L Potassium 3.9 (3.6-5.2) mmol/L Chloride 116 H (98-107) mmol/L Carbon Dioxide 20 L (22-30) mmol/L Anion Gap 11 (10-20) BUN 9 (9-20) mg/dL Creatinine 0.4 L (0.8-1.5) mg/dL Est GFR ( Amer) > 60 Est GFR (Non-Af Amer) > 60 Random Glucose 73 L (75-110) mg/dL Calcium 8.0 L (8.6-10.4) mg/dl Phosphorus 3.6 (2.5-4.5) mg/dL Magnesium 1.8 (1.6-2.3) mg/dL Total Bilirubin 1.5 H (0.2-1.3) mg/dL AST 66 H D (17-59) U/L ALT 62 (21-72) U/L Alkaline Phosphatase 263 H (38-126) U/L Ammonia 151 H D 248 H D (9-33) umol/L Total Protein 5.6 L (6.3-8.3) g/dL Albumin 2.3 L (3.5-5.0) g/dL Globulin 3.3 (2.2-3.9) gm/dL Albumin/Globulin Ratio 0.7 L (1.0-2.1) Alpha Fetoprotein (0.0-7.5) ng/mL Carcinoembryonic Ag (0-3.0) ng/mL CA 19-9 Antigen (0-37) U/mL Alcohol, Quantitative (0-10) mg/dl 07/19/18 07/19/18 Range/Units 18:10 18:10 WBC 2.7 L (4.8-10.8) K/uL RBC 3.87 L (4.40-5.90) Mil/uL Hgb 10.8 L D (12.0-18.0) g/dL Hct 31.6 L (35.0-51.0) % MCV 81.7 D (80.0-94.0) fL MCH 27.9 (27.0-31.0) pg MCHC 34.2 (33.0-37.0) g/dL RDW 15.5 H (11.5-14.5) % Plt Count 148 (130-400) K/uL MPV 8.1 (7.2-11.7) fL Neut % (Auto) 26.5 L (50.0-75.0) % Lymph % (Auto) 35.5 (20.0-40.0) % Lane % (Auto) 29.5 H (0.0-10.0) % Eos % (Auto) 7.9 H (0.0-4.0) % Baso % (Auto) 0.6 (0.0-2.0) % Neut # (Auto) 0.7 L (1.8-7.0) K/uL Lymph # (Auto) 0.9 L (1.0-4.3) K/uL Lane # (Auto) 0.8 (0.0-0.8) K/uL Eos # (Auto) 0.2 (0.0-0.7) K/uL Baso # (Auto) 0.0 (0.0-0.2) K/uL Neutrophils % (Manual) 35 L (50-75) % Lymphocytes % (Manual) 38 (20-40) % Monocytes % (Manual) 20 H (0-10) % Eosinophils % (Manual) 7 H (0-4) % Platelet Estimate Normal (NORMAL) Polychromasia Hypochromasia (manual) Anisocytosis (manual) Ovalocytes Sodium 142 (132-148) mmol/L Potassium 5.0 (3.6-5.2) mmol/L Chloride 112 H (98-107) mmol/L Carbon Dioxide 26 (22-30) mmol/L Anion Gap 10 (10-20) BUN 12 (9-20) mg/dL Creatinine 0.4 L (0.8-1.5) mg/dL Est GFR ( Amer) > 60 Est GFR (Non-Af Amer) > 60 Random Glucose 80 (75-110) mg/dL Calcium 8.0 L (8.6-10.4) mg/dl Phosphorus (2.5-4.5) mg/dL Magnesium (1.6-2.3) mg/dL Total Bilirubin 1.8 H (0.2-1.3) mg/dL AST 101 H D (17-59) U/L ALT 63 (21-72) U/L Alkaline Phosphatase 286 H (38-126) U/L Ammonia (9-33) umol/L Total Protein 6.4 (6.3-8.3) g/dL Albumin 2.7 L (3.5-5.0) g/dL Globulin 3.7 (2.2-3.9) gm/dL Albumin/Globulin Ratio 0.7 L (1.0-2.1) Alpha Fetoprotein (0.0-7.5) ng/mL Carcinoembryonic Ag (0-3.0) ng/mL CA 19-9 Antigen (0-37) U/mL Alcohol, Quantitative < 10 (0-10) mg/dl Laboratory Results - last 24 hr 07/19/18 07/19/18 07/19/18 18:10 18:10 18:10 WBC 2.7 L RBC 3.87 L Hgb 10.8 L D Hct 31.6 L MCV 81.7 D MCH 27.9 MCHC 34.2 RDW 15.5 H Plt Count 148 MPV 8.1 Neut % (Auto) 26.5 L Lymph % (Auto) 35.5 Lane % (Auto) 29.5 H Eos % (Auto) 7.9 H Baso % (Auto) 0.6 Neut # (Auto) 0.7 L Lymph # (Auto) 0.[address] # (Auto) 0.8 Eos # (Auto) 0.2 Baso # (Auto) 0.0 Neutrophils % (Manual) 35 L Lymphocytes % (Manual) 38 Monocytes % (Manual) 20 H Eosinophils % (Manual) 7 H Platelet Estimate Normal Polychromasia Hypochromasia (manual) Anisocytosis (manual) Ovalocytes Sodium 142 Potassium 5.0 Chloride 112 H Carbon Dioxide 26 Anion Gap 10 BUN 12 Creatinine 0.4 L Est GFR ( Amer) > 60 Est GFR (Non-Af Amer) > 60 Random Glucose 80 Calcium 8.0 L Phosphorus Magnesium Total Bilirubin 1.8 H AST 101 H D ALT 63 Alkaline Phosphatase 286 H Ammonia 248 H D Total Protein 6.4 Albumin 2.7 L Globulin 3.7 Albumin/Globulin Ratio 0.7 L Alpha Fetoprotein Carcinoembryonic Ag CA 19-9 Antigen Alcohol, Quantitative < 10 07/20/18 07/20/18 07/20/18 06:14 06:14 06:21 WBC 2.6 L RBC 3.71 L Hgb 10.2 L Hct 30.4 L MCV 81.8 MCH 27.6 MCHC 33.7 RDW 15.4 H Plt Count 145 MPV 8.4 Neut % (Auto) 24.6 L Lymph % (Auto) 42.[address] % (Auto) 24.1 H Eos % (Auto) 8.5 H Baso % (Auto) 0.8 Neut # (Auto) 0.6 L Lymph # (Auto) 1.1 Lane # (Auto) 0.6 Eos # (Auto) 0.2 Baso # (Auto) 0.0 Neutrophils % (Manual) 52 Lymphocytes % (Manual) 38 Monocytes % (Manual) 7 Eosinophils % (Manual) 3 Platelet Estimate Normal Polychromasia Slight Hypochromasia (manual) Slight Anisocytosis (manual) Slight Ovalocytes Slight Sodium 143 Potassium 3.9 Chloride 116 H Carbon Dioxide 20 L Anion Gap 11 BUN 9 Creatinine 0.4 L Est GFR ( Amer) > 60 Est GFR (Non-Af Amer) > 60 Random Glucose 73 L Calcium 8.0 L Phosphorus 3.6 Magnesium 1.8 Total Bilirubin 1.5 H AST 66 H D ALT 62 Alkaline Phosphatase 263 H Ammonia 151 H D Total Protein 5.6 L Albumin 2.3 L Globulin 3.3 Albumin/Globulin Ratio 0.7 L Alpha Fetoprotein Carcinoembryonic Ag CA 19-9 Antigen Alcohol, Quantitative 07/20/18 07/20/18 13:17 13:17 WBC RBC Hgb Hct MCV MCH MCHC RDW Plt Count MPV Neut % (Auto) Lymph % (Auto) Lane % (Auto) Eos % (Auto) Baso % (Auto) Neut # (Auto) Lymph # (Auto) Lane # (Auto) Eos # (Auto) Baso # (Auto) Neutrophils % (Manual) Lymphocytes % (Manual) Monocytes % (Manual) Eosinophils % (Manual) Platelet Estimate Polychromasia Hypochromasia (manual) Anisocytosis (manual) Ovalocytes Sodium Potassium Chloride Carbon Dioxide Anion Gap BUN Creatinine Est GFR ( Amer) Est GFR (Non-Af Amer) Random Glucose Calcium Phosphorus Magnesium Total Bilirubin AST ALT Alkaline Phosphatase Ammonia Total Protein Albumin Globulin Albumin/Globulin Ratio Alpha Fetoprotein 2.5 Carcinoembryonic Ag 3.7 H CA 19-9 Antigen 11.1 Alcohol, Quantitative EKG/Cardiology Studies: Cardiology / EKG Studies 07/19/18 21:39 EKG [ELECTROCARDIOGRAM] Stat Comment: Mode Of Transportation: STRETCHER Reason For Exam: head injury 07/19/18 21:45 EKG [ELECTROCARDIOGRAM] Stat Comment: Mode Of Transportation: STRETCHER Reason For Exam: head injury Critical Care Progress Note - Nutrition Nutrition: Nutrition Category Date Time Status Dysphagia/Modified Consistency Diet [DIET] Diets 07/20/18 Breakfast Active Attending/Attestation - Attestation I have personally seen and examined this patient.: Yes I have fully participated in the care of the patient.: Yes I have reviewed all pertinent clinical information: Yes Notes (Text): 07/20/18 15:46 patient seen and examined in the intensive care unit. Assessment and plan as per resident note Neurology workup MRI of her head
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
--- NOTE | 2018-07-20 11:38 | CARD ---
APPROVED REPORT Date of service: 07/19/2018 EKG Measurement Heart [id number] <Conclusion> Normal sinus rhythm Normal ECG
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
--- NOTE | 2018-07-20 16:15 | MRI ---
Date of service: 07/20/2018 PROCEDURE: MRI BRAIN WITHOUT CONTRAST HISTORY: Evaluate subdural hematoma, intracranial hemorrhage COMPARISON: Comparison made with scan of the brain earlier same day. TECHNIQUE: Multiplanar, multisequence MR images of the brain were obtained without intravenous contrast enhancement. FINDINGS: HEMORRHAGE: Re demonstrated is a small right-sided acute subdural hematoma which extends inferiorly and apparently along the tentorial leaf. There also apparent subarachnoid hemorrhage and parenchymal contusional changes in the right the posterior temporal occipital watershed zone. Very tiny extra-axial collections seen in the left occipito - parietal region.. Suspect small left-sided frontal chronic subdural hematoma.. In addition, there also appear to be very small bilateral subdural hematomas along the lateral margins of the posterior fossa. DWI: There are what appear to represent mild late subacute to chronic ischemic changes both basal nuclei involving the internal capsules, globus pallidi and putamina bilaterally. BRAIN PARENCHYMA: There are mild moderate diffuse/confluent prolonged T2 signal changes seen extending the periventricular into the deep and subcortical regions of both cerebral hemispheres with the changes become more discrete peripherally. Changes extend into the vuong radiata and centrum semiovale bilaterally. VENTRICLES: No obstructive hydrocephalus. CRANIUM: Unremarkable. ORBITS: Orbits and contents unremarkable. PARANASAL SINUSES/MASTOIDS: Clear VASCULAR SYSTEM: Skull base flow voids intact. OTHER FINDINGS: None. IMPRESSION: Re demonstrated is a small right-sided acute subdural hematoma which extends inferiorly and apparently along the tentorial leaf. There also apparent subarachnoid hemorrhage and parenchymal contusional changes in the right the posterior temporal occipital watershed zone. Very tiny extra-axial collections seen in the left occipito - parietal region. Suspect small left-sided frontal chronic subdural hematoma.. In addition, there also appear to be very small bilateral subdural hematomas along the lateral margins of the posterior fossa. Findings discussed with the ICU resident Dr. Lal at approximately 3:50 p.m. with written down and read back verification.
--- NOTE | 2018-07-20 16:30 | CP.PCM.PN ---
Subjective - Date & Time of Evaluation Date of Evaluation: 07/20/18 Time of Evaluation: 16:28 - Subjective Subjective: pt with mult med issues Had head traumawith ct showing R sdh and SAH SDH 4mm at widest By hx had R SDH [place] [facility] [place] Repeat CT shows no sig change in SDH No intervention indicated, from my perspective can be transfered from ICU Objective - Vital Signs/Intake and Output Vital Signs (last 24 hours): Temp Pulse Resp BP Pulse Ox 97.6 F 112 H 20 135/79 70 L 07/20/18 08:00 07/20/18 16:04 07/20/18 16:04 07/20/18 16:04 07/20/18 14:00 Intake and Output: 07/20/18 07/20/18 06:59 18:59 Intake Total 350 350 Output Total 600 600 Balance -250 -250 - Medications Medications: Current Medications Folic Acid (Folic Acid) 1 mg PO DAILY [facility] Last Admin: 07/20/18 09:50 Dose: 1 mg Lactulose (Enulose) 20 gm PO Q6H [facility] Last Admin: 07/20/18 11:34 Dose: 20 gm Morphine Sulfate (Morphine) 2 mg IVP Q6H PRN PRN Reason: Pain, moderate (4-7) Last Admin: 07/20/18 01:08 Dose: 2 mg Multivitamins (Hexavitamin) 1 tab PO DAILY [facility] Last Admin: 07/20/18 09:50 Dose: 1 tab Neomycin Sulfate (Neomycin Tab) 500 mg PO Q6H [facility] Last Admin: 07/20/18 13:00 Dose: 500 mg Pantoprazole Sodium (Protonix Ec Tab) 40 mg PO DAILY [facility] Last Admin: 07/20/18 09:50 Dose: 40 mg Quetiapine Fumarate (Seroquel) 25 mg PO DAILY [facility] Last Admin: 07/20/18 13:49 Dose: 25 mg Sucralfate (Carafate Oral Susp) 1 gm PO [facility] Thiamine HCl (Vitamin B1 Tab) 100 mg PO DAILY [facility] Last Admin: 07/20/18 09:50 Dose: 100 mg - Labs Labs: 07/20/18 06:21 07/20/18 06:14
[2018-07-20] MEDS: Sucralfate 1 gm/10 ml Oral Susp UD PO SCH (22:15)
--- NOTE | 2018-07-20 22:38 | CP.PCM.HP ---
Present on Admission - Present on Admission Any Indicators Present on Admission: No Past Patient History - Infectious Disease Hx of Infectious Diseases: None - Past Medical History & Family History Past Medical History?: Yes - Past Social History Smoking Status: Light Smoker < 10 Cigarettes Daily Chewing Tobacco Use: No Alcohol: < 2 Drinks/Day Drugs: Denies Home Situation {Lives}: With Family - CARDIAC Hx Hypertension: Yes - PULMONARY Hx Respiratory Disorders: No - NEUROLOGICAL Hx Neurological Disorder: No - HEENT Hx HEENT Problems: No - RENAL Hx Chronic Kidney Disease: Yes Hx Kidney Stones: Yes (burning with urination) - ENDOCRINE/METABOLIC Hx Diabetes Mellitus Type 2: Yes (denies) - HEMATOLOGICAL/ONCOLOGICAL Hx Blood Disorders: Yes Hx Hepatitis C: Yes Other/Comment: liver problem, liver failure confirmed by patient - INTEGUMENTARY Hx Dermatological Problems: No - MUSCULOSKELETAL/RHEUMATOLOGICAL Hx Musculoskeletal Disorders: Yes Hx Back Pain: Yes Hx Falls: Yes - GASTROINTESTINAL Hx Gastrointestinal Disorders: Yes Other/Comment: Liver disease - GENITOURINARY/GYNECOLOGICAL Hx Genitourinary Disorders: No - PSYCHIATRIC Hx Substance Use: No - SURGICAL HISTORY Hx Surgeries: No - ANESTHESIA Hx Anesthesia: No Hx Anesthesia Reactions: No Hx Malignant Hyperthermia: No Meds Allergies/Adverse Reactions: Allergies Allergy/AdvReac Type Severity Reaction Status Date / Time No Known Allergies Allergy Verified 05/20/18 10:42 Results - Vital Signs Recent Vital Signs: Last Vital Signs Temp 98.1 F 07/20/18 20:00 Pulse 106 H 07/20/18 21:04 Resp 16 07/20/18 21:04 BP 99/60 L 07/20/18 21:04 Pulse Ox 96 07/20/18 21:04 - Labs Result Diagrams: 07/24/18 11:38 07/24/18 11:38 Labs: Laboratory Results - last 24 hr 07/20/18 07/20/18 07/20/18 06:14 06:14 06:21 WBC 2.6 L RBC 3.71 L Hgb 10.2 L Hct 30.4 L MCV 81.8 MCH 27.6 MCHC 33.7 RDW 15.4 H Plt Count 145 MPV 8.4 Neut % (Auto) 24.6 L Lymph % (Auto) 42.0 H [place] % (Auto) 24.1 H Eos % (Auto) 8.5 H Baso % (Auto) 0.8 Neut # (Auto) 0.6 L Lymph # (Auto) 1.1 [place] # (Auto) 0.6 Eos # (Auto) 0.2 Baso # (Auto) 0.0 Neutrophils % (Manual) 52 Lymphocytes % (Manual) 38 Monocytes % (Manual) 7 Eosinophils % (Manual) 3 Platelet Estimate Normal Polychromasia Slight Hypochromasia (manual) Slight Anisocytosis (manual) Slight Ovalocytes Slight Sodium 143 Potassium 3.9 Chloride 116 H Carbon Dioxide 20 L Anion Gap 11 BUN 9 Creatinine 0.4 L Est GFR ( Amer) > 60 Est GFR (Non-Af Amer) > 60 Random Glucose 73 L Calcium 8.0 L Phosphorus 3.6 Magnesium 1.8 Total Bilirubin 1.5 H AST 66 H D ALT 62 Alkaline Phosphatase 263 H Ammonia 151 H D Total Protein 5.6 L Albumin 2.3 L Globulin 3.3 Albumin/Globulin Ratio 0.7 L Alpha Fetoprotein Carcinoembryonic Ag CA 19-9 Antigen 07/20/18 07/20/18 13:17 13:17 WBC RBC Hgb Hct MCV MCH MCHC RDW Plt Count MPV Neut % (Auto) Lymph % (Auto) [place] % (Auto) Eos % (Auto) Baso % (Auto) Neut # (Auto) Lymph # (Auto) [place] # (Auto) Eos # (Auto) Baso # (Auto) Neutrophils % (Manual) Lymphocytes % (Manual) Monocytes % (Manual) Eosinophils % (Manual) Platelet Estimate Polychromasia Hypochromasia (manual) Anisocytosis (manual) Ovalocytes Sodium Potassium Chloride Carbon Dioxide Anion Gap BUN Creatinine Est GFR ( Amer) Est GFR (Non-Af Amer) Random Glucose Calcium Phosphorus Magnesium Total Bilirubin AST ALT Alkaline Phosphatase Ammonia Total Protein Albumin Globulin Albumin/Globulin Ratio Alpha Fetoprotein 2.5 Carcinoembryonic Ag 3.7 H CA 19-9 Antigen 11.1
[2018-07-21 01:25] LABS: BARBITURATES, UR NEGATIVE (NEGATIVE); BENZODIAZEPINES, UR NEGATIVE (NEGATIVE); PHENCYCLIDINE, UR NEGATIVE (NEGATIVE)
[2018-07-21 01:46] LABS: OPIATES, UR POSITIVE (NEGATIVE)
[2018-07-21 05:59] LABS: BASO % 1.2 % (0.0-2.0); EOS # 0.3 K/uL (0.0-0.7); EOS % 10.5 % (0.0-4.0); HEMOGLOBIN 10.4 g/dL (12.0-18.0); LYMPH % 41.4 % (20.0-40.0); MEAN CELL VOLUME 81.9 fL (80.0-94.0); MEAN CORPUSCULAR HEMOGLOBIN 27.7 pg (27.0-31.0); MEAN CORPUSCULAR HGB CONC 33.8 g/dL (33.0-37.0); MEAN PLATELET VOLUME 8.1 fL (7.2-11.7); MONO # 0.6 K/uL (0.0-0.8); MONO % 25.7 % (0.0-10.0); NEUT # 0.5 K/uL (1.8-7.0); NEUT % 21.2 % (50.0-75.0); NRBC % 0.1 % (0.0-2.0); PLATELET COUNT 134 K/uL (130-400); RBC 3.76 Mil/uL (4.40-5.90); RED CELL DISTRIBUTION WIDTH 15.6 % (11.5-14.5); WHITE BLOOD COUNT 2.5 K/uL (4.8-10.8)
[2018-07-21 06:26] LABS: ALB/GLOB RATIO 0.7 (1.0-2.1); ALBUMIN 2.3 g/dL (3.5-5.0); ALT/SGPT 60 U/L (21-72); AST/SGOT 65 U/L (17-59); BLOOD UREA NITROGEN 13 mg/dL (9-20); CALCIUM 8.1 mg/dl (8.6-10.4); GFR NON-AFRICAN AMERICAN > 60
[2018-07-21 08:36] LABS: EOSINOPHIL 14 % (0-4); LYMPHOCYTE 45 % (20-40); TOTAL CELLS COUNTED 100
[2018-07-21 08:37] LABS: MONOCYTE 19 % (0-10); NEUTROPHIL 22 % (50-75); PLATELET ESTIMATE NORMAL (NORMAL)
[2018-07-21 08:38] LABS: ANISOCYTOSIS SLIGHT; HYPOCHROMIC SLIGHT; POIKILOCYTOSIS SLIGHT
[2018-07-21 08:39] LABS: TARGET CELLS SLIGHT
[2018-07-21] MEDS: Sucralfate 1 gm/10 ml Oral Susp UD PO SCH ×2 (08:44→22:00)
[2018-07-21] MEDS: Multiple Vitamins Tab PO SCH (09:37)
[2018-07-21] MEDS: Pantoprazole 40 mg EC Tab PO SCH (09:37)
--- NOTE | 2018-07-21 15:14 | PN ---
DATE: 07/21/2018 LOCATION: ICU 9. SUBJECTIVE: This is 42-year-old male, seen and examined in rounds, appear to be somewhat more awake. Responding to verbal stimuli with some slurred speech, with mild semi-disorientation, but cooperative. No reported active bleeding, chest pain, or palpitation. The entire chart is reviewed including, but not limited to the most recent lab and radiology study results, current and the previous medication list, current and the previous medical events. Case discussed with the staff at length. Today's lab showed hemoglobin of 10.4, hematocrit 30.8, white blood cells 2.5 with normal platelet count with low creatinine of 0.4, calcium 8.1, total bilirubin 1.4, AST 65 with normal ALT, alkaline phosphatase 269 with ammonia level down to 113, albumin 2.3 with total protein 5.7. CEA of 3.7 with urine positive for opiate screen. Most recently done brain MRI, official report is seen with evidence of a small right-sided acute subdural hematoma. Rest of the report is seen. PHYSICAL EXAMINATION: GENERAL: A 42-year-old male. VITAL SIGNS: Afebrile with pulse of 72, blood pressure 104/58, and respiratory rate 16 to 18. HEENT: Showed pale, dry oral mucous membrane. Bilateral icteric sclerae bilaterally. HEART: Positive S1 and S2. ABDOMEN: Soft with mild generalized tenderness. No mass or organomegaly. No rebound tenderness or guarding. NEUROLOGICAL: No significant finding of tremors. IMPRESSION: 1. Alcoholism with substance abuse. 2. Mild jaundice with abnormal liver function test secondary to above. 3. Posttraumatic subdural hematoma. 4. Known history of peptic ulcer disease, hypertension, renal stone as well as reported hepatitis C viral infection before. SUGGESTIONS: 1. Agree with your plan. 2. The patient has signs of biochemically and clinically of hepatic encephalopathy. 3. We will continue monitoring his ammonia level and neomycin p.o. 4. Further recommendation to follow as the patient may need endoscopic evaluation of the GI tract only when he is more stable clinically and after full neurology re-evaluation. 5. We will follow up closely with you. Peyman Evans MD [facility] # [id number]
--- NOTE | 2018-07-22 00:04 | CP.PCM.PN ---
Objective - Vital Signs/Intake and Output Vital Signs (last 24 hours): Temp Pulse Resp BP Pulse Ox 97.7 F 100 H 20 138/89 100 07/21/18 20:00 07/21/18 20:00 07/21/18 20:00 07/21/18 20:00 07/21/18 20:00 Intake and Output: 07/21/18 07/22/18 18:59 06:59 Intake Total 660 Output Total 0 Balance 660 - Medications Medications: Current Medications Folic Acid (Folic Acid) 1 mg PO DAILY [facility] Last Admin: 07/21/18 09:37 Dose: 1 mg Lactulose (Enulose) 20 gm PO Q6H [facility] Last Admin: 07/21/18 17:40 Dose: Not Given Morphine Sulfate (Morphine) 2 mg IVP Q6H PRN PRN Reason: Pain, moderate (4-7) Last Admin: 07/20/18 01:08 Dose: 2 mg Multivitamins (Hexavitamin) 1 tab PO DAILY [facility] Last Admin: 07/21/18 09:37 Dose: 1 tab Neomycin Sulfate (Neomycin Tab) 500 mg PO Q6H [facility] Last Admin: 07/21/18 17:40 Dose: Not Given Pantoprazole Sodium (Protonix Ec Tab) 40 mg PO DAILY [facility] Last Admin: 07/21/18 09:37 Dose: 40 mg Quetiapine Fumarate (Seroquel) 25 mg PO DAILY [facility] Last Admin: 07/21/18 09:37 Dose: 25 mg Rifaximin (Xifaxan) 550 mg PO BID [facility]; Protocol Last Admin: 07/21/18 17:41 Dose: Not Given Sucralfate (Carafate Oral Susp) 1 gm PO ACBHS [facility] Last Admin: 07/21/18 22:00 Dose: Not Given Thiamine HCl (Vitamin B1 Tab) 100 mg PO DAILY [facility] Last Admin: 07/21/18 09:37 Dose: 100 mg - Labs Labs: 07/21/18 05:45 07/21/18 05:45
--- NOTE | 2018-07-22 06:56 | HP ---
DATE: 07/20/2018 CHIEF COMPLAINT: Altered mental status. SUBJECTIVE: This is a 42-year-old male with history of alcoholism, drug abuse, and the patient has history of multiple hospitalization, ER visits. He has history of chronic liver disease, hepatic encephalopathy, chronic anemia, multiple falls, and there was a history of fall outside his house according to the patient. He was found to have a small subacute subdural hematoma, a small acute subarachnoid hemorrhage. The patient stayed alert all along. He is anxious. He is depressed, but he moves all extremities. He is able to answer questions. His speech is somewhat slurry, and he has right eyelid gaze preference. There are some fasciculations on the left side of the cheek and orbicularis oculi muscle. Otherwise, he is moving all four extremities. The patient was admitted to ICU. Further details are not obtainable due to lack of cooperation. PAS MEDICAL HISTORY: Cirrhosis of the liver, alcoholic liver disease, anemia. SOCIAL HISTORY: He smokes. He drinks. ALLERGIES: UNKNOWN. CURRENT MEDICATIONS: Unknown. PHYSICAL EXAMINATION: GENERAL: Middle-aged male who is anxious, depressed. No involuntary movement at the moment. VITAL SIGNS: BP 99/60, pulse 106, respiratory rate 18, temperature 98. SKIN: Pale. No bruises. No purpura. HEENT: Atraumatic, normocephalic. Positive pallor. Negative jaundice. NECK: Supple. No JVD. CHEST WALL: Bilateral symmetrical expansion. LUNGS: Clear. No rales. No rhonchi. CVS: S1, S2 regular. No heave noted. ABDOMEN: Soft, nontender. Bowel sounds are positive. EXTREMITIES: No clubbing, cyanosis, or edema. BAND SAW MARKER: Awake, and the patient does not follow commands. ASSESSMENT: 1. Subdural hematoma with subarachnoid hemorrhage which is problematic. 2. Alcoholic liver disease. 3. Alcoholism. PLAN: Admit , seizure precautions, fall precaution. Neurology and neurosurgical evaluation. Edgardo Hutson MD
[2018-07-22] MEDS: Sucralfate 1 gm/10 ml Oral Susp UD PO SCH ×3 (09:00→21:30)
[2018-07-22] MEDS: Pantoprazole 40 mg EC Tab PO SCH (09:50)
[2018-07-22] MEDS: Multiple Vitamins Tab PO SCH (09:50)
[2018-07-22 13:44] LABS: BASO % 0.5 % (0.0-2.0); EOS # 0.2 K/uL (0.0-0.7); EOS % 8.7 % (0.0-4.0); HEMOGLOBIN 11.3 g/dL (12.0-18.0); LYMPH # 0.7 K/uL (1.0-4.3); MEAN CELL VOLUME 81.2 fL (80.0-94.0); MEAN CORPUSCULAR HEMOGLOBIN 27.6 pg (27.0-31.0); MEAN PLATELET VOLUME 8.5 fL (7.2-11.7); MONO # 0.6 K/uL (0.0-0.8); MONO % 27.2 % (0.0-10.0); NEUT # 0.6 K/uL (1.8-7.0); NEUT % 30.6 % (50.0-75.0); NRBC % 0.1 % (0.0-2.0); PLATELET COUNT 149 K/uL (130-400); RBC 4.08 Mil/uL (4.40-5.90); RED CELL DISTRIBUTION WIDTH 15.5 % (11.5-14.5); WHITE BLOOD COUNT 2.1 K/uL (4.8-10.8)
[2018-07-22 13:59] LABS: ALB/GLOB RATIO 0.7 (1.0-2.1); ALBUMIN 2.8 g/dL (3.5-5.0); ALT/SGPT 61 U/L (21-72); AST/SGOT 73 U/L (17-59); BLOOD UREA NITROGEN 6 mg/dL (9-20); CALCIUM 8.3 mg/dl (8.6-10.4); GFR NON-AFRICAN AMERICAN > 60
[2018-07-22 14:27] LABS: EOSINOPHIL 3 % (0-4); LYMPHOCYTE 39 % (20-40); MONOCYTE 18 % (0-10); NEUTROPHIL 40 % (50-75); TOTAL CELLS COUNTED 100
[2018-07-22 14:40] LABS: ANISOCYTOSIS SLIGHT; PLATELET ESTIMATE NORMAL (NORMAL)
[2018-07-22 14:41] LABS: HYPOCHROMIC SLIGHT; POLYCHROMIC SLIGHT
[2018-07-22 14:42] LABS: OVALOCYTES SLIGHT
--- NOTE | 2018-07-22 16:53 | PN ---
DATE: 07/22/2018 LOCATION: 559, bed B. SUBJECTIVE: This is a 42-year-old male seen and examined in rounds out of the intensive care unit with intermittent period of slurred speech, but somewhat more awake without reported active GI bleeding or significant complaint of chest pain, palpitation or shortness of breath. The entire chart is reviewed including but not limited to the most recent lab and radiology study results, current and the previous medication list, current and the previous medical events, and the patient is still having elevated AST and alkaline phosphatase as well as elevated total bilirubin with low hemoglobin and hematocrit. PHYSICAL EXAMINATION: GENERAL: A 42-year-old male. VITAL SIGNS: Afebrile with pulse of 88, respiratory rate of 20 to 22, blood pressure of 124/70. HEENT: Showed pale, dry oral mucous membrane. Nonicteric sclerae. LUNGS: Few scattered crepitation. Decreased air entry at bases. HEART: Positive S1 and S2. ABDOMEN: Soft with mild generalized tenderness. No mass or organomegaly. No rebound tenderness or guarding. EXTREMITIES: Without significant clubbing, cyanosis or edema. NEUROLOGICAL: No reported new neurological deficits, sensory or motor. IMPRESSION: 1. Alcoholism. 2. Alcoholic liver disease. 3. Abnormal liver function test with jaundice secondary to above. 4. Anemia, probably secondary to chronic disease. No evidence of active bleeding in the meantime. 5. History of hepatitis B viral infection. 6. Posttraumatic subdural hematoma, by recent history, most likely. SUGGESTIONS: 1. Continue current management. 2. Neurosurgical consultation. 3. Repeat ammonia level. 4. Due to the patient's elevated CEA level, colonoscopy is to be kept in mind only when he is more stable clinically, otherwise close observation to follow. Peyman Evans MD
--- NOTE | 2018-07-22 21:48 | CP.PCM.PN ---
Objective - Vital Signs/Intake and Output Vital Signs (last 24 hours): Temp Pulse Resp BP Pulse Ox 97.8 F 83 20 128/80 100 07/22/18 16:00 07/22/18 16:00 07/22/18 16:00 07/22/18 16:00 07/22/18 16:00 - Medications Medications: Current Medications Folic Acid (Folic Acid) 1 mg PO DAILY [facility] Last Admin: 07/22/18 09:50 Dose: 1 mg Lactulose (Enulose) 20 gm PO Q6H [facility] Last Admin: 07/22/18 17:39 Dose: 20 gm Morphine Sulfate (Morphine) 2 mg IVP Q6H PRN PRN Reason: Pain, moderate (4-7) Last Admin: 07/20/18 01:08 Dose: 2 mg Multivitamins (Hexavitamin) 1 tab PO DAILY [facility] Last Admin: 07/22/18 09:50 Dose: 1 tab Neomycin Sulfate (Neomycin Tab) 500 mg PO Q6H [facility] Last Admin: 07/22/18 17:40 Dose: 500 mg Pantoprazole Sodium (Protonix Ec Tab) 40 mg PO DAILY [facility] Last Admin: 07/22/18 09:50 Dose: 40 mg Quetiapine Fumarate (Seroquel) 25 mg PO DAILY [facility] Last Admin: 07/22/18 10:26 Dose: 25 mg Rifaximin (Xifaxan) 550 mg PO BID [facility]; Protocol Last Admin: 07/22/18 17:39 Dose: 550 mg Sucralfate (Carafate Oral Susp) 1 gm PO ACBHS [facility] Last Admin: 07/22/18 21:30 Dose: 1 gm Thiamine HCl (Vitamin B1 Tab) 100 mg PO DAILY [facility] Last Admin: 07/22/18 09:50 Dose: 100 mg - Labs Labs: 07/22/18 13:38 07/22/18 13:38
--- NOTE | 2018-07-23 04:37 | PN ---
DATE: 07/22/2018 SUBJECTIVE: The patient, Mechelle, is on medical management. He is on one-to-one watch. He is confused. His subdural hematoma is traumatic in origin. PHYSICAL EXAMINATION: VITAL SIGNS: Blood pressure 114/66, pulse 75, respiratory rate 16, temperature 97.5. LUNGS: Clear. CARDIOVASCULAR SYSTEM: S1 and S2 are regular. ABDOMEN: Soft. CENTRAL NERVOUS SYSTEM: Awake. ASSESSMENT: 1. Subdural hematoma, subarachnoid hemorrhage due to trauma. 2. Alcohol abuse and falls. 3. Cirrhosis of liver. PLAN: Continue medical management. Monitor the patient. Edgardo Hutson MD
--- NOTE | 2018-07-23 06:17 | PN ---
DATE: 07/22/2018 SUBJECTIVE: The patient is more alert. He is out of ICU. He is not in distress. He is on one-to-one watch. No nausea or vomiting. No cough. Seen by Neurosurgery. PHYSICAL EXAMINATION: VITAL SIGNS: BP 117/73, pulse 91, respiratory rate 20, and temperature 97.9. LUNGS: Clear. CARDIOVASCULAR SYSTEM: S1 and S2 are regular. ABDOMEN: Soft. CENTRAL NERVOUS SYSTEM: Awake and alert. ASSESSMENT: 1. Subarachnoid hemorrhage with subdural hematoma. 2. Alcoholism with alcohol intoxication. 3. Alcoholic liver disease. PLAN: Medical management. Monitor the patient. Edgardo Hutson MD
[2018-07-23] MEDS: Sucralfate 1 gm/10 ml Oral Susp UD PO SCH ×2 (08:33→21:15)
[2018-07-23] MEDS: Pantoprazole 40 mg EC Tab PO SCH (10:21)
[2018-07-23] MEDS: Multiple Vitamins Tab PO SCH (10:21)
--- NOTE | 2018-07-23 13:17 | PN ---
DATE: 07/23/2018 LOCATION: 559, bed B. SUBJECTIVE: This is a 42-year-old male seen and examined in rounds with period of mild disorientation and very aggressive hostile behavior apparently as reported by the staff early this morning, but without reported active bleeding. No reported chest pain, palpitation, significant shortness of breath, chills or fever. The entire chart is reviewed including but not limited to the most recent lab and radiology study results, current and the previous medication list, current and the previous medical events. Today's lab results still pending; however, the patient is still having low hemoglobin and hematocrit as well as low white blood cells, but so far normal platelet count with low BUN low calcium, mildly elevated total bilirubin to 1.9, AST 73 with elevated ammonia level to 85. The latest albumin is still low 2.8. PHYSICAL EXAMINATION: GENERAL: A 42-year-old male. VITAL SIGNS: Afebrile with heart rate of 100, respiratory rate 20 to 22, blood pressure of 140/82. HEENT: Showed pale, dry oral mucous membrane. Nonicteric sclerae. LUNGS: Few scattered crepitation. Decreased air entry at bases. HEART: Positive S1 and S2. ABDOMEN: Soft. Bowel sounds are present. No mass or organomegaly. RECTAL: The patient refused. EXTREMITIES: Slight lower extremity edematous changes. No clubbing or cyanosis. NEUROLOGICAL: No reported new neurological deficits, sensory or motor. IMPRESSION: 1. Alcoholism with alcoholic liver disease. 2. Mild jaundice with abnormal liver function tests secondary to above. 3. Hepatic encephalopathy due to above, most likely with increased ammonia level although it is improving clinically and biochemically. 4. Substance abuse. 5. Anemia, most likely secondary to above; however, the possibility of gastrointestinal blood loss upper versus lower should be ruled in or out. 6. Known history of hepatitis B viral infection. 7. Posttraumatic subdural hematoma, by recent history. SUGGESTIONS: 1. Agree with your plan. 2. Neurosurgical consultation. 3. Repeat MRI of the brain. 4. Endoscopic evaluation of the GI tract only when the patient is more stable clinically, otherwise only close observation. 5. Further recommendation to follow. Peyman Evans MD [facility] # [id number]
--- NOTE | 2018-07-23 21:27 | CP.PCM.PN ---
Objective - Vital Signs/Intake and Output Vital Signs (last 24 hours): Temp Pulse Resp BP Pulse Ox 98.2 F 98 H 20 119/75 99 07/23/18 15:30 07/23/18 15:30 07/23/18 15:30 07/23/18 15:30 07/23/18 15:30 Intake and Output: 07/23/18 07/24/18 18:59 06:59 Output Total 850 Balance -850 - Medications Medications: Current Medications Folic Acid (Folic Acid) 1 mg PO DAILY [facility] Last Admin: 07/23/18 10:21 Dose: 1 mg Lactulose (Enulose) 20 gm PO Q6H [facility] Last Admin: 07/23/18 18:15 Dose: 20 gm Morphine Sulfate (Morphine) 2 mg IVP Q6H PRN PRN Reason: Pain, moderate (4-7) Last Admin: 07/20/18 01:08 Dose: 2 mg Multivitamins (Hexavitamin) 1 tab PO DAILY [facility] Last Admin: 07/23/18 10:21 Dose: 1 tab Neomycin Sulfate (Neomycin Tab) 500 mg PO Q6H [facility] Last Admin: 07/23/18 18:15 Dose: 500 mg Pantoprazole Sodium (Protonix Ec Tab) 40 mg PO DAILY [facility] Last Admin: 07/23/18 10:21 Dose: 40 mg Quetiapine Fumarate (Seroquel) 25 mg PO DAILY [facility] Last Admin: 07/23/18 10:21 Dose: 25 mg Rifaximin (Xifaxan) 550 mg PO BID [facility]; Protocol Last Admin: 07/23/18 18:15 Dose: 550 mg Sucralfate (Carafate Oral Susp) 1 gm PO ACBHS [facility] Last Admin: 07/23/18 21:15 Dose: 1 gm Thiamine HCl (Vitamin B1 Tab) 100 mg PO DAILY [facility] Last Admin: 07/23/18 10:21 Dose: 100 mg - Labs Labs: 07/22/18 13:38 07/22/18 13:38
[2018-07-24] MEDS: Sucralfate 1 gm/10 ml Oral Susp UD PO SCH ×2 (06:32→22:14)
[2018-07-24] MEDS: Multiple Vitamins Tab PO SCH (10:20)
[2018-07-24] MEDS: Pantoprazole 40 mg EC Tab PO SCH (10:20)
[2018-07-24 11:47] LABS: BASO % 0.6 % (0.0-2.0); EOS # 0.2 K/uL (0.0-0.7); EOS % 6.2 % (0.0-4.0); LYMPH # 0.8 K/uL (1.0-4.3); LYMPH % 30.8 % (20.0-40.0); MEAN CELL VOLUME 81.6 fL (80.0-94.0); MEAN CORPUSCULAR HEMOGLOBIN 27.6 pg (27.0-31.0); MEAN CORPUSCULAR HGB CONC 33.8 g/dL (33.0-37.0); MEAN PLATELET VOLUME 8.5 fL (7.2-11.7); MONO # 0.7 K/uL (0.0-0.8); MONO % 28.4 % (0.0-10.0); NEUT # 0.9 K/uL (1.8-7.0); NRBC % 0.1 % (0.0-2.0); PLATELET COUNT 144 K/uL (130-400); RED CELL DISTRIBUTION WIDTH 15.3 % (11.5-14.5); WHITE BLOOD COUNT 2.5 K/uL (4.8-10.8)
[2018-07-24 11:55] LABS: INR 1.6; PROTHROMBIN TIME 17.4 SECONDS (9.7-12.2)
[2018-07-24 12:11] LABS: ALB/GLOB RATIO 0.7 (1.0-2.1); ALBUMIN 2.6 g/dL (3.5-5.0); ALT/SGPT 53 U/L (21-72); AST/SGOT 63 U/L (17-59); BLOOD UREA NITROGEN 7 mg/dL (9-20); CALCIUM 8.3 mg/dl (8.6-10.4); GFR NON-AFRICAN AMERICAN > 60
--- NOTE | 2018-07-24 12:35 | PN ---
DATE: 07/23/2018 SUBJECTIVE: The patient is out of ICU. He is more alert. He wants to go home, but the patient is weak. He is one-to-one watch. . PHYSICAL EXAMINATION: VITAL SIGNS: Blood pressure is 119/75, pulse 98, respiratory rate 20, temperature 98.2. LUNGS: Clear. CVS: S1 and S2, regular. ABDOMEN: Soft. ASSESSMENT: 1. Subdural hematoma, subarachnoid hemorrhage. 2. Anemia. 3. Alcoholic liver disease. 4. Alcoholism. PLAN: Continue monitoring. The patient is for [facility] for further care. Edgardo Hutson MD
[2018-07-24 12:54] LABS: EOSINOPHIL 1 % (0-4); NEUTROPHIL 40 % (50-75); TOTAL CELLS COUNTED 100
[2018-07-24 12:55] LABS: ANISOCYTOSIS SLIGHT; LYMPHOCYTE 34 % (20-40); MONOCYTE 25 % (0-10); PLATELET ESTIMATE NORMAL (NORMAL)
[2018-07-24 12:56] LABS: OVALOCYTES SLIGHT; POIKILOCYTOSIS SLIGHT
--- NOTE | 2018-07-24 13:56 | PN ---
DATE: 07/24/2018 LOCATION: 559, bed B. SUBJECTIVE: This is a 42-year-old male seen and examined in the presence of the staff in the floor with periods of semi-disorientation and semi-confusion, poorly cooperative verbally to my questions this morning, somewhat restless. It has to be mentioned that it was reported by the Nursing staff the patient has very poor oral intake and refusing his diet for the last 24 to 48 hours, but no reported actual chest pain, palpitation, evidence of GI bleeding, or significant shortness of breath. Today's labs are still pending, but the patient reported to have low white blood cells, low hemoglobin and hematocrit, with low BUN and creatinine, with mild elevation of total bilirubin, AST, and alkaline phosphatase. His CEA level was 3.7, elevated. PHYSICAL EXAMINATION: GENERAL: A 42-year-old male. VITAL SIGNS: Afebrile, with pulse of 86, respiratory rate 20-22, blood pressure of 136/80. HEENT: Showed pale, dry oral mucous membranes. Bilateral mild icteric sclerae. LUNGS: Few scattered mild crepitations. Decreased air entry at bases. HEART: Positive S1 and S2. ABDOMEN: Soft, with mild generalized tenderness. No mass or organomegaly. No rebound tenderness or guarding. RECTAL: The patient refused. EXTREMITIES: With lower extremity mild edematous changes with occasional fine tremors of both hands. NEUROLOGIC: No reported new neurological deficits, sensory or motor. IMPRESSION: 1. Alcoholism with alcoholic liver disease. 2. Jaundice with abnormal liver function tests secondary to above. 3. Hypoalbuminemia with malnutrition. 4. Reexacerbation of peptic ulcer disease. 5. Hepatic encephalopathy. 6. Reported history of hepatitis B virus infection. 7. Posttraumatic subdural hematoma by recent history. 8. Anemia secondary to above. 9. Elevated CEA level. The possibility of lower gastrointestinal tract cancer and neoplastic lesion should be ruled in/out, however, that could be secondary to liver cirrhosis. SUGGESTIONS: 1. Agree with your plan. 2. Neurosurgical consultation. 3. MRI of the abdomen and pelvis. 4. Endoscopic evaluation of the GI tract only when the patient is more stable clinically, otherwise only medical treatment to follow. 5. Repeat ammonia level. Peyman Evans MD [facility] # [id number]
--- NOTE | 2018-07-24 20:53 | CP.PCM.PN ---
Objective - Vital Signs/Intake and Output Vital Signs (last 24 hours): Temp Pulse Resp BP Pulse Ox 97.9 F 107 H 20 133/60 99 07/24/18 16:00 07/24/18 16:00 07/24/18 16:00 07/24/18 16:00 07/24/18 16:00 Intake and Output: 07/24/18 07/25/18 18:59 06:59 Intake Total 800 Balance 800 - Medications Medications: Current Medications Folic Acid (Folic Acid) 1 mg PO DAILY [facility] Last Admin: 07/24/18 10:20 Dose: 1 mg Lactulose (Enulose) 20 gm PO Q6H [facility] Last Admin: 07/24/18 19:45 Dose: 20 gm Multivitamins (Hexavitamin) 1 tab PO DAILY [facility] Last Admin: 07/24/18 10:20 Dose: 1 tab Neomycin Sulfate (Neomycin Tab) 500 mg PO Q6H [facility] Last Admin: 07/24/18 19:41 Dose: 500 mg Pantoprazole Sodium (Protonix Ec Tab) 40 mg PO DAILY [facility] Last Admin: 07/24/18 10:20 Dose: 40 mg Quetiapine Fumarate (Seroquel) 25 mg PO DAILY [facility] Last Admin: 07/24/18 10:20 Dose: 25 mg Rifaximin (Xifaxan) 550 mg PO BID [facility]; Protocol Last Admin: 07/24/18 19:41 Dose: 550 mg Sucralfate (Carafate Oral Susp) 1 gm PO ACBHS [facility] Last Admin: 07/24/18 06:32 Dose: Not Given Thiamine HCl (Vitamin B1 Tab) 100 mg PO DAILY [facility] Last Admin: 07/24/18 10:20 Dose: 100 mg - Labs Labs: 07/24/18 11:38 07/24/18 11:38 PT 17.4 SECONDS (9.7-12.2) H 07/24/18 11:38 INR 1.6 07/24/18 11:38 APTT 35 SECONDS (21-34) H 07/24/18 11:38
--- NOTE | 2018-07-25 02:27 | PN ---
DATE: 07/24/2018 SUBJECTIVE: The patient Mechelle is feeling better. The patient is afebrile. More alert. He is seen by Psychiatry. PHYSICAL EXAMINATION: VITAL SIGNS: Blood pressure is 133/60, pulse 107, respiratory rate 20, temperature 97.9. LUNGS: Clear. CVS: S1, S2, regular. ABDOMEN: Soft. REPAIRER SASH AND DOOR: Awake, alert. ASSESSMENT: 1. Subdural hematoma with subarachnoid hemorrhage. 2. Alcoholism. 3. Alcoholic liver disease. PLAN: Continue physical therapy, one-to-one watch. Monitor the patient. Edgardo Hutson MD
[2018-07-25] MEDS: Sucralfate 1 gm/10 ml Oral Susp UD PO SCH ×2 (07:18→21:16)
[2018-07-25] MEDS: Multiple Vitamins Tab PO SCH (10:34)
[2018-07-25] MEDS: Pantoprazole 40 mg EC Tab PO SCH (10:34)
--- NOTE | 2018-07-25 14:38 | PN ---
DATE: 07/25/2018 LOCATION: 559, bed B. SUBJECTIVE: This is a 42-year-old male seen and examined in rounds early without significant clinical changes, but with inappropriate disturbing behavior with agitation and being restless. As per the nursing staff in the floor, no evidence of active bleeding so far and the patient insisting to go home. The entire chart is reviewed including but not limited to the most recent lab and radiology study results, current and the previous medication list, current and the previous medical events. Today's lab results still pending. The patient still has low hemoglobin and hematocrit with low white blood cells with increased PT 17.4, PTT 35 with low CO2 content, low BUN and creatinine as well as low calcium with elevated total bilirubin mildly as well as increased AST and alkaline phosphatase. Ammonia level is still elevated to 129 with increased CEA content. PHYSICAL EXAMINATION: GENERAL: A 42-year-old male. VITAL SIGNS: Afebrile with pulse of 82, respiratory rate 20 to 22, blood pressure 114/76. HEENT: Showed pale, dry oral mucous membrane. Bilateral icteric sclerae. LUNGS: Few scattered crepitation. Decreased air entry at bases. HEART: Positive S1 and S2. ABDOMEN: Soft with mild generalized tenderness. No mass or organomegaly. No rebound tenderness or guarding. RECTAL: The patient refused. EXTREMITIES: Slight lower extremity edematous changes. No clubbing or cyanosis. NEUROLOGICAL: No reported new neurological deficits, sensory or motor. IMPRESSION: 1. Alcoholism with alcoholic liver disease. 2. Hepatic encephalopathy. 3. Abnormal liver function test with jaundice secondary to above. 4. Malnutrition with hypoalbuminemia. 5. Anemia, most likely secondary to above. 6. Reported history of viral hepatitis infection. 7. Reported posttraumatic subdural hematoma. 8. Elevated carcinoembryonic antigen level that could be secondary to occult lower gastrointestinal tract neoplastic lesion versus liver cirrhosis. SUGGESTIONS: 1. Continue current management. 2. Antireflux measure. 3. Guaiac all the stool daily x3. 4. Increase the dose of lactulose 30 mL every 4 hours in the meantime. 5. Neurosurgical consultation. 6. Further recommendation to follow. Peyman Evans MD [facility] # [id number]
--- NOTE | 2018-07-25 20:05 | CON ---
DATE: 07/20/[address] Evans to Dr. Edgardo Hutson. I was called for GI consultation by the primary MD. The patient is seen and fully examined in the intensive care unit on 07/20/2018 as requested by the admitting medical staff. The entire chart is reviewed including but not limited to the most recent lab and radiology study results, current and the previous medication list, current and the previous medical events as well as allergy to medication list. HISTORY OF PRESENT ILLNESS: This is a 42-year-old male with a known history of alcohol abuse, hepatitis C viral infection before who was admitted through the emergency room due to change of mental status, past fall without reported active bleeding. No reported chest pain, palpitation, chills or fever at the time of the admission. PAST MEDICAL HISTORY: Including mainly but not limited to, 1. DTs with alcoholic liver disease. 2. Renal stone. 3. Hypertension. 4. Hepatitis C viral infection. 5. Known history of peptic ulcer disease. FAMILY HISTORY: Unknown. ALLERGIES TO MEDICATIONS: UNCLEAR. SOCIAL HISTORY: Positive for cigarette smoking and alcohol intake. CURRENT MEDICATIONS: Post admission medication lists were reviewed. LABORATORY DATA: After being admitted to the hospital, the patient was found to have low hemoglobin and hematocrit with abnormal liver function tests. PHYSICAL EXAMINATION: GENERAL: A 42-year-old male. The patient appears to be restless and agitated at the time of my physical examination. VITAL SIGNS: Afebrile with pulse of 94, respiratory rate 20 to 22, blood pressure of 136/72. IMPRESSION: 1. Alcoholism. 2. Alcoholic liver disease with liver cirrhosis. 3. Past fall and subdural hematoma, by radiology study results. 4. Multiple past medical history as above. 5. Hepatic encephalopathy by clinical presentation. SUGGESTIONS: 1. Agree with your plan. 2. Neurosurgical consultation. 3. Ammonia level with neomycin p.o. 4. Proton pump inhibitors. 5. Guaiac all the stool every day x3. 6. Cancer markers including alpha-fetoprotein. 7. Serum lipase, amylase level. 8. Abdominal ultrasound. 9. The patient may need endoscopic evaluation of the GI tract only if he is stable clinically. 10. Psychiatry evaluation to follow. Thank you for letting me participate in your patient's case management. Peyman Evans MD [facility] # [id number]
--- NOTE | 2018-07-25 22:12 | CP.PCM.PN ---
Objective - Vital Signs/Intake and Output Vital Signs (last 24 hours): Temp Pulse Resp BP Pulse Ox 97.8 F 105 H 20 126/75 96 07/25/18 16:20 07/25/18 16:20 07/25/18 16:20 07/25/18 16:20 07/25/18 16:20 Intake and Output: 07/25/18 07/26/18 18:59 06:59 Intake Total 700 Output Total 0 Balance 700 - Medications Medications: Current Medications Folic Acid (Folic Acid) 1 mg PO DAILY [facility] Last Admin: 07/25/18 10:34 Dose: 1 mg Lactulose (Enulose) 20 gm PO Q6H [facility] Last Admin: 07/25/18 21:47 Dose: 20 gm Multivitamins (Hexavitamin) 1 tab PO DAILY [facility] Last Admin: 07/25/18 10:34 Dose: 1 tab Pantoprazole Sodium (Protonix Ec Tab) 40 mg PO DAILY [facility] Last Admin: 07/25/18 10:34 Dose: 40 mg Quetiapine Fumarate (Seroquel) 25 mg PO DAILY [facility] Last Admin: 07/25/18 10:34 Dose: 25 mg Rifaximin (Xifaxan) 550 mg PO BID [facility]; Protocol Last Admin: 07/25/18 17:41 Dose: 550 mg Sucralfate (Carafate Oral Susp) 1 gm PO ACBHS [facility] Last Admin: 07/25/18 21:16 Dose: 1 gm Thiamine HCl (Vitamin B1 Tab) 100 mg PO DAILY [facility] Last Admin: 07/25/18 10:34 Dose: 100 mg - Labs Labs: 07/24/18 11:38 07/24/18 11:38 PT 17.4 SECONDS (9.7-12.2) H 07/24/18 11:38 INR 1.6 07/24/18 11:38 APTT 35 SECONDS (21-34) H 07/24/18 11:38
--- NOTE | 2018-07-26 03:44 | PN ---
DATE: 07/25/2018 SUBJECTIVE: The patient is feeling better. He is more alert. He is less delirious, less confused, less agitated. PHYSICAL EXAMINATION: VITAL SIGNS: BP 123/75, pulse 105, respiratory rate 20, temperature 97.8. LUNGS: Clear. CVS: S1, S2, regular. ABDOMEN: Soft. ASSESSMENT: 1. Subarachnoid hemorrhage with subdural hematoma. 2. Alcoholic liver disease with coagulopathy. 3. Hypersplenism. PLAN: Continue physical therapy, one-to-one watch. Monitor the patient. Edgardo Hutson MD
[2018-07-26] MEDS: Sucralfate 1 gm/10 ml Oral Susp UD PO SCH ×2 (07:34→22:15)
[2018-07-26] MEDS: Multiple Vitamins Tab PO SCH (10:44)
[2018-07-26] MEDS: Pantoprazole 40 mg EC Tab PO SCH (10:45)
--- NOTE | 2018-07-26 13:14 | PN ---
DATE: 07/26/2018 LOCATION: 559, bed B. SUBJECTIVE: This is a 42-year-old male seen and examined in rounds without significant clinical changes or reported active bleeding with intermittent period of restless and hostile behavior. No reported active GI bleeding, chest pain, palpitation or shortness of breath. The entire chart is reviewed including but not limited to the most recent lab and radiology study results, current and the previous medication list, current and the previous medical events and today's lab results still pending; however, the patient is still having elevated ammonia level with abnormal liver function test with low albumin, low BUN and creatinine. PHYSICAL EXAMINATION: GENERAL: A 42-year-old male. VITAL SIGNS: Afebrile with pulse of 80, respiratory rate 20 to 22, blood pressure 120/66. HEENT: Showed pale, dry mucous membrane. Bilateral icteric sclerae. LUNGS: Few scattered crepitation. Decreased air entry at bases. HEART: Positive S1 and S2. ABDOMEN: Soft. Bowel sounds are present with mild generalized tenderness. No mass or organomegaly. RECTAL: The patient refused. EXTREMITIES: With lower extremity edematous changes. No clubbing or cyanosis. NEUROLOGICAL: No reported new neurological deficits, sensory or motor. IMPRESSION: 1. Alcoholism with alcoholic liver disease. 2. Jaundice with abnormal liver function tests secondary to above. 3. Hepatic cephalopathy with elevated ammonia level. 4. Posttraumatic subdural hematoma. 5. Anemia secondary to above. 6. Reported history of viral hepatitis infection. 7. Increased carcinoembryonic antigen level. 8. The possibility of gastrointestinal blood loss; however, was raised due to the patient's anemia. SUGGESTIONS: 1. Continue current management. 2. Again, the patient will need neurosurgical reevaluation. 3. Guaiac all the stools daily x3. 4. Lactulose enema. 5. Psychiatry reevaluation. 6. Further recommendation to follow. 7. The patient will need endoscopic evaluation of the right tract only when he is more stable clinically. We will follow up closely with you. Peyman Evans MD
--- NOTE | 2018-07-26 22:25 | CP.PCM.PN ---
Objective - Vital Signs/Intake and Output Vital Signs (last 24 hours): Temp Pulse Resp BP Pulse Ox 97.9 F 102 H 20 107/66 98 07/26/18 15:45 07/26/18 15:45 07/26/18 15:45 07/26/18 15:45 07/26/18 15:45 - Medications Medications: Current Medications Folic Acid (Folic Acid) 1 mg PO DAILY [facility] Last Admin: 07/26/18 10:44 Dose: 1 mg Influenza Virus Vaccine (Fluzone Quad [id number]) 60 mcg IM .ONCE ONE Stop: 07/27/18 10:01 Lactulose (Enulose) 20 gm PO Q6H [facility] Last Admin: 07/26/18 22:15 Dose: 20 gm Multivitamins (Hexavitamin) 1 tab PO DAILY [facility] Last Admin: 07/26/18 10:44 Dose: 1 tab Neomycin Sulfate (Neomycin Tab) 500 mg PO Q6H [facility] Last Admin: 07/26/18 18:09 Dose: 500 mg Pantoprazole Sodium (Protonix Ec Tab) 40 mg PO DAILY [facility] Last Admin: 07/26/18 10:45 Dose: 40 mg Quetiapine Fumarate (Seroquel) 25 mg PO DAILY [facility] Last Admin: 07/26/18 10:44 Dose: 25 mg Rifaximin (Xifaxan) 550 mg PO BID [facility]; Protocol Last Admin: 07/26/18 18:09 Dose: 550 mg Sucralfate (Carafate Oral Susp) 1 gm PO ACBHS [facility] Last Admin: 07/26/18 22:15 Dose: 1 gm Thiamine HCl (Vitamin B1 Tab) 100 mg PO DAILY [facility] Last Admin: 07/26/18 10:44 Dose: 100 mg - Labs Labs: 07/24/18 11:38 07/24/18 11:38 PT 17.4 SECONDS (9.7-12.2) H 07/24/18 11:38 INR 1.6 07/24/18 11:38 APTT 35 SECONDS (21-34) H 07/24/18 11:38
--- NOTE | 2018-07-27 02:07 | PN ---
DATE: 07/26/2018 SUBJECTIVE: The patient is confused. He wanted to go home. The patient's ammonia level is high. He is not in distress. No bleeding. No nausea or vomiting. He has some headache. PHYSICAL EXAMINATION: VITAL SIGNS: Blood pressure is 107/66, pulse 102, respiratory rate 20, temperature 97.9. LUNGS: Clear. CARDIOVASCULAR SYSTEM: S1 and S2, regular. ABDOMEN: Soft. ASSESSMENT: 1. Hepatic encephalopathy with elevated ammonia level. 2. 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 3. Subarachnoid hemorrhage with subdural hematoma. PLAN: Continue one-to-one watch, physical therapy, rehab. Monitor the patient. Edgardo Hutson MD
[2018-07-27] MEDS: Sucralfate 1 gm/10 ml Oral Susp UD PO SCH ×2 (07:18→22:31)
[2018-07-27 09:06] LABS: BASO % 0.8 % (0.0-2.0); EOS # 0.2 K/uL (0.0-0.7); HEMOGLOBIN 10.4 g/dL (12.0-18.0); LYMPH # 0.9 K/uL (1.0-4.3); LYMPH % 33.6 % (20.0-40.0); MEAN CELL VOLUME 81.8 fL (80.0-94.0); MEAN CORPUSCULAR HEMOGLOBIN 28.1 pg (27.0-31.0); MEAN CORPUSCULAR HGB CONC 34.3 g/dL (33.0-37.0); MEAN PLATELET VOLUME 8.7 fL (7.2-11.7); MONO # 0.8 K/uL (0.0-0.8); MONO % 28.6 % (0.0-10.0); NEUT # 0.7 K/uL (1.8-7.0); PLATELET COUNT 173 K/uL (130-400); RED CELL DISTRIBUTION WIDTH 15.6 % (11.5-14.5); WHITE BLOOD COUNT 2.7 K/uL (4.8-10.8)
[2018-07-27 09:13] LABS: ALB/GLOB RATIO 0.7 (1.0-2.1); ALBUMIN 2.5 g/dL (3.5-5.0); ALT/SGPT 52 U/L (21-72); AST/SGOT 54 U/L (17-59); BLOOD UREA NITROGEN 7 mg/dL (9-20); CALCIUM 7.9 mg/dl (8.6-10.4); GFR NON-AFRICAN AMERICAN > 60
[2018-07-27 09:39] LABS: ANISOCYTOSIS SLIGHT; EOSINOPHIL 6 % (0-4); HYPOCHROMIC SLIGHT; LYMPHOCYTE 42 % (20-40); MONOCYTE 30 % (0-10); NEUTROPHIL 22 % (50-75); PLATELET ESTIMATE NORMAL (NORMAL); POIKILOCYTOSIS SLIGHT; TOTAL CELLS COUNTED 50
[2018-07-27 09:40] LABS: MICROCYTOSIS SLIGHT; TARGET CELLS SLIGHT
[2018-07-27 09:42] LABS: LARGE PLATELETS PRESENT
[2018-07-27] MEDS: Pantoprazole 40 mg EC Tab PO SCH (09:55)
[2018-07-27] MEDS: Multiple Vitamins Tab PO SCH (09:56)
[2018-07-27] MEDS ORDERED: Influenza Vaccine 60 MCG/0.5 ML SYR (3 yr & up) IM ONE (10:00)
--- NOTE | 2018-07-27 19:19 | PN ---
DATE: 07/27/2018 LOCATION: 559, bed B. SUBJECTIVE: This is a 42-year-old male, seen and examined in rounds without significant clinical changes or reported active bleeding somewhat with less response to verbal stimuli with less oral intake. No reported chest pain or palpitation. The patient appeared to be somewhat again restless. The entire chart is reviewed including but not limited to the most recent lab and radiology study results, current and the previous medication list, current and the previous medical events. Today's lab showed hemoglobin of 10.4, hematocrit 30.3 with normal platelet count, white blood cells 2.7 with potassium of 3.4, low BUN and creatinine with low calcium of 7.9. Ammonia level is still elevated with increased alkaline phosphatase, low albumin and low total protein. PHYSICAL EXAMINATION: GENERAL: A 42-year-old male. VITAL SIGNS: Afebrile with pulse of 80, respiratory rate 20 to 22, blood pressure 120/72. HEENT: Showed pale, dry mucous membrane. Nonicteric sclerae. LUNGS: Few scattered crepitation. Decreased air entry at bases. HEART: Positive S1 and S2. ABDOMEN: Soft with mild distention. No mass or organomegaly. No rebound tenderness or guarding. EXTREMITIES: With mild fine hand tremors bilaterally with mild edematous changes in the lower extremities. No clubbing or cyanosis. NEUROLOGICAL: No reported new neurological deficits, sensory, or motor. No reported new focal deficits. IMPRESSION: 1. Alcoholism. 2. Hepatic encephalopathy with increased ammonia level. 3. Abnormal liver function tests, alcohol-induced liver cirrhosis, jaundice secondary to above. 4. Anemia, most likely secondary to chronic disease. 5. Recent history of posttraumatic subdural hematoma. 6. Increased carcinoembryonic antigen level secondary to above, most likely. 7. The possibility of occult gastrointestinal malignancy was raised. SUGGESTIONS: 1. Continue current management. 2. Guaiac all the stools daily x3. 3. Lactulose enema 3 times a day. 4. Repeat ammonia level. 5. Neurosurgical consultation. 6. Further recommendation to follow. Peyman Evans MD
[2018-07-27] MEDS ORDERED: Potassium Chloride 20 mEq/15 ml LIQ UD PO STA (22:17)
--- NOTE | 2018-07-27 22:17 | CP.PCM.PN ---
Objective - Vital Signs/Intake and Output Vital Signs (last 24 hours): Temp Pulse Resp BP Pulse Ox 98.0 F 99 H 20 105/67 99 07/27/18 16:00 07/27/18 16:00 07/27/18 16:00 07/27/18 16:00 07/27/18 16:00 - Medications Medications: Current Medications Folic Acid (Folic Acid) 1 mg PO DAILY [facility] Last Admin: 07/27/18 09:56 Dose: 1 mg Lactulose (Enulose) 20 gm PO Q6H [facility] Last Admin: 07/27/18 18:05 Dose: 20 gm Multivitamins (Hexavitamin) 1 tab PO DAILY [facility] Last Admin: 07/27/18 09:56 Dose: 1 tab Neomycin Sulfate (Neomycin Tab) 500 mg PO Q6H [facility] Last Admin: 07/27/18 18:05 Dose: 500 mg Pantoprazole Sodium (Protonix Ec Tab) 40 mg PO DAILY [facility] Last Admin: 07/27/18 09:55 Dose: 40 mg Quetiapine Fumarate (Seroquel) 25 mg PO DAILY [facility] Last Admin: 07/27/18 09:58 Dose: 25 mg Rifaximin (Xifaxan) 550 mg PO BID [facility]; Protocol Last Admin: 07/27/18 18:05 Dose: 550 mg Sucralfate (Carafate Oral Susp) 1 gm PO ACBHS [facility] Last Admin: 07/27/18 07:18 Dose: Not Given Thiamine HCl (Vitamin B1 Tab) 100 mg PO DAILY [facility] Last Admin: 07/27/18 09:56 Dose: 100 mg - Labs Labs: 07/27/18 08:50 07/27/18 08:50 PT 17.4 SECONDS (9.7-12.2) H 07/24/18 11:38 INR 1.6 07/24/18 11:38 APTT 35 SECONDS (21-34) H 07/24/18 11:38
--- NOTE | 2018-07-28 03:45 | PN ---
DATE: 07/27/2018 SUBJECTIVE: Aurora Min is on one-to-one watch. He is confused. He is delirious. He is agitated. He is restless. He wants to go home. No fever. No chills. He is eating well. No nausea or vomiting. PHYSICAL EXAMINATION: VITAL SIGNS: Blood pressure is 105/67, pulse 99, respiratory rate 20, temperature 98. LUNGS: Clear. CARDIOVASCULAR SYSTEM: S1 and S2, regular. ABDOMEN: Soft. CENTRAL NERVOUS SYSTEM: Awake and alert. ASSESSMENT: 1. Hepatic encephalopathy. 2. Alcoholic liver disease. 3. Alcoholism. PLAN: Continue current medication. Physical therapy. Monitor the patient. Edgardo Hutson MD
[2018-07-28] MEDS: Sucralfate 1 gm/10 ml Oral Susp UD PO SCH ×2 (06:40→22:01)
[2018-07-28] MEDS: Multiple Vitamins Tab PO SCH (09:20)
[2018-07-28] MEDS: Pantoprazole 40 mg EC Tab PO SCH (09:20)
--- NOTE | 2018-07-28 15:36 | PN ---
DATE: 07/28/2018 LOCATION: 558, bed B. SUBJECTIVE: This is a 42-year-old male seen and examined in rounds earlier today with staff in the floor without reported significant clinical changes, appear to be somewhat restless. No reported active bleeding. The entire chart is reviewed including but not limited to the most recent lab and radiology study results, current and the previous medication list, current and the previous medical events. Most recent lab results done yesterday showed hemoglobin of 10.4, hematocrit 30.3 with today's ammonia level of 101, increased, with persistently elevated alkaline phosphatase, but low albumin and total protein. PHYSICAL EXAMINATION: GENERAL: A 42-year-old male with period of mild disorientation and restless. VITAL SIGNS: Afebrile with pulse of 92, respiratory rate 20 to 22, and blood pressure 122/82. HEENT: Showed pale, dry oral mucous membrane. Slightly icteric sclerae bilaterally. HEART: Positive S1 and S2 with increased rate. ABDOMEN: Soft with slight distention with small amount of ascites. No mass or organomegaly. No rebound tenderness or guarding. EXTREMITIES: With slight bilateral hand tremors. No clubbing or cyanosis. NEUROLOGICAL: No reported new neurological deficits, sensory, or motor. IMPRESSION: 1. Alcoholism. 2. Alcoholic liver disease with abnormal liver function tests and jaundice. 3. Hepatic encephalopathy. 4. Anemia secondary to above. 5. Posttraumatic subdural hematoma per recent history. 6. Increased carcinoembryonic antigen, most likely secondary to above rather than possible lower gastrointestinal tract cancer. SUGGESTIONS: 1. Continue current management. 2. Again the patient will need Lactulose enema. 3. Further recommendation to follow. Peyman Evans MD
--- NOTE | 2018-07-28 21:55 | CP.PCM.PN ---
Subjective - Subjective Subjective: dictated Objective - Vital Signs/Intake and Output Vital Signs (last 24 hours): Temp Pulse Resp BP Pulse Ox 98.0 F 76 20 110/70 99 07/28/18 16:00 07/28/18 16:00 07/28/18 16:00 07/28/18 16:00 07/28/18 16:00 - Medications Medications: Current Medications Folic Acid (Folic Acid) 1 mg PO DAILY [facility] Last Admin: 07/28/18 09:20 Dose: 1 mg Lactulose (Enulose) 20 gm PO Q6H [facility] Last Admin: 07/28/18 17:57 Dose: 20 gm Multivitamins (Hexavitamin) 1 tab PO DAILY [facility] Last Admin: 07/28/18 09:20 Dose: 1 tab Neomycin Sulfate (Neomycin Tab) 500 mg PO Q6H [facility] Last Admin: 07/28/18 17:56 Dose: 500 mg Pantoprazole Sodium (Protonix Ec Tab) 40 mg PO DAILY [facility] Last Admin: 07/28/18 09:20 Dose: 40 mg Quetiapine Fumarate (Seroquel) 25 mg PO DAILY [facility] Last Admin: 07/28/18 09:21 Dose: 25 mg Rifaximin (Xifaxan) 550 mg PO BID [facility]; Protocol Last Admin: 07/28/18 17:56 Dose: 550 mg Sucralfate (Carafate Oral Susp) 1 gm PO ACBHS [facility] Last Admin: 07/28/18 06:40 Dose: 1 gm Thiamine HCl (Vitamin B1 Tab) 100 mg PO DAILY [facility] Last Admin: 07/28/18 09:20 Dose: 100 mg - Labs Labs: 07/27/18 08:50 07/27/18 08:50 PT 17.4 SECONDS (9.7-12.2) H 07/24/18 11:38 INR 1.6 07/24/18 11:38 APTT 35 SECONDS (21-34) H 07/24/18 11:38
--- NOTE | 2018-07-29 06:17 | PN ---
DATE: 07/28/2018 SUBJECTIVE: The patient is on one-to-one watch. He is more alert. He is not tremulous. He is afebrile. PHYSICAL EXAMINATION: VITAL SIGNS: BP 110/70, pulse 76, respiratory rate 20, temperature 98. LUNGS: Clear. ABDOMEN: Soft. ASSESSMENT: 1. Subdural hematoma with subarachnoid hemorrhage. 2. Alcoholic liver disease. 3. End-stage liver disease. PLAN: Continue one-to-one watch. Monitor the patient. Edgardo Hutson MD
[2018-07-29] MEDS: Sucralfate 1 gm/10 ml Oral Susp UD PO SCH ×2 (08:20→21:57)
[2018-07-29] MEDS: Multiple Vitamins Tab PO SCH (10:13)
[2018-07-29] MEDS: Pantoprazole 40 mg EC Tab PO SCH (10:13)
--- NOTE | 2018-07-29 11:53 | CP.PCM.CON ---
History of Present Illness - History of Present Illness History of Present Illness: Palliative care consult requested by Doctor Hutson for goals of care discussion Patient is a 42 yo male admitted from home by EMS after alteration in the family. Prior to this event , as per ED report, patient had a fall. On admis lory, patient denied falling at home. Patient was also found with mumbled speech, what he reported being present for > than 3 months. Patient denied use of ETOH on admission. No signs of withdrawal noted upon admission. Patient started on Folic acid, Vit B1, Seroquel . Antianxiety meds are held off as they could vamsi patient's neuro status. Johnie titus diagnosed with right subarcnoid hemorrhage as per MRI brain. CT head was significant for right scalp hemathoma. Patient is well know to Psych dep artment here at [facility] and psych eval was called this time as well. Per report, patient was not cooperative the way he used to be; instead was aggressive towards nursing staff. PMH: ETOH, Hep C, encephalopathy, cirrhosis Soc. Hx: , lives at home, has 5 children, unemployed Fam. hx: Unknown Review of Systems - Review of Systems Systems not reviewed;Unavailable: Altered Mental Status, Psychotic - Constitutional Constitutional: Frequent Falls - EENT Eyes: absent: As Per HPI, Blind Spots, Blurred Vision, Change in Vision, Decreased Night Vision, Diplopia, Discharge, Dry Eye, Exophthalmos, Floaters, Irritation, Itchy Eyes, Loss of Peripheral Vision, Pain, Photophobia, Requires Corrective Lenses, Sees Flashes, Spots in Vision, Tunnel Vision, Other Visual Disturbances, Loss of Vision, Other Ears: absent: As Per HPI, Decreased Hearing, Ear Discharge, Ear Pain, Tinnitus, Abnormal Hearing, Disequilibrium, Dizziness, Other Nose/Mouth/Throat: absent: As Per HPI, Epistaxis, Nasal Congestion, Nasal Discharge, Nasal Obstruction, Nasal Trauma, Nose Pain, Post Nasal Drip, Sinus Pain, Sinus Pressure, Bleeding Gums, Change in Voice, Dental Pain, Dry Mouth, Dysphagia, Halitosis, Hoarsness, Lip Swelling, Mouth Lesions, Mouth Pain, Odynophagia, Sore Throat, Throat Swelling, Tongue Swelling, Facial Pain, Neck Pain, Neck Mass, Other - Cardiovascular Cardiovascular: absent: As Per HPI, Acrocyanosis, Chest Pain, Chest Pain at Rest, Chest Pain with Activity, Claudication, Diaphoresis, Dyspnea, Dyspnea on Exertion, Edema, Irregular Heart Rhythm, Pain Radiating to Arm/Neck/Jaw, Leg Edema, Leg Ulcers, Lightheadedness, Orthopnea, Palpitations, Paroxysmal N octurnal Dyspnea, Pedal Edema, Radiating Pain, Rapid Heart Rate, Slow Heart Rate, Syncope, Other - Respiratory Respiratory: absent: As Per HPI, Cough, Dyspnea, Hemoptysis, Dyspnea on Exertion, Wheezing, Snoring, Stridor, Pain on Inspiration, Chest Congestion, E xcessive Mucous Production, Change in Mucous Color, Pain with Coughing, Other - Gastrointestinal Gastrointestinal: absent: As Per HPI, Abdominal Pain, Belching, Bloating, Change in Bowel Habits, Change in Stool Character, Coffee Ground Emesis, Constipation, Cramping, Diarrhea, Dyspepsia, Dysphagia, Early Satiety, Excessive Flatus, Fecal Incontinence, Heartburn, Hematemesis, Hematochezia, Loose Stools, Melena, Nausea, Odynophagia, Temesmus, Vomiting, Other - Genitourinary Genitourinary: absent: As Per HPI, Change in Urinary Stream, Difficulty Urinating, Dysuria, Flank Pain, Hematuria, Pyuria, Nocturia, Urinary Incon tinence, Urinary Frequency, Urinary Hesitance, Urinary Urgency, Voiding Freq/Small Amts, Freq UTI, Hx Renal/Bladder Calculi, Hx /Renal Surgery, Bladder Distension, Other - Musculoskeletal Musculoskeletal: Abnormal Gait - Neurological Neurological: Abnormal Gait, Abnormal Speech, Frequent Falls - Psychiatric Psychiatric: Anxiety, Behavioral Changes, Difficulty Concentrating, Irri tability, Mood Swings - Endocrine Endocrine: absent: As Per HPI, Change in Body Appearance, Change in Libido, Cold Intolorance, Deepening of Voice, Excessive Sweating, Fatigue, Flushing, Heat Intolorance, Increase in Ring/Shoe/Hat Size, Palpitations, Polydipsia, Polyphagia, Polyuria, Other - Hematologic/Lymphatic Hematologic: absent: As Per HPI, Easy Bleeding, Easy Bruising, Lymphadenopathy, Other Past Patient History - Infectious Disease Hx of Infectious Diseases: None - Past Medical History & Family History Past Medical History?: Yes - Past Social History Smoking Status: Light Smoker < 10 Cigarettes Daily Chewing Tobacco Use: No Alcohol: < 2 Drinks/Day Drugs: Denies Home Situation {Lives}: With Family - CARDIAC Hx Hypertension: Yes - PULMONARY Hx Respiratory Disorders: No - NEUROLOGICAL Hx Neurological Disorder: No - HEENT Hx HEENT Problems: No - RENAL Hx Chronic Kidney Disease: Yes Hx Kidney Stones: Yes (burning with urination) - ENDOCRINE/METABOLIC Hx Diabetes Mellitus Type 2: Yes (denies) - HEMATOLOGICAL/ONCOLOGICAL Hx Blood Disorders: Yes Hx Hepatitis C: Yes Other/Comment: liver problem, liver failure confirmed by patient - INTEGUMENTARY Hx Dermatological Problems: No - MUSCULOSKELETAL/RHEUMATOLOGICAL Hx Musculoskeletal Disorders: Yes Hx Back Pain: Yes Hx Falls: Yes - GASTROINTESTINAL Hx Gastrointestinal Disorders: Yes Other/Comment: Liver disease - GENITOURINARY/GYNECOLOGICAL Hx Genitourinary Disorders: No - PSYCHIATRIC Hx Substance Use: No - SURGICAL HISTORY Hx Surgeries: No - ANESTHESIA Hx Anesthesia: No Hx Anesthesia Reactions: No Hx Malignant Hyperthermia: No Meds Allergies/Adverse Reactions: Allergies Allergy/AdvReac Type Severity Reaction Status Date / Time No Known Allergies Allergy Verified 05/20/18 10:42 - Medications Medications: Current Medications Folic Acid (Folic Acid) 1 mg PO DAILY [facility] Last Admin: 07/29/18 10:13 Dose: 1 mg Lactulose (Enulose) 20 gm PO Q6H [facility] Last Admin: 07/29/18 10:15 Dose: 20 gm Multivitamins (Hexavitamin) 1 tab PO DAILY [facility] Last Admin: 07/29/18 10:13 Dose: 1 tab Neomycin Sulfate (Neomycin Tab) 500 mg PO Q6H [facility] Last Admin: 07/29/18 06:56 Dose: Not Given Pantoprazole Sodium (Protonix Ec Tab) 40 mg PO DAILY [facility] Last Admin: 07/29/18 10:13 Dose: 40 mg Quetiapine Fumarate (Seroquel) 25 mg PO DAILY [facility] Last Admin: 07/29/18 10:13 Dose: 25 mg Rifaximin (Xifaxan) 550 mg PO BID [facility]; Protocol Last Admin: 07/29/18 10:13 Dose: 550 mg Sucralfate (Carafate Oral Susp) 1 gm PO ACBHS [facility] Last Admin: 07/29/18 08:20 Dose: 1 gm Thiamine HCl (Vitamin B1 Tab) 100 mg PO DAILY [facility] Last Admin: 07/29/18 10:13 Dose: 100 mg Physical Exam - Constitutional Appears: No Acute Distress, Unkempt, Combative, Agitated, Chronically Ill - Head Exam Head Exam: ATRAUMATIC, NORMAL INSPECTION, NORMOCEPHALIC - Eye Exam Eye Exam: EOMI, Normal appearance, PERRL Pupil Exam: NORMAL ACCOMODATION, PERRL - ENT Exam ENT Exam: Mucous Membranes Moist, Normal Exam - Neck Exam Neck exam: Positive for: Normal Inspection - Respiratory Exam Respiratory Exam: NORMAL BREATHING PATTERN - Cardiovascular Exam Cardiovascular Exam: Tachycardia - GI/Abdominal Exam GI & Abdominal Exam: Normal Bowel Sounds, Soft - Rectal Exam Rectal Exam: Deferred - Extremities Exam Extremities exam: Positive for: normal inspection, pedal edema - Back Exam Back exam: NORMAL INSPECTION - Neurological Exam Neurological exam: Alert, Oriented x3 - Psychiatric Exam Psychiatric exam: Agitated, Anxious - Skin Skin Exam: Dry, Intact, Normal Color, Warm Results - Vital Signs Recent Vital Signs: Last Vital Signs Temp 98.0 F 07/28/18 23:55 Pulse 82 07/28/18 23:55 Resp 20 07/28/18 23:55 BP 115/67 07/28/18 23:55 Pulse Ox 99 07/28/18 23:55 - Labs Result Diagrams: 07/27/18 08:50 07/27/18 08:50 Assessment & Plan - Assessment and Plan (Free Text) Assessment: Palliative care Full Code, there is no advance Directive on chart, PPS 40% I reviewed Medical records, all diagnostic studies, examined patient in the bed Patient examined in bed, alert, oriented X 3 with speech that is altered. Johnie titus appears very tense . Patient was cooperative during interview but was consistently asking about going home. His speech is unclear, what made this interview difficult. Physical exam does not reveal acute findings. Per nursing, patient is mostly on the bed but is able to stand up and use urinal. Goals of care discussion attempted with patient. Patient was solely focused on leaving AMA as he recalls doing it at [facility]. I worked with patient very cautiously as I felt that I could trigger his aggressive behavior with only one single word, which he may did not like. In presence of patient I called his Lyla. The was able to tell me in poor [place]ese, that she did not want him home due to his excessive drinking. She stated " he was too much for her", and she felt overwhelmed with his influenced behavior at home. I discussed with patient discharge planing to [facility]. He was categorically against it. This was discussed with case filler on the floor . Per mental health case manager, plan was discharge to [facility]. The issue is patient's insurance. Impression * Unsteady gait * Risk for falls * Altered perception of reality, denies having ETOH and behavioral issues * Head injury, post fall * * Anxious * Agitated * Noncompliant with care, insisting on going home as opposed to [facility] * is afraid of him being home due to his ETOH induced aggressive behavior * Patient does not have ability to discuss medical decisions due to his altered perception Suggestions * Promote safety * PT evaluation and OOB to chair daily * Avoid Benzos due to head injury * Discharge planing to [facility] or appropriate institution. Patient would e appropriate for [place] [facility] was not able to come in for proposed family meeting as she works until 9 pm and is afraid to ask for time off as she may lose her job. Advance care planing 35 min
--- NOTE | 2018-07-29 16:27 | PN ---
DATE: 07/29/2018 LOCATION: 558, bed B. SUBJECTIVE: This is a 42-year-old male seen and examined in rounds early today without significant clinical changes, with periods of being restless. No reported active bleeding. No reported chest pain or palpitation this morning, but complaining of generalized weakness and malaise. The entire chart is reviewed including but not limited to the most recent lab and radiology study results, current and the previous medication list, current and the previous medical events, and today's lab results are still pending. PHYSICAL EXAMINATION: GENERAL: A 42-year-old male, appears to be somewhat more awake. VITAL SIGNS: Afebrile. HEENT: Showed pale, dry oral mucous membranes. Mildly bilateral icteric sclerae. LUNGS: Few scattered crepitations. Decreased air entry at bases. HEART: Positive S1 and S2. ABDOMEN: Soft, with mild generalized tenderness. No mass or organomegaly. No rebound tenderness or guarding. Abdominal ascites noticed. NEUROLOGIC: No reported new neurological deficits, sensory or motor. No tremor. IMPRESSION: 1. Alcoholism. 2. Alcoholic liver disease. 3. Jaundice with abnormal liver function tests secondary to above. 4. Hepatic encephalopathy, slightly improving. 5. Reported posttraumatic subdural hematoma by recent history. SUGGESTIONS: 1. Continue current management with conservative treatment. 2. Endoscopic evaluation of the GI tract when the patient is more stable clinically. 3. Repeat ammonia level. 4. We will follow up closely with you. Peyman Evans MD
[2018-07-29] MEDS ORDERED: Lactulose 10 gm/15 ml (Rectal Use) PR ONE (16:30)
[2018-07-29 18:07] LABS: BLOOD UREA NITROGEN 7 mg/dL (9-20); CALCIUM 8.2 mg/dl (8.6-10.4); GFR NON-AFRICAN AMERICAN > 60
--- NOTE | 2018-07-29 23:31 | CP.PCM.PN ---
Objective - Vital Signs/Intake and Output Vital Signs (last 24 hours): Temp Pulse Resp BP Pulse Ox 98.5 F 95 H 20 107/65 99 07/29/18 15:00 07/29/18 15:00 07/29/18 15:00 07/29/18 15:00 07/29/18 15:00 Intake and Output: 07/29/18 07/30/18 18:59 06:59 Intake Total 600 Output Total 400 Balance 200 - Medications Medications: Current Medications Folic Acid (Folic Acid) 1 mg PO DAILY [facility] Last Admin: 07/29/18 10:13 Dose: 1 mg Lactulose (Enulose) 20 gm PO Q6H [facility] Last Admin: 07/29/18 19:27 Dose: 20 gm Multivitamins (Hexavitamin) 1 tab PO DAILY [facility] Last Admin: 07/29/18 10:13 Dose: 1 tab Neomycin Sulfate (Neomycin Tab) 500 mg PO Q6H [facility] Last Admin: 07/29/18 18:53 Dose: 500 mg Pantoprazole Sodium (Protonix Ec Tab) 40 mg PO DAILY [facility] Last Admin: 07/29/18 10:13 Dose: 40 mg Quetiapine Fumarate (Seroquel) 25 mg PO DAILY [facility] Last Admin: 07/29/18 10:13 Dose: 25 mg Rifaximin (Xifaxan) 550 mg PO BID [facility]; Protocol Last Admin: 07/29/18 18:52 Dose: 550 mg Sucralfate (Carafate Oral Susp) 1 gm PO ACBHS [facility] Last Admin: 07/29/18 21:57 Dose: 1 gm Thiamine HCl (Vitamin B1 Tab) 100 mg PO DAILY [facility] Last Admin: 07/29/18 10:13 Dose: 100 mg - Labs Labs: 07/27/18 08:50 07/29/18 17:47 PT 17.4 SECONDS (9.7-12.2) H 07/24/18 11:38 INR 1.6 07/24/18 11:38 APTT 35 SECONDS (21-34) H 07/24/18 11:38
[2018-07-30] MEDS: Sucralfate 1 gm/10 ml Oral Susp UD PO SCH (06:30)
[2018-07-30] MEDS: Multiple Vitamins Tab PO SCH (09:32)
[2018-07-30] MEDS: Pantoprazole 40 mg EC Tab PO SCH (09:32)
--- NOTE | 2018-07-30 10:40 | PN ---
DATE: 07/30/2018 LOCATION: 558, bed B. HISTORY OF PRESENT ILLNESS: This is a 42-year-old male, seen and examined early in rounds without significant clinical changes or reported active bleeding. No reported chest pain or palpitation or significant shortness of breath. However, the patient appeared to be still somewhat anxious, restless, and refusing his medication intake. Today's lab results are still pending with the latest lab results showed potassium of 3.5, low BUN and creatinine with low calcium, but still elevated ammonia level to 167, the patient refused his medication intake. PHYSICAL EXAMINATION: GENERAL: A 42-year-old male, afebrile with pulse of 90, respiratory rate 20-22, blood pressure 120/68. HEENT: Showed pale, dry oral mucous membrane. Bilateral icteric sclerae. LUNGS: Few scattered crepitations. Decreased air entry at bases. HEART: Positive S1 and S2. ABDOMEN: Soft with [id number] distention. Bowel sounds are hypoactive. No mass or organomegaly. NEUROLOGIC: No reported new neurological deficits, sensory or motor. The patient has much less to near 0 bilateral hand tremors. IMPRESSION: 1. Alcoholism. 2. Alcoholic liver disease. 3. Hepatic encephalopathy. 4. Known history of hepatitis C viral infection with liver cirrhosis. SUGGESTIONS: 1. Continue current management. 2. Follow up with neurology, psychiatry evaluation. 3. The patient may need lactulose enema if he allows. 4. Repeat ammonia level. 5. Further recommendation to follow. Peyman Evans MD
[2018-07-30 16:08] VITALS: BP 144/86; PULSE 100; RESP 18; TEMP 98.1; O2SAT 100
--- NOTE | 2018-07-30 17:04 | CP.PCM.PN ---
Subjective - Date & Time of Evaluation Date of Evaluation: 07/30/18 Time of Evaluation: 17:04 Objective - Vital Signs/Intake and Output Vital Signs (last 24 hours): Temp Pulse Resp BP Pulse Ox 98.1 F 100 H 18 144/86 100 07/30/18 16:08 07/30/18 16:08 07/30/18 16:08 07/30/18 16:08 07/30/18 16:08 Intake and Output: 07/30/18 07/30/18 06:59 18:59 Intake Total 400 Balance 400 - Medications Medications: Current Medications Folic Acid (Folic Acid) 1 mg PO DAILY [facility] Last Admin: 07/30/18 09:32 Dose: 1 mg Lactulose (Enulose) 20 gm PO Q6H [facility] Last Admin: 07/30/18 11:44 Dose: 20 gm Multivitamins (Hexavitamin) 1 tab PO DAILY [facility] Last Admin: 07/30/18 09:32 Dose: 1 tab Neomycin Sulfate (Neomycin Tab) 500 mg PO Q6H [facility] Last Admin: 07/30/18 11:44 Dose: 500 mg Pantoprazole Sodium (Protonix Ec Tab) 40 mg PO DAILY [facility] Last Admin: 07/30/18 09:32 Dose: 40 mg Quetiapine Fumarate (Seroquel) 25 mg PO DAILY [facility] Last Admin: 07/30/18 09:32 Dose: 25 mg Rifaximin (Xifaxan) 550 mg PO BID [facility]; Protocol Last Admin: 07/30/18 09:32 Dose: 550 mg Sucralfate (Carafate Oral Susp) 1 gm PO ACBHS [facility] Last Admin: 07/30/18 06:30 Dose: 1 gm Thiamine HCl (Vitamin B1 Tab) 100 mg PO DAILY [facility] Last Admin: 07/30/18 09:32 Dose: 100 mg - Labs Labs: 07/27/18 08:50 07/29/18 17:47 PT 17.4 SECONDS (9.7-12.2) H 07/24/18 11:38 INR 1.6 07/24/18 11:38 APTT 35 SECONDS (21-34) H 07/24/18 11:38 Assessment and Plan - Assessment and Plan (Free Text) Assessment: FOLLOW UP WITH DR RODRIGUEZ IN 1-2 WEEK AT HIS OFFICE ---CALL FOR APPOITNEMMT CONTINUE HOME MEDICATION NEW PRESCRIPTION GIVEN BY DR RODRIGUEZ IN THE CHART ACTIVITY TOLERATED CALL DR RODRIGUEZ OR GO TO THE EMERGENCY ROOM IF SYMPTOMS RETURN OR WORSENING
--- NOTE | 2018-07-30 22:06 | CP.PCM.DIS ---
Provider - Provider Date of Admission: 07/19/18 18:56 Attending physician: Edgardo Hutson MD Hospital Course - Lab Results Lab Results: Micro Results 07/22/18 06:20 Naris MRSA Culture - Final MRSA NOT DETECTED 07/20/18 04:36 Nose MRSA Culture (Admit) - Final MRSA NOT DETECTED Most Recent Lab Values WBC 2.7 K/uL (4.8-10.8) L 07/27/18 08:50 RBC 3.70 Mil/uL (4.40-5.90) L 07/27/18 08:50 Hgb 10.4 g/dL (12.0-18.0) L 07/27/18 08:50 Hct 30.3 % (35.0-51.0) L 07/27/18 08:50 MCV 81.8 fL (80.0-94.0) 07/27/18 08:50 MCH 28.1 pg (27.0-31.0) 07/27/18 08:50 MCHC 34.3 g/dL (33.0-37.0) 07/27/18 08:50 RDW 15.6 % (11.5-14.5) H 07/27/18 08:50 Plt Count 173 K/uL (130-400) 07/27/18 08:50 MPV 8.7 fL (7.2-11.7) 07/27/18 08:50 Neut % (Auto) 28.0 % (50.0-75.0) L 07/27/18 08:50 Lymph % (Auto) 33.6 % (20.0-40.0) 07/27/18 08:50 [place] % (Auto) 28.6 % (0.0-10.0) H 07/27/18 08:50 Eos % (Auto) 9.0 % (0.0-4.0) H 07/27/18 08:50 Baso % (Auto) 0.8 % (0.0-2.0) 07/27/18 08:50 Neut # (Auto) 0.7 K/uL (1.8-7.0) L 07/27/18 08:50 Lymph # (Auto) 0.9 K/uL (1.0-4.3) L 07/27/18 08:50 [place] # (Auto) 0.8 K/uL (0.0-0.8) 07/27/18 08:50 Eos # (Auto) 0.2 K/uL (0.0-0.7) 07/27/18 08:50 Baso # (Auto) 0.0 K/uL (0.0-0.2) 07/27/18 08:50 Neutrophils % (Manual) 22 % (50-75) L 07/27/18 08:50 Lymphocytes % (Manual) 42 % (20-40) H 07/27/18 08:50 Monocytes % (Manual) 30 % (0-10) H 07/27/18 08:50 Eosinophils % (Manual) 6 % (0-4) H 07/27/18 08:50 Platelet Estimate Normal (NORMAL) 07/27/18 08:50 Large Platelets Present 07/27/18 08:50 Polychromasia Slight 07/22/18 13:38 Hypochromasia (manual) Slight 07/27/18 08:50 Poikilocytosis (manual Slight 07/27/18 08:50 Anisocytosis (manual) Slight 07/27/18 08:50 Microcytosis (manual) Slight 07/27/18 08:50 Target Cells Slight 07/27/18 08:50 Ovalocytes Slight 07/24/18 11:38 PT 17.4 SECONDS (9.7-12.2) H 07/24/18 11:38 INR 1.6 07/24/18 11:38 APTT 35 SECONDS (21-34) H 07/24/18 11:38 Sodium 140 mmol/L (132-148) 07/29/18 17:47 Potassium 3.5 mmol/L (3.6-5.2) L 07/29/18 17:47 Chloride 112 mmol/L (98-107) H 07/29/18 17:47 Carbon Dioxide 23 mmol/L (22-30) 07/29/18 17:47 Anion Gap 9 (10-20) L 07/29/18 17:47 BUN 7 mg/dL (9-20) L 07/29/18 17:47 Creatinine 0.5 mg/dL (0.8-1.5) L 07/29/18 17:47 Est GFR ( Amer) > 60 07/29/18 17:47 Est GFR (Non-Af Amer) > 60 07/29/18 17:47 POC Glucose (mg/dL) 74 mg/dL (65-110) 07/22/18 15:57 Random Glucose 107 mg/dL (75-110) 07/29/18 17:47 Calcium 8.2 mg/dl (8.6-10.4) L 07/29/18 17:47 Phosphorus 4.0 mg/dL (2.5-4.5) 07/21/18 05:45 Magnesium 1.8 mg/dL (1.6-2.3) 07/21/18 05:45 Total Bilirubin 1.1 mg/dL (0.2-1.3) 07/27/18 08:50 AST 54 U/L (17-59) 07/27/18 08:50 ALT 52 U/L (21-72) 07/27/18 08:50 Alkaline Phosphatase 310 U/L (38-126) H 07/27/18 08:50 Ammonia 94 umol/L (9-33) H D 07/30/18 07:46 Total Protein 5.9 g/dL (6.3-8.3) L 07/27/18 08:50 Albumin 2.5 g/dL (3.5-5.0) L 07/27/18 08:50 Globulin 3.5 gm/dL (2.2-3.9) 07/27/18 08:50 Albumin/Globulin Ratio 0.7 (1.0-2.1) L 07/27/18 08:50 Alpha Fetoprotein 2.5 ng/mL (0.0-7.5) 07/20/18 13:17 Carcinoembryonic Ag 3.7 ng/mL (0-3.0) H 07/20/18 13:17 CA 19-9 Antigen 11.1 U/mL (0-37) 07/20/18 13:17 Urine Opiates Screen Positive (NEGATIVE) H 07/21/18 00:53 Urine Methadone Screen Negative (NEGATIVE) 07/21/18 00:53 Ur Barbiturates Screen Negative (NEGATIVE) 07/21/18 00:53 Ur Phencyclidine Scrn Negative (NEGATIVE) 07/21/18 00:53 Ur Amphetamines Screen Negative (NEGATIVE) 07/21/18 00:53 U Benzodiazepines Scrn Negative (NEGATIVE) 07/21/18 00:53 U Oth Cocaine Metabols Negative (NEGATIVE) 07/21/18 00:53 U Cannabinoids Screen Negative (NEGATIVE) 07/21/18 00:53 Alcohol, Quantitative < 10 mg/dl (0-10) 07/19/18 18:10 Discharge Exam - Head Exam Head Exam: ATRAUMATIC, NORMAL INSPECTION, NORMOCEPHALIC Discharge Plan - Discharge Medications Prescriptions: Sucralfate [Carafate Oral Susp] 1 gm PO ACBHS #120 udc Lactulose [Enulose] 20 gm PO Q6H #16 udc Multivitamins [Hexavitamin] 1 tab PO DAILY 30 Days tab Potassium Chloride 20 meq PO DAILY 4 Days tablet.er Pantoprazole [Protonix EC Tab] 40 mg PO DAILY 30 Days ect QUEtiapine [Seroquel] 25 mg PO DAILY 30 Days tab Thiamine [Vitamin B1 Tab] 100 mg PO DAILY 30 Days tab rifAXIMin [Xifaxan] 550 mg PO BID 30 Days tab - Follow Up Plan Condition: CRITICAL Disposition: HOME/ ROUTINE Instructions: Hepatic Encephalopathy (DC), Subarachnoid Hemorrhage (DC), Subdural Hematoma (DC) Additional Instructions: FOLLOW UP WITH DR HUTSON IN 1-2 WEEK AT HIS OFFICE ---CALL FOR APPOITNEMMT CONTINUE HOME MEDICATION NEW PRESCRIPTION GIVEN BY DR HUTSON IN THE CHART ACTIVITY TOLERATED CALL DR HUTSON OR GO TO THE EMERGENCY ROOM IF SYMPTOMS RETURN OR WORSENING Referrals: Lio Dinero MD [Staff Provider] - Peyman Gonzalez [Staff Provider] - Edgardo Hutson MD [Staff Provider] - Tanner Melton MD [Staff Provider] -
--- NOTE | 2018-08-01 10:26 | DS ---
ADMISSION DIAGNOSES: Subdural hematoma, subarachnoid hemorrhage. DISCHARGE DIAGNOSES: Subdural hematoma, subarachnoid hemorrhage, alcoholic liver disease, and alcoholism. HOSPITAL COURSE: This is a 42-year-old male with a history of alcoholism, alcoholic liver disease, coagulopathy, and cirrhosis of liver with history of prior hospitalizations. The patient came in because he had a fall many days ago. Later on, he was having headache and he came to emergency room. He was admitted. He was found to have subdural hematoma with subarachnoid hemorrhage. He was admitted to ICU. Neurology and neurosurgical consults were done. The patient was given neuro check, fall, seizure precautions. There was no indication for surgical intervention. The patient remained on one-to-one protective watch. He is stable. He is being discharged with outpatient followup. CONDITION UPON DISCHARGE: Stable. PHYSICAL EXAMINATION: VITAL SIGNS: Blood pressure 144/86, pulse 100, respiratory rate 18, temperature 98.1. PLAN: Discharge the patient. Monitor the patient. Edgardo Hutson MD
--- NOTE | 2018-08-02 07:08 | PN ---
DATE: 07/29/2018 SUBJECTIVE: Aurora Min is feeling better. He is for discharge. He is afebrile. PHYSICAL EXAMINATION: VITAL SIGNS: Blood pressure 107/65, pulse 95, respiratory rate 20, temperature 98.5. LUNGS: Clear. CARDIOVASCULAR SYSTEM: S1 and S2, regular. ABDOMEN: Soft. ASSESSMENT: 1. Cirrhosis of liver. 2. Subdural hematoma with subarachnoid hemorrhage. 3. Alcoholism. PLAN: Discharge the patient in a.m. Edgardo Hutson MD
== END 2018-07-30 19:43 | disposition home or self-care (01) | DRG 761 ==
LOC: C.ER 16:34 → C.9E 18:56 → C.9I 20:29 → C.5S 07-22 05:25
PROVIDERS: ADMIT Internal Medicine; ATTEND Internal Medicine
DX: S06.5X9A Traumatic subdural hemorrhage with loss of consciousness of unspecified duration, initial encounter (principal); K70.30 Alcoholic cirrhosis of liver without ascites; E46 Unspecified protein-calorie malnutrition; D68.4 Acquired coagulation factor deficiency; N18.9 Chronic kidney disease, unspecified; B19.20 Unspecified viral hepatitis C without hepatic coma; W01.0XXA Fall on same level from slipping, tripping and stumbling without subsequent striking against object, initial encounter; Z51.5 Encounter for palliative care; Z91.19 Patient's noncompliance with other medical treatment and regimen; I12.9 Hypertensive chronic kidney disease with stage 1 through stage 4 chronic kidney disease, or unspecified chronic kidney disease; F17.210 Nicotine dependence, cigarettes, uncomplicated; F10.229 Alcohol dependence with intoxication, unspecified; F32.9 Major depressive disorder, single episode, unspecified; D73.1 Hypersplenism; D63.8 Anemia in other chronic diseases classified elsewhere

== ENCOUNTER 2019-03-18 02:20 | Emergency (ER) | payer MEDICAID, OTHER ==
[2019-03-18 02:20] VITALS: BMI 25.0
--- NOTE | 2019-03-18 02:49 | C.PDOC ---
History Of Present Illness 43 y/o male is brought in by ambulance after police responded to a call. As per EMS, when police came to the house, it was uninhabitable and infested with roaches. Patient has history of alcohol abuse but has been sober for 2 years. Also had a psychiatric history any history of hepatic encephalopathy. Patient has no complaints at this time. He called while in room, is unsure why police came to the house. Patient also complains of bilateral leg pain without injuries. Denies fever, nausea, vomiting, or chest pain. Has history of brain bleed in the past upon review of previous charts. Denies headache or head injury or LOC Denies SI/HI/VH or AH. Time Seen by Provider: 03/18/19 02:42 Chief Complaint (Nursing): Medical Clearance History Per: Patient History/Exam Limitations: no limitations Onset/Duration Of Symptoms: Hrs Current Symptoms Are (Timing): Still Present Past Medical History Reviewed: Historical Data, Nursing Documentation, Vital Signs Vital Signs: Last Vital Signs Temp 98.5 F 03/18/19 02:29 Pulse 104 H 03/18/19 02:29 Resp 16 03/18/19 02:29 BP 152/96 H 03/18/19 02:29 Pulse Ox 100 03/18/19 02:29 Primary Care Provider: FAMILY PROVIDER,NO - Medical History PMH: Hepatitis (C), HTN, Kidney Stones (burning with urination), Chronic Kidney Disease - [facility] Procedures CLOSURE SKIN & SUBCUTANEOUS NEC (06/19/15) DETOXIFICATION SERVICES FOR SUBSTANCE ABUSE TREATMENT (09/13/17) DRAINAGE OF SPINAL CANAL, PERCUTANEOUS APPROACH, DIAGNOSTIC (03/30/16) EXCISION OF STOMACH, ENDO, DIAGN (09/12/16) INDIV PSYCHOTHERAPY FOR SUBSTANCE ABUSE TREATMENT, SUPPORT (09/13/17) INDIV PSYCHOTHERAPY FOR SUBSTANCE ABUSE, PSYCHOEDUCATION (09/13/17) TETANUS TOXOID ADMINIST (06/19/15) Family History: States: No Known Family Hx - Social History Hx Tobacco Use: Yes Hx Alcohol Use: Yes Hx Substance Use: No - Immunization History Hx Tetanus Toxoid Vaccination: No Hx Influenza Vaccination: No Hx Pneumococcal Vaccination: No Review Of Systems Except As Marked, All Systems Reviewed And Found Negative. Constitutional: Negative for: Fever, Chills Cardiovascular: Negative for: Chest Pain, Palpitations Respiratory: Negative for: Cough, Shortness of Breath Gastrointestinal: Negative for: Nausea, Vomiting, Abdominal Pain Musculoskeletal: Positive for: Other (bilateral leg pain) Neurological: Negative for: Weakness, Numbness Physical Exam - Physical Exam Appears: Non-toxic, No Acute Distress, Other (bizarre) Skin: Warm, Dry Head: Atraumatic, Normacephalic Eye(s): bilateral: Normal Inspection Oral Mucosa: Moist Neck: Normal, Supple Chest: Symmetrical Cardiovascular: Rhythm Regular Respiratory: Normal Breath Sounds, No Rales, No Rhonchi, No Wheezing Gastrointestinal/Abdominal: Soft, No Tenderness Extremity: No Deformity Extremity: Bilateral: Atraumatic, Normal Color And Temperature, Normal ROM Neurological/Psych: Oriented x3, Other (Slurred speech) ED Course And Treatment O2 Sat by Pulse Oximetry: 100 (RA) Pulse Ox Interpretation: Normal Medical Decision Making Medical Decision Making: POS glucose and alcohol level wnl. Previous visits reviewed, patient has hx of mumbled speech from at least 2018. Patient does not display an withdrawal symptoms. Patient adamantly refuses any recent ETOH use. Patient has no physical complaints and requests to go home. Does not display an issues with dange rousness to himself or others. Spoke with who concurs she does not know why patient was brought to the ED. States they were sleeping at home when the police showed up at their home. Advised to follow-up with PMD. Disposition Counseled Patient/Family Regarding: Studies Performed, Diagnosis, Need For Followup - Disposition Referrals: FAMILY PROVIDER,NO [Family Provider] - Disposition: HOME/ ROUTINE Disposition Time: 04:00 Condition: GOOD Additional Instructions: Follow-up with your PMD. Return if symptoms worsen or persist. Forms: [facility] (Slovenian), General Discharge Instructions Print Language: GREENLANDIC - Clinical Impression Clinical Impression: Encounter for medical assessment - PA / QUALITY CHECKER / Resident Statement MD/DO has reviewed & agrees with the documentation as recorded. - Scribe Statement The provider has reviewed the documentation as recorded by the Cristinibe Tayler Garibay All medical record entries made by the Scribe were at my direction and personally dictated by me. I have reviewed the chart and agree that the record accurately reflects my personal performance of the history, physical exam, medical decision making, and the department course for this patient. I have also personally directed, reviewed, and agree with the discharge instructions and disposition.
[2019-03-18 04:58] VITALS: BP 140/90; PULSE 70; RESP 14; TEMP 98; O2SAT 96
== END 2019-03-18 04:58 | disposition home or self-care (01) ==
LOC: C.ER 02:20
DX: Z00.00 Encounter for general adult medical examination without abnormal findings (principal)